=== PATIENT | male | born 1940 | race Two or more races ===

== ENCOUNTER 2018-09-30 20:49 | Inpatient (IN) | payer MEDICAID, OTHER ==
[~2018-09-30] VITALS: Ht 175.3 cm; Wt 88.1 kg
[2018-09-30] MEDS ORDERED: NALOXONE HCL 0.4 MG/ML AMPUL ONE (21:10)
[2018-09-30 21:24] LABS: BASOPHILS % (AUTO) 0.3 % (0.0-2.0); EOSINOPHILS % (AUTO) 3.6 % (0.0-6.0); HEMATOCRIT 41 % (39-51); HEMOGLOBIN 13.3 g/dL (13.5-17.5); LYMPHOCYTES # (AUTO) 1.3 /CMM (0.8-4.8); LYMPHOCYTES % (AUTO) 21.3 % (20.0-44.0); MEAN CORPUSCULAR HGB CONC 32 g/dl (31.0-36.0); MEAN CORPUSCULAR VOLUME 92 fL (80-96); MONOCYTES # (AUTO) 0.5 /CMM (0.1-1.30); MONOCYTES % (AUTO) 7.9 % (2.0-12.0); NEUTROPHILS # (AUTO) 4.1 /CMM (1.8-8.9); NEUTROPHILS % (AUTO) 66.9 % (43.0-81.0); PLATELET COUNT (AUTO) 104 /CMM (150-450); WHITE BLOOD COUNT (AUTO) 6.2 K/uL (4.3-11.0)
[2018-09-30] MEDS ORDERED: OMEP20TA5 PO (21:26)
[2018-09-30] MEDS ORDERED: FAMO20TA8 PO (21:26)
[2018-09-30] MEDS ORDERED: OLAN20TA3 PO (21:26)
[2018-09-30] MEDS ORDERED: ALFU10TA10 PO (21:26)
[2018-09-30] MEDS ORDERED: POTA10CA43 PO (21:26)
[2018-09-30] MEDS ORDERED: METO-356 PO (21:26)
[2018-09-30] MEDS ORDERED: DICL50TA9 PO (21:26)
[2018-09-30] MEDS ORDERED: BENZ2TAB7 PO (21:26)
[2018-09-30] MEDS ORDERED: DIVA-78 PO (21:26)
[2018-09-30] MEDS ORDERED: RISP3TAB14 PO (21:26)
[2018-09-30] MEDS ORDERED: ZOLP5TAB8 PO (21:26)
[2018-09-30] MEDS ORDERED: FURO20TA4 PO (21:26)
[2018-09-30] MEDS ORDERED: TAMS0.4C34 PO (21:26)
[2018-09-30] MEDS ORDERED: DOCU250C88 PO (21:26)
[2018-09-30] MEDS ORDERED: ESCI10TA PO (21:26)
[2018-09-30] MEDS ORDERED: IV NS 0.9% 1,000 ML BAG IV ONE (21:30)
[2018-09-30] MEDS ORDERED: NALOXONE HCL 0.4 MG/ML AMPUL IV ONE (21:30)
[2018-09-30 21:36] LABS: APPEARANCE,URINE Clear (CLEAR); BILIRUBIN,URINE Negative (NEGATIVE); BLOOD, URINE Negative Ery/uL (NEGATIVE); COLOR,URINE Yellow (YELLOW); KETONES,URINE Trace (NEGATIVE); LEUKOCYTE ESTERASE ,URINE Negative (NEGATIVE); NITRITE, URINE Negative (NEGATIVE); PH,URINE 5.5 (5.0-8.0); PROTEIN,URINE Negative (NEGATIVE); UGLUCOSE Negative (NEGATIVE); UROBILINOGEN,URINE 0.2 EU/dL (0.2)
[2018-09-30 21:40] LABS: ALANINE AMINOTRANSFERASE 14 U/L (12-78); ALBUMIN 3.1 g/dL (3.4-5.0); ALKALINE PHOSPHATASE 78 U/L (46-116); ASPARTATE AMINOTRANSFERASE 13 U/L (15-37); BILIRUBIN,DIRECT 0.1 mg/dL (0.0-0.2); BILIRUBIN,TOTAL 0.3 mg/dL (0.2-1.0); CALCIUM, SERUM 8.2 mg/dL (8.5-10.1); CARBON DIOXIDE 30 mmol/L (21-32); CHLORIDE 105 mmol/L (98-107); CREATININE 1.3 mg/dL (0.6-1.3); GLUCOSE 150 mg/dL (74-106); POTASSIUM 4.9 mmol/L (3.5-5.1); SODIUM SERUM 139 mmol/L (136-145); TOTAL PROTEIN, SERUM 7.1 g/dL (6.4-8.2); UREA NITROGEN, BLOOD 29 mg/dL (7-18)
[2018-09-30 21:57] LABS: BACTERIA,URINE None seen /HPF (None Seen); RBC,URINE 0-2 /HPF (0-2); SQUAMOUS EPITHELIAL CELL,UR Few /HPF (None Seen); WBC,URINE 0-2 /HPF (0-3)
[2018-10-01] MEDS ORDERED: IV NS 0.9% 1,000 ML BAG IV ONE
[2018-10-01] MEDS ORDERED: Z GUARD REMEDY 2 OZ OINT TP PRN (01:30)
[2018-10-01] MEDS ORDERED: MAG HYDROX/AL HYDROX/SIMETH 30 ML UDC PO PRN (01:30)
[2018-10-01] MEDS ORDERED: ONDANSETRON HCL/PF 4 MG/2 ML VIAL IVP PRN (01:30)
[2018-10-01] MEDS ORDERED: HYDROCODONE/APAP 5/325MG 1 EACH TABLET PO PRN (01:30)
[2018-10-01] MEDS ORDERED: MAGNESIUM HYDROXIDE 30 ML UDC PO PRN (01:30)
[2018-10-01] MEDS ORDERED: ACETAMINOPHEN 325 MG TABLET PO PRN (01:30)
[2018-10-01] MEDS ORDERED: ZOLPIDEM TARTRATE 5 MG TABLET PO PRN (01:30)
[2018-10-01 03:20] VITALS: BP 119/82
[2018-10-01] MEDS: IV NS 0.9% 1,000 ML IV PRN ×2 (04:00→19:24)
[2018-10-01 08:00] VITALS: BP 112/56
[2018-10-01 16:00] VITALS: BP 115/65
[2018-10-01 20:44] VITALS: BP 113/67
[2018-10-02 06:47] LABS: BASOPHILS % (AUTO) 0.4 % (0.0-2.0); EOSINOPHILS % (AUTO) 3.3 % (0.0-6.0); HEMATOCRIT 38 % (39-51); HEMOGLOBIN 12.5 g/dL (13.5-17.5); LYMPHOCYTES # (AUTO) 1.2 /CMM (0.8-4.8); LYMPHOCYTES % (AUTO) 24.7 % (20.0-44.0); MEAN CORPUSCULAR HGB CONC 33 g/dl (31.0-36.0); MEAN CORPUSCULAR VOLUME 91 fL (80-96); MONOCYTES # (AUTO) 0.5 /CMM (0.1-1.30); MONOCYTES % (AUTO) 10.8 % (2.0-12.0); NEUTROPHILS % (AUTO) 60.8 % (43.0-81.0); PLATELET COUNT (AUTO) 94 /CMM (150-450); RED BLOOD CELL COUNT(AUTO) 4.17 MIL/uL (4.5-6.0)
[2018-10-02 07:12] LABS: ALANINE AMINOTRANSFERASE 13 U/L (12-78); ALBUMIN 2.7 g/dL (3.4-5.0); ALKALINE PHOSPHATASE 72 U/L (46-116); ASPARTATE AMINOTRANSFERASE 14 U/L (15-37); BILIRUBIN,TOTAL 0.4 mg/dL (0.2-1.0); CALCIUM, SERUM 8.6 mg/dL (8.5-10.1); CARBON DIOXIDE 28 mmol/L (21-32); CHLORIDE 107 mmol/L (98-107); CREATININE 0.9 mg/dL (0.6-1.3); GLUCOSE 142 mg/dL (74-106); MAGNESIUM 1.7 mg/dL (1.8-2.4); POTASSIUM 4.7 mmol/L (3.5-5.1); SODIUM SERUM 141 mmol/L (136-145); TOTAL PROTEIN, SERUM 6.2 g/dL (6.4-8.2); UREA NITROGEN, BLOOD 16 mg/dL (7-18)
[2018-10-02 07:14] LABS: CHOLESTEROL 122 mg/dL (<200); HDL CHOLESTEROL 42 mg/dL (40-60); LDL 66 mg/dL (0-99); THYROID STIMULATING HORMONE 3.172 uIU/mL (0.358-3.74); TRIGLYCERIDES 114 mg/dL (30-150)
[2018-10-02 07:43] LABS: EOSINOPHILS % (MANUAL) 4 % (0-4); LYMPHOCYTES % (MANUAL) 20 % (16-48); MONOCYTES % (MANUAL) 11 % (0-11.0); NEUTROPHILS % (MANUAL) 65 (42-76)
[2018-10-02 08:00] VITALS: BP 123/63
[2018-10-02] MEDS: IV NS 0.9% 1,000 ML IV PRN (09:14)
[2018-10-02] MEDS ORDERED: MAGNESIUM OXIDE 400 MG TABLET PO ONE (10:00)
== END 2018-10-02 13:25 | DRG 469 ==
LOC: ER 20:50 → TELE 10-01 00:52 → MED 10-01 12:39
PROVIDERS: ADMIT Nurse Practitioner Acute Care; ATTEND Internal Medicine
DX: N17.0 Acute kidney failure with tubular necrosis (principal); G93.41 Metabolic encephalopathy; E44.0 Moderate protein-calorie malnutrition; E88.09 Other disorders of plasma-protein metabolism, not elsewhere classified; F03.90 Unspecified dementia, unspecified severity, without behavioral disturbance, psychotic disturbance, mood disturbance, and anxiety; I10 Essential (primary) hypertension; F32.9 Major depressive disorder, single episode, unspecified; F29 Unspecified psychosis not due to a substance or known physiological condition; M19.90 Unspecified osteoarthritis, unspecified site; M62.50 Muscle wasting and atrophy, not elsewhere classified, unspecified site; Z68.28 Body mass index [BMI] 28.0-28.9, adult
CPT/HCPCS: 36415; 70450-TC; 71045-TC; 80048-TC; 80053-TC; 80061-TC; 80076-TC; 80305; 81000-TC; 82962-TC; 83605-TC; 83735-TC; 84100-TC; 84443-TC; 84484-TC; 85025-TC; 87040-TC; 87081-TC; 87086-TC; 92611-TC; 93307-TC; 97110-TC; 97116-TC; 97530-TC; G0378; J2310; J7030

== ENCOUNTER 2019-09-18 22:28 | Emergency (ER) | payer MEDICAID ==
[~2019-09-18] VITALS: Ht 170.2 cm; Wt 75.3 kg
[~2019-09-18 22:28] MED LIST: ALFU10TA10 PO; BENZ2TAB7 PO; DICL50TA9 PO; DIVA-78 PO; DOCU250C88 PO; ESCI10TA PO; FAMO20TA8 PO; FURO20TA4 PO; METO25TA4 PO; OLAN20TA3 PO; OMEP20TA5 PO; POTA10CA43 PO; RISP3TAB14 PO; TAMS0.4C34 PO; ZOLP5TAB8 PO
--- NOTE | 2019-09-18 22:38 | NUR ---
PT BIBRA C/O DIZZINESS. -SOB NOTED. -ACUTE DISTRESS. PT AOX2. NAD NOTED. RESP EVEN AND UNLABORED. PT ON MONITOR IN BED 1. WILL CONTINUE TO MONITOR.
[2019-09-18 22:59] LABS: BASOPHILS % (AUTO) 0.6 % (0.0-2.0); EOSINOPHILS % (AUTO) 5.3 % (0.0-6.0); HEMATOCRIT 39 % (39-51); HEMOGLOBIN 12.7 g/dL (13.5-17.5); LYMPHOCYTES # (AUTO) 1.8 /CMM (0.8-4.8); LYMPHOCYTES % (AUTO) 37.8 % (20.0-44.0); MEAN CORPUSCULAR HGB CONC 33 g/dl (31.0-36.0); MEAN CORPUSCULAR VOLUME 93 fL (80-96); MONOCYTES # (AUTO) 0.4 /CMM (0.1-1.30); MONOCYTES % (AUTO) 8.7 % (2.0-12.0); NEUTROPHILS # (AUTO) 2.3 /CMM (1.8-8.9); NEUTROPHILS % (AUTO) 47.6 % (43.0-81.0); PLATELET COUNT (AUTO) 113 /CMM (150-450); WHITE BLOOD COUNT (AUTO) 4.8 K/uL (4.3-11.0)
[2019-09-18] MEDS ORDERED: IV NS 0.9% 500 ML BAG IV ONE (23:00)
[2019-09-18 23:08] LABS: CALCIUM, SERUM 8.6 mg/dL (8.5-10.1); CARBON DIOXIDE 31 mmol/L (21-32); CHLORIDE 104 mmol/L (98-107); CREATININE 1.5 mg/dL (0.6-1.3); GLUCOSE 107 mg/dL (74-106); POTASSIUM 4.8 mmol/L (3.5-5.1); SODIUM SERUM 140 mmol/L (136-145); UREA NITROGEN, BLOOD 46 mg/dL (7-18)
--- NOTE | 2019-09-18 23:09 | NUR ---
BLOOD DRAWN AND GIVEN TO PHLEB
--- NOTE | 2019-09-18 23:11 | NUR ---
BG 102. MD AWARE.
[2019-09-18 23:20] LABS: ALANINE AMINOTRANSFERASE 16 U/L (12-78); ALBUMIN 3.2 g/dL (3.4-5.0); ALKALINE PHOSPHATASE 70 U/L (46-116); ASPARTATE AMINOTRANSFERASE 12 U/L (15-37); B-TYPE NATRIURETIC PEPTIDE 114 PG/ML (0-125); BILIRUBIN,DIRECT 0.1 mg/dL (0.0-0.2); BILIRUBIN,TOTAL 0.3 mg/dL (0.2-1.0); TOTAL PROTEIN, SERUM 6.9 g/dL (6.4-8.2)
--- NOTE | 2019-09-18 23:47 | NUR ---
PT TAKEN TO RADIOLOGY VIA [facility]
--- NOTE | 2019-09-18 23:59 | NUR ---
PT RETURNED FROM RADIOLOGY VIA [facility]
[2019-09-19 01:49] VITALS: BP 127/60
--- NOTE | 2019-09-19 01:50 | NUR ---
Patient is resting comfortably in bed with eyes closed. Easily aroused. VSS.
--- NOTE | 2019-09-19 02:13 | NUR ---
[facility] BED 209-B. LORRAINE BOOTHE WILL TAKE REPORT AT [phone]. WILL CALL BACK FOR ETA.
--- NOTE | 2019-09-19 02:31 | NUR ---
ETA 45 MIN
--- NOTE | 2019-09-19 02:38 | NUR ---
REPORT GIVEN TO LORRAINE BOOTHE FOR YESSI AT [facility]
--- NOTE | 2019-09-19 03:00 | NUR ---
REPORT GIVEN TO TRANSPORT AMBULANCE
== END 2019-09-19 03:02 | disposition short-term general hospital (02) ==
LOC: ER 22:28
DX: R41.82 Altered mental status, unspecified (principal); F03.90 Unspecified dementia, unspecified severity, without behavioral disturbance, psychotic disturbance, mood disturbance, and anxiety; I10 Essential (primary) hypertension; M19.90 Unspecified osteoarthritis, unspecified site; Z79.899 Other long term (current) drug therapy
CPT/HCPCS: 36415; 70450; 71045; 80048; 80076; 82962; 83880; 84484; 85025; 85730; 93005 ×2; 96360; 99285; J7040

== ENCOUNTER 2019-11-28 16:41 | Emergency (ER) | payer MEDICAID ==
[~2019-11-28] VITALS: Ht 167.6 cm; Wt 86.2 kg
--- NOTE | 2019-11-28 16:55 | NUR ---
MANOJ SHAHID FROM [facility] C/O R FOOT SWELLING FOR 5 DAYS, PT IS AAOX3 COLOMBIAN SPEAKING ONLY, NOT IN RESPIRATORY DISTRESS, HOOKED TO SHOELACE TIPPING MACHINE OPERATOR, KEPT RESTED AND COMFORTABLE.
--- NOTE | 2019-11-28 17:12 | NUR ---
AT BEDSIDE FOR EVAL.
--- NOTE | 2019-11-28 17:23 | NUR ---
REPORT GIVEN TO GABE PETERS FOR YESSI
[2019-11-28] MEDS ORDERED: MUPIROCIN OINT 2% 22 GM TUBE TP ONE (17:30)
--- NOTE | 2019-11-28 18:25 | NUR ---
CALLED [facility], STATES WILL CALL BACK WITH ETA FOR BLS TRANSPORT TO [facility]
--- NOTE | 2019-11-28 18:27 | NUR ---
ETA [phone] [facility]
--- NOTE | 2019-11-28 19:14 | NUR ---
received report from day nurse ehsan pt awaiting ambulance
--- NOTE | 2019-11-28 21:00 | NUR ---
CALLED [facility] FOR UPDATE ON TRANSPORTATION. PER [facility] BAR CATCHER, CREW DELAYED 1 HOUR
--- NOTE | 2019-11-28 23:10 | NUR ---
[facility]. ETA 1 HR
--- NOTE | 2019-11-28 23:51 | NUR ---
AMBULANCE HERE FOR BOX OFFICE MANAGER REPORT GIVEN
--- NOTE | 2019-11-28 23:54 | NUR ---
Patient discharged to facility in stable condition. Written and verbal after care instructions given. Patient verbalizes understanding of instruction.
[2019-11-29 00:04] VITALS: BP 119/77
== END 2019-11-29 00:04 ==
LOC: ER 16:54
DX: S90.811A Abrasion, right foot, initial encounter (principal); F03.90 Unspecified dementia, unspecified severity, without behavioral disturbance, psychotic disturbance, mood disturbance, and anxiety; I10 Essential (primary) hypertension; K21.9 Gastro-esophageal reflux disease without esophagitis; Z79.899 Other long term (current) drug therapy; X58.XXXA Exposure to other specified factors, initial encounter; Y93.89 Activity, other specified; Y92.89 Other specified places as the place of occurrence of the external cause; Y99.8 Other external cause status
CPT/HCPCS: 99283; A6403

== ENCOUNTER 2020-01-01 23:44 | Emergency (ER) | payer MEDICAID ==
[~2020-01-01] VITALS: Ht 167.6 cm; Wt 86.2 kg
--- NOTE | 2020-01-01 23:44 | NUR ---
BIBEMS C/O MORE ALTERED THAN NORMAL. PIN POINT PUPILS PER EMS REPORT. GIVEN 4MG NARCAN IVP GIVEN BELT LOOP MACHINE OPERATOR. POSSILBE OD PER EMS REPORT. NOTED ABRASION TO R SIDE OF FOREHEAD. PLACE PT ON CARDIAC MONITORING, CONTINUOUS POX. O2@4L/NC. ER MD AT BEDSIDE TO EVAL PT WITH ORDERS RECEIVED. WILL CARRY OUT ORDERS.
--- NOTE | 2020-01-02 00:04 | NUR ---
DIRECTOR TELECOMMUNICATIONS AT [facility] FOR BLOOD DRAW.
[2020-01-02] MEDS ORDERED: NALOXONE PREFILLED SYRINGE 2 MG/2 ML SYRINGE ONE (00:05)
[2020-01-02] MEDS ORDERED: ONDANSETRON HCL/PF 4 MG/2 ML VIAL ONE (00:06)
--- NOTE | 2020-01-02 00:11 | NUR ---
PT MEDICATED ORDERED.
[2020-01-02 00:22] LABS: BASOPHILS % (AUTO) 0.8 % (0.0-2.0); EOSINOPHILS % (AUTO) 0.3 % (0.0-6.0); HEMATOCRIT 36 % (39-51); HEMOGLOBIN 11.5 g/dL (13.5-17.5); LYMPHOCYTES # (AUTO) 1.1 /CMM (0.8-4.8); LYMPHOCYTES % (AUTO) 21.8 % (20.0-44.0); MEAN CORPUSCULAR HGB CONC 32 g/dl (31.0-36.0); MEAN CORPUSCULAR VOLUME 89 fL (80-96); MONOCYTES # (AUTO) 0.6 /CMM (0.1-1.30); MONOCYTES % (AUTO) 11.5 % (2.0-12.0); NEUTROPHILS # (AUTO) 3.3 /CMM (1.8-8.9); NEUTROPHILS % (AUTO) 65.6 % (43.0-81.0); PLATELET COUNT (AUTO) 96 /CMM (150-450); RED BLOOD CELL COUNT(AUTO) 3.99 MIL/uL (4.5-6.0)
[2020-01-02 00:25] LABS: CALCIUM, SERUM 8.4 mg/dL (8.5-10.1); CARBON DIOXIDE 28 mmol/L (21-32); CHLORIDE 102 mmol/L (98-107); CREATININE 1.6 mg/dL (0.6-1.3); GLUCOSE 179 mg/dL (74-106); POTASSIUM 3.4 mmol/L (3.5-5.1); SODIUM SERUM 137 mmol/L (136-145); UREA NITROGEN, BLOOD 46 mg/dL (7-18)
[2020-01-02] MEDS ORDERED: ONDANSETRON HCL/PF 4 MG/2 ML VIAL IV ONE (00:30)
[2020-01-02] MEDS ORDERED: NALOXONE PREFILLED SYRINGE 2 MG/2 ML SYRINGE IV ONE (00:30)
[2020-01-02 00:31] LABS: ALANINE AMINOTRANSFERASE 6 U/L (12-78); ALBUMIN 2.1 g/dL (3.4-5.0); ALCOHOL, BLOOD < 3 mg/dL (0-0); ALKALINE PHOSPHATASE 62 U/L (46-116); ASPARTATE AMINOTRANSFERASE 15 U/L (15-37); BILIRUBIN,DIRECT 0.1 mg/dL (0.0-0.2); BILIRUBIN,TOTAL 0.3 mg/dL (0.2-1.0); SALICYLATE 1.4 mg/dL (2.8-20.0); TOTAL PROTEIN, SERUM 8.8 g/dL (6.4-8.2)
--- NOTE | 2020-01-02 00:48 | NUR ---
URINE COLLECTED AND SENT TO LAB
[2020-01-02 00:56] LABS: APPEARANCE,URINE Clear (CLEAR); BILIRUBIN,URINE Negative (NEGATIVE); BLOOD, URINE Moderate Ery/uL (NEGATIVE); COLOR,URINE Yellow (YELLOW); KETONES,URINE Negative (NEGATIVE); LEUKOCYTE ESTERASE ,URINE Negative (NEGATIVE); NITRITE, URINE Negative (NEGATIVE); PROTEIN,URINE Negative (NEGATIVE); UGLUCOSE Negative (NEGATIVE)
[2020-01-02 01:06] LABS: BACTERIA,URINE Few /HPF (None Seen); SQUAMOUS EPITHELIAL CELL,UR Rare /HPF (None Seen)
[2020-01-02 01:12] LABS: LYMPHOCYTES % (MANUAL) 18 % (16-48); MONOCYTES % (MANUAL) 7 % (0-11.0); NEUTROPHILS % (MANUAL) 75 (42-76)
--- NOTE | 2020-01-02 03:10 | NUR ---
DR WINTERS AT BEDSIDE
--- NOTE | 2020-01-02 03:11 | NUR ---
PT RESTING COMFORTABLY. SLOWLY RESPONDING TO MECHANICAL STIMULUS. MARGUERITE CUTE DISTRESS NOTED AT THIS TIME. VSS
--- NOTE | 2020-01-02 05:37 | NUR ---
PT RESTING COMFORTABLY. SLOWLY RESPONDING TO MECHANICAL STIMULUS. MARGUERITE CUTE DISTRESS NOTED AT THIS TIME. VSS
--- NOTE | 2020-01-02 07:19 | NUR ---
REPORT GIVEN TO JIMBO HAYNES
--- NOTE | 2020-01-02 07:21 | NUR ---
called transport eta 0815 per reagan
--- NOTE | 2020-01-02 07:36 | NUR ---
Per report from previous RN patient is Dc and going Back to [facility] reportgiven to Facility
--- NOTE | 2020-01-02 07:49 | NUR ---
Patient asleep but arousable vitals taken and filed
[2020-01-02 08:25] VITALS: BP 121/78
--- NOTE | 2020-01-02 08:26 | NUR ---
Patient awake alert to name only [facility] to trasfer patient to facility
[2020-02-11] MEDS ORDERED: AMOX-430 PO (09:25)
== END 2020-01-02 08:26 ==
LOC: ER 23:46
DX: T40.691A Poisoning by other narcotics, accidental (unintentional), initial encounter (principal); R41.82 Altered mental status, unspecified; F03.90 Unspecified dementia, unspecified severity, without behavioral disturbance, psychotic disturbance, mood disturbance, and anxiety; I10 Essential (primary) hypertension; F29 Unspecified psychosis not due to a substance or known physiological condition; K21.9 Gastro-esophageal reflux disease without esophagitis; F32.9 Major depressive disorder, single episode, unspecified; F20.0 Paranoid schizophrenia; Z79.899 Other long term (current) drug therapy; Y92.89 Other specified places as the place of occurrence of the external cause
CPT/HCPCS: 36415; 70450; 71045; 80048; 80076; 80305; 80307; 80329; 81001; 82962; 84484; 85025; 85730; 93005; 96374; 96375; 99285; G0480; J2310; J2405; 81000-TC

== ENCOUNTER 2020-01-02 18:59 | Emergency (ER) | payer MEDICAID ==
[~2020-01-02] VITALS: Ht 167.6 cm; Wt 65.8 kg
--- NOTE | 2020-01-02 19:15 | NUR ---
sent by from SNF for GLF and bilateral hip x-ray, PT AWAKE, ALERT, -SOB, NAD NOTED, VSS, PENDING MD ELLIS
--- NOTE | 2020-01-02 20:55 | NUR ---
[facility] ETA [phone]
[2020-01-02 21:00] VITALS: BP 130/75
--- NOTE | 2020-01-02 21:47 | NUR ---
PT TRANSPORTED BACK TO [facility]; PT IN STABLE CONDITION, VSS, TRANSPORTED VIA [facility] AM[facility]ANCE.
== END 2020-01-02 22:12 ==
LOC: ER 19:06
DX: M25.551 Pain in right hip (principal); M25.552 Pain in left hip; F03.90 Unspecified dementia, unspecified severity, without behavioral disturbance, psychotic disturbance, mood disturbance, and anxiety; I10 Essential (primary) hypertension; K21.9 Gastro-esophageal reflux disease without esophagitis; F32.9 Major depressive disorder, single episode, unspecified; N40.0 Benign prostatic hyperplasia without lower urinary tract symptoms; F20.9 Schizophrenia, unspecified; Z79.899 Other long term (current) drug therapy
CPT/HCPCS: 73502

== ENCOUNTER 2020-01-29 13:06 | Inpatient (IN) | payer MEDICAID ==
[~2020-01-29] VITALS: Ht 177.8 cm; Wt 76.2 kg
--- NOTE | 2020-01-29 13:09 | NUR ---
PT BIBRA FROM SNF C/O FEVER, SOB AND O2 DESATURATION, PT IS AAOX1, NOT IN RESPIRATORY DISTRESS, HOOKED TO ROOF FITTER AND O2 AT 5LPM VIA NC, KEPT RESTED AND COMFORTABLE, WILL CONTINUE TO MONITOR.
--- NOTE | 2020-01-29 13:20 | NUR ---
IV LINE ESTABLISHED BLOOD DRAWN AND SENT TO LAB.
--- NOTE | 2020-01-29 13:25 | NUR ---
URINE SPECIMEN COLLECTED AND SENT TO LAB.
--- NOTE | 2020-01-29 13:40 | NUR ---
AT BEDSIDE FOR EVAL.
[2020-01-29 14:02] LABS: BASOPHILS % (AUTO) 0.3 % (0.0-2.0); HEMATOCRIT 32 % (39-51); HEMOGLOBIN 10.4 g/dL (13.5-17.5); LYMPHOCYTES # (AUTO) 1.2 /CMM (0.8-4.8); LYMPHOCYTES % (AUTO) 38.3 % (20.0-44.0); MEAN CORPUSCULAR HGB CONC 32 g/dl (31.0-36.0); MEAN CORPUSCULAR VOLUME 87 fL (80-96); MONOCYTES # (AUTO) 0.2 /CMM (0.1-1.30); MONOCYTES % (AUTO) 5.6 % (2.0-12.0); NEUTROPHILS # (AUTO) 1.7 /CMM (1.8-8.9); NEUTROPHILS % (AUTO) 55.8 % (43.0-81.0); PLATELET COUNT (AUTO) 118 /CMM (150-450); RED BLOOD CELL COUNT(AUTO) 3.72 MIL/uL (4.5-6.0); WHITE BLOOD COUNT (AUTO) 3.1 K/uL (4.3-11.0)
--- NOTE | 2020-01-29 14:11 | NUR ---
CALLED NURSING SUP FOR TELE.
[2020-01-29 14:12] LABS: CALCIUM, SERUM 7.9 mg/dL (8.5-10.1); POTASSIUM 3.1 mmol/L (3.5-5.1)
--- NOTE | 2020-01-29 14:14 | NUR ---
ROOM GIVEN 120-1
[2020-01-29 14:17] LABS: ALBUMIN 1.5 g/dL (3.4-5.0); BILIRUBIN,DIRECT 0.1 mg/dL (0.0-0.2); BILIRUBIN,TOTAL 0.3 mg/dL (0.2-1.0); TOTAL PROTEIN, SERUM 7.7 g/dL (6.4-8.2)
--- NOTE | 2020-01-29 14:21 | NUR ---
[facility], [facility] [phone]
--- NOTE | 2020-01-29 14:23 | NUR ---
REPORT GIVEN TO LORRAINE SCHMIDT FOR YESSI.
[2020-01-29 14:45] LABS: CREATINE KINASE, TOTAL 159 U/L (39-308)
[2020-01-29] MEDS ORDERED: MAGN400O6 PO (15:11)
[2020-01-29] MEDS ORDERED: BISA10SU61 RC (15:11)
[2020-01-29] MEDS ORDERED: ONDA4TAB5 PO (15:11)
[2020-01-29] MEDS ORDERED: NA P133E RC (15:11)
[2020-01-29] MEDS ORDERED: COGENTIN PO (15:11)
[2020-01-29] MEDS ORDERED: HYDR-4384 PO (15:11)
[2020-01-29 16:00] VITALS: BP 108/52
--- NOTE | 2020-01-29 16:00 | NUR ---
PRINCIPAL ARCHAEOLOGIST NOTES ADMITTED THIS PATIENT FROM ER, DX COVID 19 POSITIVE FROM SNF, BY DR. ONDINA FLORENCE AT BEDSIDE. PATIENT AOX 3, PERIODS OF CONFUSION, ON 5LITERS O2 NASAL CANULA, MILD SOB WHEN TURNING, SINUS RHYTHM, DENIES PAIN, NO GRIMACING, LEFT HAND G 20 AND RIGHT WR G 18 FLUSHES WELL, SITE CLEAR, PLACE DON 2 GM SODIUM PUREED DIET, UNIT ORIENTATION DONE AND USE OF CALL LIGHT, PICTURES OF SKIN ISSUES TAKEN AND PLACED IN CHART. SAFETY MEASURES IN PLACE, HOB ELEVATED, BED LOW LOCKED, SR X 2, WILL MONITOR.
[2020-01-29] MEDS ORDERED: IPRATROPIUM NEB FS 0.5 MG/2.5 ML AMPUL.NEB NEB PRN (17:30)
[2020-01-29] MEDS ORDERED: ALBUTEROL FS 2.5 MG/0.5 ML VIAL.NEB NEB PRN (17:30)
[2020-01-29] MEDS ORDERED: IPRATROPIUM/ALBUTEROL INHALER IH PRN (17:30)
[2020-01-29] MEDS ORDERED: HYDROCODONE/APAP 5/325MG 1 EACH TABLET PO PRN (17:30)
[2020-01-29] MEDS ORDERED: ONDANSETRON HCL/PF 4 MG/2 ML VIAL IVP PRN (17:30)
[2020-01-29] MEDS ORDERED: NA PHOS,M-B/NA PHOS,DI-BA 1 EA ENEMA RC PRN (17:30)
[2020-01-29] MEDS ORDERED: ZOLPIDEM TARTRATE 5 MG TABLET PO PRN (17:30)
[2020-01-29] MEDS ORDERED: BISACODYL SUPP (10 MG) 10 MG/SUPP.RECT SUPP.RECT RC PRN (17:30)
[2020-01-29] MEDS ORDERED: MAGNESIUM HYDROXIDE 30 ML UDC PO PRN (17:30)
[2020-01-29] MEDS ORDERED: AZITHROMYCIN 250 MG TABLET PO SCH (18:00)
[2020-01-29] MEDS: AZITHROMYCIN 250 MG TABLET PO SCH (18:14)
[2020-01-29] MEDS: ENOXAPARIN SODIUM 40 MG/0.4 ML DISP.SYRIN SQ SCH (18:18)
[2020-01-29] MEDS: CEFTRIAXONE 1 G in IV D5W 50 ML IV SCH (18:19)
--- NOTE | 2020-01-29 18:20 | NUR ---
NOTIFIED BERNABE GRISSOM AND NURSING SUP PER DR. HERNANDEZ PT. NEED TO BE UNDER EPIC STARTING IN AM.PER BERNABE SHE WILL REVIEW CHART AND NOTIFIED DR. RIGGINS ONCE CONFIRMED.
--- NOTE | 2020-01-29 19:35 | NUR ---
AUTOMATION SALES MANAGER NOTES PATIENT RECEIVED IN BED RESTING. ALERT AND ORIENTED X 2 -3, PERIOD OF CONFUSION. ON NASAL CANNULA 5L WITH EVEN NON-LABORED BREATHING. NO SIGNS OF RESPIRATORY DISTRESS PRESENT AT THIS TIME. ON SURFBOARD DESIGNER, 90'S. PATIENT SKIN WARM AND DRY. IV ACCESS PATENT AND INTACT. SAFETY PRECAUTIONS IN PLACE WITH BED LOCKED, BED ALARM ON, BILATERAL SIDE RAILS UP, HOB IN SEMI FOWLERS POSITION, AND CALL LIGHT WITHIN EASY REACH OF THE PATIENT. WILL CONTINUE TO MONITOR PATIENT.
--- NOTE | 2020-01-29 19:43 | NUR ---
CORRESPONDENCE SCHOOL TEACHER NOTE ALL NEEDS MET AT THIS TIME. STABLE CONDITION. ENDORSED TO NEXT SHIFT FOR YESSI.
[2020-01-29 20:00] VITALS: BP 115/60
--- NOTE | 2020-01-29 20:00 | NUR ---
QUALITY ASSURANCE TEST PROGRAM MANAGER NOTES [facility] THAT MD CHAITANYA, AWARE OF POTASSIUM LAB 3.1. WILL CONTINUE TO MONITOR PATIENT.
--- NOTE | 2020-01-29 20:05 | NUR ---
PRESS TENDER NOTES PATIENT'S TEMPERATURE 99.7 F. IMPLEMENTED COOLING MEASURES AT THIS TIME, WILL CONTINUE TO MONITOR PATIENT.
[2020-01-29] MEDS: HYDROXYCHLOROQUINE 200 MG TABLET PO SCH (20:29)
[2020-01-29] MEDS: DIVALPROEX SODIUM 500 MG TABLET.DR PO SCH (20:29)
[2020-01-30] VITALS: BP 106/59
[2020-01-30 04:00] VITALS: BP 110/61
--- NOTE | 2020-01-30 06:32 | NUR ---
DIRECTOR OF GOLF NOTES PATIENT IN BED RESTING. ALERT AND ORIENTED X 1. ON NASAL CANNULA, 5L, WITH NON-LABORED BREATHING, AND NO SIGNS OF RESPIRATORY DISTRESS PRESENT, WITH NON-PRODUCTIVE COUGH. ON BARBER SHOP MANAGER, 99 HEART RATE. PATIENT IV ACCESS IN PLACE, PATENT, AND INTACT. SKIN KEPT CLEAN AND DRY. SAFETY PRECAUTIONS IN PLACE WITH HOB IN SEMI-FOWLERS POSITION, BED LOCKED, BED ALARM ON, BILATERAL SIDE RAILS UP, AND CALL LIGHT WITHIN EASY REACH. WILL ENDORSE PLAN OF CARE TO UPCOMING DAYSHIFT NURSE.
[2020-01-30 06:47] VITALS: BP 110/61
[2020-01-30 06:53] LABS: BASOPHILS % (AUTO) 0.2 % (0.0-2.0); HEMATOCRIT 32 % (39-51); HEMOGLOBIN 10.3 g/dL (13.5-17.5); LYMPHOCYTES # (AUTO) 0.8 /CMM (0.8-4.8); MEAN CORPUSCULAR HGB CONC 32 g/dl (31.0-36.0); MEAN CORPUSCULAR VOLUME 87 fL (80-96); MONOCYTES # (AUTO) 0.2 /CMM (0.1-1.30); NEUTROPHILS % (AUTO) 65.8 % (43.0-81.0); PLATELET COUNT (AUTO) 132 /CMM (150-450); RED BLOOD CELL COUNT(AUTO) 3.66 MIL/uL (4.5-6.0)
--- NOTE | 2020-01-30 07:30 | NUR ---
Tele/RN Opening Received patient AO x 1, confused, able to responds all stimuli. Raquel milligan Skin is warm to touch, clean/dry, intact IV site. Respiratory even and unlabored with oxygen n/c at 5 LPM. Keep low position of the bed with elevated HOB for secure airway. Call light within reach, will continue to monitor. Addendum: 01/30/20 at 1209 by KATHYA BARRAZA RN error
--- NOTE | 2020-01-30 07:30 | NUR ---
Tele/RN Opening Received patient AO x 1, confused, able to responds all stimuli. Does no Skin is warm to touch, clean/dry, intact IV site. Respiratory even and unlabored with oxygen n/c at 5 LPM. Keep low position of the bed with elevated HOB for secure airway. Call light within reach, will continue to monitor.
[2020-01-30 07:37] LABS: ALBUMIN 1.5 g/dL (3.4-5.0); BILIRUBIN,TOTAL 0.2 mg/dL (0.2-1.0); CALCIUM, SERUM 8.1 mg/dL (8.5-10.1); CREATININE 0.8 mg/dL (0.6-1.3); POTASSIUM 3.2 mmol/L (3.5-5.1); TOTAL PROTEIN, SERUM 7.9 g/dL (6.4-8.2)
[2020-01-30 08:00] VITALS: BP 107/58
[2020-01-30] MEDS: HYDROXYCHLOROQUINE 200 MG TABLET PO SCH ×2 (08:53→21:22)
[2020-01-30] MEDS: METOPROLOL SUCCINATE 25 MG TAB.SR.24H PO SCH (08:53)
[2020-01-30] MEDS: ENOXAPARIN SODIUM 40 MG/0.4 ML DISP.SYRIN SQ SCH (08:54)
[2020-01-30 10:14] LABS: BAND % (MANUAL) 2 % (0.0-5.0); LYMPHOCYTES % (MANUAL) 24 % (16-48); METAMYELOCYTES % 1 % (0-0); MONOCYTES % (MANUAL) 3 % (0-11.0); MYELOCYTES % 1 % (0-0); NEUTROPHILS % (MANUAL) 69 (42-76)
[2020-01-30] MEDS: POTASSIUM CHLORIDE 20 MEQ TAB.PRT.SR PO SCH ×2 (11:23→12:16)
[2020-01-30 11:56] LABS: IRON, SERUM 22 ug/dl (50-175); TOTAL IRON BINDING CAPACITY 138 ug/dl (250-450)
[2020-01-30 12:00] VITALS: BP 115/48
[2020-01-30] MEDS ORDERED: DIVA500T2 PO (12:40)
[2020-01-30] MEDS ORDERED: CEFU250T85 PO (12:40)
[2020-01-30] MEDS ORDERED: AZIT250T PO (12:40)
[2020-01-30] MEDS ORDERED: Ipratropium/Albuterol Sulfate IH (12:40)
[2020-01-30] MEDS ORDERED: METO25TA4 PO (12:40)
[2020-01-30] MEDS ORDERED: HYDR200T4 PO (12:40)
[2020-01-30] MEDS ORDERED: ENOX40DI SQ (12:40)
[2020-01-30] MEDS ORDERED: POTASSIUM CHLORIDE 20 MEQ TAB.PRT.SR PO SCH (13:00)
[2020-01-30 13:35] LABS: FERRITIN 632 ng/mL (8-388); MAGNESIUM 1.7 mg/dL (1.8-2.4); THYROID STIMULATING HORMONE 1.405 uIU/mL (0.358-3.74)
[2020-01-30 14:54] LABS: C-REACTIVE PROTEIN 15.4 mg/dL (0.0-0.9)
[2020-01-30 16:02] LABS: PHOSPHORUS 2.6 mg/dL (2.5-4.9)
--- NOTE | 2020-01-30 18:44 | NUR ---
Tele/RN Closing Note Patient in bed sleeping comfortably, does no appears pain or any discomfort. Skin is warm to touch, kept clean/dry. Reparatory even and unlabored with oxygen at 5LPM. Kept low position of the bed with elevated HOB for good air way. Spoke with [facility] who looking for response republican due to un able to reach from face sheet. Call light within reach, will endorse digital media planner.
[2020-01-30 20:00] VITALS: BP 114/61
[2020-01-30] MEDS: DIVALPROEX SODIUM 500 MG TABLET.DR PO SCH (21:21)
[2020-01-30] MEDS: CEFTRIAXONE 1 G in IV D5W 50 ML IV SCH (21:21)
[2020-01-30] MEDS: AZITHROMYCIN 250 MG TABLET PO SCH (21:22)
[2020-01-31] VITALS: BP 107/61
[2020-01-31] MEDS: ACETAMINOPHEN 650 MG/20.3 ML UDC PO PRN ×2 (01:01→20:46)
[2020-01-31 04:00] VITALS: BP 113/62
--- NOTE | 2020-01-31 06:35 | NUR ---
DATA MIGRATION CONSULTANT NOTES AWAKE & RESPONSIVE. NOT IN ANY DISTRESS. NO SOB NOTED. DENIES ANY PAIN OR DISCOMFORT AT THIS TIME. ON TELE SR @ 95 WITH IV-HL PATENT & INTACT. CALL LIGHT WITHIN REACH. BED IN LOWEST POSITION. SR UP X 2 WITH BED ALARM ON FOR SAFETY. WILL ENDORSE TO NEXT SHIFT.
[2020-01-31 07:02] LABS: ALBUMIN 1.5 g/dL (3.4-5.0); BILIRUBIN,TOTAL 0.2 mg/dL (0.2-1.0); CREATININE 1.1 mg/dL (0.6-1.3); MAGNESIUM 1.8 mg/dL (1.8-2.4); PHOSPHORUS 2.4 mg/dL (2.5-4.9); POTASSIUM 3.8 mmol/L (3.5-5.1)
--- NOTE | 2020-01-31 07:40 | NUR ---
TELE/RN OPENING NOTES RECEIVED SLEEPING EASILY AROUSABLE & RESPONSIVE. NO APPARENT RESPIRATORY DISTRESS NOTED. DENIES ANY PAIN OR DISCOMFORT AT THIS TIME. ON TELE SR/ST 100. IV-HL PATENT & INTACT. CALL LIGHT WITHIN REACH. BED IN LOWEST POSITION. SR UP X 2 WITH BED ALARM ON FOR SAFETY. WILL CONTINUE TO MONITOR.
[2020-01-31 08:00] VITALS: BP 118/52
[2020-01-31] MEDS: METOPROLOL SUCCINATE 25 MG TAB.SR.24H PO SCH ×2 (08:56→18:30)
[2020-01-31] MEDS: HYDROXYCHLOROQUINE 200 MG TABLET PO SCH (08:56)
[2020-01-31] MEDS: ENOXAPARIN SODIUM 40 MG/0.4 ML DISP.SYRIN SQ SCH (08:59)
--- NOTE | 2020-01-31 10:49 | NUR ---
WOUND CARE CONSULT: REVIEWED CHART, PHOTO DOCUMENTATION AND CHART. SPOKE WITH NURSING STAFF. PER NURSING DOCUMENTATION, PT HAS SACRAL WOUND, PRESENT ON ADMISSION. RECOMMEND SURGICAL CONSULT. DR ESPOSITO NOTIFIED OF CONSULT REQUEST. PT ON ISAURA ISOFLEX LOW AIRLOSS BED. ALL SKIN PROTECTION RECOMMENDATIONS DISCUSSED WITH NURSING STAFF. WILL SEE PRAnthony TYSON IN AGREEMENT WITH PLAN OF CARE.
[2020-01-31] MEDS ORDERED: Z GUARD REMEDY 2 OZ OINT TP PRN (11:00)
[2020-01-31] MEDS ORDERED: K PHOS NEUTRAL 250 MG TABLET PO ONE (11:00)
[2020-01-31] MEDS: Z GUARD REMEDY 2 OZ OINT TP SCH (11:12)
[2020-01-31] MEDS ORDERED: CEFU250T85 PO (12:26)
[2020-01-31] MEDS ORDERED: HYDR200T4 PO (12:26)
[2020-01-31] MEDS: THERAHONEY GEL 1.5 OZ TUBE TP SCH (13:58)
--- NOTE | 2020-01-31 18:14 | NUR ---
TELE/RN NOTES PATIENT HEART RATE IS GOING UP AND HAVING 2 EPISODES OF VTACH LASTED 1 MINUTE HEART RATE 150-160. MD IS AWARE, MADE AN ORDER AND NOTED.
--- NOTE | 2020-01-31 19:05 | NUR ---
TELE/RN CLOSING NOTES PATIENT IS ALER AND ORIENTED X 1. NO APPARENT RESPIRATORY DISTRESS NOTED. DENIES ANY PAIN OR DISCOMFORT AT THIS TIME. ON TELE ST 111. IV-HL PATENT & INTACT. SEEN AND EXAMINED BY MD WITH ORDERS MADE AND NOTED. ALL DUE MEDS WAS GIVEN. IV ACCESS AT LEFT HAND #20G AND RIGHT WRIST #18G PATENT AND INTACT. KEPT PATIENT CLEAN AND DRY THE WHOLE SHIFT. CHECKED AND REPOSITION PATIENT EVERY 2 HOURS. BED IN LOWEST POSITION AND LOCKED. SIDE RAILS UP X2. CALL LIGHT WITHIN REACH. WILL ENDORSE TO CHARTER DRIVER FOR YESSI.
--- NOTE | 2020-01-31 19:15 | NUR ---
BUTTON SPINDLER NOTES RECEIVED PT IN BED AND AWAKE. PT A/O X1 AND ARMENIAN SPEAKING. RESPIRATIONS EVEN AND UNLABORED WITH NO S/S OF ACUTE DISTRESS OR SOB NOTED. NO COMPLAINTS OF PAIN AT THIS TIME. PT WITH IV ACCESS AT LEFT HAND #20G AND RIGHT WRIST #18G PATENT AND INTACT. SAFETY MEASURES IN PLACE WITH BED IN LOWEST LOCKED POSITION WITH SIDE RAILS UP X2. CALL LIGHT WITHIN REACH. WILL CONTINUE TO MONITOR.
[2020-01-31] MEDS: AZITHROMYCIN 250 MG TABLET PO SCH (20:46)
[2020-01-31] MEDS: DIVALPROEX SODIUM 500 MG TABLET.DR PO SCH (20:46)
[2020-01-31] MEDS: CEFTRIAXONE 1 G in IV D5W 50 ML IV SCH (20:46)
[2020-02-01 07:02] LABS: BASOPHILS % (AUTO) 0.3 % (0.0-2.0); EOSINOPHILS % (AUTO) 0.1 % (0.0-6.0); HEMATOCRIT 31 % (39-51); HEMOGLOBIN 10.5 g/dL (13.5-17.5); LYMPHOCYTES # (AUTO) 0.6 /CMM (0.8-4.8); LYMPHOCYTES % (AUTO) 21.2 % (20.0-44.0); MEAN CORPUSCULAR HGB CONC 34 g/dl (31.0-36.0); MEAN CORPUSCULAR VOLUME 90 fL (80-96); MONOCYTES # (AUTO) 0.2 /CMM (0.1-1.30); MONOCYTES % (AUTO) 5.6 % (2.0-12.0); NEUTROPHILS # (AUTO) 2.2 /CMM (1.8-8.9); NEUTROPHILS % (AUTO) 72.8 % (43.0-81.0); PLATELET COUNT (AUTO) 213 /CMM (150-450); RED BLOOD CELL COUNT(AUTO) 3.46 MIL/uL (4.5-6.0)
[2020-02-01 07:22] LABS: ALBUMIN 1.5 g/dL (3.4-5.0); BILIRUBIN,TOTAL 0.3 mg/dL (0.2-1.0); CALCIUM, SERUM 8.3 mg/dL (8.5-10.1); CREATININE 0.9 mg/dL (0.6-1.3); MAGNESIUM 1.8 mg/dL (1.8-2.4); PHOSPHORUS 2.9 mg/dL (2.5-4.9); POTASSIUM 4.1 mmol/L (3.5-5.1); TOTAL PROTEIN, SERUM 8.2 g/dL (6.4-8.2)
--- NOTE | 2020-02-01 07:23 | NUR ---
PHYSICIAN NOTES PT IN BED AND AWAKE. PT A/O X1 AND GHANAIAN SPEAKING. RESPIRATIONS EVEN AND UNLABORED WITH NO S/S OF ACUTE DISTRESS OR SOB NOTED THROUGHOUT SHIFT. NO COMPLAINTS OF PAIN AT THIS TIME. PT WITH IV ACCESS AT LEFT HAND #20G AND RIGHT WRIST #18G PATENT AND INTACT. PT KEPT CLEAN, DRY, AND COMFORTABLE. SAFETY MEASURES IN PLACE WITH BED IN LOWEST LOCKED POSITION WITH SIDE RAILS UP X2. CALL LIGHT WITHIN REACH. WILL ENDORSE TO ONCOMING NURSE FOR YESSI.
--- NOTE | 2020-02-01 07:35 | NUR ---
RN NOTES RECEIVED PATIENT IN BED RESTING COMFORTABLY IN MODERATE HIGH BACK REST. A/O X1 AND ESTONIAN SPEAKING. NO S/S OF ACUTE DISTRESS OR SOB NOTED AT THIS TIME. IV ACCESS AT LEFT HAND #20G AND RIGHT WRIST #18G PATENT AND INTACT. SAFETY MEASURES IN PLACE WITH BED IN LOWEST LOCKED POSITION WITH SIDE RAILS UP X2. CALL LIGHT WITHIN REACH. WILL CONTINUE TO MONITOR.
[2020-02-01 08:00] VITALS: BP 117/60
[2020-02-01] MEDS: METOPROLOL SUCCINATE 25 MG TAB.SR.24H PO SCH (08:45)
[2020-02-01] MEDS: THERAHONEY GEL 1.5 OZ TUBE TP SCH (08:46)
[2020-02-01] MEDS: Z GUARD REMEDY 2 OZ OINT TP SCH (08:47)
[2020-02-01] MEDS: ENOXAPARIN SODIUM 40 MG/0.4 ML DISP.SYRIN SQ SCH (08:49)
--- NOTE | 2020-02-01 09:23 | NUR ---
INFORMATION SENT:FACESHEET, PROGRESS NOTES 01/30, 24HRS REPORT,UR 01/30.PS FORM [facility]ED [phone] FAX SENT BY YAYO
[2020-02-01] MEDS: METOPROLOL TARTRATE 50 MG TABLET PO SCH ×2 (10:00→20:58)
[2020-02-01] MEDS: ACETAMINOPHEN 650 MG/20.3 ML UDC PO PRN (17:04)
--- NOTE | 2020-02-01 19:05 | NUR ---
RN NOTES PATIENT IN BED RESTING COMFORTABLY IN MODERATE HIGH BACK REST. A/O X1 AND PORTUGUESE SPEAKING. NO S/S OF ACUTE DISTRESS OR SOB NOTED THROUGHOUT THE SHIFT. IV ACCESS AT LEFT HAND #20G AND RIGHT WRIST #18G PATENT AND INTACT. SAFETY MEASURES IN PLACE WITH BED IN LOWEST LOCKED POSITION WITH SIDE RAILS UP X2. CALL LIGHT WITHIN REACH. WILL ENDORSE TO TUBE DRAWING SUPERVISOR NURSE FOR YESSI.
--- NOTE | 2020-02-01 19:20 | NUR ---
RN OPENING NOTES RECEIVED PATIENT RESTING IN BED, EASILY AROUSABLE. A/OX1. NO SIGNS OF DISTRESS OR DISCOMFORT. BREATHING EVEN AND UNLABORED. ON 5LPM 02 VIA NC. ON TELE MONITORING WITH SR 73 NOTED. IV ACCESS IN R WRIST AND R HAND, PATENT AND INTACT, NO SIGNS OF REDNESS OR INFILTRATION. BED IN LOW LOCKED POSITION WITH SIDE RAILS X3 HOB ELEVATED. CALL LIGHT WITHIN REACH. WILL CONTINUE TO MONITOR.
[2020-02-01 20:00] VITALS: BP 112/46
[2020-02-01] MEDS: DIVALPROEX SODIUM 500 MG TABLET.DR PO SCH (20:58)
[2020-02-02] VITALS (8 sets, daily range): BP systolic 118–128; BP diastolic 49–73
[2020-02-02] MEDS: ACETAMINOPHEN 650 MG/20.3 ML UDC PO PRN ×2 (02:45→16:28)
--- NOTE | 2020-02-02 06:31 | NUR ---
RN CLOSING NOTES PATIENT RESTING IN BED, EASILY AROUSABLE. A/OX1. NO SIGNS OF DISTRESS OR DISCOMFORT. BREATHING EVEN AND UNLABORED. ON 5LPM 02 VIA NC. ON TELE MONITORING WITH SR 91 NOTED. IV ACCESS IN R WRIST AND R HAND, PATENT AND INTACT, NO SIGNS OF REDNESS OR INFILTRATION. ALL NEEDS MET. NO SIGNIFICANT CHANGES THROUGH THE NIGHT. PATIENT KEPT CLEAN DRY AND COMFORTABLE. REPOSITIONED Q2H AND PRN. BED IN LOW LOCKED POSITION WITH SIDE RAILS X3 HOB ELEVATED. CALL LIGHT WITHIN REACH. WILL ENDORSE TO AM SHIFT FOR YESSI.....
[2020-02-02 06:38] LABS: BASOPHILS % (AUTO) 0.4 % (0.0-2.0); HEMATOCRIT 33 % (39-51); HEMOGLOBIN 10.6 g/dL (13.5-17.5); LYMPHOCYTES # (AUTO) 0.8 /CMM (0.8-4.8); LYMPHOCYTES % (AUTO) 19.3 % (20.0-44.0); MEAN CORPUSCULAR HGB CONC 32 g/dl (31.0-36.0); MEAN CORPUSCULAR VOLUME 89 fL (80-96); MONOCYTES # (AUTO) 0.3 /CMM (0.1-1.30); MONOCYTES % (AUTO) 5.8 % (2.0-12.0); NEUTROPHILS # (AUTO) 3.2 /CMM (1.8-8.9); NEUTROPHILS % (AUTO) 74.5 % (43.0-81.0); PLATELET COUNT (AUTO) 221 /CMM (150-450); RED BLOOD CELL COUNT(AUTO) 3.71 MIL/uL (4.5-6.0); WHITE BLOOD COUNT (AUTO) 4.3 K/uL (4.3-11.0)
[2020-02-02 06:53] LABS: CALCIUM, SERUM 7.9 mg/dL (8.5-10.1); CREATININE 0.8 mg/dL (0.6-1.3); MAGNESIUM 1.8 mg/dL (1.8-2.4); POTASSIUM 3.6 mmol/L (3.5-5.1)
[2020-02-02 07:59] LABS: C-REACTIVE PROTEIN 22.4 mg/dL (0.0-0.9)
--- NOTE | 2020-02-02 08:00 | NUR ---
RN OPENING NOTES PATIENT RECEIVED COMFORTABLY LAYING ON THE BED. THERE IS NO S/S OF DISTRESS, UNLABORED BREATHING, PT IS ON 5 L O2 VIA NC.PT IS A/OX2,PT IS ON TELE MONITOR HR 95 SR. PT HAS SACRAL WOUND ASSIST TURNING AND REPOSITIONING Q2H ,PT HAS IV ON R WRIST 18 G AND R HAND 22 PATENT AND INTACT. ADMINISTERED SCHEDULED MEDICATIONS. TOTAL ASSIST FEEDING 50%.SAFETY MEASURES ARE IMPLEMENTED CALL LIGHT IN RICH, BED AT LOWEST POSITION, SIDE RAILESX2 UP.
[2020-02-02] MEDS: ENOXAPARIN SODIUM 40 MG/0.4 ML DISP.SYRIN SQ SCH (08:39)
[2020-02-02] MEDS: METOPROLOL TARTRATE 50 MG TABLET PO SCH ×2 (08:41→20:26)
[2020-02-02] MEDS: Z GUARD REMEDY 2 OZ OINT TP SCH (08:43)
[2020-02-02] MEDS: THERAHONEY GEL 1.5 OZ TUBE TP SCH (08:43)
--- NOTE | 2020-02-02 12:00 | NUR ---
rn notes PATIENT TOLERATED LUNCH 40% WITH IT SUPPORT CONSULTANT, SHAKING HANDS BECAUSE OF PARKINSONISM, ASSIST TURN AND REPOSTION Q 2 HR, V/S WNL, O2-92 -4.0L NC.
[2020-02-02] MEDS ORDERED: FEE PK DOSING 1 MIN EA MC ONE (14:46)
[2020-02-02] MEDS: VANCOMYCIN 1 GM in IV D5W 250 ML IV SCH (16:28)
--- NOTE | 2020-02-02 16:28 | NUR ---
RN NOTES ADMINISTERED TYLENOL 650 MG PO PRN FOR T-101, AND COOLING MEASURE.
--- NOTE | 2020-02-02 18:30 | NUR ---
RN NOTES T-98.8 TAKEN ORALE, PATIENT EAT DINNER 15%, DRINK 800 ML OF WATER IN THE SHIFT , INFUSING VANCOMYCIN 250 ML/HR ON RIGHT WRIST INTACT, ASSIST TURN AND REPOSTION Q2 HR. NEEDS ATTENDED AND ANTICIPATED, CALL LIGHT WITHIN TO REACH. ENDORSED ONCOMING NURSE FOLLOW PLAN OF CARE.
--- NOTE | 2020-02-02 19:45 | NUR ---
CREW MEMBER OPENING NOTES RECEIVED PATIENT FROM MORNING SIFT, ALERT AND ORIENTED X 1. VERBALLY RESPONSIVE UKRAINIAN SPEAKING. BREATHING REGULAR AND UNLABORED ON OXYGEN AT 5L/MIN VIA NASAL CANNULA. RIGHT WRIST G18 AND LEFT HAND G22 IV LINES INTACT AND PATENT, FLUSHING WELL WITH NO BLEEDING OR S/S OF INFILTRATION OBSERVED. ON CARDIAC MONITORING WITH SINUS RHYTHM AT 84bpm. NO S/S OF PAIN/DISCOMFORT NOTED AT THIS TIME. BED LOW AND LOCKED ON SEMI FOWLERS POSITION, CALL LIGHT IN REACH. WILL CONTINUE TO MONITOR.
[2020-02-02] MEDS: DIVALPROEX SODIUM 500 MG TABLET.DR PO SCH (20:27)
--- NOTE | 2020-02-02 23:30 | NUR ---
DIRECTOR OF DIRECT MARKETING NOTES ON-GOING WOUND TREATMENTS PROVIDED, WEEKLY PHOTO OF WOUNDS DONE. ATTACHED TO CHART. REPOSITIONING EVERY 2HRS AND NEEDED.
[2020-02-03] VITALS (7 sets, daily range): BP systolic 97–127; BP diastolic 55–76
[2020-02-03] MEDS: VANCOMYCIN 1 GM in IV D5W 250 ML IV SCH (03:15)
--- NOTE | 2020-02-03 04:00 | NUR ---
ORACLE E BUSINESS DEVELOPER NOTES NOTED WITH BODY TEMP. OF 99.1 AND SPO2 90%, COOLING MEASURES PROVIDED, REPOSITIONED. HEAD OF THE BED KEPT ELEVATED; OXYGEN AT 5L/MIN VIA NASAL CANNULA. SPO3 INCREASED TO 93% AFTER 3MINS. WILL CONTINUE TO MONITOR.
--- NOTE | 2020-02-03 05:00 | NUR ---
STEWARDING SUPERVISOR NOTES BODY TEMPERATURE 98.5
--- NOTE | 2020-02-03 06:30 | NUR ---
SPINNING FRAME FIXER CLOSING NOTES PATIENT IN BED ALERT AND ORIENTED X 2. AFEBRILE WITH NO S/SOF DISTRESS OBSERVED. RIGHT WRIST G18 AND LEFT HAND G22 IV LINES PATENT AND FLUSHING WELL. MAINTAINED ON CARDIAC MONITORING WITH SINUS RHYTHM AT 88bpm. NO COMPLAINTS OF PAIN/DISCOMFORT REPORTED THE WHOLE SHIFT. BED LOW AND LOCKED ON SEMI FOWLERS POSITION, CALL LIGHT IN REACH. WILL ENDORSE TO MORNING SHIFT FOR YESSI.
[2020-02-03 06:33] LABS: CALCIUM, SERUM 7.8 mg/dL (8.5-10.1); CREATININE 0.8 mg/dL (0.6-1.3); POTASSIUM 3.6 mmol/L (3.5-5.1)
[2020-02-03 07:21] LABS: C-REACTIVE PROTEIN 21.9 mg/dL (0.0-0.9)
--- NOTE | 2020-02-03 07:30 | NUR ---
Tele/RN Opening Note Received patient AO X 2, able to responds all stimuli, does no c/o pain or any discomfort, skin is warm to touch, kept clean/dry. Respiratory even and unlabored on oxygen at 5LPM with n/c, noticed coughing occasionally. Keep low position of the bed with locked wheel and elevated head of bed for secure air way. Encouraged pt to intake oral fluid as tolerated. Call light within reach, will continue to monitor.
[2020-02-03 09:03] LABS: BASOPHILS % (AUTO) 0.7 % (0.0-2.0); EOSINOPHILS % (AUTO) 0.1 % (0.0-6.0); HEMATOCRIT 31 % (39-51); HEMOGLOBIN 10.1 g/dL (13.5-17.5); LYMPHOCYTES # (AUTO) 0.9 /CMM (0.8-4.8); LYMPHOCYTES % (AUTO) 20.2 % (20.0-44.0); MEAN CORPUSCULAR HGB CONC 33 g/dl (31.0-36.0); MEAN CORPUSCULAR VOLUME 92 fL (80-96); MONOCYTES # (AUTO) 0.3 /CMM (0.1-1.30); MONOCYTES % (AUTO) 6.2 % (2.0-12.0); NEUTROPHILS # (AUTO) 3.2 /CMM (1.8-8.9); NEUTROPHILS % (AUTO) 72.8 % (43.0-81.0); PLATELET COUNT (AUTO) 257 /CMM (150-450); RED BLOOD CELL COUNT(AUTO) 3.39 MIL/uL (4.5-6.0); WHITE BLOOD COUNT (AUTO) 4.4 K/uL (4.3-11.0)
[2020-02-03] MEDS: METOPROLOL TARTRATE 50 MG TABLET PO SCH ×2 (09:13→21:00)
[2020-02-03] MEDS: ENOXAPARIN SODIUM 40 MG/0.4 ML DISP.SYRIN SQ SCH (09:15)
[2020-02-03] MEDS: Z GUARD REMEDY 2 OZ OINT TP SCH (09:17)
[2020-02-03] MEDS: THERAHONEY GEL 1.5 OZ TUBE TP SCH (09:17)
[2020-02-03 10:48] LABS: BAND % (MANUAL) 6 % (0.0-5.0); LYMPHOCYTES % (MANUAL) 17 % (16-48); MONOCYTES % (MANUAL) 7 % (0-11.0); NEUTROPHILS % (MANUAL) 70 (42-76)
--- NOTE | 2020-02-03 15:28 | NUR ---
Patient noticed increased HR 208 and now back to normal HR, informed Dr. Piper, received order Xanax 0.25mg q 6 hours prn. Noted and carry out.
[2020-02-03] MEDS ORDERED: ALPRAZOLAM 0.25 MG TABLET PO PRN (16:00)
[2020-02-03] MEDS: ACETAMINOPHEN 650 MG/20.3 ML UDC PO PRN (17:17)
[2020-02-03] MEDS: DAKINS QUARTER STRENGTH (0.125%) 480 ML BOTTLE TOP SCH (18:19)
--- NOTE | 2020-02-03 18:30 | NUR ---
Tele/RN Closing note Patient in bed, AO X 1-2, able to responds all stimuli. Does no appears pain or any discomfort, skin is warm to touch, kept clean/dry. Provided dressing change on sacral. Respiratory even and unlabored on oxygen at 5LPM with n/c and patient tolerated, still noticed cough occasionally. Keep low position of the bed with locked wheel and elevated head of bed for secure air way. Encouraged pt to oral intake as tolerated. Call light within reach, will endorse to [facility] shift lead.
--- NOTE | 2020-02-03 21:15 | NUR ---
bullet swaging machine operator notes Received Pt from TJ.
--- NOTE | 2020-02-03 21:20 | NUR ---
make up operator helper opening notes Pt is resting in bed comfortably. Pt is alert and orientedX2. Pt speaks Frisian and able to make needs known. Respiration is normal and unlabored. Tele monitor showed SR hr at 95. IV sites at R wrist# 18 is clean, intact and patent. IV sites at R hand #22 is clean, intact, patent and SL. Droplet and airborne precautions are maintained. Safety precautions is maintained. Bed at low position, brakes locked, bed alarm is on, side rails upX2 and call light is within reach. Will continue to monitor.
[2020-02-03] MEDS: DIVALPROEX SODIUM 500 MG TABLET.DR PO SCH (21:44)
[2020-02-04] VITALS (7 sets, daily range): BP systolic 101–113; BP diastolic 59–71
--- NOTE | 2020-02-04 07:00 | NUR ---
fiberglass autobody repairer closing notes Pt is sleeping in bed comfortably. Pt is alert and orientedX2. Pt speaks Kinyarwanda and able to make needs known. Respiration is normal and unlabored. Tele monitor showed SR/ST hr at 99. VS is stable. Routine meds were given as ordered. IV sites at R wrist# 18 is clean, intact and patent. IV sites at R hand #22 is clean, intact, patent and SL. Kept Pt clean, dry and comfortable. All needs met and attended. Droplet and airborne precautions are maintained. Safety precautions is maintained. Bed at low position, brakes locked, bed alarm is on, side rails upX3 padded and call light is within reach. Will endorse to morning nurse for YESSI.
--- NOTE | 2020-02-04 08:00 | NUR ---
VOICE STUDIES DIRECTOR NOTES PATIENT IN BED RESTING NO SOB OR ACUTE DISTRESS NOTED. PATIENT ALERT, ORIENTED X2. DENIES ANY PAIN. BED IN LOW LOCKED POSITION. CALL LIGHT WITHIN REACH. WILL CONTINUE TO MONITOR
[2020-02-04 08:22] LABS: CALCIUM, SERUM 7.9 mg/dL (8.5-10.1); CREATININE 0.7 mg/dL (0.6-1.3); POTASSIUM 3.4 mmol/L (3.5-5.1)
[2020-02-04] MEDS ORDERED: POTASSIUM CHLORIDE 20 MEQ TAB.PRT.SR PO ONE (09:00)
[2020-02-04] MEDS: METOPROLOL TARTRATE 50 MG TABLET PO SCH ×2 (09:07→21:00)
[2020-02-04] MEDS: ENOXAPARIN SODIUM 40 MG/0.4 ML DISP.SYRIN SQ SCH (09:09)
[2020-02-04] MEDS: THERAHONEY GEL 1.5 OZ TUBE TP SCH (09:22)
[2020-02-04] MEDS: Z GUARD REMEDY 2 OZ OINT TP SCH (09:22)
[2020-02-04] MEDS: DAKINS QUARTER STRENGTH (0.125%) 480 ML BOTTLE TOP SCH (09:22)
[2020-02-04] MEDS: PROSOURCE / PROSTAT (PYXIS) 30 ML UDC PO SCH ×3 (13:00→21:00)
--- NOTE | 2020-02-04 19:03 | NUR ---
AGRICULTURE ENGINEER NOTES PATIENT IN BED RESTING NO SOB OR ACUTE DISTRESS NOTED. PATIENT RESTING IN BED. NO ACUTE CHANGES NOTED DURING SHIFT. WILL ENDORSE CARE TO PM SHIFT.
--- NOTE | 2020-02-04 19:26 | NUR ---
KITCHEN SUPERVISOR NOTES PATIENT IN BED, ALERT AND ORIENTED X 2. BREATHING EVEN AND UNLABORED ON NC 3L. SHOWS NO SIGNS OF ACUTE RESPIRATORY DISTRESS. NO ACUTE PAIN. TELE MONITOR SR/ST. IV ON R HAND 22G AND R WRIST 18 SL. SHOWS NO SIGNS OF INFILTRATION, NO REDNESS. SAFETY PRECAUTIONS IN PLACE. BED IN LOWEST POSITION, LOCKED, AND CALL LIGHT KEPT WITHIN REACH. WILL CONTINUE TO MONITOR.
[2020-02-04] MEDS: DIVALPROEX SODIUM 500 MG TABLET.DR PO SCH (21:17)
[2020-02-05] VITALS (7 sets, daily range): BP systolic 104–120; BP diastolic 52–89
--- NOTE | 2020-02-05 06:41 | NUR ---
SOFTWARE SECURITY CONSULTANT NOTES PATIENT IN BED, ASLEEP, ALERT AND ORIENTED X 2. BREATHING EVEN AND UNLABORED ON NC 3L. SHOWS NO SIGNS OF ACUTE RESPIRATORY DISTRESS. NO ACUTE PAIN. TELE MONITOR SR/ST. IV ON R HAND 22G AND R WRIST 18 SL. SHOWS NO SIGNS OF INFILTRATION, NO REDNESS. ALL DUE MEDICATIONS GIVEN. SAFETY PRECAUTIONS IN PLACE. BED IN LOWEST POSITION, LOCKED, AND CALL LIGHT KEPT WITHIN REACH. WILL ENDORSE TO ONCOMING NURSE.
[2020-02-05 06:54] LABS: CALCIUM, SERUM 8.3 mg/dL (8.5-10.1); CREATININE 0.7 mg/dL (0.6-1.3); POTASSIUM 4.1 mmol/L (3.5-5.1)
--- NOTE | 2020-02-05 07:03 | NUR ---
SLAG PRODUCTION WORKER OPENING NOTES RECEIVED PT IN BED AWAKE AT THIS TIME, AO X 2. NO SOB NOTED AT THIS TIME. BREATHING EVEN AND UNLABORED PT ON NC 3L. SHOWS NO SIGNS OF ACUTE RESPIRATORY DISTRESS. NO ACUTE PAIN. TELE MONITOR SR/ST 105. IV ON R HAND 22G AND R WRIST 18 SL BOTH INTACT AND PATENT. SHOWS NO SIGNS OF INFILTRATION, NO REDNESS. SAFETY PRECAUTIONS IN PLACE. BED IN LOWEST LOCKED POSITION, BED ALARM ON, SIDE RAILS UP, AND CALL LIGHT KEPT WITHIN REACH. WILL CONTINUE TO MONITOR.
[2020-02-05] MEDS: ENOXAPARIN SODIUM 40 MG/0.4 ML DISP.SYRIN SQ SCH (08:38)
[2020-02-05] MEDS: PROSOURCE / PROSTAT (PYXIS) 30 ML UDC PO SCH ×4 (08:47→20:41)
[2020-02-05] MEDS: METOPROLOL TARTRATE 50 MG TABLET PO SCH ×2 (08:48→20:42)
[2020-02-05] MEDS: Z GUARD REMEDY 2 OZ OINT TP SCH (08:49)
[2020-02-05] MEDS: THERAHONEY GEL 1.5 OZ TUBE TP SCH (08:50)
[2020-02-05] MEDS: DAKINS QUARTER STRENGTH (0.125%) 480 ML BOTTLE TOP SCH (08:51)
[2020-02-05] MEDS: ACETAMINOPHEN 650 MG/20.3 ML UDC PO PRN (17:19)
--- NOTE | 2020-02-05 17:20 | NUR ---
PT HAVING TEMP OF 101.2, COOLING MEASURES IN PLACE, ICE PACK PLACE UNDER ARMS, SHEETS REMOVED. TYLENOL 650MG PO PRN ADMINISTERED.
--- NOTE | 2020-02-05 18:49 | NUR ---
SPINNING AND WINDING SUPERVISOR CLOSING NOTES PT IN BED AWAKE AT THIS TIME, AO X 2. NO SOB NOTED. NO S/S OF ANY ACUTE DISTRESS. PT REMAINED STABLE THROUGHOUT SHIFT. BREATHING EVEN AND UNLABORED. SAFETY PRECAUTIONS IN PLACE. PT KEPT CLEAN AND DRY, ALL NEEDS ATTENDED TO ANTICIPATED. WOUND DRESSING DONE. BED IN LOWEST LOCKED POSITION, BED ALARM ON, SIDE RAILS UP, AND CALL LIGHT KEPT WITHIN REACH. WILL ENDORSE TO NIGHT NURSE FOR YESSI.
--- NOTE | 2020-02-05 19:00 | NUR ---
TEMPT RECH Addendum: 02/05/20 at 1901 by MICHAEL LUGO RN PT'S TEMP RECHECKED AND NOW IS 98.9
--- NOTE | 2020-02-05 19:40 | NUR ---
CLOTH NAPPING SUPERVISOR OPENING NOTES PATIENT SLEEPING IN BED, EASY TO AWAKEN. A/OX2. ON 3L NC. NO S/S OF ACUTE RESPIRATORY DISTRESS OR PAIN NOTED. TELE MONITOR READING NSR, HEART RATE 96. IV PRESENT ON RIGHT WRIST, SIZE 18 AND RIGHT HAND, SIZE 22; BOTH INTACT, PATENT, AND HEP LOCKED. CONTACT AND DROPLET PRECAUTIONS IN PLACE FOR POSITIVE COVID 19. SAFETY MEASURES IN PLACE AND PATIENT'S NEEDS MET. BED LOCKED, ALARM ON, SIDE RAILS X2, CALL LIGHT WITHIN REACH. WILL CONTINUE TO MONITOR.
[2020-02-05] MEDS: DIVALPROEX SODIUM 500 MG TABLET.DR PO SCH (20:41)
[2020-02-06] VITALS (9 sets, daily range): BP systolic 98–134; BP diastolic 52–77
[2020-02-06] MEDS: ACETAMINOPHEN 650 MG/20.3 ML UDC PO PRN ×2 (03:45→16:55)
--- NOTE | 2020-02-06 03:45 | NUR ---
FEED ADVISER NOTES PATIENT'S TEMP 102.3. COOLING MEASURES APPLIED AND PRN 650 MG TYLENOL GIVEN. VITAL SIGNS - BP: 134/62 HR: 110 RR: 25 SPO2: 91. WILL CONTINUE TO MONITOR.
--- NOTE | 2020-02-06 05:05 | NUR ---
INSTRUMENTATION TECHNICIAN NOTES PATIENT'S TEMP 99.9
--- NOTE | 2020-02-06 06:38 | NUR ---
TRAVELING CONSTRUCTION SUPERINTENDENT NOTES PATIENT'S TEMP 98.4
--- NOTE | 2020-02-06 07:08 | NUR ---
DESIGNER CLOSING NOTES PATIENT SLEEPING IN BED, EASY TO AWAKEN. A/OX2. ON 3L NC. NO S/S OF ACUTE RESPIRATORY DISTRESS OR PAIN NOTED. TELE MONITOR READING NSR, HEART RATE 84. IV PRESENT ON RIGHT WRIST, SIZE 18 AND RIGHT HAND, SIZE 22; BOTH INTACT, PATENT, AND HEP LOCKED. CONTACT AND DROPLET PRECAUTIONS REMAIN IN PLACE FOR POSITIVE COVID 19. SAFETY MEASURES IN PLACE AND PATIENT'S NEEDS MET. BED LOCKED, ALARM ON, SIDE RAILS X2, CALL LIGHT WITHIN REACH. WILL ENDORSE TO DAY SHIFT NURSE PLAN OF CARE.
--- NOTE | 2020-02-06 08:00 | NUR ---
MECHANICAL SPREADER OPERATOR OPENING NOTES Received Patient resting in bed. A/O x 2, Divehi speaking. VS stable with no acute distress. Breathing even and unlabored on 5LPM via NC with no respiratory distress. Denies pain. No signs and symptoms of pain. Telemonitor in place and patent reading SR with HR-79. 18g PIV on right wrist clean, intact, patent and flushing well. Isolation precautions in place. Safety precautions in place. Bed locked and set to lowest position with side rails x 2 up. All needs rendered at this time. Call light within reach. Will continue to monitor.
[2020-02-06 08:07] LABS: BASOPHILS % (AUTO) 0.1 % (0.0-2.0); HEMATOCRIT 30 % (39-51); HEMOGLOBIN 9.9 g/dL (13.5-17.5); LYMPHOCYTES # (AUTO) 0.9 /CMM (0.8-4.8); LYMPHOCYTES % (AUTO) 15.7 % (20.0-44.0); MEAN CORPUSCULAR HGB CONC 33 g/dl (31.0-36.0); MEAN CORPUSCULAR VOLUME 90 fL (80-96); MONOCYTES # (AUTO) 0.7 /CMM (0.1-1.30); NEUTROPHILS % (AUTO) 72.2 % (43.0-81.0); PLATELET COUNT (AUTO) 279 /CMM (150-450); RED BLOOD CELL COUNT(AUTO) 3.36 MIL/uL (4.5-6.0); WHITE BLOOD COUNT (AUTO) 5.5 K/uL (4.3-11.0)
[2020-02-06 08:39] LABS: CALCIUM, SERUM 7.9 mg/dL (8.5-10.1); CREATININE 0.8 mg/dL (0.6-1.3); POTASSIUM 3.8 mmol/L (3.5-5.1)
[2020-02-06] MEDS: Z GUARD REMEDY 2 OZ OINT TP SCH (09:00)
[2020-02-06] MEDS: THERAHONEY GEL 1.5 OZ TUBE TP SCH (09:00)
[2020-02-06 09:31] LABS: C-REACTIVE PROTEIN 56.6 mg/dL (0.0-0.9)
[2020-02-06] MEDS: METOPROLOL TARTRATE 50 MG TABLET PO SCH ×2 (10:18→20:04)
[2020-02-06] MEDS: PROSOURCE / PROSTAT (PYXIS) 30 ML UDC PO SCH ×4 (10:18→20:07)
[2020-02-06] MEDS: ENOXAPARIN SODIUM 40 MG/0.4 ML DISP.SYRIN SQ SCH (10:19)
[2020-02-06] MEDS: DAKINS QUARTER STRENGTH (0.125%) 480 ML BOTTLE TOP SCH (10:36)
[2020-02-06 10:48] LABS: ABG BASE EXCESS 2.9 mmol/L; ABG OXYGEN SATURATION 89.2 % (92.0-98.5); ABG PCO2 39.8 mmHg (35.0-45.0); ABG PH 7.451 (7.350-7.450); ABG PO2 60.3 mmHg (75.0-100.0); AaDO2 251.4 mmHg; COHb 0.3 % (0.5-1.5); MetHb 0.1 % (0.0-1.5); O2Hb 88.8 % (94.0-97.0); SITE, ABG Left Radial
[2020-02-06] MEDS: LEVOFLOXACIN 500 MG /D5W 100ML 500 MG in PREMIX 1 EA IV SCH (11:34)
[2020-02-06] MEDS: methylPREDNISolone SOD SUCC 40 MG/ML VIAL IV SCH (11:34)
--- NOTE | 2020-02-06 15:20 | NUR ---
PANEL WIRER NOTES 18g PIV on right wrist infiltrated. Removed intact PIV. Inserted 20g PIV on RFA clean, intact, patent and flushing well. Patient tolerated well. Will continue to monitor.
--- NOTE | 2020-02-06 18:22 | NUR ---
COAL SAMPLE TESTER CLOSING NOTES Patient resting in bed. A/O x 1, Japanese speaking. VS stable with no acute distress. Breathing even and unlabored on 6LPM via NC with no respiratory distress. Denies pain. No signs and symptoms of pain. Telemonitor in place and patent reading SR with HR-88. 20g PIV on RFA clean, intact, patent and flushing well. Isolation precautions in place. Safety precautions in place. Bed locked and set to lowest position with side rails x 2 up. All needs rendered at this time. Call light within reach. Will endorse plan of care to oncoming shift.
--- NOTE | 2020-02-06 19:10 | NUR ---
planning management it specialist opening notes Pt is resting in bed comfortably. Pt is alert and orientedX2 and calm. Pt speaks Maori and able to make needs known. Respiration is normal in 6 L NC. No SOB. No S/s of distress noted. Tele monitor showed SR hr at 96. IV sites at RFA# 20 is clean, intact, patent, flush without resistance and SL. Droplet and airborne precautions are maintained. Safety precautions is maintained. Bed at low position, brakes locked, bed alarm is on, side rails upX2 and call light is within reach. Will continue to monitor
[2020-02-06] MEDS: DIVALPROEX SODIUM 500 MG TABLET.DR PO SCH (20:07)
[2020-02-07] VITALS (7 sets, daily range): BP systolic 105–138; BP diastolic 51–72
--- NOTE | 2020-02-07 05:00 | NUR ---
handling tech notes Pt accidentally removed IV sites. Inserted new IV sites at RAC# 20 with good blood returned, intact, patent and flush without resistance. Pt tolerated activity well. Will continue to monitor.
--- NOTE | 2020-02-07 07:10 | NUR ---
tool and die technician closing notes Pt is resting in bed comfortably. Pt is alert and orientedX2. Pt speaks Malay and able to make needs known. Respiration is normal in 6 L NC. No SOB. No S/s of distress noted. Routine meds were given as ordered. VS is stable. Tele monitor showed SR hr at 76. IV sites at RAC# 20 is clean, intact, patent, flush without resistance and SL. Kept Pt clean, dry and comfortable. Wound care provided as ordered. Turned and repositioned Q 2hr. Droplet and airborne precautions are maintained. Safety precautions is maintained. Bed at low position, brakes locked, bed alarm is on, side rails upX2 and call light is within reach. Will endorse to morning nurse for YESSI.
--- NOTE | 2020-02-07 07:59 | NUR ---
fine unhairer notes Received Pt in bed resting comfortably in moderate high back rest. alert and orientedX2. Pt speaks Albanian and able to make needs known. Respiration is normal in 6 L NC. No S/s of distress noted at this time. Tele monitor showed SR hr at 70's. IV sites at RAC# 20 is clean, intact, patent, flush without resistance and SL. Droplet and airborne precautions are maintained. Safety precautions is maintained. Bed at low position, brakes locked, bed alarm is on, side rails upX2 and call light is within reach. Will continue to monitor.
[2020-02-07] MEDS: METOPROLOL TARTRATE 50 MG TABLET PO SCH ×2 (08:08→21:00)
[2020-02-07] MEDS: methylPREDNISolone SOD SUCC 40 MG/ML VIAL IV SCH (08:08)
[2020-02-07] MEDS: ENOXAPARIN SODIUM 40 MG/0.4 ML DISP.SYRIN SQ SCH (08:11)
[2020-02-07] MEDS: DAKINS QUARTER STRENGTH (0.125%) 480 ML BOTTLE TOP SCH (08:23)
[2020-02-07] MEDS: THERAHONEY GEL 1.5 OZ TUBE TP SCH (08:23)
[2020-02-07] MEDS: Z GUARD REMEDY 2 OZ OINT TP SCH (08:24)
[2020-02-07] MEDS: PROSOURCE / PROSTAT (PYXIS) 30 ML UDC PO SCH ×4 (09:39→20:39)
--- NOTE | 2020-02-07 10:00 | NUR ---
RN NOTES PATIENT PULLED OUT HIS IV AND KEEP REMOVING THE LEADS ON HIS CHEST, ALSO NOTED OF HR THAT GOES UP TO 200. CALLED AND NOTIFIED DR. HERNANDEZ WITH ORDERS OF B/L SOFT WRIST RESTRAINT AND MIDLINE. WILL CONTINUE TO MONITOR.
--- NOTE | 2020-02-07 10:40 | NUR ---
RN NOTES SEEN AND EXAMINED BY DR. JAUREGUI WITH ORDERS OF ABG, MADE AND CARRIED OUT.
[2020-02-07 11:12] LABS: ABG BASE EXCESS 3.2 mmol/L; ABG PCO2 47.2 mmHg (35.0-45.0); ABG PO2 56.5 mmHg (75.0-100.0); AaDO2 203.4 mmHg; COHb 0.3 % (0.5-1.5); MetHb 0.4 % (0.0-1.5); O2Hb 85.4 % (94.0-97.0); SITE, ABG Right Radial; VENT MODE, BG 6L NC
--- NOTE | 2020-02-07 11:14 | NUR ---
RT NOTE ABG RESULTS RELAYED TO LORRAINE MIMS.
--- NOTE | 2020-02-07 11:30 | NUR ---
RT NOTE POST ABG RESULTS PLACED PT ON 7L SIMPLE MASK, PER MD PELEG.
[2020-02-07] MEDS: LEVOFLOXACIN 500 MG /D5W 100ML 500 MG in PREMIX 1 EA IV SCH (11:51)
--- NOTE | 2020-02-07 18:00 | NUR ---
RN NOTES ALBUMIN LEVEL OF 1.2, DR. HERNANDEZ NOTIFIED AWAITING FOR CALLED BACK. WILL F/U.
[2020-02-07 18:09] LABS: CALCIUM, SERUM 8.3 mg/dL (8.5-10.1); CREATININE 1.1 mg/dL (0.6-1.3); POTASSIUM 4.1 mmol/L (3.5-5.1)
[2020-02-07 18:15] LABS: BILIRUBIN,DIRECT 0.1 mg/dL (0.0-0.2); BILIRUBIN,TOTAL 0.2 mg/dL (0.2-1.0); TOTAL PROTEIN, SERUM 7.8 g/dL (6.4-8.2)
[2020-02-07 18:18] LABS: ALBUMIN 1.2 g/dL (3.4-5.0)
--- NOTE | 2020-02-07 18:36 | NUR ---
RN notes Patient in bed resting comfortably in moderate high back rest. alert and orientedX2. Pt speaks Arabic and able to make needs known. noted with B/L soft wrist restraint, On simple mask 7L. Tele monitor showed Afib with HR at 70's. IV sites at MAURO midline# 18 is clean, intact, patent, flush without resistance and SL. Droplet and airborne precautions are maintained. Safety precautions is maintained. Bed at low position, brakes locked, bed alarm is on, side rails upX2 and call light is within reach. Will endorse to night stocker nurse for ebony.
--- NOTE | 2020-02-07 19:10 | NUR ---
weather anchor opening notes Received Pt from morning nurse. Pt is resting in bed comfortably. Pt is alert and orientedX2. Respiration is normal in simple mask 6 L. No SOB. No S/S of distress noted. Tele monitor showed SR hr at 83. IV sites at LFA#22 is clean, intact and SL. MAURO midline# 18 is clean, intact and SL. Bilateral soft wrist restraints are intact, skin is warm to touch and circulation is check Q 2 hr. Offered oral fluids. Droplet and airborne precautions are maintained. Safety precautions is maintained. Bed at low position, brakes locked, bed alarm is on, side rails upX2 and call light is within reach. Will continue to monitor
[2020-02-07 19:32] LABS: C-REACTIVE PROTEIN 26.9 mg/dL (0.0-0.9)
[2020-02-07] MEDS: DIVALPROEX SODIUM 500 MG TABLET.DR PO SCH (20:59)
[2020-02-08] VITALS: BP 125/67
[2020-02-08 04:00] VITALS: BP 120/71
--- NOTE | 2020-02-08 07:00 | NUR ---
certified anesthesiologist assistant closing notes Pt is sleeping in bed comfortably. Pt is alert and orientedX2 with episode of confusion. Pt speaks Filipino and able to make needs known. Respiration is normal in simple mask 6L. No SOB. No S/s of distress noted. Routine meds were given as ordered. VS is stable. Tele monitor showed SR/Sinus latanya hr at 60. MAURO midline # 18 is clean, intact and patent. IV sites at LFA# 22 is clean, intact, patent, flush without resistance and SL. Kept Pt clean, dry and comfortable. Turned and repositioned Q 2hr. Droplet and airborne precautions are maintained. Safety precautions is maintained. Bed at low position, brakes locked, bed alarm is on, side rails upX2 and call light is within reach. Will endorse to morning nurse for YESSI.
[2020-02-08 07:37] LABS: CALCIUM, SERUM 8.4 mg/dL (8.5-10.1); CREATININE 0.9 mg/dL (0.6-1.3); POTASSIUM 4.2 mmol/L (3.5-5.1)
--- NOTE | 2020-02-08 07:53 | NUR ---
DIRECTOR OF PROCUREMENT OPENING NOTES PATIENT IN BED RESTING COMFORTABLY. PATIENT IN NO ACUTE DISTRESS. NO SOB NOTED. PATIENT ON OXYGEN 6L SIMPLE MASK. PATIENT BREATHING IS EVEN AND UNLABORED. PATIENT ON CARDIAC MONITORING READING SINUS RHYTHM HR 75. PATIENT BED ALARM IS ON. HOB IS ELEVATED. PATIENT NOTED WITH BILATERAL SOFT WRIST RESTRAINTS, WITH GOOD CIRCULATION NOTED. PATIENT SAFETY PRECAUTIONS IN PLACE. PATIENT BED IS LOCKED AND IN LOWEST POSITION. CALL LIGHT WITHIN REACH. WILL CONTINUE TO MONITOR.
[2020-02-08 08:00] VITALS: BP 125/95
[2020-02-08] MEDS: methylPREDNISolone SOD SUCC 40 MG/ML VIAL IV SCH (09:18)
[2020-02-08] MEDS: METOPROLOL TARTRATE 50 MG TABLET PO SCH ×2 (09:18→20:51)
[2020-02-08] MEDS: ENOXAPARIN SODIUM 40 MG/0.4 ML DISP.SYRIN SQ SCH (09:19)
[2020-02-08] MEDS: LEVOFLOXACIN 500 MG /D5W 100ML 500 MG in PREMIX 1 EA IV SCH (09:21)
[2020-02-08] MEDS: PROSOURCE / PROSTAT (PYXIS) 30 ML UDC PO SCH ×4 (09:31→20:46)
[2020-02-08] MEDS: DAKINS QUARTER STRENGTH (0.125%) 480 ML BOTTLE TOP SCH (09:32)
[2020-02-08] MEDS: Z GUARD REMEDY 2 OZ OINT TP SCH (09:32)
[2020-02-08 10:46] LABS: C-REACTIVE PROTEIN 15.6 mg/dL (0.0-0.9)
[2020-02-08] MEDS: THERAHONEY GEL 1.5 OZ TUBE TP SCH (11:25)
[2020-02-08 12:33] LABS: ABG BASE EXCESS 5.2 mmol/L; ABG OXYGEN SATURATION 84.1 % (92.0-98.5); ABG PCO2 48.4 mmHg (35.0-45.0); ABG PH 7.418 (7.350-7.450); ABG PO2 52.1 mmHg (75.0-100.0); AaDO2 39.7 mmHg; COHb 0.3 % (0.5-1.5); MetHb 0.2 % (0.0-1.5); O2Hb 83.7 % (94.0-97.0); SITE, ABG Right Radial; VENT MODE, BG room air
--- NOTE | 2020-02-08 12:45 | NUR ---
ZONING ENGINEER NOTE ABG RESULTS REPORTED AND MADE AWARE TO DR. JAUREGUI.
[2020-02-08 16:00] VITALS: BP 110/65
--- NOTE | 2020-02-08 16:46 | NUR ---
ARMORED CAR MESSENGER NOTE PATIENT TEMPERATURE 99.4, IMPLEMENTED COOLING MEASURES.
--- NOTE | 2020-02-08 19:22 | NUR ---
PIT MANAGER CLOSING NOTES PATIENT IN BED RESTING COMFORTABLY. PATIENT IN NO ACUTE DISTRESS. NO SOB NOTED. PATIENT ON OXYGEN 6L SIMPLE MASK SATURATING >92% SPO2. PATIENT BREATHING IS EVEN AND UNLABORED. PATIENT ON CARDIAC MONITORING READING SINUS RHYTHM HR 86. PATIENT BED ALARM IS ON. HOB IS ELEVATED. PATIENT NOTED WITH BILATERAL SOFT WRIST RESTRAINTS, WITH GOOD CIRCULATION NOTED. PATIENT KEPT CLEAN, DRY, AND COMFORTABLE THROUGHOUT SHIFT. PATIENT TURNED AND REPOSITIONED Q2H. PATIENT SAFETY PRECAUTIONS IN PLACE. PATIENT BED IS LOCKED AND IN LOWEST POSITION. CALL LIGHT WITHIN REACH. WILL ENDORSE CARE TO PM SHIFT FOR YESSI.
--- NOTE | 2020-02-08 19:23 | NUR ---
RN OPENING NOTES Received patient asleep, easily awaken. A/O x2. On O2 inhalation via face mask, saturating well, no SOB/respiratory distress noted. With bilateral soft wrist restraints as ordered, patient noted confused and pulling off lines and tube. On tele monitor with controlled NSR noted. Kept on bed clean, dry and comfortable. On fall and aspiration precautions. Will continue to monitor accordingly.
[2020-02-08 20:00] VITALS: BP 112/59
[2020-02-08] MEDS: DIVALPROEX SODIUM 500 MG TABLET.DR PO SCH (20:46)
[2020-02-09] VITALS (7 sets, daily range): BP systolic 103–158; BP diastolic 40–90
--- NOTE | 2020-02-09 06:53 | NUR ---
RN CLOSING NOTES Patient asleep, easily awaken. No s/sx of distress noted at this time. All nursing needs attended. Due meds given as ordered. No new unusualities noted. Kept on bed clean, dry and comfortable. On fall and aspiration precautions.
--- NOTE | 2020-02-09 08:00 | NUR ---
RN NOTES RECEIVED PATIENT COVIS + ON ISOLATION, TOTAL CARE, NO ACUTE RESPIRATORY DISTRESS, ON O2 5LNC. PATIENT HAS SOFT RESTRAIN CHECKED FOR CIRCULATION, EDEMA BUE. PATIENT FEEDER ASSIST EATING BY COMMUNICATIONS PROJECT LEAD, REFUSED, WAS COMPLAINING OF NAUSEA. CALL LIGHT WITHIN TO REACH, IV ACCESS ON MAURO INTACT SL. ASSIST TURN AND REPOSTION Q2 HR. CONTINUED MONITORING.
[2020-02-09] MEDS: METOPROLOL TARTRATE 50 MG TABLET PO SCH ×2 (09:00→20:40)
[2020-02-09] MEDS: LEVOFLOXACIN (500MG) 500 MG TABLET PO SCH (09:27)
[2020-02-09] MEDS: methylPREDNISolone SOD SUCC 40 MG/ML VIAL IV SCH (09:27)
--- NOTE | 2020-02-09 09:27 | NUR ---
rn notes administered Zofran 4 mg/ml iv push for nausea/vomiting.
[2020-02-09] MEDS: DAKINS QUARTER STRENGTH (0.125%) 480 ML BOTTLE TOP SCH (09:29)
[2020-02-09] MEDS: ENOXAPARIN SODIUM 40 MG/0.4 ML DISP.SYRIN SQ SCH (09:29)
[2020-02-09] MEDS: Z GUARD REMEDY 2 OZ OINT TP SCH (09:30)
[2020-02-09] MEDS: DIVALPROEX SODIUM 500 MG TABLET.DR PO SCH (09:30)
[2020-02-09] MEDS: PROSOURCE / PROSTAT (PYXIS) 30 ML UDC PO SCH ×4 (09:31→20:42)
[2020-02-09] MEDS: THERAHONEY GEL 1.5 OZ TUBE TP SCH (09:32)
[2020-02-09 10:51] LABS: HEMATOCRIT 31 % (39-51); HEMOGLOBIN 9.8 g/dL (13.5-17.5); LYMPHOCYTES # (AUTO) 0.7 /CMM (0.8-4.8); LYMPHOCYTES % (AUTO) 15.1 % (20.0-44.0); MEAN CORPUSCULAR HGB CONC 32 g/dl (31.0-36.0); MEAN CORPUSCULAR VOLUME 87 fL (80-96); MONOCYTES # (AUTO) 0.7 /CMM (0.1-1.30); MONOCYTES % (AUTO) 14.8 % (2.0-12.0); NEUTROPHILS # (AUTO) 3.3 /CMM (1.8-8.9); NEUTROPHILS % (AUTO) 70.1 % (43.0-81.0); PLATELET COUNT (AUTO) 295 /CMM (150-450); RED BLOOD CELL COUNT(AUTO) 3.48 MIL/uL (4.5-6.0); WHITE BLOOD COUNT (AUTO) 4.7 K/uL (4.3-11.0)
[2020-02-09 11:55] LABS: C-REACTIVE PROTEIN 7.7 mg/dL (0.0-0.9)
--- NOTE | 2020-02-09 12:00 | NUR ---
RN NOTES MEDICATION WERE ADMINISTERED FOR NAUSEA EFFECTIVE, PATIENT RESTING, ASSIST EATING, PATIENT TOLERATED LUNCH 40 %.
--- NOTE | 2020-02-09 18:00 | NUR ---
RN NOTES PATIENT IN THE BED ON O2-5LNC, NO ACUTE RESPIRATORY DISTRESS, V/S STABLE, PATIENT INCONTINENT, ASSIST TURN AND REPOSTION Q 2 HR. CALL LIGHT WITHIN TO REACH. RECHECKED RESTRAIN FOR CIRCULATION. ENDORSED ONCOMING NURSE FOLLOW PLAN OF CARE.
--- NOTE | 2020-02-09 19:00 | NUR ---
RECEIVED PATIENT IN BED AWAKE AND ALERT TO THE NURSE BEING AT HIS BEDSIDE. HE VOICES LOUDLY "AQUA" WATER GIVEN TO HIM WITH THICKENER AND WITH ASPIRATION PRCAUTIONS.
--- NOTE | 2020-02-09 23:45 | NUR ---
ROUTINE MEDICATION LOPRESSOR GIVEN TO THE PATIENT @ 2039. AT THAT TIME HIS VITAL WERE 123/90 AND HR 64. MEDICATION INSTRUCTIONS READ : HOLD FOR SBP < 100 MCKINLEY HR< 60. NOTED BY 23:30 HIS HR WAS IN THE 40'S ...46 47 49. ON THE MONITOR HE SHOWS SB. PATIEN T AROUSE EASILY AND ALERT AND SKIN WARM AND DRY AND HIS BP AT THIS TIME IS117/56 HR 54, BUT HIS HR DIPPED DOWN TO 35. CALL PLACED TO JADEN THE POULTRY HATCHERY LABORER MD MICHELLE AND MADE HIM AWARE.
[2020-02-10] VITALS: BP 117/56
[2020-02-10 04:00] VITALS: BP 120/75
--- NOTE | 2020-02-10 05:59 | NUR ---
ENDING NOTES: SLEPT THRU THE NIGHT.. EASILY AWAKENED WHEN NEED TO REPOSITION HIM OR CHANGE HIM D/T INCONTINENCE. ON THE MONITOR HE IS SB 57 AT THIS TIME, OCCASSIONALY THRU THE NIGHT HIS HR WAS 32 48 47 LOW! BUT HIS BP RE,FLORY WITHIN NORMAL. HE WAS ALWAYS ALERT WHEN WHEN AWAKENED, AND SKIN WARM AND DRY. MD STANLEY MADE AWARE NNO GIVEN, MONITORED HIM THRU THE NIGHT. HE IS COOPERATIVE ISOLATION MAINTAINED PROTOCOL FOR CORVID-19 .
--- NOTE | 2020-02-10 07:20 | NUR ---
RN NOTES RECEIVED PATIENT IN BED RESTING COMFORTABLY IN MODERATE HIGH BACK REST. A/O X 1. PATIENT IN NO ACUTE DISTRESS NOTED AT THIS TIME. ON OXYGEN 4L VIA NC. PATIENT ON CARDIAC MONITORING READING SINUS SULTANA HR 50'S. PER TRANSITIONAL STUDIES INSTRUCTOR NURSE HR WENT DOWN TO 30'S, MD NOTIFIED WITH ORDERS TO KEEP MONITORING. PATIENT BED ALARM IS ON. PATIENT NOTED WITH BILATERAL SOFT WRIST RESTRAINTS, WITH GOOD CIRCULATION NOTED. PATIENT SAFETY PRECAUTIONS IN PLACE. PATIENT BED IS LOCKED AND IN LOWEST POSITION. CALL LIGHT WITHIN REACH. WILL CONTINUE TO MONITOR.
[2020-02-10 08:00] VITALS: BP 117/62
[2020-02-10] MEDS: THERAHONEY GEL 1.5 OZ TUBE TP SCH (09:00)
[2020-02-10] MEDS: Z GUARD REMEDY 2 OZ OINT TP SCH (09:00)
[2020-02-10] MEDS: LEVOFLOXACIN (500MG) 500 MG TABLET PO SCH (09:43)
[2020-02-10] MEDS: ENOXAPARIN SODIUM 40 MG/0.4 ML DISP.SYRIN SQ SCH (09:45)
[2020-02-10] MEDS: PROSOURCE / PROSTAT (PYXIS) 30 ML UDC PO SCH ×4 (09:46→21:47)
[2020-02-10 10:12] LABS: ABG BASE EXCESS 7.6 mmol/L; ABG OXYGEN SATURATION 91.8 % (92.0-98.5); ABG PCO2 44.6 mmHg (35.0-45.0); ABG PH 7.474 (7.350-7.450); ABG PO2 62.1 mmHg (75.0-100.0); AaDO2 244.2 mmHg; COHb 0.2 % (0.5-1.5); MetHb 0.3 % (0.0-1.5); O2Hb 91.3 % (94.0-97.0); SITE, ABG Right Radial; VENT MODE, BG SM 10 L
[2020-02-10] MEDS: DAKINS QUARTER STRENGTH (0.125%) 480 ML BOTTLE TOP SCH (10:12)
[2020-02-10] MEDS ORDERED: IOHEXOL-350 100 ML VIAL IV ONE (10:15)
[2020-02-10] MEDS ORDERED: IV NS 0.9% 250 ML IV ONE (10:16)
--- NOTE | 2020-02-10 10:47 | NUR ---
Call and spoke to Dean nurse for patient Ryland Wood ([phone]). Per Dean, he could not get a hold of the family for the consent. He will call and let us know when he got the consent from the family. (BERHANE)
--- NOTE | 2020-02-10 14:11 | NUR ---
pending consent @1410 per rn
[2020-02-10 16:00] VITALS: BP 124/70
--- NOTE | 2020-02-10 18:50 | NUR ---
RN NOTES PATIENT IN BED RESTING COMFORTABLY IN MODERATE HIGH BACK REST. A/O X 1. ON OXYGEN 10L VIA SIMPLE MASK. PATIENT ON CARDIAC MONITORING READING SR HR 60'S. PATIENT BED ALARM IS ON. PATIENT NOTED WITH BILATERAL SOFT WRIST RESTRAINTS, WITH GOOD CIRCULATION NOTED. PATIENT SAFETY PRECAUTIONS IN PLACE. PATIENT BED IS LOCKED AND IN LOWEST POSITION. CALL LIGHT WITHIN REACH. WILL ENDORSE TO TANK BUILDER NURSE FOR YESSI.
--- NOTE | 2020-02-10 19:47 | NUR ---
RECIEVED MR. THOMPSON AWAKE AND ALERT AND ORIENTATED X2. ISOLATION IN EFFECT FOR COVID + MASK ON 10 LITERS NOTED FANTASMA SOFT WRIST RESTRAINTS.
[2020-02-10 20:00] VITALS: BP 123/90
[2020-02-10 20:21] VITALS: BP 123/90
[2020-02-10] MEDS: DIVALPROEX SODIUM 500 MG TABLET.DR PO SCH (21:47)
[2020-02-10] MEDS: METOPROLOL TARTRATE 50 MG TABLET PO SCH ×2 (21:48→21:50)
[2020-02-11] VITALS: BP 123/93
--- NOTE | 2020-02-11 06:01 | NUR ---
ENDING NOTES: SLEPT WELL. WILL CALL OUT FOR "AQUA" WHEN HE SEE SOMEONE PASSING HIS ROOM. ASPIRATION PRECAUTIONS. THICKENER USED. FEED HIS DINNER PUREE AND HE ATE THE DINNER 100% NOTED THE LOPRESSOR WAS REDUCE TO 25MG FROM 50 MG AND NOTED HIS HR DID NOT DROP IN THE 30'S THE PRIOR NITE IT DID. LAST NIGHT HE WOULD DROM AND BECOME SB HR 50'S.
[2020-02-11 06:48] LABS: BASOPHILS % (AUTO) 0.3 % (0.0-2.0); EOSINOPHILS % (AUTO) 0.1 % (0.0-6.0); HEMATOCRIT 32 % (39-51); HEMOGLOBIN 10.1 g/dL (13.5-17.5); LYMPHOCYTES # (AUTO) 0.8 /CMM (0.8-4.8); LYMPHOCYTES % (AUTO) 14.8 % (20.0-44.0); MEAN CORPUSCULAR HGB CONC 32 g/dl (31.0-36.0); MEAN CORPUSCULAR VOLUME 88 fL (80-96); MONOCYTES # (AUTO) 0.6 /CMM (0.1-1.30); MONOCYTES % (AUTO) 10.6 % (2.0-12.0); NEUTROPHILS # (AUTO) 3.9 /CMM (1.8-8.9); NEUTROPHILS % (AUTO) 74.2 % (43.0-81.0); PLATELET COUNT (AUTO) 263 /CMM (150-450); RED BLOOD CELL COUNT(AUTO) 3.58 MIL/uL (4.5-6.0); WHITE BLOOD COUNT (AUTO) 5.3 K/uL (4.3-11.0)
[2020-02-11 07:05] LABS: CALCIUM, SERUM 8.1 mg/dL (8.5-10.1); CREATININE 0.7 mg/dL (0.6-1.3); POTASSIUM 3.9 mmol/L (3.5-5.1)
[2020-02-11 07:18] LABS: C-REACTIVE PROTEIN 11.4 mg/dL (0.0-0.9)
--- NOTE | 2020-02-11 07:40 | NUR ---
RN NOTES RECEIVED PATIENT IN BED RESTING COMFORTABLY IN MODERATE HIGH BACK REST. A/O X 1. PATIENT IN NO ACUTE DISTRESS NOTED AT THIS TIME. ON OXYGEN 10L VIA SIMPLE MASK. PATIENT ON CARDIAC MONITORING READING SINUS SULTANA HR 50'S. PATIENT BED ALARM IS ON. PATIENT NOTED WITH BILATERAL SOFT WRIST RESTRAINTS, WITH GOOD CIRCULATION NOTED. PATIENT SAFETY PRECAUTIONS IN PLACE. PATIENT BED IS LOCKED AND IN LOWEST POSITION. CALL LIGHT WITHIN REACH. WILL CONTINUE TO MONITOR.
[2020-02-11 08:00] VITALS: BP 141/74
[2020-02-11] MEDS: PROSOURCE / PROSTAT (PYXIS) 30 ML UDC PO SCH ×3 (08:19→17:20)
[2020-02-11] MEDS: ENOXAPARIN SODIUM 40 MG/0.4 ML DISP.SYRIN SQ SCH (08:22)
[2020-02-11] MEDS: DAKINS QUARTER STRENGTH (0.125%) 480 ML BOTTLE TOP SCH (08:29)
[2020-02-11] MEDS: THERAHONEY GEL 1.5 OZ TUBE TP SCH (08:30)
[2020-02-11] MEDS: Z GUARD REMEDY 2 OZ OINT TP SCH (08:31)
[2020-02-11] MEDS ORDERED: AMOX-430 PO (09:25)
[2020-02-11] MEDS ORDERED: AMOX/CLAVULANATE 875 MG TABLET PO SCH (09:30)
[2020-02-11 10:00] VITALS: BP 141/74
--- NOTE | 2020-02-11 10:00 | NUR ---
RN NOTES SEEN AND EXAMINED BY DR. HERNANDEZ WITH ORDERS TO TITRATE DOWN OXYGEN TO 5LPM VIA SIMPLE MASK, PATIENT OXYGEN SATURATION IS 94%. WILL CONTINUE TO MONITOR.
--- NOTE | 2020-02-11 10:06 | NUR ---
RN NOTES MED NOT AVAILABLE CALLED PHARMACY AND THEY SAID THEY WILL SEND IT UP, WILL F/U.
[2020-02-11 12:00] VITALS: BP 127/56
[2020-02-11 16:00] VITALS: BP 126/64
--- NOTE | 2020-02-11 16:45 | NUR ---
RN NOTES PATIENT IS NOW ON 4LPM VIA SIMPLE MASK WITH OXYGEN SATURATION OF 92%. SPOKE TO DR. HERNANDEZ, PER DR. HERNANDEZ OXYGEN SATURATION BETWEEN 90-92% IS OKAY, PATIENT IS CLEARED FOR DC. SPOKE TO BERNABE NORWOOD. WILL ARRANGE DC TO SNF. WILL CONTINUE TO F/U AND MONITOR.
--- NOTE | 2020-02-11 18:36 | NUR ---
RN NOTES PATIENT IN BED RESTING COMFORTABLY IN MODERATE HIGH BACK REST. A/O X 1. ON OXYGEN 4LPM VIA SIMPLE MASK. PATIENT ON CARDIAC MONITORING READING SR HR 90'S. PATIENT BED ALARM IS ON. PATIENT NOTED WITH BILATERAL SOFT WRIST RESTRAINTS, WITH GOOD CIRCULATION NOTED. PATIENT WILL BE DISCHARGED TODAY, SUPPLY CLERK TIME @20:00, DISCHARGE PAPER DONE, SKIN ASSESSMENT AND PICTURES FILED ON CHART, REPORT GIVEN TO LORRAINE LONGORIA @ [facility] REGARDING PATIENT. SAFETY PRECAUTIONS IN PLACE. PATIENT BED IS LOCKED AND IN LOWEST POSITION. CALL LIGHT WITHIN REACH. WILL ENDORSE TO GEOTHERMAL OPERATING ENGINEER NURSE FOR DISCHARGE.
--- NOTE | 2020-02-11 20:54 | NUR ---
MS2/RN AT 1930, RECEIVED PATIENT AWAKE, PASSIVE AFFECT, NON VERBALLY RESPONSIVE, APPEAR COMFORTABLE, NO SIGNS OF DISTRESS NOTED, VITAL SIGNS BP 127/64, HR 77, RR 19, O2 SAT 94% ON 5L SIMPLE MASK, TEMP 98.0. PATIENT WILL BE DISCHARGED TONIGHT TO [facility] PER [facility] TRACK REPAIRER HELPER SHRUTHI. CALLED [facility], SPOKE TO LORRAINE RICHARDSON, REPORT WAS GIVEN (ORIGINALLY PATIENT WAS GOING TO [facility]). AT 2009, AMBULANCE WAS HERE, REPORT WAS GIVEN TO EMT, IV AND TELE BOX WERE REMOVED. PATIENT LEFT THE FLOOR AT 2054 IN STABLE CONDITION.
== END 2020-02-11 20:55 | DRG 137 ==
LOC: ER 13:09 → TELE1 14:33 → TELE2 02-03 21:06
PROVIDERS: ADMIT Internal Medicine; ATTEND Internal Medicine
PROC: 05HY33Z Insertion of Infusion Device into Upper Vein, Percutaneous Approach (ICD-10-PCS; principal; 2020-02-07)
DX: U07.1 COVID-19 (principal); J96.01 Acute respiratory failure with hypoxia; J69.0 Pneumonitis due to inhalation of food and vomit; E43 Unspecified severe protein-calorie malnutrition; L89.154 Pressure ulcer of sacral region, stage 4; I47.2 Ventricular tachycardia; D61.818 Other pancytopenia; J12.89 Other viral pneumonia; L89.613 Pressure ulcer of right heel, stage 3; I48.0 Paroxysmal atrial fibrillation; G20 Parkinson's disease; L89.610 Pressure ulcer of right heel, unstageable; F02.80 Dementia in other diseases classified elsewhere, unspecified severity, without behavioral disturbance, psychotic disturbance, mood disturbance, and anxiety; G40.909 Epilepsy, unspecified, not intractable, without status epilepticus; E87.6 Hypokalemia; I10 Essential (primary) hypertension; Z74.01 Bed confinement status; F20.0 Paranoid schizophrenia; K21.9 Gastro-esophageal reflux disease without esophagitis; N40.0 Benign prostatic hyperplasia without lower urinary tract symptoms; E88.09 Other disorders of plasma-protein metabolism, not elsewhere classified; D63.8 Anemia in other chronic diseases classified elsewhere; Z68.24 Body mass index [BMI] 24.0-24.9, adult; D69.59 Other secondary thrombocytopenia; T37.8X5A Adverse effect of other specified systemic anti-infectives and antiparasitics, initial encounter; Y92.89 Other specified places as the place of occurrence of the external cause; F32.9 Major depressive disorder, single episode, unspecified
CPT/HCPCS: 36415; 36600; 71045-TC; 80048-TC; 80053-TC; 80076-TC; 82550-TC; 82728-TC; 82803-TC; 83540-TC; 83605-TC; 83615-TC; 83735-TC; 84100-TC; 84439-TC; 84443-TC; 84484-TC; 85025-TC; 85378-TC; 85730-TC; 86140-TC; 86480; 86705; 86706; 87040-TC; 87081-TC; 87086-TC; 87340; 92521; A4216; A6253; G0378; J0696; J1650; J1956; J2405; J2920; J3370; J7050; J7060; Q9967

== ENCOUNTER 2020-05-06 20:35 | Inpatient (IN) | payer MEDICAID ==
[~2020-05-06] VITALS: Ht 172.7 cm; Wt 67.1 kg
[~2020-05-06 20:35] MED LIST changes: +AMOX-430 PO; -BENZ2TAB7 PO; +BISA10SU61 RC; +COGENTIN PO; -DICL50TA9 PO; -DIVA-78 PO; +DIVA500T2 PO; -DOCU250C88 PO; +ENOX40DI SQ; -ESCI10TA PO; -FAMO20TA8 PO; -FURO20TA4 PO; +HYDR-4384 PO; -METO25TA4 PO; -OLAN20TA3 PO; +ONDA4TAB5 PO; -POTA10CA43 PO; -RISP3TAB14 PO; -TAMS0.4C34 PO; -ZOLP5TAB8 PO
--- NOTE | 2020-05-06 20:45 | NUR ---
RT NOTE PT REC'D TRACHED VIA AMBU BAG FROM [facility]. [facility]IV[facility] FROM [facility]. PT SHOWS NO SIGNS OF RESP DISTRESS OR SOB. TRACH IS PATENT AND SECURED. PT SX'D FOR THICK SMALL AMT OF PALE YELLOW SECRETIONS. ALARMS ARE SET AND AUDIBLE. AMBU BAG BEDSIDE. VENT PLUGGED INTO RED OUTLET. WILL CONTINUE TO MONITOR. Addendum: 05/06/20 at 2132 by STEVE DENTON RT Amended: Links added.
[2020-05-06] MEDS ORDERED: MORPHINE SULFATE INJ 2 MG/ML DISP.SYRIN IV ONE ×2 (21:00→22:30)
--- NOTE | 2020-05-06 21:00 | NUR ---
HEIKE 39 FROM [facility] FOR C/O ABD PAIN X 1 HR. - N/V/D, PT WITH TRACH PLACED ON VENT TV 450, AC 10 O2 20 PEP OF 5 VSS ORDERED RECEIVED AND CARRIED OUT
[2020-05-06] MEDS: IV NS 0.9% 500 ML BAG IV ONE ×2 (21:06→21:12)
[2020-05-06 21:08] LABS: BASOPHILS # (AUTO) 0.1 /CMM (0.0-0.2); BASOPHILS % (AUTO) 1.5 % (0.0-2.0); HEMATOCRIT 32 % (39-51); HEMOGLOBIN 10.3 g/dL (13.5-17.5); LYMPHOCYTES # (AUTO) 0.9 /CMM (0.8-4.8); LYMPHOCYTES % (AUTO) 14.2 % (20.0-44.0); MEAN CORPUSCULAR HGB CONC 32 g/dl (31.0-36.0); MEAN CORPUSCULAR VOLUME 91 fL (80-96); MONOCYTES # (AUTO) 0.2 /CMM (0.1-1.30); MONOCYTES % (AUTO) 3.8 % (2.0-12.0); NEUTROPHILS # (AUTO) 4.9 /CMM (1.8-8.9); NEUTROPHILS % (AUTO) 80.5 % (43.0-81.0); PLATELET COUNT (AUTO) 189 /CMM (150-450); RED BLOOD CELL COUNT(AUTO) 3.52 MIL/uL (4.5-6.0); WHITE BLOOD COUNT (AUTO) 6.1 K/uL (4.3-11.0)
[2020-05-06] MEDS ORDERED: MORPHINE SULFATE INJ 4 MG/ML DISP.SYRIN ONE ×2 (21:15→21:47)
[2020-05-06 21:18] LABS: APPEARANCE,URINE SL CLOUDY (CLEAR); BILIRUBIN,URINE NEGATIVE (NEGATIVE); BLOOD, URINE LARGE Ery/uL (NEGATIVE); COLOR,URINE YELLOW (YELLOW); KETONES,URINE NEGATIVE (NEGATIVE); LEUKOCYTE ESTERASE ,URINE LARGE (NEGATIVE); NITRITE, URINE NEGATIVE (NEGATIVE); PH,URINE 8.5 (5.0-8.0); PROTEIN,URINE 30 mg/dl (NEGATIVE); UGLUCOSE 500 MG/DL mg/dL (NEGATIVE)
[2020-05-06 21:24] LABS: BACTERIA,URINE 4+ /HPF (None Seen); RBC,URINE 21-50 /HPF (0-2); SQUAMOUS EPITHELIAL CELL,UR Few /HPF (None Seen); WBC,URINE 51-80 /HPF (0-3)
[2020-05-06 21:36] LABS: ALANINE AMINOTRANSFERASE 19 U/L (12-78); ALBUMIN 2.2 g/dL (3.4-5.0); ALKALINE PHOSPHATASE 71 U/L (46-116); ASPARTATE AMINOTRANSFERASE 12 U/L (15-37); BILIRUBIN,DIRECT 0.2 mg/dL (0.0-0.2); BILIRUBIN,TOTAL 0.4 mg/dL (0.2-1.0); CALCIUM, SERUM 8.6 mg/dL (8.5-10.1); CARBON DIOXIDE 28 mmol/L (21-32); CHLORIDE 97 mmol/L (98-107); CREATININE 0.8 mg/dL (0.6-1.3); GLUCOSE 206 mg/dL (74-106); LIPASE 98 U/L (73-393); POTASSIUM 4.1 mmol/L (3.5-5.1); SODIUM SERUM 133 mmol/L (136-145); TOTAL PROTEIN, SERUM 6.5 g/dL (6.4-8.2); UREA NITROGEN, BLOOD 24 mg/dL (7-18)
[2020-05-06] MEDS ORDERED: IOHEXOL-300 100 ML VIAL IV ONE (21:46)
[2020-05-06] MEDS ORDERED: IV NS 0.9% 250 ML IV ONE (21:46)
[2020-05-06] MEDS ORDERED: CEFTRIAXONE 1GM BAG (ER ONLY) 50 ML IV ONE (21:49)
[2020-05-06] MEDS ORDERED: IV NS 0.9% 1,000 ML BAG IV ONE (22:00)
[2020-05-06] MEDS ORDERED: CEFTRIAXONE 1GM BAG (ER ONLY) 1 GM/50 ML PIGGYBACK IV ONE (22:00)
--- NOTE | 2020-05-06 22:05 | NUR ---
pt taken to ct with rt
--- NOTE | 2020-05-06 22:20 | NUR ---
pt back from ct
--- NOTE | 2020-05-06 23:08 | NUR ---
PEGGY CHARGE NURSE AT [facility]
--- NOTE | 2020-05-06 23:16 | NUR ---
COVID SWAB COLLECTED AND SENT TO LAB
[2020-05-06] MEDS ORDERED: METO25TA6 GT (23:41)
[2020-05-06] MEDS ORDERED: PANT40TA2 GT (23:41)
[2020-05-06] MEDS ORDERED: RIVA10TA GT (23:41)
[2020-05-06] MEDS ORDERED: LEVE500T9 GT (23:41)
[2020-05-06] MEDS ORDERED: LACT1CAP69 GT (23:41)
[2020-05-06] MEDS ORDERED: ASPI-1169 GT (23:41)
[2020-05-06] MEDS ORDERED: GABA-532 GT (23:41)
[2020-05-06] MEDS ORDERED: AMLO5TAB9 GT (23:41)
[2020-05-06] MEDS ORDERED: FURO-145 GT (23:41)
[2020-05-06] MEDS ORDERED: PRED20TA GT (23:41)
[2020-05-06] MEDS ORDERED: ASCO-352 GT (23:41)
--- NOTE | 2020-05-07 00:06 | NUR ---
COVID RESULT NEGATIVE
--- NOTE | 2020-05-07 00:17 | NUR ---
SPOKE ARMANDO ARNDT FROM [facility] WILL WAIT FOR CALL BACK
--- NOTE | 2020-05-07 00:58 | NUR ---
LACTIC 2.7
--- NOTE | 2020-05-07 01:45 | NUR ---
PT REMAINS IN BED, RESTING COMFORTABLY TOLERATING VENT SETTINGS, VSS WILL CONTINUE TO MONITOR
--- NOTE | 2020-05-07 03:28 | NUR ---
SPOKE TO ARMANDO FROM [facility], PER HER NO ACEPTING DOCTOR IS AVAILABLE. VERBAL AUTH RECEIVED FROM ARMANDO TO ADMIT THE PT AT [facility]
--- NOTE | 2020-05-07 03:51 | NUR ---
PT REMAINS IN BED RESTING COMFORTABLY AWAITING BED ASSIGNEMENT
--- NOTE | 2020-05-07 04:08 | NUR ---
ROOM [facility]
--- NOTE | 2020-05-07 04:33 | NUR ---
Rec'd report from Lizeth for YESSI.
--- NOTE | 2020-05-07 04:45 | NUR ---
CALLED IN REPORT TO MICHELLE PETERS
[2020-05-07 04:59] VITALS: BP 131/78
[2020-05-07] MEDS ORDERED: ACETAMINOPHEN 650 MG/20.3 ML UDC GT PRN (05:00)
[2020-05-07] MEDS ORDERED: Potassium Chloride 10 MEQ in IV NS 0.9% 1,000 ML IV PRN (05:30)
--- NOTE | 2020-05-07 05:46 | NUR ---
RN INITIAL NOTES: Pt transferred to unit via gurney accompanied by RN and EMT. On R/O isolation precautions. A&Ox1. On mechanical ventilation tolerating settings well. No SOB or respiratory distress noted. SR on tele monitor. IV site on RFA #20 patent and flushed. Dressing c/d/i. GT site patent and flushed with no residual noted. Cerda catheter changed. Yellow cloudy urine draining via gravity. Pt bathed, wound pictures taken and placed in chart. Head to toe physical assessment done. VSS. Safety measures in place. Will continue to monitor.
--- NOTE | 2020-05-07 06:22 | NUR ---
RN NOTE: Spoke to Danielle from [place] pharmacy to verify orders. Stated "Give me 5 minutes"
[2020-05-07] MEDS ORDERED: MEROPENEM 1 G in IV NS 0.9% 100 ML IV SCH ×2 (06:30→13:00)
[2020-05-07] MEDS ORDERED: MEROPENEM 1 G VIAL IV ONE (06:38)
--- NOTE | 2020-05-07 06:56 | NUR ---
RN CLOSING NOTES: Pt remains on mechanical ventilation, tolerating well. No SOB or respiratory distress noted. On R/O Covid isolation. SR on tele monitor. IV site on RFA #20 patent and flushed with Merrem 1g running. Cerda cath in place, draining yellow cloudy urine. Safety measures in place. Will endorse to AM nurse for YESSI.
--- NOTE | 2020-05-07 07:23 | NUR ---
RN OPENING NOTES: RECEIVED PT IN BED RESTING. PT IS ON TRACH SHILEY #18, O2 SAT 100%, AC ID, TV 450, FIO2 30%, PEEP 5. PT IS ON TELE MONITOR SR. PT IS A/OX1. PT IV RFA #20, PATENT FLUSHED WELL. PT IS ON GT, AND RAMOS. SAFETY MEASURES TAKEN, CALL LIGHT WITHIN REACH WILL CONTINUE TO MONITOR CLOSELY. Addendum: 05/07/20 at 0741 by ARNOLD BRAVO RN RN NOTES.: PT DOES NOT SHOW ANY SIGNS OF RESPIRATORY DISTRESS, DIFFICULTY BREATHING OR ANY PAIN. WILL CONTINUE TO MONITOR CLOSELY.
[2020-05-07 07:26] LABS: CALCIUM, SERUM 8.5 mg/dL (8.5-10.1); CARBON DIOXIDE 26 mmol/L (21-32); CHLORIDE 102 mmol/L (98-107); CREATININE 0.5 mg/dL (0.6-1.3); GLUCOSE 73 mg/dL (74-106); POTASSIUM 3.6 mmol/L (3.5-5.1); SODIUM SERUM 137 mmol/L (136-145); UREA NITROGEN, BLOOD 18 mg/dL (7-18)
--- NOTE | 2020-05-07 07:32 | NUR ---
RN NOTES: [facility] WAS CONTACTED FOR THE CODE STATUS BUT STILL NO ANSWER. WILL FOLLOW UP.
[2020-05-07 07:38] LABS: BASOPHILS % (AUTO) 0.3 % (0.0-2.0); EOSINOPHILS % (AUTO) 0.1 % (0.0-6.0); HEMATOCRIT 31 % (39-51); HEMOGLOBIN 10.1 g/dL (13.5-17.5); LYMPHOCYTES # (AUTO) 1.1 /CMM (0.8-4.8); LYMPHOCYTES % (AUTO) 23.4 % (20.0-44.0); MEAN CORPUSCULAR HGB CONC 33 g/dl (31.0-36.0); MEAN CORPUSCULAR VOLUME 97 fL (80-96); MONOCYTES # (AUTO) 0.2 /CMM (0.1-1.30); MONOCYTES % (AUTO) 4.9 % (2.0-12.0); NEUTROPHILS # (AUTO) 3.3 /CMM (1.8-8.9); NEUTROPHILS % (AUTO) 71.3 % (43.0-81.0); PLATELET COUNT (AUTO) 185 /CMM (150-450); RED BLOOD CELL COUNT(AUTO) 3.16 MIL/uL (4.5-6.0); WHITE BLOOD COUNT (AUTO) 4.6 K/uL (4.3-11.0)
[2020-05-07 08:00] VITALS: BP 102/53
[2020-05-07] MEDS ORDERED: PANT40SU2 GT (08:48)
[2020-05-07] MEDS ORDERED: INSU100V27 SQ (08:48)
[2020-05-07] MEDS ORDERED: LACT-209 GT (08:48)
[2020-05-07] MEDS ORDERED: ACET-868 GT (08:48)
[2020-05-07] MEDS ORDERED: PANTOPRAZOLE 40 MG/PACK PACK GT SCH (09:00)
[2020-05-07] MEDS ORDERED: GABAPENTIN 300 MG CAPSULE GT SCH (09:00)
[2020-05-07] MEDS ORDERED: AMLODIPINE BESYLATE 5 MG TABLET GT SCH (09:00)
[2020-05-07] MEDS ORDERED: ACIDOPHILUS/BULGARICUS 1 EACH TAB.CHEW GT SCH (09:00)
[2020-05-07] MEDS ORDERED: ASPIRIN 81 MG TAB.CHEW GT SCH (09:00)
[2020-05-07] MEDS ORDERED: FUROSEMIDE 20 MG TABLET GT SCH (09:00)
[2020-05-07] MEDS ORDERED: PANTOPRAZOLE 40 MG TABLET.DR PO SCH (09:00)
[2020-05-07] MEDS ORDERED: ASCORBIC ACID 500 MG TABLET GT SCH (09:00)
[2020-05-07] MEDS ORDERED: LEVETIRACETAM SOL (5 ML) 100 MG/ML UDC GT SCH (09:00)
[2020-05-07] MEDS ORDERED: predniSONE 20 MG TABLET GT SCH (09:00)
[2020-05-07] MEDS ORDERED: GABAPENTIN 100 MG CAPSULE GT SCH (09:00)
[2020-05-07] MEDS ORDERED: METOPROLOL TARTRATE 25 MG TABLET PO SCH (09:00)
[2020-05-07 09:15] LABS: LYMPHOCYTES % (MANUAL) 21 % (16-48); MONOCYTES % (MANUAL) 6 % (0-11.0); NEUTROPHILS % (MANUAL) 73 (42-76)
[2020-05-07] MEDS: PANTOPRAZOLE 40 MG VIAL IV SCH (09:30)
[2020-05-07] MEDS: LEVETIRACETAM (500MG) 500 MG in IV NS 0.9% 100 ML IV SCH ×2 (09:30→21:20)
[2020-05-07] MEDS ORDERED: PIPERACILLIN /TAZOBACTAM 3.375 G in IV D5W 50 ML IV SCH (09:30)
[2020-05-07] MEDS ORDERED: DEXTROSE 50%-WATER 50 ML DISP.SYRIN IV PRN (09:30)
--- NOTE | 2020-05-07 09:30 | NUR ---
RN/TJ RECEIVED REPORT FROM LORRAINE BARONE. PATIENT IN BED. NO ACUTE DISTRESS NOTED. PATIENT ALERT & ORIENTED X0-1. PATIENT ON MECHANICAL VENTILATOR, SATURATING WELL AT 99%. PATIENT ON MACHINE CAGE MAKER, NORMAL SINUS RHYTHM NOTED. PATIENT RIGHT FOREARM IV ACCESS INTACT, PATENT, FLUSHED WELL. PATIENT G-TUBE IN PLACE PATENT, FLUSHED WELL. PATIENT RAMOS CATHETER IN PLACE, INTACT, DRAINING TO GRAVITY. PATIENT SAFETY MAINTAINED. CALL LIGHT WITHIN REACH. WILL CONTINUE TO MONITOR.
--- NOTE | 2020-05-07 09:41 | NUR ---
RN NOTES: PO KEPPRA WAS GIVEN EARLIER DR HERNANDEZ TOLD TO HOLD IV KEPPRA AND ADMIN IT 12HRS AFTER THE FIRST DOSE. PROTONIX GIVEN EARLIER WELL.
--- NOTE | 2020-05-07 09:50 | NUR ---
RN NOTES: PT WAS ENDORSED TO LORRAINE RUVALCABA FOR CONTINUATION OF CARE. PT IN STABLE CONDITION NO DISTRESS NOTED, ALL PTS NEED MET, SAFETY MAINTAINED CALL LIGHT WITHIN REACH.
[2020-05-07] MEDS: HYDROGEL DRESSING 90 GM TUBE TP SCH (09:58)
[2020-05-07 12:00] VITALS: BP 110/62
[2020-05-07] MEDS: BLOOD SUGAR DIAGNOSTIC 1 EACH STRIP IN SCH ×3 (12:21→23:02)
[2020-05-07 16:00] VITALS: BP 118/68
[2020-05-07] MEDS ORDERED: RIVAROXABAN 10 MG TABLET GT SCH (17:00)
[2020-05-07] MEDS: PIPERACILLIN /TAZOBACTAM 3.375 G in IV D5W 100 ML IV SCH (17:22)
[2020-05-07] MEDS: LACTULOSE 10 G/15 ML UDC (PYXIS) GT SCH (17:22)
[2020-05-07] MEDS ORDERED: JEVITY 1.2 CAL 1,000 ML BOTTLE GT PRN (18:30)
--- NOTE | 2020-05-07 18:38 | NUR ---
RN/TJ PATIENT IN BED. NO ACUTE DISTRESS NOTED. PATIENT ALERT & ORIENTED X0-1. PATIENT ON MECHANICAL VENTILATOR, SATURATING WELL AT 99%. PATIENT ON WREATH INSPECTOR, NORMAL SINUS RHYTHM NOTED. PATIENT RIGHT FOREARM IV ACCESS INTACT, PATENT, FLUSHED WELL. PATIENT G-TUBE IN PLACE PATENT, FLUSHED WELL. PATIENT RAMOS CATHETER IN PLACE, INTACT, DRAINING TO GRAVITY. PATIENT SAFETY MAINTAINED. CALL LIGHT WITHIN REACH. WILL ENDORSE PLAN OF CARE TO ONCOMING NURSE FOR CONTINUITY OF CARE.
[2020-05-07 20:00] VITALS: BP 111/63
[2020-05-07] MEDS: INSULIN REGULAR, HUMAN 100 UNIT/ML 3 ML VIAL SQ PRN (23:01)
[2020-05-08] VITALS: BP 105/62
[2020-05-08] MEDS: PIPERACILLIN /TAZOBACTAM 3.375 G in IV D5W 100 ML IV SCH ×3 (02:21→17:10)
[2020-05-08 04:00] VITALS: BP 123/61
[2020-05-08 06:17] LABS: BASOPHILS % (AUTO) 0.1 % (0.0-2.0); EOSINOPHILS % (AUTO) 0.1 % (0.0-6.0); HEMATOCRIT 31 % (39-51); HEMOGLOBIN 10.1 g/dL (13.5-17.5); LYMPHOCYTES # (AUTO) 0.9 /CMM (0.8-4.8); LYMPHOCYTES % (AUTO) 24.3 % (20.0-44.0); MEAN CORPUSCULAR HGB CONC 32 g/dl (31.0-36.0); MEAN CORPUSCULAR VOLUME 94 fL (80-96); MONOCYTES # (AUTO) 0.1 /CMM (0.1-1.30); MONOCYTES % (AUTO) 3.6 % (2.0-12.0); NEUTROPHILS # (AUTO) 2.5 /CMM (1.8-8.9); NEUTROPHILS % (AUTO) 71.9 % (43.0-81.0); PLATELET COUNT (AUTO) 203 /CMM (150-450); RED BLOOD CELL COUNT(AUTO) 3.31 MIL/uL (4.5-6.0); WHITE BLOOD COUNT (AUTO) 3.5 K/uL (4.3-11.0)
[2020-05-08 06:52] LABS: CALCIUM, SERUM 8.2 mg/dL (8.5-10.1); CARBON DIOXIDE 21 mmol/L (21-32); CHLORIDE 100 mmol/L (98-107); CREATININE 0.5 mg/dL (0.6-1.3); GLUCOSE 67 mg/dL (74-106); MAGNESIUM 2.2 mg/dL (1.8-2.4); POTASSIUM 3.9 mmol/L (3.5-5.1); SODIUM SERUM 133 mmol/L (136-145); UREA NITROGEN, BLOOD 16 mg/dL (7-18)
--- NOTE | 2020-05-08 07:31 | NUR ---
RN notes No significant change of condition, breathing even and unlabored. Vent setting well tolerated. No physical manifestation of pain or discomfort. Had a large bowel x 1., hence lactulose was discontinued.
--- NOTE | 2020-05-08 07:45 | NUR ---
RN TJ OPENING NOTE RECEIVED PT IN BED AWAKE AND ALERT. PT IS GREENLANDIC SPEAKING. PT ON TELE MONITORING WITH SINUS RHYTHM NOTED AT THIS TIME. PT IS INCONTINENT WITH RAMOS PRESENT, INTACT AND DRAINING FREELY VIA GRAVITY. PT'S G-TUBE INTACT AND PATIENT, JEVITY 1.2 AT 60ML/HR. PT IS VENT DEPENDENT AND CURRENTLY SATURATING AT 100%. V/S WITHIN NORMAL LIMITS AT THIS TIME. PT NOTED WITH SACRAL WOUND. PT TURNED AND REPOSITIONED [id number]. PT IS FULL CODE AND IN STABLE CONDITION CURRENTLY. PT' HAS A RFA 20' IV THAT IS INTACT, PATENT AND FLUSHED WELL. BED LOCKED AND IN LOWEST POSITION. CALL LIGHT WITHIN REACH AND FUNCTIONING. FREQUENT MONITORING PROVIDED FOR SAFETY MEASURES. HOB ELEVATED TOLERATED, ASPIRATION PRECAUTIONS TAKEN AND IMPLEMENTED. WILL CONTINUE TO MONITOR AND ASSESS PT.
--- NOTE | 2020-05-08 07:47 | NUR ---
RT NOTE PT IS MECHANICALLY VENTILATED VIA CUFFED TRACHEOSTOMY TUBE. CUFF INFLATED. TRACH TUBE MIDLINE AND SECURE. VENTILATOR SETTINGS PRESCRIBED. ALARMS SET PER PROTOCOL AND AUDIBLE. VENT PLUGGED IN TO RED OUTLET. AMBU BAG AT BED SIDE. NO DISTRESS NOTED AT MOMENT. Addendum: 05/08/20 at 0749 by JAYSON SUGGS RT Amended: Links added.
[2020-05-08 08:00] VITALS: BP 109/63
[2020-05-08] MEDS: BLOOD SUGAR DIAGNOSTIC 1 EACH STRIP IN SCH ×3 (08:35→17:29)
[2020-05-08] MEDS: INSULIN REGULAR, HUMAN 100 UNIT/ML 3 ML VIAL SQ PRN ×3 (08:36→17:38)
[2020-05-08] MEDS ORDERED: LEVO750T21 PO (08:46)
[2020-05-08] MEDS: PANTOPRAZOLE 40 MG VIAL IV SCH (09:13)
[2020-05-08] MEDS: LEVETIRACETAM (500MG) 500 MG in IV NS 0.9% 100 ML IV SCH (09:14)
[2020-05-08] MEDS: LACTULOSE 10 G/15 ML UDC (PYXIS) GT SCH ×2 (09:16→17:09)
[2020-05-08] MEDS: HYDROGEL DRESSING 90 GM TUBE TP SCH (09:18)
[2020-05-08 12:00] VITALS: BP 104/58
[2020-05-08 16:00] VITALS: BP 106/65
--- NOTE | 2020-05-08 17:24 | NUR ---
RN TJ NOTE CALLED [facility] AND GAVE REPORT TO NURSE IN CHARGE HOANG. INFORMED HER ABOUT PT'S HISTORY, CURRENT MEDICATIONS, NEW ORDERS, CODE STATUS AND PT'S STATUS AND CONDITION A WHOLE. NURSE VERBALIZED UNDERSTANDING OF PT'S SITUATION AND CONDITION. WILL AWAIT DAIRY NUTRITIONIST.
--- NOTE | 2020-05-08 18:49 | NUR ---
RN CLOSING NOTE PT IS CURRENTLY IN BED AWAKE AND ALERT. PT IS VENT DEPENDENT SATURATING AT 100% AT THE MOMENT. PT IS IN STABLE CONDITION WITH NO SOB OR ACUTE DISTRESS NOTED. PT HAS A G-TUBE THAT IS PATENT AND INTACT. PT IS BEING D/C TODAY TO [facility]. GAVE REPORT TO NURSE BOLTON AT [facility]. PICK TIME FOR PT IS AT 2029. HOB ELEVATED TOLERATED, ASPIRATION PRECAUTIONS IMPLEMENTED THROUGH OUT SHIFT. ENDORSED TO NEXT SHIFT NURSE FOR YESSI AND D/C ORDERS AND POSITION CLASSIFICATION SPECIALIST TIME.
--- NOTE | 2020-05-08 19:30 | NUR ---
RN NOTE RECEIVED PT IN BED RESTING COMFORTABLY. PATIENT IN NO S/SX OF ACUTE DISTRESS AT THIS TIME. PATIENT ON TRACHE CONNECTEDT MECH VENT WITH SETTINGS PRESCRIBED, SATURATING 100%; TOLERATING WELL. PATIENT ON TELE MONITOR READING SR, HR IS @79. NOTED IV SITE ON RFA G20 WITH NS AT TKO; PATENT AND FLUSHING WELL, NO S/S OF INFECTION OR INFILTRATION. RAMOS CATH IN PLACE, DRAINING A CLEAR AGATHA OUTPUT. GTUBE INTACT WITH JEVITY 1.2 AT 30 ML.HR SAFETY MEASURES IMPLEMENTED PER PROTOCOL. PATIENT BED ALARM IS ON. HEAD OF BED ELEVATED. BED IS LOCKED, IN LOWEST POSITION AND SIDE RAILS UP. CALL LIGHT WITHIN REACH OF THE PATIENT. WILL CONTINUE TO MONITOR AND REASSESS FOR ANY CHANGES.
[2020-05-08 20:00] VITALS: BP 106/63
--- NOTE | 2020-05-08 20:00 | NUR ---
RN NOTE NOTED TEMP 99.3, COOLING MEASURES PROVIDED. WILL CONTINUE TO MONITOR.
--- NOTE | 2020-05-08 20:35 | NUR ---
RN NOTE PATIENT DISCHARGED/TRANSFERRED TO [facility] WITH STABLE VITAL SIGNS, AWAKE AND ALERT, OBEYS COMMANDS, NO ACUTE DISTRESS NOTED, BREATHING UNLABORED. LATEST VS T98.2, BP 110/68, P84, 02 SAT 99%. REPORT GIVEN TO EMT PERSONNEL, AND BILLY RN, RECEIVEING RN FROM [facility], ACKNOWLEDGED AND VERBALIZED UNDERSTANDING. IV LINES REMOVED ASEPTICALLY, NO REDNESS, NO BLEEDING, NO SWELLING NOTED. GTUBE CLAMPED. FC CONNECTED TO URINE BAG IN PLACE. PICKED UP VIA AMBULANCE IN A GURNEY ACCOMPANIED BY 3 EMT PERSONNEL IN STABLE CONDITION. ACCOUNT SUPPORT ANALYST MADE AWARE.
== END 2020-05-08 20:35 | DRG 254 ==
LOC: ER 20:37 → TELE1 05-07 04:19
PROVIDERS: ADMIT Internal Medicine; ATTEND Internal Medicine
PROC: 5A1945Z Respiratory Ventilation, 24-96 Consecutive Hours (ICD-10-PCS; principal; 2020-05-07)
DX: K40.30 Unilateral inguinal hernia, with obstruction, without gangrene, not specified as recurrent (principal); N39.0 Urinary tract infection, site not specified; J96.10 Chronic respiratory failure, unspecified whether with hypoxia or hypercapnia; G40.909 Epilepsy, unspecified, not intractable, without status epilepticus; I48.0 Paroxysmal atrial fibrillation; L89.154 Pressure ulcer of sacral region, stage 4; E11.9 Type 2 diabetes mellitus without complications; I10 Essential (primary) hypertension; Z66 Do not resuscitate; Z79.01 Long term (current) use of anticoagulants; Z86.73 Personal history of transient ischemic attack (TIA), and cerebral infarction without residual deficits; Z93.1 Gastrostomy status; Z99.11 Dependence on respirator [ventilator] status; B96.20 Unspecified Escherichia coli [E. coli] as the cause of diseases classified elsewhere; Z79.4 Long term (current) use of insulin; Z93.0 Tracheostomy status; D63.8 Anemia in other chronic diseases classified elsewhere; M19.90 Unspecified osteoarthritis, unspecified site; G20 Parkinson's disease; F02.80 Dementia in other diseases classified elsewhere, unspecified severity, without behavioral disturbance, psychotic disturbance, mood disturbance, and anxiety
CPT/HCPCS: 31720; 36415; 71045-TC; 80048-TC; 80076-TC; 81000-TC; 82962-TC; 83605-TC; 83690-TC; 83735-TC; 84484-TC; 85025-TC; 85730-TC; 87040-TC; 87081-TC; 87086-TC; 87186-TC; 94002-TC; 94003-TC; 94762-TC; 94799-TC; 99082-TC; A4217; A6248; A6253; C9113; G0378; J0696; J1815; J1953; J2185; J2270; J2543; J3480; J3490; J7030; J7050; J7060; Q9967; U0003-CS

== ENCOUNTER 2020-10-07 10:02 | Inpatient (IN) | payer MEDICAID ==
[~2020-10-07] VITALS: Ht 175.3 cm; Wt 58.5 kg
[~2020-10-07 10:02] MED LIST changes: -ALFU10TA10 PO; -AMOX-430 PO; -BISA10SU61 RC; -COGENTIN PO; -DIVA500T2 PO; -ENOX40DI SQ; -HYDR-4384 PO; +INSU100V27 SQ; +LACT-209 GT; +LEVO750T21 PO; -OMEP20TA5 PO; -ONDA4TAB5 PO
--- NOTE | 2020-10-07 10:17 | NUR ---
HEIKE FROM [facility]. SENT BY PMD FOR ABNORMAL LABS. HGB 7.2. TO ER BED 10, HOOKED TO MONITOR, CHANGED TO HOSP GOWN, WARM BLABKET PROVIDED, PATIENT AAO x 0. PATIENT NOTED W TRACHEOSTOMY, VENT DEPENDENT WITH SETTINGS AC 10, VT 450, PEEP 5, O2 AT 40%. AWAITING MD ELLIS
--- NOTE | 2020-10-07 10:25 | NUR ---
DR CASTRO AT BEDSIDE
[2020-10-07] MEDS ORDERED: PANTOPRAZOLE 40 MG VIAL IV ONE (10:30)
[2020-10-07 10:57] LABS: BASOPHILS % (AUTO) 0.2 % (0.0-2.0); EOSINOPHILS % (AUTO) 0.3 % (0.0-6.0); LYMPHOCYTES # (AUTO) 1.2 /CMM (0.8-4.8); LYMPHOCYTES % (AUTO) 11.8 % (20.0-44.0); MEAN CORPUSCULAR HGB CONC 31 g/dl (31.0-36.0); MEAN CORPUSCULAR VOLUME 80 fL (80-96); MONOCYTES # (AUTO) 0.3 /CMM (0.1-1.30); MONOCYTES % (AUTO) 3.1 % (2.0-12.0); NEUTROPHILS # (AUTO) 8.8 /CMM (1.8-8.9); NEUTROPHILS % (AUTO) 84.6 % (43.0-81.0); PLATELET COUNT (AUTO) 491 /CMM (150-450); RED BLOOD CELL COUNT(AUTO) 2.54 MIL/uL (4.5-6.0); WHITE BLOOD COUNT (AUTO) 10.4 K/uL (4.3-11.0)
[2020-10-07] MEDS ORDERED: PANTOPRAZOLE 40 MG VIAL ONE (11:05)
[2020-10-07 11:09] LABS: CALCIUM, SERUM 9.2 mg/dL (8.5-10.1); CARBON DIOXIDE 32 mmol/L (21-32); CHLORIDE 99 mmol/L (98-107); CREATININE 0.7 mg/dL (0.6-1.3); GLUCOSE 151 mg/dL (74-106); POTASSIUM 2.9 mmol/L (3.5-5.1); SODIUM SERUM 141 mmol/L (136-145); UREA NITROGEN, BLOOD 49 mg/dL (7-18)
[2020-10-07 11:23] LABS: ALANINE AMINOTRANSFERASE 15 U/L (12-78); ALBUMIN 1.5 g/dL (3.4-5.0); ALKALINE PHOSPHATASE 103 U/L (46-116); ASPARTATE AMINOTRANSFERASE 22 U/L (15-37); B-TYPE NATRIURETIC PEPTIDE 1406 PG/ML (0-125); BILIRUBIN,DIRECT 0.1 mg/dL (0.0-0.2); BILIRUBIN,TOTAL 0.2 mg/dL (0.2-1.0); TOTAL PROTEIN, SERUM 7.9 g/dL (6.4-8.2)
[2020-10-07] MEDS ORDERED: NUTR1PAC14 GT (11:30)
[2020-10-07] MEDS ORDERED: EPOE40002 IJ (11:30)
[2020-10-07] MEDS ORDERED: HYDR-4384 GT (11:30)
[2020-10-07] MEDS ORDERED: NA P133E RC (11:30)
[2020-10-07] MEDS ORDERED: DOCU-141 GT (11:30)
[2020-10-07] MEDS ORDERED: FURO-145 PO (11:30)
[2020-10-07] MEDS ORDERED: MULT-439 GT (11:30)
[2020-10-07] MEDS ORDERED: RIVA10TA GT (11:30)
[2020-10-07] MEDS ORDERED: METO25TA6 GT (11:30)
[2020-10-07] MEDS ORDERED: MAGN400O6 GT (11:30)
[2020-10-07] MEDS ORDERED: CRAN3875 GT (11:30)
[2020-10-07] MEDS ORDERED: FERR325T23 GT (11:30)
[2020-10-07] MEDS ORDERED: ASPI-1169 GT (11:30)
[2020-10-07] MEDS ORDERED: BISA10SU61 RC (11:30)
[2020-10-07] MEDS ORDERED: METF500S7 GT (11:30)
[2020-10-07] MEDS ORDERED: GABA-532 GT (11:30)
[2020-10-07] MEDS ORDERED: IPRA4AER IH ×2 (11:30)
[2020-10-07] MEDS ORDERED: OMEP40CA13 GT (11:30)
[2020-10-07] MEDS ORDERED: CHLO473M3 MM (11:30)
[2020-10-07] MEDS ORDERED: AMLO10TA4 GT (11:30)
[2020-10-07] MEDS ORDERED: NUT.237L30 GT (11:30)
[2020-10-07] MEDS ORDERED: LEVE100S GT (11:30)
[2020-10-07] MEDS ORDERED: ACET325T53 GT (11:30)
[2020-10-07] MEDS ORDERED: ASCO500C17 GT (11:30)
[2020-10-07] MEDS ORDERED: SACC250C GT (11:30)
[2020-10-07 11:31] LABS: HEMATOCRIT 20 % (39-51); HEMOGLOBIN 6.3 g/dL (13.5-17.5)
[2020-10-07] MEDS ORDERED: PIPERACILLIN /TAZOBACTAM 3.375 G in IV D5W 50 ML IV ONE (12:00)
[2020-10-07] MEDS ORDERED: IV NS 0.9% 1,000 ML BAG IV ONE (12:00)
[2020-10-07] MEDS ORDERED: PIPERACILLIN /TAZOBACTAM 3.375 G VIAL IV ONE (12:14)
--- NOTE | 2020-10-07 12:26 | NUR ---
REPOSITIONED FOR COMFORT
[2020-10-07] MEDS ORDERED: IV NS 0.9% 250 ML IV ONE (13:06)
[2020-10-07] MEDS ORDERED: IOHEXOL-350 100 ML VIAL IV ONE (13:06)
[2020-10-07 13:58] LABS: BAND % (MANUAL) 4 % (0.0-5.0); LYMPHOCYTES % (MANUAL) 6 % (16-48); MONOCYTES % (MANUAL) 3 % (0-11.0); MYELOCYTES % 1 % (0-0); NEUTROPHILS % (MANUAL) 86 (42-76)
--- NOTE | 2020-10-07 14:01 | NUR ---
DR CASTRO SPEAKING WITH DR JAYLA LOPEZ [employer]
[2020-10-07] MEDS ORDERED: Z GUARD REMEDY 2 OZ OINT TP PRN (16:00)
[2020-10-07] MEDS ORDERED: ZOLPIDEM TARTRATE 5 MG TABLET PO PRN (16:00)
[2020-10-07] MEDS ORDERED: POTASSIUM CHLORIDE 20 MEQ TAB.PRT.SR PO ONE (16:00)
[2020-10-07] MEDS ORDERED: MAGNESIUM HYDROXIDE 30 ML UDC PO PRN (16:00)
[2020-10-07] MEDS ORDERED: ONDANSETRON HCL/PF 4 MG/2 ML VIAL IVP PRN (16:00)
[2020-10-07] MEDS ORDERED: MAG HYDROX/AL HYDROX/SIMETH 30 ML UDC PO PRN (16:00)
[2020-10-07] MEDS ORDERED: ACETAMINOPHEN 325 MG TABLET PO PRN (16:00)
--- NOTE | 2020-10-07 17:56 | NUR ---
URINE OUTPUT 900CC.
[2020-10-07] MEDS ORDERED: NA PHOS,M-B/NA PHOS,DI-BA 1 EA ENEMA RC PRN (19:30)
[2020-10-07] MEDS ORDERED: Medication Not On Formulary EA (Ipratropium/Albuterol Sulfate (Combivent Respimat 20-100 IH PRN (19:30)
[2020-10-07] MEDS ORDERED: MAGNESIUM HYDROXIDE 30 ML UDC GT PRN (19:30)
[2020-10-07] MEDS ORDERED: BISACODYL SUPP (10 MG) 10 MG/SUPP.RECT SUPP.RECT RC PRN (19:30)
--- NOTE | 2020-10-07 19:30 | NUR ---
REC'D PT IN BED, NON VERBAL, VENT/TRACHE DEPENDENT, HERE FOR LOW H/H. PENDING 2U PRBC. PT NOT IN ANY DISTRESS, PENDING ADMIT. VSS. YARATM
--- NOTE | 2020-10-07 19:32 | NUR ---
REPORT GIVEN TO BALJIT PETERS FOR YESSI
--- NOTE | 2020-10-07 20:15 | NUR ---
RT pt received on mechanical vent with current settings. trached, portex 9. vent plugged in to red outlet. trach secure and patent. ambu bag and spare trach at bedside. alarms on and audible. moderate mendosa thick secretions suctioned via trach. no sob, no resp distress. will continue to monitor t/o shift. Addendum: 10/07/20 at 2015 by DIONICIO CROOKS RT Amended: Links added.
[2020-10-07] MEDS ORDERED: VANCOMYCIN 1 GM in IV D5W 250ml IV ONE (22:30)
[2020-10-07] MEDS ORDERED: GABAPENTIN 300 MG CAPSULE ONE (22:51)
[2020-10-07] MEDS ORDERED: VANCOMYCIN 1 GM VIAL ONE (22:51)
[2020-10-07] MEDS: GABAPENTIN 100 MG CAPSULE GT SCH (22:52)
[2020-10-07 23:22] LABS: OCCULT BLOOD STOOL NEGATIVE (NEGATIVE)
[2020-10-07] MEDS ORDERED: IPRATROPIUM NEB FS 0.5 MG/2.5 ML AMPUL.NEB IH PRN (23:30)
[2020-10-07] MEDS ORDERED: ALBUTEROL FS 2.5 MG/0.5 ML VIAL.NEB NEB PRN (23:30)
[2020-10-08] MEDS ORDERED: Medication Not On Formulary EA (Ipratropium/Albuterol Sulfate (Combivent Respimat 20-100 IH SCH
--- NOTE | 2020-10-08 00:30 | NUR ---
1ST UNIT PRBC STARTED, UNABLE TO CHART ON MEDITECH, SEE: BLOOD TRANSFUSION SHEET
[2020-10-08] MEDS: ALBUTEROL FS 2.5 MG/0.5 ML VIAL.NEB NEB SCH ×2 (01:09→07:35)
[2020-10-08] MEDS: IPRATROPIUM NEB FS 0.5 MG/2.5 ML AMPUL.NEB IH SCH ×2 (01:09→07:35)
[2020-10-08] MEDS: ZOSYN IVPB 3.375 G in IV D5W 50ml IV SCH ×4 (03:09→17:04)
[2020-10-08] MEDS ORDERED: PIPERACILLIN /TAZOBACTAM 3.375 G VIAL IV ONE ×2 (03:11→05:11)
--- NOTE | 2020-10-08 03:50 | NUR ---
2ND UNIT PRBC STARTED, UNABLE TO CHART ON MEDITECH, SEE: BLOOD TRANSFUSION SHEET
--- NOTE | 2020-10-08 05:00 | NUR ---
BLOOD TRANSFUSION DONE, 2UNITS GIVEN, NO ADVERSE REACTION NOTED.
[2020-10-08 05:19] LABS: BASOPHILS % (AUTO) 0.2 % (0.0-2.0); EOSINOPHILS % (AUTO) 0.3 % (0.0-6.0); HEMATOCRIT 26 % (39-51); HEMOGLOBIN 8.1 g/dL (13.5-17.5); LYMPHOCYTES # (AUTO) 1.1 /CMM (0.8-4.8); LYMPHOCYTES % (AUTO) 14.4 % (20.0-44.0); MEAN CORPUSCULAR HGB CONC 32 g/dl (31.0-36.0); MEAN CORPUSCULAR VOLUME 81 fL (80-96); MONOCYTES # (AUTO) 0.3 /CMM (0.1-1.30); MONOCYTES % (AUTO) 3.5 % (2.0-12.0); NEUTROPHILS # (AUTO) 6.4 /CMM (1.8-8.9); NEUTROPHILS % (AUTO) 81.6 % (43.0-81.0); PLATELET COUNT (AUTO) 468 /CMM (150-450); RED BLOOD CELL COUNT(AUTO) 3.18 MIL/uL (4.5-6.0); WHITE BLOOD COUNT (AUTO) 7.9 K/uL (4.3-11.0)
[2020-10-08 05:33] LABS: CALCIUM, SERUM 8.9 mg/dL (8.5-10.1); CARBON DIOXIDE 33 mmol/L (21-32); CHLORIDE 103 mmol/L (98-107); CREATININE 0.4 mg/dL (0.6-1.3); GLUCOSE 110 mg/dL (74-106); MAGNESIUM 1.4 mg/dL (1.8-2.4); PHOSPHORUS 3.4 mg/dL (2.5-4.9); SODIUM SERUM 144 mmol/L (136-145); UREA NITROGEN, BLOOD 27 mg/dL (7-18)
[2020-10-08 05:34] LABS: POTASSIUM 2.5 mmol/L (3.5-5.1)
--- NOTE | 2020-10-08 06:25 | NUR ---
REPORT LOW K TO JADEN BROWN NP. WITH NEW ORDERS
[2020-10-08] MEDS ORDERED: POTASSIUM CL. PREMIX PERIPHER. 100 ML ONE ×2 (06:54→08:14)
[2020-10-08] MEDS: POTASSIUM CL. PREMIX PERIPHER. 50 ML IV SCH ×8 (07:05→13:30)
--- NOTE | 2020-10-08 07:05 | NUR ---
1of4 ivpb of k started
[2020-10-08] MEDS ORDERED: ALBUTEROL FS 2.5 MG/0.5 ML VIAL.NEB ONE ×2 (07:48→14:45)
[2020-10-08] MEDS ORDERED: HYDROCODONE/APAP 5/325MG TABLET ONE (08:14)
[2020-10-08] MEDS ORDERED: PANTOPRAZOLE 40 MG VIAL ONE (08:14)
[2020-10-08] MEDS ORDERED: FERROUS SULFATE UDC 300 MG/5 ML UDC ONE (08:14)
[2020-10-08] MEDS ORDERED: GABAPENTIN 300 MG CAPSULE ONE (08:15)
[2020-10-08] MEDS ORDERED: AMLODIPINE BESYLATE 5 MG TABLET ONE (08:15)
[2020-10-08] MEDS ORDERED: METOPROLOL TARTRATE 25 MG TABLET ONE (08:15)
[2020-10-08] MEDS ORDERED: LEVETIRACETAM (250 MG) 250 MG TABLET PO ONE (08:16)
[2020-10-08] MEDS: LEVETIRACETAM SOL (5 ML) 100 MG/ML UDC GT SCH ×2 (08:27→16:38)
[2020-10-08] MEDS: FERROUS SULFATE (325 MG) 325 MG/TAB TABLET GT SCH (08:27)
[2020-10-08] MEDS: GABAPENTIN 100 MG CAPSULE GT SCH (08:28)
[2020-10-08] MEDS: METOPROLOL TARTRATE 25 MG TABLET GT SCH ×2 (08:28→16:38)
[2020-10-08] MEDS: AMLODIPINE BESYLATE 10 MG TABLET GT SCH (08:29)
[2020-10-08] MEDS: HYDROCODONE/APAP 5/325MG TABLET PO PRN (08:29)
[2020-10-08] MEDS ORDERED: Medication Not On Formulary EA (Cran/Vitc/Mannose/Inulin/Brom (Uti-Stat Liquid) 30 ML) GT SCH (09:00)
[2020-10-08] MEDS ORDERED: PANTOPRAZOLE 40 MG VIAL IV SCH (09:00)
[2020-10-08] MEDS: MULTIVITAMINS,THERAGRAN 1 UDTAB TABLET GT SCH (09:43)
[2020-10-08] MEDS: ASCORBIC ACID 500 MG TABLET GT SCH (09:43)
[2020-10-08] MEDS: Magnesium 1GM/D5W 100ML PREMIX 100 ML IV SCH ×4 (10:30→13:30)
[2020-10-08] MEDS ORDERED: POTASSIUM CL. PREMIX PERIPHER. 200 ML ONE (10:49)
[2020-10-08] MEDS ORDERED: Magnesium 1GM/D5W 100ML PREMIX 200 ML IV ONE ×2 (10:49→10:55)
[2020-10-08] MEDS: VANCOMYCIN 1.25 GM in IV D5W 250 ML IV SCH ×2 (11:00→23:12)
[2020-10-08] MEDS ORDERED: POTASSIUM CL. PREMIX PERIPHER. 50 ML IV SCH (11:00)
--- NOTE | 2020-10-08 11:00 | NUR ---
ADL CARE PROVIDED. PT KEPT CLEAN AND DRY AND COMFORTABLE. TURNED AND REPOSITIONED.
[2020-10-08] MEDS ORDERED: IPRATROPIUM NEB FS 0.5 MG/2.5 ML AMPUL.NEB ONE (14:45)
[2020-10-08] MEDS ORDERED: FUROSEMIDE 40 MG TABLET ONE (16:27)
--- NOTE | 2020-10-08 19:33 | NUR ---
REC'D PT IN BED, AAOX0, NON VERBAL, -SOB, NOT IN ANY ACUTE DISTRESS, PT TRACHE/VENT DEPENDENT, PT VSS, GT PATENT/INTACT, F/C DRAINING CLEAR/YELLOW URINE. VSS. WCTM
[2020-10-08] MEDS: GABAPENTIN 300 MG CAPSULE PO SCH (23:12)
[2020-10-09] MEDS: ZOSYN IVPB 3.375 G in IV D5W 50ml IV SCH ×5 (01:00→23:00)
[2020-10-09 05:09] LABS: BASOPHILS % (AUTO) 0.4 % (0.0-2.0); EOSINOPHILS % (AUTO) 0.7 % (0.0-6.0); HEMATOCRIT 30 % (39-51); HEMOGLOBIN 9.6 g/dL (13.5-17.5); LYMPHOCYTES % (AUTO) 16.9 % (20.0-44.0); MEAN CORPUSCULAR HGB CONC 32 g/dl (31.0-36.0); MEAN CORPUSCULAR VOLUME 83 fL (80-96); MONOCYTES # (AUTO) 0.3 /CMM (0.1-1.30); MONOCYTES % (AUTO) 5.6 % (2.0-12.0); NEUTROPHILS # (AUTO) 4.7 /CMM (1.8-8.9); NEUTROPHILS % (AUTO) 76.4 % (43.0-81.0); PLATELET COUNT (AUTO) 496 /CMM (150-450); RED BLOOD CELL COUNT(AUTO) 3.65 MIL/uL (4.5-6.0); WHITE BLOOD COUNT (AUTO) 6.1 K/uL (4.3-11.0)
[2020-10-09 05:55] LABS: CALCIUM, SERUM 9.5 mg/dL (8.5-10.1); CARBON DIOXIDE 31 mmol/L (21-32); CHLORIDE 107 mmol/L (98-107); CREATININE 0.5 mg/dL (0.6-1.3); GLUCOSE 95 mg/dL (74-106); MAGNESIUM 2.3 mg/dL (1.8-2.4); PHOSPHORUS 3.1 mg/dL (2.5-4.9); POTASSIUM 3.4 mmol/L (3.5-5.1); SODIUM SERUM 146 mmol/L (136-145); UREA NITROGEN, BLOOD 13 mg/dL (7-18)
--- NOTE | 2020-10-09 07:08 | NUR ---
NO ACUTE EVENTS, TURNED REPOSITIONED, CARE RENDERED, NAD. WCTM
[2020-10-09] MEDS ORDERED: FAMOTIDINE/PF INJ 20 MG/2 ML VIAL IV ONE (09:21)
[2020-10-09] MEDS: LEVETIRACETAM SOL (5 ML) 100 MG/ML UDC GT SCH ×2 (09:28→17:21)
[2020-10-09] MEDS: FERROUS SULFATE (325 MG) 325 MG/TAB TABLET GT SCH (09:31)
[2020-10-09] MEDS: AMLODIPINE BESYLATE 10 MG TABLET GT SCH (09:32)
[2020-10-09] MEDS: ASCORBIC ACID 500 MG TABLET GT SCH (09:32)
[2020-10-09] MEDS: MULTIVITAMINS,THERAGRAN 1 UDTAB TABLET GT SCH (09:32)
[2020-10-09] MEDS: METOPROLOL TARTRATE 25 MG TABLET GT SCH ×2 (09:32→17:31)
[2020-10-09] MEDS: GABAPENTIN 300 MG CAPSULE PO SCH ×2 (09:33→22:48)
[2020-10-09] MEDS: FAMOTIDINE/PF INJ 20 MG/2 ML VIAL IV SCH ×2 (09:33→22:48)
[2020-10-09] MEDS: VANCOMYCIN 1.25 GM in IV D5W 250 ML IV SCH (12:09)
[2020-10-09] MEDS ORDERED: POTASSIUM CL. PREMIX PERIPHER. 50 ML ONE ×2 (12:17→14:57)
[2020-10-09] MEDS: POTASSIUM CL. PREMIX PERIPHER. 50 ML IV SCH ×2 (12:38→14:58)
--- NOTE | 2020-10-09 19:35 | NUR ---
report given to elizabeth downing for ebony.
[2020-10-09] MEDS: VANCOMYCIN 1 GM in IV D5W 250 ML IV SCH (20:00)
--- NOTE | 2020-10-09 23:00 | NUR ---
SENIOR MANAGER NOTE Held [place] MARTINEZ. Padminio trough 23.
[2020-10-10] VITALS (7 sets, daily range): BP systolic 110–118; BP diastolic 61–67
--- NOTE | 2020-10-10 00:31 | NUR ---
OPTICIAN APPRENTICEMAIL COURIER NOTE Patient arrived to unit at 2100. VS BP 111/66 T97.7 P100 R18 O2sat 97%. Patient is A/O x1, non-verbal. Tele monitor reading sinus rhythm. Mechanical ventilation: AC 10 ClG611% PEEP 5 TV 450. Breathing even, unlabored. No acute distress or SOB noted. G-tube in place, patent and intact. No redness around site. IV site R hand and L hand 20g, patent and intact. No signs of redness or infiltration. Skin is warm, pink, dry, appropriate for ethnicity. Full thickness loss pressure ulcer noted on sacrum. Abrasion noted on right buttock. Left heel ulcer noted. Bruise on right heel. Offloaded and reposition q2h. Abrasion noted on right elbow. Photos taken and documented. Abdomen soft, non tender. BS hypoactive. Cerda catheter in place. Urine output clear and yellow. Catheter care PRN. Bed in low position, HOB elevated, wheels locked, side rails up x2, call light within reach.
--- NOTE | 2020-10-10 01:27 | NUR ---
DENTURE WAXER NOTE POLST documented in chart. Patient wishes to be DNR. Hospitalist notified.
[2020-10-10] MEDS: GLUCERNA 1.2 1,000 ML BOTTLE GT PRN (04:20)
[2020-10-10] MEDS: ZOSYN IVPB 3.375 G in IV D5W 50ml IV SCH ×3 (05:15→17:54)
--- NOTE | 2020-10-10 06:34 | NUR ---
SENIOR NET ARCHITECT CLOSING NOTE Patient is A/O x1, non-verbal. Tele monitor reading sinus rhythm. Mechanical ventilation: AC 10 OqK691% PEEP 5 TV 450. Breathing even, unlabored. No acute distress or SOB noted. G-tube in place, patent and intact, running glucerna 1.2 @ 55 ml/hr. No redness around site. IV site R hand and L hand 20g, patent and intact. No signs of redness or infiltration. Offload and reposition q2h. Cerda catheter in place. Urine output clear and yellow. Catheter care PRN. All needs met. Medications administered as ordered. Bed in low position, HOB elevated, wheels locked, side rails up x2, call light within reach.
--- NOTE | 2020-10-10 07:30 | NUR ---
received pt. with vent settings unchanged.hob elevated.tube feeding infusing.f/c to gravity drainage with good output.
[2020-10-10] MEDS: AMLODIPINE BESYLATE 10 MG TABLET GT SCH (09:00)
[2020-10-10] MEDS: METOPROLOL TARTRATE 25 MG TABLET GT SCH ×2 (09:00→17:00)
[2020-10-10] MEDS: VANCOMYCIN 1 GM in IV D5W 250 ML IV SCH (09:13)
[2020-10-10] MEDS: LEVETIRACETAM SOL (5 ML) 100 MG/ML UDC GT SCH ×2 (09:28→17:54)
[2020-10-10] MEDS: FAMOTIDINE/PF INJ 20 MG/2 ML VIAL IV SCH ×2 (09:28→21:56)
[2020-10-10] MEDS: ASCORBIC ACID 500 MG TABLET GT SCH (09:28)
[2020-10-10] MEDS: GABAPENTIN 300 MG CAPSULE PO SCH ×2 (09:28→21:56)
[2020-10-10] MEDS: FERROUS SULFATE (325 MG) 325 MG/TAB TABLET GT SCH (09:28)
[2020-10-10] MEDS: MULTIVITAMINS,THERAGRAN 1 UDTAB TABLET GT SCH (09:29)
[2020-10-10 10:14] LABS: CALCIUM, SERUM 8.8 mg/dL (8.5-10.1); CARBON DIOXIDE 31 mmol/L (21-32); CHLORIDE 108 mmol/L (98-107); CREATININE 0.5 mg/dL (0.6-1.3); GLUCOSE 102 mg/dL (74-106); SODIUM SERUM 146 mmol/L (136-145); UREA NITROGEN, BLOOD 13 mg/dL (7-18)
[2020-10-10] MEDS: POTASSIUM CHLORIDE 20 MEQ POWDER PACKET GT SCH ×3 (11:48→14:49)
--- NOTE | 2020-10-10 13:52 | NUR ---
urine specimen sent as per orders.in process of potassium replacement.
[2020-10-10 16:32] LABS: CHLORIDE,URINE RANDOM 50 mmol/L (55-125); POTASSIUM RNDM,URINE 33 mmol/L (25-125); URINE SODIUM, RANDOM 59 mmol/l (40-220)
[2020-10-10 16:45] LABS: OSMOLALITY,URINE 295 mOS/kg (340-1090)
[2020-10-10] MEDS: HYDROGEL DRESSING 90 GM TUBE TP SCH (16:45)
--- NOTE | 2020-10-10 16:46 | NUR ---
ua and urine culture added to earlier specimen.
[2020-10-10 16:56] LABS: BILIRUBIN,URINE NEGATIVE (NEGATIVE); COLOR,URINE YELLOW (YELLOW); LEUKOCYTE ESTERASE ,URINE MODERATE (NEGATIVE); NITRITE, URINE NEGATIVE (NEGATIVE); PROTEIN,URINE NEGATIVE (NEGATIVE); UGLUCOSE NEGATIVE (NEGATIVE)
[2020-10-10 17:25] LABS: BACTERIA,URINE 2+ /HPF (None Seen); SQUAMOUS EPITHELIAL CELL,UR 0-2 /HPF (None Seen)
--- NOTE | 2020-10-10 18:00 | NUR ---
no chg. in status.
--- NOTE | 2020-10-10 21:20 | NUR ---
BAKING POWDER MIXER NOTES RECEIVED PATIENT IN BED: A/O X1 OPENS EYES AND MOUTHS WORDS. ON VENT AND TOLERATING SETTINGS WELL WITH NO DESAT. ON EXTERNAL CARDIAC MONITORING: SR AND HR AT 90'S. GTUBE PATENT AND INTACT; GLUCERNA 1.2 @ 55ML/HR; TOLERATING FEEDINGS WELL. IV ON R HAND #20, R HAND #20, RAC #20, AND R FOOT #20; PATENT AND INTACT. RAMOS CATHETER INTACT AND PATENT; DRAINING CLEAR YELLOW URINE BY GRAVITY. NO S/S OF PAIN OR DISTRESS NOTED AT THE TIME. WILL CONTINUE TO MONITOR. Addendum: 10/10/20 at 2127 by RADHA CAIN RN OPENING NOTES
[2020-10-11] MEDS: ZOSYN IVPB 3.375 G in IV D5W 50ml IV SCH ×4 (00:29→17:18)
[2020-10-11 01:43] VITALS: BP 104/63
[2020-10-11] MEDS: HYDROCODONE/APAP 5/325MG TABLET PO PRN ×2 (03:42→10:21)
[2020-10-11 04:29] VITALS: BP 114/60
--- NOTE | 2020-10-11 07:35 | NUR ---
MANAGEMENT PROFESSIONAL CLOSING NOTES PATIENT IN BED: A/O X1 OPENS EYES AND MOUTHS WORDS. ON VENT AND TOLERATING SETTINGS WELL WITH NO DESAT. ON EXTERNAL CARDIAC MONITORING: SR AND HR AT 90'S. GTUBE PATENT AND INTACT; GLUCERNA 1.2 @ 55ML/HR; TOLERATING FEEDINGS WELL. IV ON R HAND #20, L HAND #20, RAC #20, PATENT AND INTACT. RAMOS CATHETER INTACT AND PATENT; DRAINING CLEAR YELLOW URINE BY GRAVITY. NO S/S OF PAIN OR DISTRESS NOTED AT THE TIME. WILL ENDORSE PLAN OF CARE TO ONCOMING NURSE.
[2020-10-11 08:00] VITALS: BP 121/67
[2020-10-11 08:02] LABS: BASOPHILS % (AUTO) 0.5 % (0.0-2.0); EOSINOPHILS % (AUTO) 0.7 % (0.0-6.0); HEMATOCRIT 27 % (39-51); HEMOGLOBIN 8.7 g/dL (13.5-17.5); LYMPHOCYTES # (AUTO) 1.7 /CMM (0.8-4.8); LYMPHOCYTES % (AUTO) 20.1 % (20.0-44.0); MEAN CORPUSCULAR HGB CONC 32 g/dl (31.0-36.0); MEAN CORPUSCULAR VOLUME 83 fL (80-96); MONOCYTES # (AUTO) 0.7 /CMM (0.1-1.30); MONOCYTES % (AUTO) 8.3 % (2.0-12.0); NEUTROPHILS # (AUTO) 5.9 /CMM (1.8-8.9); NEUTROPHILS % (AUTO) 70.4 % (43.0-81.0); PLATELET COUNT (AUTO) 413 /CMM (150-450); WHITE BLOOD COUNT (AUTO) 8.4 K/uL (4.3-11.0)
--- NOTE | 2020-10-11 08:05 | NUR ---
TELE/RN OPENING NOTE THE PATIENT IS RECEIVED IN BED. VENT/TRACH PATIENT AND TOLERATING THE SETTING WELL. TELE BOX READING IS SR 75. RAMOS CATH PRESENT. RIGHT HAND G 20, LEFT HAND G 20 AND RAC G 20 PATENT AND SALINE LOCKED. BED LOW AND LOCKED. SIDE RAILS UP X3. CALL LIGHT WITHIN REACH. WILL CONTINUE TO MONITOR.
[2020-10-11 08:43] LABS: CALCIUM, SERUM 8.8 mg/dL (8.5-10.1); CREATININE 0.7 mg/dL (0.6-1.3); MAGNESIUM 1.7 mg/dL (1.8-2.4); PHOSPHORUS 3.3 mg/dL (2.5-4.9); POTASSIUM 3.6 mmol/L (3.5-5.1)
[2020-10-11] MEDS: FERROUS SULFATE (325 MG) 325 MG/TAB TABLET GT SCH (09:09)
[2020-10-11] MEDS: GABAPENTIN 300 MG CAPSULE PO SCH ×2 (09:09→21:34)
[2020-10-11] MEDS: ASCORBIC ACID 500 MG TABLET GT SCH (09:09)
[2020-10-11] MEDS: MULTIVITAMINS,THERAGRAN 1 UDTAB TABLET GT SCH (09:09)
[2020-10-11] MEDS: LEVETIRACETAM SOL (5 ML) 100 MG/ML UDC GT SCH ×2 (09:09→16:40)
[2020-10-11] MEDS: FAMOTIDINE/PF INJ 20 MG/2 ML VIAL IV SCH ×2 (09:09→21:34)
[2020-10-11] MEDS: AMLODIPINE BESYLATE 10 MG TABLET GT SCH (09:10)
[2020-10-11] MEDS: METOPROLOL TARTRATE 25 MG TABLET GT SCH ×2 (09:10→16:38)
[2020-10-11] MEDS: HYDROGEL DRESSING 90 GM TUBE TP SCH (09:21)
[2020-10-11] MEDS ORDERED: Magnesium 1GM/D5W 100ML PREMIX 100 ML IV SCH (10:00)
[2020-10-11] MEDS: Magnesium 1GM/D5W 100ML PREMIX 100 ML IV SCH ×2 (10:20→12:10)
[2020-10-11 12:00] VITALS: BP 100/54
[2020-10-11 16:00] VITALS: BP 104/61
[2020-10-11] MEDS ORDERED: AMOX-430 PO (16:40)
--- NOTE | 2020-10-11 18:18 | NUR ---
TELE/RN CLOSING NOTE PATIENT ALERT AND ORIENTED TO SELF, RESPONSIVE TO VERBAL STIMULI BY BLINKING EYES. DENIES PAIN. PATIENT IS TRACH/VENT DEPENDANT AND TOLERATES SETTINGS WELL. TELE BOX READING IS SR 74. RAMOS CATH PRESENT AND DRAINING CLEAR, YELLOW COLOR URINE. NO BLADDER DISTENSION NOTED. GT FEEDING INFUSING AR 55ML/HR. ABDOMEN SOFT AND NON-DISTENDED. NO RESIDUAL NOTED. RIGHT HAND G 20, LEFT HAND G 20 AND RAC G 20 PATENT AND SALINE LOCKED. BED LOW AND LOCKED. SIDE RAILS UP X3. CALL LIGHT WITHIN REACH. WILL ENDORSE TO WARDROBE CUSTODIAN.
--- NOTE | 2020-10-11 19:52 | NUR ---
SUPERINTENDENT BUILDING OPENING NOTES RECEIVED PATIENT IN BED: A/O X1 OPENS EYES AND MOUTHS WORDS. ON VENT AND TOLERATING SETTINGS WELL WITH NO DESAT. ON EXTERNAL CARDIAC MONITORING: SR AND HR AT 70'S. GTUBE PATENT AND INTACT; GLUCERNA 1.2 @ 55ML/HR; TOLERATING FEEDINGS WELL. IV ON R HAND #20, R HAND #20, RAC #20, AND R FOOT #20; PATENT AND INTACT. RAMOS CATHETER INTACT AND PATENT; DRAINING CLEAR YELLOW URINE BY GRAVITY. NO S/S OF PAIN OR DISTRESS NOTED AT THE TIME. WILL CONTINUE TO MONITOR.
[2020-10-11 20:00] VITALS: BP 105/65
[2020-10-12] VITALS: BP 104/60
[2020-10-12] MEDS: ZOSYN IVPB 3.375 G in IV D5W 50ml IV SCH ×4 (00:05→18:38)
[2020-10-12] MEDS: HYDROCODONE/APAP 5/325MG TABLET PO PRN (03:30)
[2020-10-12] MEDS: GLUCERNA 1.2 1,000 ML BOTTLE GT PRN (04:48)
--- NOTE | 2020-10-12 06:42 | NUR ---
PINMAKER CLOSING NOTES PATIENT IN BED: A/O X1 OPENS EYES AND MOUTHS WORDS. ON VENT AND TOLERATING SETTINGS WELL WITH NO DESAT. ON EXTERNAL CARDIAC MONITORING: SR AND HR AT 80'S. GTUBE PATENT AND INTACT; GLUCERNA 1.2 @ 55ML/HR; TOLERATING FEEDINGS WELL. IV ON R HAND #20, L HAND #20, RAC #20, PATENT AND INTACT. RAMOS CATHETER INTACT AND PATENT; DRAINING CLEAR YELLOW URINE BY GRAVITY. DID TREATMENTS ORDERED. SAFETY MEASURES IN PLACE: BED IN LOWEST LOCKED POSITION, BED ALARM ON, CALL LIGHT WITHIN REACH, SIDE RAILS UP X3. WILL ENDORSE PLAN OF CARE TO ONCOMING MORNING NURSE.
--- NOTE | 2020-10-12 07:35 | NUR ---
TELE/RN OPENING NOTES RECEIVED PATIENT ON BED. NONVERBAL. PATIENT IN NO APPARENT RESPIRATORY DISTRESS NOTED. NO SIGN AND SYMPTOM OF PAIN NOTED AT THIS TIME. WILL CONTINUE TO MONITOR.
[2020-10-12 07:49] LABS: BASOPHILS % (AUTO) 0.5 % (0.0-2.0); EOSINOPHILS % (AUTO) 0.9 % (0.0-6.0); HEMATOCRIT 26 % (39-51); HEMOGLOBIN 8.2 g/dL (13.5-17.5); LYMPHOCYTES # (AUTO) 1.5 /CMM (0.8-4.8); LYMPHOCYTES % (AUTO) 24.1 % (20.0-44.0); MEAN CORPUSCULAR HGB CONC 32 g/dl (31.0-36.0); MEAN CORPUSCULAR VOLUME 83 fL (80-96); MONOCYTES # (AUTO) 0.5 /CMM (0.1-1.30); MONOCYTES % (AUTO) 7.3 % (2.0-12.0); NEUTROPHILS # (AUTO) 4.3 /CMM (1.8-8.9); NEUTROPHILS % (AUTO) 67.2 % (43.0-81.0); PLATELET COUNT (AUTO) 364 /CMM (150-450); RED BLOOD CELL COUNT(AUTO) 3.12 MIL/uL (4.5-6.0); WHITE BLOOD COUNT (AUTO) 6.4 K/uL (4.3-11.0)
[2020-10-12 08:00] VITALS: BP 119/68
[2020-10-12 08:14] LABS: ALBUMIN 1.5 g/dL (3.4-5.0); BILIRUBIN,TOTAL 0.3 mg/dL (0.2-1.0); CREATININE 0.8 mg/dL (0.6-1.3); MAGNESIUM 1.9 mg/dL (1.8-2.4); PHOSPHORUS 2.8 mg/dL (2.5-4.9); POTASSIUM 3.6 mmol/L (3.5-5.1); TOTAL PROTEIN, SERUM 7.3 g/dL (6.4-8.2)
[2020-10-12] MEDS: GABAPENTIN 300 MG CAPSULE PO SCH (08:56)
[2020-10-12] MEDS: LEVETIRACETAM SOL (5 ML) 100 MG/ML UDC GT SCH ×2 (08:56→18:38)
[2020-10-12] MEDS: FERROUS SULFATE (325 MG) 325 MG/TAB TABLET GT SCH (08:56)
[2020-10-12] MEDS: FAMOTIDINE/PF INJ 20 MG/2 ML VIAL IV SCH (08:57)
[2020-10-12] MEDS: ASCORBIC ACID 500 MG TABLET GT SCH (08:57)
[2020-10-12] MEDS: MULTIVITAMINS,THERAGRAN 1 UDTAB TABLET GT SCH (08:57)
[2020-10-12] MEDS: AMLODIPINE BESYLATE 10 MG TABLET GT SCH (08:58)
[2020-10-12] MEDS: METOPROLOL TARTRATE 25 MG TABLET GT SCH ×2 (08:58→17:00)
[2020-10-12] MEDS: HYDROGEL DRESSING 90 GM TUBE TP SCH (09:08)
[2020-10-12 10:14] LABS: BAND % (MANUAL) 2 % (0.0-5.0); EOSINOPHILS % (MANUAL) 1 % (0-4); LYMPHOCYTES % (MANUAL) 21 % (16-48); MONOCYTES % (MANUAL) 8 % (0-11.0); MYELOCYTES % 5 % (0-0); NEUTROPHILS % (MANUAL) 63 (42-76)
[2020-10-12 12:00] VITALS: BP 104/62
[2020-10-12 16:00] VITALS: BP 104/59
[2020-10-12 17:00] VITALS: BP 104/59
--- NOTE | 2020-10-12 18:28 | NUR ---
RN NOTES BP 104/73 P 79 METOPROLOL 25 MG P.O. 1 TAB. WILL CONTINUE TO MONITOR.
--- NOTE | 2020-10-12 20:17 | NUR ---
TELE/RN CLOSING NOTES PATIENT IS ON BED, NONVERBAL. PATIENT IS ON TRACH AND VENT DEPENDENT AT PRESCRIBED SETTING. PATIENT IN NO APPARENT RESPIRATORY DISTRESS NOTED AT THIS TIME. NO SIGN AND SYMPTOM OF PAIN NOTED AT THIS TIME. SEEN AND EXAMINED BY MD WITH ORDERS MADE AND CARRIED OUT. ALL DUE MEDICATIONS WAS GIVEN. IV ACCESS AT RIGHT HAND #20G RIGHT AC LEFT HAND @20G PATENT AND INTACT. WITH IV FLUID OF 100ML/HR ON AND INFUSING WELL. SAFETY PRECAUTIONS WAS IN PLACED. BED IN LOWEST POSITION AND LOCKED. SIDERAILS UP X2. CALL LIGHT WITHIN REACH. PATIENT IS FOR DISCHARGED TODAY. REPORT GIVEN TO BLAINE PETERS. WILL ENDORSED TO TRADE MARK ATTORNEY FOR YESSI.
--- NOTE | 2020-10-12 20:20 | NUR ---
[facility] ambulance here to olive picker patient. report given to aleksandr armendariz emt and shayna rt. patient in no apparent distress. iv removed from right hand #20, left hand #20 and right ac #20 with no s/s of complications catheters intact. bandages applied to iv site. gtf stopped. patient is discharged to [facility]. report called by cassidy to linh downing.
== END 2020-10-12 20:35 | DRG 253 ==
LOC: ER 10:02 → TRANSITION 21:49 → TELE 10-09 19:25
PROVIDERS: ADMIT Student in an Organized Health Care Education/Training Program; ATTEND Student in an Organized Health Care Education/Training Program
PROC: 5A1955Z Respiratory Ventilation, Greater than 96 Consecutive Hours (ICD-10-PCS; principal; 2020-10-07)
PROC: 30233N1 Transfusion of Nonautologous Red Blood Cells into Peripheral Vein, Percutaneous Approach (ICD-10-PCS; 2020-10-07)
DX: K92.2 Gastrointestinal hemorrhage, unspecified (principal); E44.0 Moderate protein-calorie malnutrition; G20 Parkinson's disease; F20.0 Paranoid schizophrenia; F02.80 Dementia in other diseases classified elsewhere, unspecified severity, without behavioral disturbance, psychotic disturbance, mood disturbance, and anxiety; I48.0 Paroxysmal atrial fibrillation; G40.909 Epilepsy, unspecified, not intractable, without status epilepticus; I10 Essential (primary) hypertension; J96.10 Chronic respiratory failure, unspecified whether with hypoxia or hypercapnia; J18.9 Pneumonia, unspecified organism; K59.00 Constipation, unspecified; Z20.822 Contact with and (suspected) exposure to COVID-19; F32.9 Major depressive disorder, single episode, unspecified; D64.9 Anemia, unspecified; E11.9 Type 2 diabetes mellitus without complications; K21.9 Gastro-esophageal reflux disease without esophagitis; D68.69 Other thrombophilia; M19.90 Unspecified osteoarthritis, unspecified site; Z79.01 Long term (current) use of anticoagulants; Z79.82 Long term (current) use of aspirin; Z79.4 Long term (current) use of insulin; E87.6 Hypokalemia; E86.1 Hypovolemia; N30.90 Cystitis, unspecified without hematuria; R13.10 Dysphagia, unspecified; Z68.1 Body mass index [BMI] 19.9 or less, adult; Z99.11 Dependence on respirator [ventilator] status
CPT/HCPCS: 31720; 36415; 71045-TC; 80048-TC; 80053-TC; 80076-TC; 80202-TC; 81001; 82272-TC; 82436-TC; 82533; 83605-TC; 83735-TC; 83880; 83935-TC; 84100-TC; 84133-TC; 84300-TC; 84484-TC; 85025-TC; 85730-TC; 86850-TC; 87081-TC; 87086-TC; 94003-TC; 94760-TC; 94762-TC; 94799-TC; 99082-TC; A6248; A6253; A6403; C9113; C9803; G0378; J1953; J2405; J2543; J3370; J3475; J3480; J3490; J7030; J7040; J7050; J7060; P9016-BL; Q9967; U0003

== ENCOUNTER 2020-12-22 13:10 | Inpatient (IN) | payer MEDICAID ==
[~2020-12-22] VITALS: Ht 170.2 cm; Wt 79.4 kg
[2020-12-22] VITALS (28 sets, daily range): BP systolic 39–96; BP diastolic 19–59
[~2020-12-22 13:10] MED LIST changes: +ACET325T53 GT; +AMLO10TA4 GT; +AMOX-430 PO; +ASCO500C17 GT; +BISA10SU61 RC; +CHLO473M3 MM; +CRAN3875 GT; +DOCU-141 GT; +EPOE40002 SQ; +FERR325T23 GT; +FURO-145 GT; +GABA-532 GT; +HYDR-4384 GT; +IPRA4AER IH; -LACT-209 GT; +LEVE100S GT; -LEVO750T21 PO; +MAGN400O6 GT; +METF500S7 GT; +METO25TA6 GT; +MULT-439 GT; +NA P133E RC; +NUT.237L30 GT; +NUTR1PAC14 GT; +OMEP40CA13 GT; +SACC250C GT
--- NOTE | 2020-12-22 13:10 | NUR ---
PT HEIKE FROM [facility] C/O LOW O2 SAT 60% ON SCENE PER EMS. PT IS AAOX0, ON TRACH VIA VENT, HOOKED TO CREDIT ASSISTANT, KEPT RESTED AND COMFORTABLE. WILL CONTINUE TO MONITOR.
--- NOTE | 2020-12-22 13:11 | NUR ---
RT AT BEDSIDE FOR VENT SET UP
--- NOTE | 2020-12-22 13:14 | NUR ---
SEEN AND EXAMINED BY .
--- NOTE | 2020-12-22 13:20 | NUR ---
IV LINE ESTABLISHED BLOOD DRAWN AND SENT TO LAB.
[2020-12-22 13:44] LABS: BASOPHILS # (AUTO) 0.1 /CMM (0.0-0.2); BASOPHILS % (AUTO) 0.8 % (0.0-2.0); EOSINOPHILS % (AUTO) 0.1 % (0.0-6.0); HEMATOCRIT 31 % (39-51); HEMOGLOBIN 9.8 g/dL (13.5-17.5); LYMPHOCYTES # (AUTO) 2.3 /CMM (0.8-4.8); LYMPHOCYTES % (AUTO) 26.8 % (20.0-44.0); MEAN CORPUSCULAR HGB CONC 31 g/dl (31.0-36.0); MEAN CORPUSCULAR VOLUME 87 fL (80-96); MONOCYTES # (AUTO) 0.1 /CMM (0.1-1.30); NEUTROPHILS # (AUTO) 6.1 /CMM (1.8-8.9); NEUTROPHILS % (AUTO) 71.3 % (43.0-81.0); PLATELET COUNT (AUTO) 656 /CMM (150-450); RED BLOOD CELL COUNT(AUTO) 3.59 MIL/uL (4.5-6.0); WHITE BLOOD COUNT (AUTO) 8.6 K/uL (4.3-11.0)
[2020-12-22 13:55] LABS: CALCIUM, SERUM 11.3 mg/dL (8.5-10.1); CARBON DIOXIDE 19 mmol/L (21-32); CHLORIDE 91 mmol/L (98-107); CREATININE 3.2 mg/dL (0.6-1.3); GLUCOSE 163 mg/dL (74-106); POTASSIUM 5.4 mmol/L (3.5-5.1); SODIUM SERUM 128 mmol/L (136-145); UREA NITROGEN, BLOOD 74 mg/dL (7-18)
[2020-12-22 14:07] LABS: ALANINE AMINOTRANSFERASE 9 U/L (12-78); ALBUMIN 2.1 g/dL (3.4-5.0); ALKALINE PHOSPHATASE 89 U/L (46-116); ASPARTATE AMINOTRANSFERASE 22 U/L (15-37); B-TYPE NATRIURETIC PEPTIDE 8255 PG/ML (0-125); BILIRUBIN,DIRECT 0.2 mg/dL (0.0-0.2); BILIRUBIN,TOTAL 0.5 mg/dL (0.2-1.0); TOTAL PROTEIN, SERUM 8.5 g/dL (6.4-8.2)
[2020-12-22] MEDS ORDERED: IV NS 0.9% 1,000 ML BAG IV ONE (14:30)
[2020-12-22] MEDS ORDERED: NOREPINEPHRINE 8 MG in IV NS 0.9% 250 ML IV ONE (14:30)
[2020-12-22] MEDS ORDERED: PIPERACILLIN /TAZOBACTAM 3.375 G in IV D5W 50 ML IV ONE (14:30)
[2020-12-22] MEDS ORDERED: VANCOMYCIN 1 GM in IV D5W 250 ML IV ONE (14:30)
[2020-12-22] MEDS ORDERED: IV NS 0.9% 1,000 ML IV ONE (14:30)
[2020-12-22] MEDS ORDERED: AMIN30LI2 GT (14:49)
[2020-12-22] MEDS ORDERED: ASCO500T10 GT (14:49)
[2020-12-22] MEDS ORDERED: RIVA10TA GT (14:49)
[2020-12-22] MEDS ORDERED: ACET-2605 GT (14:49)
[2020-12-22] MEDS ORDERED: INSU100V36 SQ (14:49)
[2020-12-22] MEDS ORDERED: SENN-261 GT (14:49)
[2020-12-22] MEDS ORDERED: METF-440 GT (14:49)
[2020-12-22] MEDS ORDERED: ZINC220C6 GT (14:49)
[2020-12-22] MEDS ORDERED: GEL100GE TD (14:49)
[2020-12-22 15:30] LABS: ABG BASE EXCESS -14.1 mmol/L; ABG PCO2 28.3 mmHg (35.0-45.0); ABG PH 7.242 (7.350-7.450); ABG PO2 105.8 mmHg (75.0-100.0); AaDO2 578.9 mmHg; COHb 0.3 % (0.5-1.5); MetHb 0.4 % (0.0-1.5); O2Hb 95.3 % (94.0-97.0); PEEP,BG 0 cm H2O; SITE, ABG Right Radial; VENT MODE, BG AC 20 550 100 +0
[2020-12-22 15:36] LABS: COLOR,URINE BROWN (YELLOW)
[2020-12-22 15:37] LABS: PH,URINE 8.5 (5.0-8.0); PROTEIN,URINE 4+ mg/dl (NEGATIVE); UGLUCOSE NEGATIVE (NEGATIVE)
[2020-12-22 15:38] LABS: BILIRUBIN,URINE NEGATIVE (NEGATIVE); LEUKOCYTE ESTERASE ,URINE LARGE (NEGATIVE); NITRITE, URINE POSITIVE (NEGATIVE); UROBILINOGEN,URINE 0.2 EU/dL (0.2)
[2020-12-22 15:39] LABS: BACTERIA,URINE 4+ /HPF (None Seen); RBC,URINE TOO NUMEROUS TO COUN /HPF (0-2); WBC,URINE TOO NUMEROUS TO COUN /HPF (0-3)
[2020-12-22 15:40] LABS: SQUAMOUS EPITHELIAL CELL,UR Few /HPF (None Seen); URINE AMORPHOUS PHOSPHATES Many /HPF (None Seen)
--- NOTE | 2020-12-22 15:57 | NUR ---
PICC LINE NURSE AT BEDSIDE.
[2020-12-22] MEDS ORDERED: HEPARIN SODIUM, PORCINE 5000 UNITS/1 ML VIAL SQ SCH (17:00)
--- NOTE | 2020-12-22 17:20 | NUR ---
REPORT GIVEN TO LORRAINE SLATER FOR YESSI. WITH ONGOING LEVOPHED TITRATE TO EFFECT.
[2020-12-22] MEDS ORDERED: MISCELLANEOUS MED 1 EA EA GT PRN (17:30)
[2020-12-22] MEDS ORDERED: BISACODYL SUPP (10 MG) 10 MG/SUPP.RECT SUPP.RECT RC PRN (17:30)
[2020-12-22] MEDS ORDERED: MAGNESIUM HYDROXIDE 30 ML UDC GT PRN (17:30)
[2020-12-22] MEDS ORDERED: NOREPINEPHRINE 8 MG in IV NS 0.9% 242 ML IV PRN (18:00)
[2020-12-22] MEDS ORDERED: DEXTROSE 50%-WATER 50 ML DISP.SYRIN IV PRN (18:00)
[2020-12-22] MEDS ORDERED: ONDANSETRON HCL/PF 4 MG/2 ML VIAL IVP PRN (18:00)
[2020-12-22] MEDS ORDERED: MAGNESIUM HYDROXIDE 30 ML UDC PO PRN (18:00)
[2020-12-22] MEDS ORDERED: ZOLPIDEM TARTRATE 5 MG TABLET PO PRN (18:00)
[2020-12-22] MEDS ORDERED: HYDROCODONE/APAP 5/325MG TABLET PO PRN (18:00)
[2020-12-22] MEDS ORDERED: MAG HYDROX/AL HYDROX/SIMETH 30 ML UDC PO PRN (18:00)
[2020-12-22] MEDS: IV NS 0.9% 1,000 ML IV PRN (18:24)
[2020-12-22] MEDS ORDERED: HYDROCORTISONE SOD SUCCINATE 100 MG/2 ML VIAL IV ONE (18:30)
[2020-12-22] MEDS: Sodium Bicarbonate 100 MEQ in IV D5W 1,000 ML IV SCH (18:37)
[2020-12-22] MEDS ORDERED: NOREPINEPHRINE 32 MG in IV NS 0.9% 218 ML IV PRN (19:00)
--- NOTE | 2020-12-22 19:00 | NUR ---
Received patient on Contact/Droplet isolation pending Covid PCR test. With tracheostomy on AC mode, breathing regular,non labored,lethargic,opens eyes ,no movement noted on any of extremities ,grimaces to pain. G tube clamped,no order for feeding .del cid cath. noted with hematuric urine.PICC line via MAURO, on levophed drip @ max dose.
--- NOTE | 2020-12-22 19:00 | NUR ---
RN NOTES RECEIVED PT FROM ER VIA LAISHA. PT OPEN EYES, MOVES TO PAIN. TRACH IN PLACE, ON VENT. NO RESPIRATORY DISTRESS NOTED. HOB ELEVATED. NO SIGN SOF PAIN NOTED. MAURO PICC IN PLACE. LEVO INFUSING, WILL MONITOR BP. RAMOS IN PLACE. HEMATURIA NOTED. SKIN ASSESSMENT DONE. PICTURES TAKEN AND PLACED IN CHART. DR COUCH AWARE OF ADMISSION. WILL CONTINUE TO MONITOR
[2020-12-22] MEDS: NOREPINEPHRINE 32 MG in IV NS 0.9% 250 ML IV PRN (19:54)
--- NOTE | 2020-12-22 20:00 | NUR ---
BP in the 70's systolic, MOD was called to obtain an order for another pressors,awaiting response from MD computer systems information director.
--- NOTE | 2020-12-22 20:11 | NUR ---
RECEIVED PT ON VENT, TRACH. PT IS TOLERATING VENT SETTINGS. PT HAS PORTEX 9 TRACH. SX'D SMALL AMT OF THICK WHITE SECRETIONS. VENT ALARMS SET AND AUDIBLE. TRACH SECURED, CUFF CORRESPONDENT. CONTINUE TO MONITOR. Addendum: 12/22/20 at 2013 by JOHNNY BEAVERS RT Amended: Links added.
[2020-12-22] MEDS: RIVAROXABAN 10 MG TABLET GT SCH (21:00)
--- NOTE | 2020-12-22 21:00 | NUR ---
Dr. Pratt responded ,made him aware of low BP with max dose Levophed., ordered to start Neosynephrine .Also made him aware that patient has hematuria and patient is in Xarelto, verified if its ok to hold dose for tonight ,he agreed to hold dose tonight.
[2020-12-22] MEDS: PHENYLEPHRINE 100 MG in IV NS 0.9% 240 ML IV PRN (21:20)
--- NOTE | 2020-12-22 21:25 | NUR ---
Started on Neosynephrine drip.bP=79/49
[2020-12-22] MEDS: LEVETIRACETAM SOL (5 ML) 100 MG/ML UDC GT SCH (21:26)
[2020-12-22] MEDS: PIPERACILLIN /TAZOBACTAM 2.25 G in IV D5W 50 ML IV SCH (21:58)
[2020-12-22] MEDS: SENNOSIDES 8.6 MG TABLET GT SCH (21:59)
[2020-12-22] MEDS: BLOOD SUGAR DIAGNOSTIC 1 EACH STRIP VI SCH (22:25)
[2020-12-23] VITALS (86 sets, daily range): BP systolic 44–143; BP diastolic 33–67
--- NOTE | 2020-12-23 | NUR ---
Bp still labile,titrated Neosynephrine drip up as needed.Patient seems more alert and responsive.Now with low grade temp. 99.9 . Cooling measures done.
--- NOTE | 2020-12-23 02:00 | NUR ---
Urine noted to be clearing out, now with yellow urine.
[2020-12-23] MEDS: NOREPINEPHRINE 32 MG in IV NS 0.9% 250 ML IV PRN ×3 (02:42→16:42)
[2020-12-23] MEDS: Sodium Bicarbonate 100 MEQ in IV D5W 1,000 ML IV SCH ×4 (02:43→20:45)
--- NOTE | 2020-12-23 04:00 | NUR ---
Stable,not in any distress. Levophed drip still @ 1 mcg/kg/min., Neosynephrine drip @ 1.5 mcg/kg/min.AM bath done, pressure injury at sacral area care done,dressing changed.
[2020-12-23 04:31] LABS: BASOPHILS % (AUTO) 0.1 % (0.0-2.0); HEMATOCRIT 29 % (39-51); HEMOGLOBIN 8.9 g/dL (13.5-17.5); LYMPHOCYTES # (AUTO) 1.2 /CMM (0.8-4.8); LYMPHOCYTES % (AUTO) 8.2 % (20.0-44.0); MEAN CORPUSCULAR HGB CONC 31 g/dl (31.0-36.0); MEAN CORPUSCULAR VOLUME 87 fL (80-96); MONOCYTES # (AUTO) 0.4 /CMM (0.1-1.30); MONOCYTES % (AUTO) 2.7 % (2.0-12.0); PLATELET COUNT (AUTO) 564 /CMM (150-450); WHITE BLOOD COUNT (AUTO) 14.6 K/uL (4.3-11.0)
[2020-12-23 04:45] LABS: CALCIUM, SERUM 9.3 mg/dL (8.5-10.1); CARBON DIOXIDE 18 mmol/L (21-32); CHLORIDE 96 mmol/L (98-107); CREATININE 2.4 mg/dL (0.6-1.3); GLUCOSE 114 mg/dL (74-106); MAGNESIUM 1.4 mg/dL (1.8-2.4); PHOSPHORUS 3.2 mg/dL (2.5-4.9); SODIUM SERUM 131 mmol/L (136-145)
[2020-12-23] MEDS: HYDROCORTISONE SOD SUCCINATE 100 MG/2 ML VIAL IV SCH ×3 (05:18→21:44)
[2020-12-23] MEDS: IV NS 0.9% 1,000 ML IV PRN (05:18)
[2020-12-23] MEDS: PIPERACILLIN /TAZOBACTAM 2.25 G in IV D5W 50 ML IV SCH ×3 (05:19→21:44)
[2020-12-23 05:20] LABS: UREA NITROGEN, BLOOD 72 mg/dL (7-18)
--- NOTE | 2020-12-23 07:00 | NUR ---
Report given to kranthi .Still on Levophed and Neosynephrine drip for BP support
--- NOTE | 2020-12-23 07:23 | NUR ---
RECEIVED PATIENT IN BED. NO ACUTE DISTRESS NOTED. PATIENT VERY LETHARGIC. PATIENT TRACH'D ON MECHANICAL VENTILATOR, TOLERATING SETTINGS WELL. PATIENT ON CASUALTY CLAIM ADJUSTER, ST NOTED WITH HR IN 120S. PATIENT G-TUBE IN PLACE, INTACT. PATIENT FC IN PLACE, INTACT, DRAINING TO GRAVITY. PATIENT MAURO PICC INTACT, PATENT. PATIENT SAFETY MEASURES MAINTAINED. WILL CONTINUE TO MONITOR.
--- NOTE | 2020-12-23 07:23 | NUR ---
WOUND CARE CONSULT: REVIEWED CHART, NURSING DOCUMENTATION AND PHOTOS WHICH INDICATE MULTIPLE WOUNDS, PRESENT ON ADMISSION. RECOMMEND SURGICAL AND PODIATRY CONSULTS. DR ESPOSITO AND DR HERRERA NOTIFIED OF CONSULT REQUESTS. FIRST STEP LOW AIRLOSS MATTRESS ORDERED. DISCUSSED SKIN PROTECTION WITH NURSING STAFF. MD IN AGREEMENT WITH PLAN OF CARE.
[2020-12-23] MEDS: DOCUSATE SODIUM LIQ 100 MG/10 ML UDC GT SCH (08:30)
[2020-12-23] MEDS: PANTOPRAZOLE 40 MG TABLET.DR PO SCH (08:30)
[2020-12-23] MEDS: BLOOD SUGAR DIAGNOSTIC 1 EACH STRIP VI SCH ×4 (08:30→22:08)
[2020-12-23] MEDS: FERROUS SULFATE (325 MG) 325 MG/TAB TABLET GT SCH (08:31)
[2020-12-23] MEDS: ZINC SULFATE 220 MG CAPSULE GT SCH (08:31)
[2020-12-23] MEDS: LEVETIRACETAM SOL (5 ML) 100 MG/ML UDC GT SCH ×2 (08:31→21:44)
[2020-12-23] MEDS: Magnesium 1GM/D5W 100ML PREMIX 100 ML IV SCH ×2 (08:59→10:24)
[2020-12-23 09:26] LABS: ABG BASE EXCESS -6.4 mmol/L; ABG OXYGEN SATURATION 96.1 % (92.0-98.5); ABG PCO2 23.9 mmHg (35.0-45.0); AaDO2 252.6 mmHg; COHb 0.4 % (0.5-1.5); MetHb 0.3 % (0.0-1.5); O2Hb 95.4 % (94.0-97.0); SITE, ABG Left Radial; VT, ABG 550 mL
[2020-12-23] MEDS: PHENYLEPHRINE 100 MG in IV NS 0.9% 240 ML IV PRN (11:12)
[2020-12-23] MEDS: INSULIN REGULAR, HUMAN 100 UNIT/ML 3 ML VIAL SQ PRN ×2 (12:16→17:05)
[2020-12-23] MEDS: VANCOMYCIN HCL 0.75 GM in IV D5W 250 ML IV SCH (15:51)
[2020-12-23] MEDS: EPOETIN ALFA (4000 UNIT) 4,000 UNIT/ML VIAL SQ SCH (15:56)
[2020-12-23] MEDS: RIVAROXABAN 10 MG TABLET GT SCH (17:04)
--- NOTE | 2020-12-23 18:25 | NUR ---
PATIENT IN BED. NO ACUTE DISTRESS NOTED. PATIENT VERY LETHARGIC. PATIENT TRACH'D ON MECHANICAL VENTILATOR, TOLERATING SETTINGS WELL. PATIENT ON PIPE FITTER HELPER, ST NOTED WITH HR IN 120S. PATIENT G-TUBE IN PLACE, INTACT. PATIENT FC IN PLACE, INTACT, DRAINING TO GRAVITY. PATIENT MAURO PICC INTACT, PATENT. PATIENT SAFETY MEASURES MAINTAINED. WILL ENDORSE PLAN OF CARE TO ONCOMING SHIFT
[2020-12-23] MEDS: ACETAMINOPHEN 325 MG TABLET PO PRN (21:44)
[2020-12-23] MEDS: SENNOSIDES 8.6 MG TABLET GT SCH (21:44)
[2020-12-23] MEDS: *INSULIN REGULAR(HUMULIN R)HUM 100 UNIT/ML VIAL SQ PRN (22:12)
--- NOTE | 2020-12-23 22:29 | NUR ---
patient still showing bloody output from Cerda.
[2020-12-24] VITALS (96 sets, daily range): BP systolic 75–125; BP diastolic 36–86
[2020-12-24] MEDS: NOREPINEPHRINE 32 MG in IV NS 0.9% 250 ML IV PRN (00:40)
[2020-12-24] MEDS: PHENYLEPHRINE 100 MG in IV NS 0.9% 240 ML IV PRN ×3 (00:41→19:37)
[2020-12-24] MEDS: Sodium Bicarbonate 100 MEQ in IV D5W 1,000 ML IV SCH ×2 (01:30→06:40)
[2020-12-24 05:20] LABS: CREATINE KINASE, TOTAL 20 U/L (39-308)
[2020-12-24 05:24] LABS: ALANINE AMINOTRANSFERASE 27 U/L (12-78); ALKALINE PHOSPHATASE 70 U/L (46-116); ASPARTATE AMINOTRANSFERASE 52 U/L (15-37); BILIRUBIN,TOTAL 0.4 mg/dL (0.2-1.0); CALCIUM, SERUM 8.1 mg/dL (8.5-10.1); CARBON DIOXIDE 29 mmol/L (21-32); CHLORIDE 94 mmol/L (98-107); CREATININE 1.5 mg/dL (0.6-1.3); GLUCOSE 199 mg/dL (74-106); MAGNESIUM 1.9 mg/dL (1.8-2.4); SODIUM SERUM 134 mmol/L (136-145); UREA NITROGEN, BLOOD 54 mg/dL (7-18)
[2020-12-24 06:07] LABS: POTASSIUM 2.8 mmol/L (3.5-5.1)
[2020-12-24 06:08] LABS: ALBUMIN 1.2 g/dL (3.4-5.0)
[2020-12-24] MEDS ORDERED: POTASSIUM PHOSPHATE MM 15 MMOL in IV NS 0.9% 250 ML IV SCH (06:30)
[2020-12-24] MEDS: PIPERACILLIN /TAZOBACTAM 2.25 G in IV D5W 50 ML IV SCH ×3 (06:40→22:00)
[2020-12-24] MEDS: HYDROCORTISONE SOD SUCCINATE 100 MG/2 ML VIAL IV SCH ×3 (06:40→20:47)
--- NOTE | 2020-12-24 07:30 | NUR ---
RN OPENING NOTES RECEIVED PATIENT LETHARGIC AND TRACHED. WITH MECHVENT SETTINGS OF AC 28 TV 550 FIO2 50% PEEP 0. ST ON TELE MONITOR. NO DISTRESS NOTED AT THIS TIME. G-TUBE AND RAMOS NOTED. MAURO PICC IN PLACE WITH LEVO AT 0.5, MARISSA AT 1.6, AND NAHCO3 AT 125. APPEARS COMFORTABLE AT THIS TIME. SAFETY CHECKS IN PLACE. WILL CONTINUE TO MONITOR.
[2020-12-24] MEDS: PANTOPRAZOLE 40 MG TABLET.DR PO SCH (08:18)
[2020-12-24] MEDS: DOCUSATE SODIUM LIQ 100 MG/10 ML UDC GT SCH (08:18)
[2020-12-24] MEDS: FERROUS SULFATE (325 MG) 325 MG/TAB TABLET GT SCH (08:18)
[2020-12-24] MEDS: ZINC SULFATE 220 MG CAPSULE GT SCH (08:18)
[2020-12-24] MEDS: LEVETIRACETAM SOL (5 ML) 100 MG/ML UDC GT SCH ×2 (08:18→20:46)
[2020-12-24] MEDS: BLOOD SUGAR DIAGNOSTIC 1 EACH STRIP VI SCH ×4 (08:18→22:00)
[2020-12-24] MEDS: THERAHONEY GEL 1.5 OZ TUBE TP SCH (08:19)
[2020-12-24] MEDS: *INSULIN REGULAR(HUMULIN R)HUM 100 UNIT/ML VIAL SQ PRN (08:35)
[2020-12-24 09:23] LABS: BASOPHILS % (AUTO) 0.2 % (0.0-2.0); EOSINOPHILS % (AUTO) 0.1 % (0.0-6.0); HEMATOCRIT 25 % (39-51); HEMOGLOBIN 7.9 g/dL (13.5-17.5); LYMPHOCYTES # (AUTO) 0.6 /CMM (0.8-4.8); LYMPHOCYTES % (AUTO) 5.4 % (20.0-44.0); MEAN CORPUSCULAR HGB CONC 32 g/dl (31.0-36.0); MEAN CORPUSCULAR VOLUME 84 fL (80-96); MONOCYTES # (AUTO) 0.5 /CMM (0.1-1.30); NEUTROPHILS # (AUTO) 10.5 /CMM (1.8-8.9); NEUTROPHILS % (AUTO) 90.3 % (43.0-81.0); PLATELET COUNT (AUTO) 243 /CMM (150-450); RED BLOOD CELL COUNT(AUTO) 2.96 MIL/uL (4.5-6.0); WHITE BLOOD COUNT (AUTO) 11.6 K/uL (4.3-11.0)
[2020-12-24] MEDS ORDERED: IV NS 0.9% 1,000 ML IV PRN (09:30)
[2020-12-24] MEDS: POTASSIUM CHLORIDE 20 MEQ POWDER PACKET NG SCH ×4 (09:48→12:06)
[2020-12-24] MEDS: INSULIN REGULAR, HUMAN 100 UNIT/ML 3 ML VIAL SQ PRN (12:09)
[2020-12-24] MEDS: VANCOMYCIN HCL 0.75 GM in IV D5W 250 ML IV SCH (14:48)
[2020-12-24 15:01] LABS: ABG BASE EXCESS 7.3 mmol/L; ABG OXYGEN SATURATION 90.9 % (92.0-98.5); ABG PCO2 29.7 mmHg (35.0-45.0); ABG PH 7.605 (7.350-7.450); ABG PO2 56.2 mmHg (75.0-100.0); AaDO2 266.9 mmHg; COHb 0.1 % (0.5-1.5); MetHb 0.1 % (0.0-1.5); O2Hb 90.7 % (94.0-97.0); PEEP,BG 0 cm H2O; SITE, ABG Left Radial; VT, ABG 500 mL
[2020-12-24] MEDS: RIVAROXABAN 10 MG TABLET GT SCH (17:00)
--- NOTE | 2020-12-24 17:07 | NUR ---
RN NOTES PTS HEMOGLOBIN IS 7.9 FROM 8.9 YESTERDAY AND HEMATURIA NOTED WELL. RN SENT A TEXT TO DR COUCH WHO AGREED TO WITHHOLD HENRRY.
--- NOTE | 2020-12-24 19:00 | NUR ---
RN CLOSING NOTES PATIENT REMAINS LETHARGIC AND TRACHED. MECHVENT SETTINGS CHANGED AC 22 FIO2 65% PEEP 0. PATIENT BP MAINTAINED BY MARISSA AT 3 MCG/KG. G TUBE REMAIN CLAMPED. RAMOS DRAINING ADEQUATE BUT HEMATURIC URINE. DRESSINGS INTACT. SAFETY CHECKS IN PLACE. APPEARS COMFORTABLE AT THIS [place]. ENDORSED TO NIGHT RN FOR CONTINUITY OF CARE.
--- NOTE | 2020-12-24 19:30 | NUR ---
RN NOTES Received patient in bed continues on [facility] vent, vent setting tolerating well as ordered. vital signs remained wnl. picc line dwaine intact patent felicitas is running at 3mcg/kg/min tolerating well. Gt in place. f/c intact pinkish urine running via gravity. All safety measures in place, call light within reach. Will cont to monitor for ebony.
--- NOTE | 2020-12-24 19:50 | NUR ---
RECEIVED PT TRACHED PORTEX 9 ON VENT WITH THE SETTINGS OF AC 22, VT 450, FIO2 65%. SX'D DONE. VENT ALARMS SET AND AUDIBLE. TRACH CUFF CHECKED. VENT PLUGGED INTO RED OUTLET. WILL CONTINUE TO MONITOR PT T/O SHIFT.
[2020-12-24] MEDS: SENNOSIDES 8.6 MG TABLET GT SCH (21:55)
[2020-12-25] VITALS (87 sets, daily range): BP systolic 90–120; BP diastolic 47–89
[2020-12-25] MEDS: PHENYLEPHRINE 100 MG in IV NS 0.9% 240 ML IV PRN ×3 (02:51→17:57)
--- NOTE | 2020-12-25 02:59 | NUR ---
ENDORSE PATIENT TO SURESH PETERS FOR YESSI, ALL INFORMATION DISCUSSED.
[2020-12-25] MEDS: PIPERACILLIN /TAZOBACTAM 2.25 G in IV D5W 50 ML IV SCH ×3 (05:30→21:07)
[2020-12-25] MEDS: HYDROCORTISONE SOD SUCCINATE 100 MG/2 ML VIAL IV SCH ×3 (05:30→21:06)
[2020-12-25 06:36] LABS: BASOPHILS % (AUTO) 0.1 % (0.0-2.0); HEMATOCRIT 22 % (39-51); HEMOGLOBIN 7.5 g/dL (13.5-17.5); LYMPHOCYTES # (AUTO) 0.6 /CMM (0.8-4.8); LYMPHOCYTES % (AUTO) 5.3 % (20.0-44.0); MEAN CORPUSCULAR HGB CONC 34 g/dl (31.0-36.0); MEAN CORPUSCULAR VOLUME 83 fL (80-96); MONOCYTES # (AUTO) 0.2 /CMM (0.1-1.30); MONOCYTES % (AUTO) 1.6 % (2.0-12.0); NEUTROPHILS # (AUTO) 10.4 /CMM (1.8-8.9); PLATELET COUNT (AUTO) 196 /CMM (150-450); RED BLOOD CELL COUNT(AUTO) 2.66 MIL/uL (4.5-6.0); WHITE BLOOD COUNT (AUTO) 11.2 K/uL (4.3-11.0)
[2020-12-25 06:45] LABS: CALCIUM, SERUM 7.4 mg/dL (8.5-10.1); CREATININE 0.7 mg/dL (0.6-1.3)
[2020-12-25 07:04] LABS: POTASSIUM 2.2 mmol/L (3.5-5.1)
--- NOTE | 2020-12-25 07:45 | NUR ---
ICU/RN PT IS TRACH ON THE VENT AC MODE.FIO2-65%,SAT O2-99%,PT IS NEOSYNEPHRINE DRIP.AND IV FLUIDS. RIGHT UPPER ARM PICC LINE.PT IS CONTRACTED.OPEN EYES.REACTIVE ON PAIN STIMULATION.G-TUBE CLAMPED.D/C DRAINING WITH YELLOW URINE ABDOMEN DISTENDED.BOWEL SOUNDS PRESENT.SACRAL WOUND COVERED WITH DRESSING.BILATERAL HEELS WOUNDS NOTED.LABS REVIEW.K-2.2. AWARE.NEW ORDERS RECIVED.
[2020-12-25] MEDS: ZINC SULFATE 220 MG CAPSULE GT SCH (08:15)
[2020-12-25] MEDS: PANTOPRAZOLE 40 MG TABLET.DR PO SCH (08:15)
[2020-12-25] MEDS: LEVETIRACETAM SOL (5 ML) 100 MG/ML UDC GT SCH ×2 (08:15→21:06)
[2020-12-25] MEDS: FERROUS SULFATE (325 MG) 325 MG/TAB TABLET GT SCH (08:15)
[2020-12-25] MEDS: HYDROGEL DRESSING 90 GM TUBE TP SCH (08:15)
[2020-12-25] MEDS: POTASSIUM CHLORIDE 20 MEQ POWDER PACKET NG SCH ×6 (08:15→13:09)
[2020-12-25] MEDS: BLOOD SUGAR DIAGNOSTIC 1 EACH STRIP VI SCH ×4 (08:16→21:15)
[2020-12-25] MEDS: Z GUARD REMEDY 2 OZ OINT TP PRN (08:16)
[2020-12-25] MEDS: THERAHONEY GEL 1.5 OZ TUBE TP SCH (08:16)
[2020-12-25] MEDS: VANCOMYCIN HCL 0.75 GM in IV D5W 250 ML IV SCH (08:19)
[2020-12-25 08:21] LABS: ABG BASE EXCESS 9.3 mmol/L; ABG OXYGEN SATURATION 93.8 % (92.0-98.5); ABG PCO2 39.9 mmHg (35.0-45.0); ABG PH 7.531 (7.350-7.450); ABG PO2 66.9 mmHg (75.0-100.0); AaDO2 353.2 mmHg; COHb 0.5 % (0.5-1.5); MetHb 0.2 % (0.0-1.5); O2Hb 93.1 % (94.0-97.0); SITE, ABG Right Radial; VENT MODE, BG AC 22 450 65%
--- NOTE | 2020-12-25 09:00 | NUR ---
ICU/RN DUE MEDS ARE GIVEN ORDERED.ABG DONE.
[2020-12-25] MEDS: DOCUSATE SODIUM LIQ 100 MG/10 ML UDC GT SCH (09:02)
[2020-12-25] MEDS: Potassium Chloride 40 MEQ in IV NS 0.9% 1,000 ML IV SCH (11:35)
[2020-12-25] MEDS: GLUCERNA 1.2 1,000 ML BOTTLE NG PRN (12:28)
[2020-12-25] MEDS: *INSULIN REGULAR(HUMULIN R)HUM 100 UNIT/ML VIAL SQ PRN (13:09)
[2020-12-25] MEDS ORDERED: CALCIUM CHLORIDE 1,000 MG/10 ML DISP.SYRIN IV ONE (14:54)
[2020-12-25] MEDS ORDERED: EPINEPHRINE (1:10,000) SYRINGE 1 MG/10 ML DISP.SYRIN IVP ONE ×3 (14:54)
[2020-12-25] MEDS ORDERED: DEXTROSE 50%-WATER 50 ML DISP.SYRIN IV ONE (14:54)
[2020-12-25 15:03] LABS: CALCIUM, SERUM 7.7 mg/dL (8.5-10.1); CREATININE 0.6 mg/dL (0.6-1.3)
--- NOTE | 2020-12-25 16:20 | NUR ---
RECEIVED PATIENT ON VENT SETTINGS OF AC 22, VT 480, FIO2 65%, PEEP 0. SATURATIONS AT 100%. Q2 VENT CHECK, SUCTION PRN. LOWERED VT TO 400 PER ABG PER DOCTORS ORDERS. PATIENT HAS A PORTEX 9 TRACH. AIRWAY PATENT AND SECURE. AMBU BAG AT THE BEDSIDE. VENT PLUGGED INTO RED OUTLET. EMERGENCY TRACH AT THE BEDSIDE.
--- NOTE | 2020-12-25 17:30 | NUR ---
ICU/RN PM CARE PROVIDED.WOUND DRESSING DONE ORDERED.DUE MEDS ARE GIVEN .CONTINUE MONITORING.
[2020-12-25] MEDS: RIVAROXABAN 10 MG TABLET GT SCH (17:58)
--- NOTE | 2020-12-25 19:40 | NUR ---
POLICE GUARD OPENING NOTES: Rec'd pt in bed on trach and vent, tolerating settings well. No resp distress noted at this time. SR on tele monitor. MAURO PICC line patent and flushed w/ Joby infusing at 3mcg and NS + 40meq KCl at 60ml/hr. GT in place patent and infusing Glucerna at 50ml/hr, tolerating well. No residual noted. Cerda catheter in place, patent and draining urine via gravity. Safety measures in place. Will continue to monitor.
--- NOTE | 2020-12-25 20:13 | NUR ---
RT NOTE RECEIVED PT ON [facility] VENT. TRACH PATENT SECURED AND IN PLACE. VENT ALARMS SET AND AUDIBLE. VENT PLUGGED IN RED OUTLET. WILL CONTINUE TO MONITOR CLOSELY. Addendum: 12/25/20 at 2015 by ORLANDO GOMEZ RT Amended: Links added.
[2020-12-25] MEDS: SENNOSIDES 8.6 MG TABLET GT SCH (21:06)
[2020-12-25] MEDS: INSULIN REGULAR, HUMAN 100 UNIT/ML 3 ML VIAL SQ PRN (21:16)
[2020-12-26] VITALS (96 sets, daily range): BP systolic 94–120; BP diastolic 41–96
[2020-12-26] MEDS: VANCOMYCIN HCL 0.75 GM in IV D5W 250 ML IV SCH (01:30)
[2020-12-26] MEDS: PHENYLEPHRINE 100 MG in IV NS 0.9% 240 ML IV PRN ×3 (01:40→20:30)
[2020-12-26] MEDS: Potassium Chloride 40 MEQ in IV NS 0.9% 1,000 ML IV SCH ×2 (03:27→20:30)
[2020-12-26 04:54] LABS: BASOPHILS % (AUTO) 0.1 % (0.0-2.0); HEMATOCRIT 23 % (39-51); HEMOGLOBIN 7.4 g/dL (13.5-17.5); LYMPHOCYTES # (AUTO) 0.9 /CMM (0.8-4.8); LYMPHOCYTES % (AUTO) 6.5 % (20.0-44.0); MEAN CORPUSCULAR HGB CONC 32 g/dl (31.0-36.0); MEAN CORPUSCULAR VOLUME 85 fL (80-96); MONOCYTES # (AUTO) 0.3 /CMM (0.1-1.30); MONOCYTES % (AUTO) 2.6 % (2.0-12.0); NEUTROPHILS % (AUTO) 90.8 % (43.0-81.0); PLATELET COUNT (AUTO) 184 /CMM (150-450); RED BLOOD CELL COUNT(AUTO) 2.74 MIL/uL (4.5-6.0); WHITE BLOOD COUNT (AUTO) 13.2 K/uL (4.3-11.0)
[2020-12-26] MEDS: HYDROCORTISONE SOD SUCCINATE 100 MG/2 ML VIAL IV SCH ×3 (05:06→20:54)
[2020-12-26] MEDS: PIPERACILLIN /TAZOBACTAM 2.25 G in IV D5W 50 ML IV SCH (05:07)
[2020-12-26 05:16] LABS: CALCIUM, SERUM 7.9 mg/dL (8.5-10.1); CREATININE 0.6 mg/dL (0.6-1.3); MAGNESIUM 1.5 mg/dL (1.8-2.4); PHOSPHORUS 1.4 mg/dL (2.5-4.9)
[2020-12-26 05:37] LABS: POTASSIUM 2.8 mmol/L (3.5-5.1)
[2020-12-26 06:11] LABS: BAND % (MANUAL) 3 % (0.0-5.0); LYMPHOCYTES % (MANUAL) 9 % (16-48); MONOCYTES % (MANUAL) 3 % (0-11.0); NEUTROPHILS % (MANUAL) 85 (42-76)
--- NOTE | 2020-12-26 07:30 | NUR ---
PROVIDER NETWORK MGR OPENING NOTES: Patient received with no s/s of acute respiratory distress. On trac/vent , tolerating settings well. . MAURO PICC line patent and flushed with Joby running at 2.4mcg and NS + 40meq KCl at 60ml/hr. GT in place patent and infusing Glucerna at 50ml/hr, tolerating well. Cerda catheter intact and hanging to gravity with clear yellow urine noted. Patient's bed is in lowest position. Call light with in reach. Will continue to monitor.
[2020-12-26] MEDS: BLOOD SUGAR DIAGNOSTIC 1 EACH STRIP VI SCH ×4 (08:15→21:45)
[2020-12-26] MEDS ORDERED: Sodium Phosphate 30 MMOL in IV NS 0.9% 250 ML IV SCH (08:30)
[2020-12-26] MEDS: LEVETIRACETAM SOL (5 ML) 100 MG/ML UDC GT SCH ×2 (08:34→20:54)
[2020-12-26] MEDS: PANTOPRAZOLE 40 MG TABLET.DR PO SCH (08:34)
[2020-12-26] MEDS: FERROUS SULFATE (325 MG) 325 MG/TAB TABLET GT SCH (08:34)
[2020-12-26] MEDS: DOCUSATE SODIUM LIQ 100 MG/10 ML UDC GT SCH (08:34)
[2020-12-26] MEDS: ZINC SULFATE 220 MG CAPSULE GT SCH (08:34)
[2020-12-26] MEDS: Magnesium 1GM/D5W 100ML PREMIX 100 ML IV SCH ×2 (08:49→10:29)
[2020-12-26] MEDS: HYDROGEL DRESSING 90 GM TUBE TP SCH (09:23)
[2020-12-26] MEDS: THERAHONEY GEL 1.5 OZ TUBE TP SCH (09:24)
[2020-12-26] MEDS ORDERED: MEROPENEM 500 MG in IV NS 0.9% 50 ML IV SCH (10:00)
--- NOTE | 2020-12-26 10:00 | NUR ---
Informed Dr Mcfarland regarding patient's K+ level
[2020-12-26] MEDS: MEROPENEM 1 G in IV NS 0.9% 100 ML IV SCH ×2 (12:25→20:42)
[2020-12-26] MEDS: INSULIN REGULAR, HUMAN 100 UNIT/ML 3 ML VIAL SQ PRN ×2 (12:47→17:46)
[2020-12-26] MEDS: EPOETIN ALFA (4000 UNIT) 4,000 UNIT/ML VIAL SQ SCH (16:14)
[2020-12-26] MEDS: POTASSIUM CL. PREMIX PERIPHER. 50 ML IV SCH ×5 (16:29→23:24)
[2020-12-26] MEDS: RIVAROXABAN 10 MG TABLET GT SCH (17:00)
[2020-12-26] MEDS: GLUCERNA 1.2 1,000 ML BOTTLE NG PRN (17:49)
--- NOTE | 2020-12-26 19:15 | NUR ---
RN NOTE RECEIVED PT OBTUNDED WITH HEAD OF BED ELEVATED. WITH TRACH CONNECTED TO VENT AND TOLERATING SETTINGS WELL, NO SIGNS OF PAIN OR DISCOMFORT, VITAL SIGNS STABLE VIA BEDSIDE MONITOR. RIGHT UPPER ARM PICC LINE PATENT. WITH MARISSA RUNNING AT 2.4 AND NS 40MEQKCL @ 60ML/HOUR RUNNING ORDERED. ALSO WITH ONGOING INFUSION OF POTASSIUM CHLORIDE. WITH CVP MONITORING READING 5. GT PATENT AND IN PLACE. WITH TUBE FEEDING RUNNING ORDERED WITHOUT RESIDUAL NOTED. RAMOS CATHETER PATENT AND IN PLACE DRAINING URINE VIA GRAVITY, ALARMS ON AND AUDIBLE, AMBU BAG AT BEDSIDE, SAFETY MEASURES IN PLACE PER PROTOCOL, BED ALARM ON, BED LOCKED AND IN LOWEST POSITION, SIDE RAILS UP X 2, WILL MONITOR PATIENT AND CARRY OUT ACTIVE MD ORDERS.
--- NOTE | 2020-12-26 19:52 | NUR ---
MAIL ORDER BILLER ClOSING NOTES: Patient currently noted with no s/s of acute respiratory distress. On trac/vent , tolerating settings well. MAURO PICC line patent and flushed with Joby running at 2.4mcg and NS + 40meq KCl at 60ml/hr. Patient also on his 3rd bag of Potassium chloride 10 meq out of 6 bags. Endorsed to next shift to continue with the dose. Epogen given during shift. Patient noted with one bm which was large in size and soft in consistency. GT in place patent and infusing Glucerna at 50ml/hr, tolerating well. Cerda catheter intact and hanging to gravity with clear yellow urine noted and output of 1250 cc. Endorsed to next shift to follow up with BMP and K+ level with MD at 2300. Patient's bed is in lowest position.
[2020-12-26] MEDS: SENNOSIDES 8.6 MG TABLET GT SCH (21:45)
[2020-12-26] MEDS: *INSULIN REGULAR(HUMULIN R)HUM 100 UNIT/ML VIAL SQ PRN (21:45)
[2020-12-26] MEDS ORDERED: POTASSIUM CL. PREMIX PERIPHER. 100 ML ONE (22:32)
[2020-12-26 23:24] LABS: CALCIUM, SERUM 7.6 mg/dL (8.5-10.1); CREATININE 0.6 mg/dL (0.6-1.3)
[2020-12-27] VITALS (97 sets, daily range): BP systolic 98–140; BP diastolic 50–81
--- NOTE | 2020-12-27 | NUR ---
RN NOTE COMPLETE BED BATH AND LINEN CHANGE COMPLETED. PT TOLERATED WELL. VITAL SIGNS STABLE, WITHOUT SIGNS OF DISTRESS
[2020-12-27] MEDS: POTASSIUM CL. PREMIX PERIPHER. 50 ML IV SCH (00:33)
--- NOTE | 2020-12-27 03:37 | NUR ---
RN NOTE SPO2 99%. RT AT BEDSIDE LOWERED FIO2 FROM 65% TO 60%.
[2020-12-27] MEDS: PHENYLEPHRINE 100 MG in IV NS 0.9% 240 ML IV PRN ×2 (04:34→15:42)
[2020-12-27] MEDS: MEROPENEM 1 G in IV NS 0.9% 100 ML IV SCH ×3 (04:35→21:04)
[2020-12-27] MEDS: HYDROCORTISONE SOD SUCCINATE 100 MG/2 ML VIAL IV SCH ×3 (04:35→18:04)
[2020-12-27 04:44] LABS: HEMATOCRIT 22 % (39-51); LYMPHOCYTES # (AUTO) 0.7 /CMM (0.8-4.8); LYMPHOCYTES % (AUTO) 8.3 % (20.0-44.0); MEAN CORPUSCULAR HGB CONC 31 g/dl (31.0-36.0); MEAN CORPUSCULAR VOLUME 86 fL (80-96); MONOCYTES # (AUTO) 0.4 /CMM (0.1-1.30); MONOCYTES % (AUTO) 5.2 % (2.0-12.0); NEUTROPHILS # (AUTO) 7.2 /CMM (1.8-8.9); NEUTROPHILS % (AUTO) 86.5 % (43.0-81.0); PLATELET COUNT (AUTO) 118 /CMM (150-450); RED BLOOD CELL COUNT(AUTO) 2.52 MIL/uL (4.5-6.0); WHITE BLOOD COUNT (AUTO) 8.3 K/uL (4.3-11.0)
[2020-12-27 05:29] LABS: HEMOGLOBIN 6.8 g/dL (13.5-17.5)
[2020-12-27 05:30] LABS: CALCIUM, SERUM 7.8 mg/dL (8.5-10.1); CARBON DIOXIDE 30 mmol/L (21-32); CHLORIDE 114 mmol/L (98-107); CREATININE 0.5 mg/dL (0.6-1.3); GLUCOSE 157 mg/dL (74-106); MAGNESIUM 1.6 mg/dL (1.8-2.4); PHOSPHORUS 2.5 mg/dL (2.5-4.9); POTASSIUM 3.2 mmol/L (3.5-5.1); SODIUM SERUM 150 mmol/L (136-145); UREA NITROGEN, BLOOD 27 mg/dL (7-18)
--- NOTE | 2020-12-27 05:35 | NUR ---
RN NOTE RECEIVED ALERT FOR CRITICAL LAB VALUE HGB 6.8. PAGED DR. CHELLE TYSON ASSEMBLY LINE SUPERVISOR.
--- NOTE | 2020-12-27 05:56 | NUR ---
RN NOTE DR. CORBETT NOTIFIED REGARDING HGB 6.8 WITH NO NEW ORDERS GIVEN.
[2020-12-27] MEDS: BLOOD SUGAR DIAGNOSTIC 1 EACH STRIP VI SCH ×4 (06:35→23:00)
[2020-12-27] MEDS: INSULIN REGULAR, HUMAN 100 UNIT/ML 3 ML VIAL SQ PRN ×3 (06:36→18:23)
[2020-12-27 07:11] LABS: BAND % (MANUAL) 2 % (0.0-5.0); LYMPHOCYTES % (MANUAL) 6 % (16-48); MONOCYTES % (MANUAL) 2 % (0-11.0); MYELOCYTES % 1 % (0-0); NEUTROPHILS % (MANUAL) 89 (42-76)
--- NOTE | 2020-12-27 07:11 | NUR ---
RN NOTE PT REMAINS OBTUNDED WITH HEAD OF BED ELEVATED. TOLERATING VENT SETTINGS WELL. IN NO APPARENT DISTRESS. VITAL SIGNS STABLE VIA BEDSIDE MONITOR. RIGHT UPPER ARM PICC LINE PATENT WITH MARISSA RUNNING AT 2 AND NS 40MEQ KCL @ 60ML/HOUR ORDERED. WITH CVP READING 6. GT PATENT AND IN PLACE WITH TUBE FEEDING RUNNING ORDERED WITHOUT RESIDUAL NOTED. RAMOS CATHETER PATENT AND IN PLACE DRAINING URINE VIA GRAVITY. ALL NEEDS MET AND ATTENDED TO , SAFETY MEASURES IN PLACE PER PROTOCOL, REPORT GIVEN TO DAY SHIFT RN FOR YESSI.
--- NOTE | 2020-12-27 07:30 | NUR ---
GEOTHERMAL TECHNICIAN Opening NOTES: Patient currently noted with no s/s of acute respiratory distress. On trac/vent , tolerating settings well. MAURO PICC line patent and flushed with Joby running at 2 mcg and NS + 40meq KCl at 60ml/hr. GT in place patent and infusing Glucerna at 50ml/hr, tolerating well. Cerda catheter intact and hanging to gravity with clear yellow urine . Will continue to monitor. Call light with in reach.
[2020-12-27] MEDS ORDERED: POTASSIUM CHLORIDE 20 MEQ POWDER PACKET NG SCH ×2 (08:30→11:30)
[2020-12-27] MEDS: DOCUSATE SODIUM LIQ 100 MG/10 ML UDC GT SCH (09:00)
[2020-12-27] MEDS: FERROUS SULFATE (325 MG) 325 MG/TAB TABLET GT SCH (09:03)
[2020-12-27] MEDS: LEVETIRACETAM SOL (5 ML) 100 MG/ML UDC GT SCH ×2 (09:03→21:03)
[2020-12-27] MEDS: ZINC SULFATE 220 MG CAPSULE GT SCH (09:03)
[2020-12-27] MEDS: THERAHONEY GEL 1.5 OZ TUBE TP SCH (09:06)
[2020-12-27] MEDS: HYDROGEL DRESSING 90 GM TUBE TP SCH (09:06)
[2020-12-27] MEDS: Magnesium 1GM/D5W 100ML PREMIX 100 ML IV SCH ×2 (09:07→10:36)
[2020-12-27] MEDS: PANTOPRAZOLE 40 MG TABLET.DR PO SCH (09:27)
[2020-12-27] MEDS: ALBUTEROL FS 2.5 MG/3 ML VIAL.NEB NEB SCH ×3 (09:30→19:56)
[2020-12-27] MEDS: ACETYLCYSTEINE 10% SOLN 400 MG/4 ML VIAL NEB SCH ×3 (09:30→19:56)
--- NOTE | 2020-12-27 12:00 | NUR ---
Pulmonology made aware of patient's chest xray results, new orders received from .
[2020-12-27] MEDS: MORPHINE SULFATE INJ 2 MG/ML DISP.SYRIN IV PRN (16:28)
--- NOTE | 2020-12-27 17:00 | NUR ---
Patient given 1 unit of PRBC due to critical HGB level. No s/s of reaction.
[2020-12-27] MEDS: ACETAMINOPHEN 325 MG TABLET PO PRN ×2 (18:03→22:09)
[2020-12-27] MEDS: GLUCERNA 1.2 1,000 ML BOTTLE NG PRN (18:26)
--- NOTE | 2020-12-27 19:30 | NUR ---
FIELD RADIO TECHNICIAN ClOSING NOTES: Patient currently noted with no s/s of acute respiratory distress. On trac/vent , tolerating settings well. MAURO PICC line patent and flushedand running Joby at 2 mcg and NS + 20meq KCl at 60ml/hr. GT in place patent and infusing Glucerna at 50ml/hr, tolerating well. Cerda catheter intact and hanging to gravity with clear yellow urine noted and output of 1400 cc. Endorsed to next shift for YESSI.
--- NOTE | 2020-12-27 20:00 | NUR ---
FARM ADVISOR: PT ALERT AND AWAKE. ABLE TO FOLLOW ONE-STEP COMMAND SUCH OPEN THE MOUTH WHEN TOLD TO DO SO. VENT SETTINGS ORDERED WT 02 SAT 94% AND ABOVE. ST ON LOCAL COMPANY TRUCK DRIVER. NOTED WT LARGE AMT. OF WHITE TO SINGH THIN SECRETIONS. SUCTIONED VIA ORAL AND TRACH. TEMP AT 99.8. COOLING MEASURES RENDERED. CONTINUE ON NEOSYNEPHRINE DRIP FOR BP SUPPORT AND 1/2 NS WT 20 MEQ OF KCL AT 60ML/HR. NO S/S OF COMPLICATIONS ON MAURO PICC LINE. GTF TOLERATING WELL. WILL HOLD SENNOKOT PER DAY SHIFT REPORT D/T LOOSE STOOLS. F/C PATENT AND INTACT DRAINING CLEAR YELLOW URINE TO GRAVITY. SEIZURE PRECAUTION NOTED. HOB AT 35 DEGREES. BED IN LOWEST POSITION AND LOCKED, SIDE RAILS UP X2. WILL CONTINUE TO MONITOR.
[2020-12-27] MEDS: SENNOSIDES 8.6 MG TABLET GT SCH (22:00)
[2020-12-27] MEDS: *INSULIN REGULAR(HUMULIN R)HUM 100 UNIT/ML VIAL SQ PRN (23:03)
--- NOTE | 2020-12-27 23:15 | NUR ---
DATA BASE ADMINISTRATOR: REASSESSED AN HOUR AFTER GIVEN TYLENOL FOR FACIAL GRIMACE WT GOOD EFFECT. CONTINUE COOLING MEASURES FOR LOW GRADE TEMP. WILL CONTINUE TO MONITOR.
[2020-12-28] VITALS (79 sets, daily range): BP systolic 98–151; BP diastolic 21–118
--- NOTE | 2020-12-28 00:30 | NUR ---
BOTTLING ROOM WORKER: BED BATH GIVEN AND TOLERATED FAIRLY. PICS OF WOUNDS TAKEN AND FILED ON CHART. DRESSINGS CHANGED.
[2020-12-28] MEDS: ACETYLCYSTEINE 10% SOLN 400 MG/4 ML VIAL NEB SCH ×4 (00:59→19:27)
[2020-12-28] MEDS: ALBUTEROL FS 2.5 MG/3 ML VIAL.NEB NEB SCH ×4 (00:59→19:27)
[2020-12-28 04:41] LABS: CALCIUM, SERUM 7.6 mg/dL (8.5-10.1); CREATININE 0.6 mg/dL (0.6-1.3); POTASSIUM 3.8 mmol/L (3.5-5.1)
[2020-12-28] MEDS: MEROPENEM 1 G in IV NS 0.9% 100 ML IV SCH ×3 (05:31→21:12)
[2020-12-28] MEDS: BLOOD SUGAR DIAGNOSTIC 1 EACH STRIP VI SCH ×4 (06:31→22:46)
[2020-12-28] MEDS: PHENYLEPHRINE 100 MG in IV NS 0.9% 240 ML IV PRN (06:31)
--- NOTE | 2020-12-28 06:45 | NUR ---
COLD WORKING SUPERVISOR: STILL ON NEOSYNEPHRINE DRIP AT 0.1MCG/KG/MIN. FOR BP SUPPORT. NO OTHER SIGNIFICANT YESSI. ALL NEEDS MET. WILL ENDORSE TO DAY SHIFT FOR CONTINUITY OF CARE.
--- NOTE | 2020-12-28 07:00 | NUR ---
RN NOTES RECIEVIV PT ON BED, SLEEPY , NONVERBAL, TRACH /VENT DEPENDENT, TOLERATING VENT SETTING WELL, O2 SAT WNL, ST ON INCOME TAX PREPARER. TRACH SUCTIONING AND CARE DONE, SUCTIONED VIA ORAL AND TRACH. CONTINUE ON NORSYNEPHRINE DRIP FOR BP SUPPORT AND 1/2 NS WT 20 MEQ OF KCL AT 60ML/HR. NO S/S OF COMPLICATIONS ON MAURO PICC LINE. GTF TOLERATING WELL. F/C PATENT AND INTACT DRAINING CLEAR YELLOW URINE TO GRAVITY. SEIZURE PRECAUTION NOTED. HOB AT 35 DEGREES. BED IN LOWEST POSITION AND LOCKED, SIDE RAILS UP X3. WILL CONTINUE TO MONITOR.
[2020-12-28] MEDS: HYDROCORTISONE SOD SUCCINATE 100 MG/2 ML VIAL IV SCH ×2 (08:22→16:57)
[2020-12-28] MEDS: PANTOPRAZOLE 40 MG TABLET.DR PO SCH (08:22)
[2020-12-28] MEDS: FERROUS SULFATE (325 MG) 325 MG/TAB TABLET GT SCH (08:22)
[2020-12-28] MEDS: LEVETIRACETAM SOL (5 ML) 100 MG/ML UDC GT SCH ×2 (08:22→21:11)
[2020-12-28] MEDS: ZINC SULFATE 220 MG CAPSULE GT SCH (08:22)
[2020-12-28] MEDS: Z GUARD REMEDY 2 OZ OINT TP PRN (08:23)
[2020-12-28] MEDS: HYDROGEL DRESSING 90 GM TUBE TP SCH (08:23)
[2020-12-28] MEDS: THERAHONEY GEL 1.5 OZ TUBE TP SCH (08:24)
[2020-12-28] MEDS: DOCUSATE SODIUM LIQ 100 MG/10 ML UDC GT SCH (08:24)
[2020-12-28 08:39] LABS: ABG OXYGEN SATURATION 94.6 % (92.0-98.5); ABG PCO2 30.7 mmHg (35.0-45.0); ABG PH 7.488 (7.350-7.450); ABG PO2 73.4 mmHg (75.0-100.0); AaDO2 176.5 mmHg; COHb 0.2 % (0.5-1.5); MetHb 0.2 % (0.0-1.5); O2Hb 94.2 % (94.0-97.0); PEEP,BG 0 cm H2O; SITE, ABG Right Radial; VT, ABG 400 mL
[2020-12-28 08:58] LABS: BASOPHILS % (AUTO) 0.2 % (0.0-2.0); EOSINOPHILS % (AUTO) 0.1 % (0.0-6.0); HEMATOCRIT 29 % (39-51); HEMOGLOBIN 8.9 g/dL (13.5-17.5); LYMPHOCYTES # (AUTO) 2.4 /CMM (0.8-4.8); LYMPHOCYTES % (AUTO) 11.1 % (20.0-44.0); MEAN CORPUSCULAR HGB CONC 31 g/dl (31.0-36.0); MEAN CORPUSCULAR VOLUME 86 fL (80-96); MONOCYTES # (AUTO) 0.7 /CMM (0.1-1.30); MONOCYTES % (AUTO) 3.3 % (2.0-12.0); NEUTROPHILS # (AUTO) 18.5 /CMM (1.8-8.9); NEUTROPHILS % (AUTO) 85.3 % (43.0-81.0); PLATELET COUNT (AUTO) 177 /CMM (150-450); RED BLOOD CELL COUNT(AUTO) 3.33 MIL/uL (4.5-6.0); WHITE BLOOD COUNT (AUTO) 21.7 K/uL (4.3-11.0)
--- NOTE | 2020-12-28 10:30 | NUR ---
RT Bronchoscopy done by Dr. Yung, no significant findings. Pt is doing well with, no SOB or respiratory distress noted. Addendum: 12/28/20 at 1049 by AZEB POON RT Amended: Links added.
[2020-12-28] MEDS: ACETAMINOPHEN 325 MG TABLET PO PRN (10:53)
--- NOTE | 2020-12-28 11:30 | NUR ---
RN NOTES AC AT 18 , PT BREATHING AT 29-32 , DR RONNY BELL. NO NEW ORDER GIVEN , CONTINUE TO MONITOR .
[2020-12-28] MEDS: INSULIN REGULAR, HUMAN 100 UNIT/ML 3 ML VIAL SQ PRN (11:47)
[2020-12-28 12:22] LABS: BAND % (MANUAL) 3 % (0.0-5.0); LYMPHOCYTES % (MANUAL) 11 % (16-48); MONOCYTES % (MANUAL) 3 % (0-11.0); MYELOCYTES % 2 % (0-0); NEUTROPHILS % (MANUAL) 81 (42-76)
--- NOTE | 2020-12-28 14:30 | NUR ---
RN NOTES LEFT CHEST THORACENTESIS DONE AT THE BED SIDE BY DR GOSS, PT TOLERATED WELL, PLEURAL FLUID SENT TO LAB PER DR JEFFERSON ORDER . CONTINUE TO MONITOR.
[2020-12-28] MEDS: PROSOURCE / PROSTAT (PYXIS) 30 ML UDC GT SCH ×2 (15:46→16:57)
[2020-12-28] MEDS: GLUCERNA 1.2 1,000 ML BOTTLE PEG PRN (17:42)
--- NOTE | 2020-12-28 18:38 | NUR ---
RT Pt received trached on mechanical ventilation with noted settings. Pt suctioned PRN. No SOB or respiratory distress noted. Addendum: 12/28/20 at 1839 by AZEB POON RT Amended: Links added.
--- NOTE | 2020-12-28 18:53 | NUR ---
RN NOTES BP STABLE , MARISSA STILL OFF , NO SIGNIFICANT CHANGES NOTED ON THIS SHIFT , TF AT 60 CC/HR RUNNING, RAMOS INTACT,SMALL AMOUNT OF URINE NOTED, IVF AT 60CC/HR RUNNING , DRESSING TO L UPPER BACK CLEAN, DRY AND INTACT, WILL ENDOSE TO NEWSPAPER CARRIER NURSE FOR CONTINUITY OF CARE.
--- NOTE | 2020-12-28 19:00 | NUR ---
Received patient on contact isolation(ESBL blood), with trache. to the vent on AC mode,tachypneic with RR=30's but non labored and not in any respiratory distress, patient awake, with eye contact and tracks but does not seem coherent,no movement of extremities noted. PICC line @ MAURO with 1 port to CVP monitory. G tube intact with on going tube feeding .ASpiration precaution observed. S/P Bronchoscopy and Left Thoracentesis today.
--- NOTE | 2020-12-28 20:00 | NUR ---
CVP waveform with large respiratory variation,will disregard automatic reading from the monitor .and will read/take reading at end expiration using cursor at the waveform
--- NOTE | 2020-12-28 20:07 | NUR ---
RECEIVED PT TRACH PTX 9 ON VENT. NO RESP DISTRESS. PT TOLERATING VENT SETTINGS. SX'D SML AMT OF THICK YELLOW SECRETIONS. PT IS RECEIVING Q6 BREATHING TX. TRACH SECURED, CUFF IRRIGATION EQUIPMENT REMOVER. VENT ALARMS SET AND AUDIBLE. CONTINUE [facility] VENT SUPPORT. Addendum: 12/28/20 at 2009 by JOHNNY BEAVERS RT Amended: Links added.
[2020-12-28] MEDS: SENNOSIDES 8.6 MG TABLET GT SCH (21:11)
[2020-12-28] MEDS: *INSULIN REGULAR(HUMULIN R)HUM 100 UNIT/ML VIAL SQ PRN (22:51)
--- NOTE | 2020-12-28 23:00 | NUR ---
noted heart rate to be sustaining in the 130's (ST).will closely monitor.
--- NOTE | 2020-12-28 23:36 | NUR ---
Heart rate 190's-200 ,irregular (AFIB with RVR)sustaining,Patient fully awake,seems uncomfortable with a little grimace,Still RR in the 30's but saturating well and not in acute respiratory distress,feels warm to touch. 2339 Converted back to sinus tach. 130-140.Will medicate for pain,will do cooling measures foe slight fever.
[2020-12-28] MEDS: MORPHINE SULFATE INJ 2 MG/ML DISP.SYRIN IV PRN (23:45)
[2020-12-29] VITALS (47 sets, daily range): BP systolic 83–127; BP diastolic 47–71
--- NOTE | 2020-12-29 | NUR ---
Remains tachycardic in the 140's SR.Comfort care done. Tylenol given for low grade temp.
[2020-12-29] MEDS: ACETAMINOPHEN 325 MG TABLET PO PRN (00:32)
[2020-12-29] MEDS: ACETYLCYSTEINE 10% SOLN 400 MG/4 ML VIAL NEB SCH ×4 (01:02→20:05)
[2020-12-29] MEDS: ALBUTEROL FS 2.5 MG/3 ML VIAL.NEB NEB SCH ×4 (01:02→20:05)
--- NOTE | 2020-12-29 02:30 | NUR ---
Had another brief episode of AFIB with RVR (rate 170's).
--- NOTE | 2020-12-29 03:00 | NUR ---
HR still 130's- [address]'s ST.Called MD service ,Dr. Pratt responded ,referred about the HR and intermittent episode of AFIB with RVR.With orders to restart Metoprolol ( patient was on maintenance dose in [facility] but was held on admission due to hypotension/patient was on 2 pressors then).
[2020-12-29] MEDS ORDERED: METOPROLOL TARTRATE INJ 5 MG/5 ML AMPUL IVP PRN (03:30)
[2020-12-29] MEDS: METOPROLOL TARTRATE 25 MG TABLET GT SCH ×3 (04:03→20:48)
--- NOTE | 2020-12-29 04:30 | NUR ---
HR much more controlled in the low 100's (108-110's ). AM bath/wound care done.
[2020-12-29 04:40] LABS: CALCIUM, SERUM 7.3 mg/dL (8.5-10.1); CREATININE 1.2 mg/dL (0.6-1.3); MAGNESIUM 1.7 mg/dL (1.8-2.4); PHOSPHORUS 4.3 mg/dL (2.5-4.9)
[2020-12-29] MEDS: MEROPENEM 1 G in IV NS 0.9% 100 ML IV SCH ×3 (05:29→20:26)
--- NOTE | 2020-12-29 07:00 | NUR ---
RN NOTES RECEIVED PT ON BED, SLEEPY ,DOES NOT FOLLOW COMMAND, NONVERBAL, TRACH /VENT DEPENDENT, TOLERATING VENT SETTING WELL, O2 SAT WNL, ST ON ACCOUNTANT CERTIFIED PUBLIC. 1/2 NS WT 20 MEQ OF KCL AT 60ML/HR. R UA PICC SITE CLEAN, DRY AND INTACT, GTF TOLERATING WELL. F/C PATENT AND INTACT DRAINING CLEAR YELLOW URINE TO GRAVITY. SEIZURE PRECAUTION NOTED. HOB AT 35 DEGREES. BED IN LOWEST POSITION AND LOCKED, SIDE RAILS UP X3. WILL CONTINUE TO MONITOR.
--- NOTE | 2020-12-29 07:00 | NUR ---
Stable ,HR still in the low 100 's but no further episode of afib/RVR.Report given to Bobbi PETERS
[2020-12-29 07:45] LABS: BASOPHILS % (AUTO) 0.1 % (0.0-2.0); EOSINOPHILS % (AUTO) 0.1 % (0.0-6.0); HEMATOCRIT 33 % (39-51); LYMPHOCYTES # (AUTO) 2.1 /CMM (0.8-4.8); LYMPHOCYTES % (AUTO) 8.2 % (20.0-44.0); MEAN CORPUSCULAR HGB CONC 31 g/dl (31.0-36.0); MEAN CORPUSCULAR VOLUME 87 fL (80-96); MONOCYTES # (AUTO) 0.6 /CMM (0.1-1.30); MONOCYTES % (AUTO) 2.3 % (2.0-12.0); NEUTROPHILS # (AUTO) 22.5 /CMM (1.8-8.9); NEUTROPHILS % (AUTO) 89.3 % (43.0-81.0); PLATELET COUNT (AUTO) 210 /CMM (150-450); RED BLOOD CELL COUNT(AUTO) 3.76 MIL/uL (4.5-6.0); WHITE BLOOD COUNT (AUTO) 25.2 K/uL (4.3-11.0)
[2020-12-29] MEDS: FERROUS SULFATE (325 MG) 325 MG/TAB TABLET GT SCH (08:07)
[2020-12-29] MEDS: ZINC SULFATE 220 MG CAPSULE GT SCH (08:07)
[2020-12-29] MEDS: LEVETIRACETAM SOL (5 ML) 100 MG/ML UDC GT SCH ×2 (08:07→20:25)
[2020-12-29] MEDS: PANTOPRAZOLE 40 MG TABLET.DR PO SCH (08:07)
[2020-12-29] MEDS: HYDROCORTISONE SOD SUCCINATE 100 MG/2 ML VIAL IV SCH ×2 (08:08→16:30)
[2020-12-29] MEDS: HYDROGEL DRESSING 90 GM TUBE TP SCH (08:09)
[2020-12-29] MEDS: THERAHONEY GEL 1.5 OZ TUBE TP SCH (08:09)
[2020-12-29] MEDS: PROSOURCE / PROSTAT (PYXIS) 30 ML UDC GT SCH ×3 (08:11→16:30)
[2020-12-29] MEDS: BLOOD SUGAR DIAGNOSTIC 1 EACH STRIP VI SCH ×4 (08:15→21:17)
[2020-12-29] MEDS: INSULIN REGULAR, HUMAN 100 UNIT/ML 3 ML VIAL SQ PRN ×3 (08:15→17:04)
[2020-12-29 08:24] LABS: BAND % (MANUAL) 1 % (0.0-5.0); LYMPHOCYTES % (MANUAL) 12 % (16-48); MONOCYTES % (MANUAL) 2 % (0-11.0); MYELOCYTES % 2 % (0-0); NEUTROPHILS % (MANUAL) 83 (42-76)
[2020-12-29] MEDS: DOCUSATE SODIUM LIQ 100 MG/10 ML UDC GT SCH (08:34)
[2020-12-29] MEDS: Magnesium 1GM/D5W 100ML PREMIX 100 ML IV SCH ×2 (09:50→11:12)
[2020-12-29] MEDS: IV 1/2NS 1000 ML 1,000 ML IV PRN ×2 (09:50→23:51)
[2020-12-29] MEDS: GLUCERNA 1.2 1,000 ML BOTTLE PEG PRN (11:15)
--- NOTE | 2020-12-29 11:41 | NUR ---
RN NOTES DR SOW NOTIFIED REGARDING LOW URINE OUTPUT , BLADER SCAN DONE PER MD ORDER , 50-100 CC URINE NOTED BY BLADER SCAN , MD NOTIFIED , ORDER RECEIVED FOR 500 NS IV BOLUS, FOLLOW BY ZENON . CONTINUE TO MONITOR .
[2020-12-29] MEDS ORDERED: IV NS 0.9% 500 ML IV ONE (12:00)
[2020-12-29] MEDS ORDERED: SILVER NITRATE APPLICATOR 1 EA BOX TP PRN (12:30)
[2020-12-29] MEDS ORDERED: LIDOCAINE MPF 1%-EPI 1:200,000 30 ML VIAL IJ ONE (12:30)
[2020-12-29] MEDS ORDERED: FUROSEMIDE 40 MG/4 ML VIAL IV ONE (12:30)
--- NOTE | 2020-12-29 18:45 | NUR ---
RN NOTES PT TRANSFERRED TO ROOM 105, TELE STATUS , VIA ACLS PROTOCOL IN STABLE CONDITION . REPORT GIVEN TO MARIA M RN FOR CONTINUITY OF CARE .
--- NOTE | 2020-12-29 19:05 | NUR ---
RECEIVED PT ON BED OPEN EYES NONVERBAL, ON TRACH/VENT SETTING PER MD FIO2 30% SPO2 98% TELE MONITOR READS SINUS TACHY 110'S HAVE MAURO PICC LINE PATENT AND FLUSHED WITH ONGOING 1/2NS @ 100ML/HR INFUSING WELL, GTUBE IN PLACE, PLACEMENT CHECKED RESIDUAL 5ML WITH ONGOIGN GLUCERNA @ 60ML/HR TOLERATING WELL, BED ON LOWEST POSITION AND LOCKED SIDE RAILS UP X 2 CALL LIGHT WITHIN REACH WILL CONT TO MONITOR
--- NOTE | 2020-12-29 20:25 | NUR ---
VOCATIONAL EDUCATION TEACHER REPORTED TO ME THAT PT READING CHANGE FROM SINUS TACHY 110, TO AFBIB WITH RVR 170-180 PRN METORPOLOL IV GIVEN WILL CONT TO MONITOR THE PT
[2020-12-29] MEDS: SENNOSIDES 8.6 MG TABLET GT SCH (21:17)
[2020-12-29] MEDS: *INSULIN REGULAR(HUMULIN R)HUM 100 UNIT/ML VIAL SQ PRN (21:18)
--- NOTE | 2020-12-29 21:56 | NUR ---
PT COME BACK TO SINUS RHYTHM HR 98 WILL CONT TO MONITOR THE PT
[2020-12-30] VITALS: BP 109/68
[2020-12-30] MEDS: ACETYLCYSTEINE 10% SOLN 400 MG/4 ML VIAL NEB SCH ×4 (02:18→19:16)
[2020-12-30] MEDS: ALBUTEROL FS 2.5 MG/3 ML VIAL.NEB NEB SCH ×4 (02:18→19:16)
[2020-12-30 04:00] VITALS: BP 122/62
[2020-12-30] MEDS: MEROPENEM 1 G in IV NS 0.9% 100 ML IV SCH ×3 (04:29→20:29)
[2020-12-30] MEDS: Z GUARD REMEDY 2 OZ OINT TP PRN (04:31)
[2020-12-30] MEDS: GLUCERNA 1.2 1,000 ML BOTTLE PEG PRN (05:59)
[2020-12-30] MEDS: INSULIN REGULAR, HUMAN 100 UNIT/ML 3 ML VIAL SQ PRN ×2 (06:39→12:27)
[2020-12-30] MEDS: BLOOD SUGAR DIAGNOSTIC 1 EACH STRIP VI SCH ×4 (06:39→21:25)
--- NOTE | 2020-12-30 06:40 | NUR ---
PT STILL ON TRACH/VENT SETTING PER MD FIO2 30% SPO2 98, STILL ON SINUS TACHY HR 110 ONLY ONE EPISODE OF AFIB @ 2029 NOTED OTHER THAN THAT NO SIGNIFICANT CHANGES ON CONDITION NOTED ALL NEEDS ATTENDED, BE ON LOWEST POSITION AND LOCKED SIDE RAILS UP X 2, WILL ENDORSED TO AM SHIFT NURSE
--- NOTE | 2020-12-30 07:45 | NUR ---
RN OPENING NOTE PATIENT IS IN BED WITH HOB AT SEMI FOWLERS POSITION. CURRENTLY ON TRACH/VENT WITH NO SIGNS OF LABORED BREATHING. SINUS TACHY NOTED ON MONITOR RAMOS CATHETER IS IN PLACE. GTUBE IS IN PLACE WITH APPROPRIATE FEEDING RUNNING. SACRAL INJURY AND L HEEL INJURY ARE NOTED. MAURO PICC IS IN PLACE AND PATENT. BED IS LOCKED IN THE LOWEST POSITION, 3 GUARD RAILS RAISED, CALL LUNA WITHIN REACH, AND ALL HOSPITAL SAFETY PRECAUTIONS ARE BEING FOLLOWED. WILL CONTINUE TO MONITOR THROUGHOUT SHIFT.
[2020-12-30 08:00] VITALS: BP 113/62
[2020-12-30] MEDS: ZINC SULFATE 220 MG CAPSULE GT SCH (08:05)
[2020-12-30] MEDS: FERROUS SULFATE (325 MG) 325 MG/TAB TABLET GT SCH (08:05)
[2020-12-30] MEDS: DOCUSATE SODIUM LIQ 100 MG/10 ML UDC GT SCH (08:05)
[2020-12-30] MEDS: HYDROCORTISONE SOD SUCCINATE 100 MG/2 ML VIAL IV SCH ×2 (08:05→17:04)
[2020-12-30] MEDS: LEVETIRACETAM SOL (5 ML) 100 MG/ML UDC GT SCH ×2 (08:05→20:29)
[2020-12-30] MEDS: PANTOPRAZOLE 40 MG TABLET.DR PO SCH (08:05)
[2020-12-30] MEDS: METOPROLOL TARTRATE 25 MG TABLET GT SCH ×2 (08:07→20:29)
[2020-12-30] MEDS: PROSOURCE / PROSTAT (PYXIS) 30 ML UDC GT SCH ×3 (08:15→17:04)
[2020-12-30] MEDS: HYDROGEL DRESSING 90 GM TUBE TP SCH (09:02)
[2020-12-30] MEDS: THERAHONEY GEL 1.5 OZ TUBE TP SCH (09:02)
[2020-12-30 09:12] LABS: CALCIUM, SERUM 6.7 mg/dL (8.5-10.1); CREATININE 0.6 mg/dL (0.6-1.3)
[2020-12-30 09:16] LABS: BASOPHILS % (AUTO) 0.1 % (0.0-2.0); EOSINOPHILS % (AUTO) 0.1 % (0.0-6.0); HEMATOCRIT 28 % (39-51); HEMOGLOBIN 8.6 g/dL (13.5-17.5); LYMPHOCYTES # (AUTO) 1.8 /CMM (0.8-4.8); LYMPHOCYTES % (AUTO) 10.3 % (20.0-44.0); MEAN CORPUSCULAR HGB CONC 31 g/dl (31.0-36.0); MEAN CORPUSCULAR VOLUME 88 fL (80-96); MONOCYTES # (AUTO) 0.3 /CMM (0.1-1.30); NEUTROPHILS # (AUTO) 15.1 /CMM (1.8-8.9); NEUTROPHILS % (AUTO) 87.5 % (43.0-81.0); PLATELET COUNT (AUTO) 206 /CMM (150-450); RED BLOOD CELL COUNT(AUTO) 3.16 MIL/uL (4.5-6.0); WHITE BLOOD COUNT (AUTO) 17.3 K/uL (4.3-11.0)
[2020-12-30 09:21] LABS: POTASSIUM 2.5 mmol/L (3.5-5.1)
--- NOTE | 2020-12-30 09:45 | NUR ---
RN NOTE NOTIFIED DR. FLORENTINO ABOUT PATIENT'S POTASSIUM OF 2.5. STATED HE WILL PLACE ORDER FOR GTUBE REPLACEMENT. WILL CONTINUE TO MONITOR.
[2020-12-30 10:35] LABS: LYMPHOCYTES % (MANUAL) 10 % (16-48); MONOCYTES % (MANUAL) 2 % (0-11.0); NEUTROPHILS % (MANUAL) 88 (42-76)
[2020-12-30 12:00] VITALS: BP 95/55
[2020-12-30] MEDS ORDERED: POTASSIUM CHLORIDE 20 MEQ TAB.PRT.SR PO SCH (12:30)
[2020-12-30] MEDS: POTASSIUM CHLORIDE 20 MEQ POWDER PACKET GT SCH ×2 (12:31→13:59)
[2020-12-30] MEDS ORDERED: LIDOCAINE MPF 1%-EPI 1:200,000 30 ML VIAL IJ ONE (13:00)
--- NOTE | 2020-12-30 13:10 | NUR ---
RN NOTE WOUND NURSE DECIDED PATIENT DID NOT NEED LIDOCAINE FOR DEBRIDEMENT DUE TO WOUND STATUS.
[2020-12-30] MEDS: EPOETIN ALFA (4000 UNIT) 4,000 UNIT/ML VIAL SQ SCH (15:33)
[2020-12-30 16:00] VITALS: BP 110/61
[2020-12-30] MEDS: *INSULIN REGULAR(HUMULIN R)HUM 100 UNIT/ML VIAL SQ PRN ×2 (17:21→21:27)
--- NOTE | 2020-12-30 18:48 | NUR ---
RN CLOSING NOTE PATIENT IS IN BED WITH HOB AT SEMI FOWLERS POSITION. CURRENTLY ON TRACH/VENT WITH NO SIGNS OF LABORED BREATHING. SINUS TACHY NOTED ON MONITOR RAMOS CATHETER IS IN PLACE. GTUBE IS IN PLACE WITH APPROPRIATE FEEDING RUNNING. SACRAL INJURY HAD DEBRIDEMENT PERFORMED DURING SHIFT. BILATERAL HEEL WOUNDS HAD APPROPRIATE DRESSINGS APPLIED. MAURO PICC IS IN PLACE AND PATENT. BED IS LOCKED IN THE LOWEST POSITION, 3 GUARD RAILS RAISED, CALL LUNA WITHIN REACH, AND ALL HOSPITAL SAFETY PRECAUTIONS ARE BEING FOLLOWED. PATIENT REMAINED STABLE DURING SHIFT AND ALL DUE MEDS WERE GIVEN. WILL ENDORSE TO DIET AIDE RN.
--- NOTE | 2020-12-30 19:30 | NUR ---
RN OPENING NOTES: RECEIVED TRACH PT IN BED RESTING COMFORTABLY. PATIENT IN NO S/SX OF ACUTE DISTRESS AT THIS TIME. NO SOB NOTED. PATIENT'S BREATHING IS EVEN AND UNLABORED. PATIENT ON MECHANICAL VENT; SETTINGS PRESCRIBED; PT TOLERATED WELL. AMBU BAG AT BED SIDE ALARMS SET PER PROTOCOL AND AUDIBLE. VENT PLUGGED IN TO RED OUTLET. NO DISTRESS NOTED. PATIENT ON TELE MONITORING READING SINUS TACHY AT THE TIME OF RECEIVED. G TUBE FLUSHING AND PATENT; SITE CLEAN DRY AND INTACT; NO RESIDUAL NOTED; FEEDING OF GLUCERNA 1.2 @60ML/HR PATIENT TOLERATES WELL. NOTED IV SITE ON R UA PICC; PATENT, INTACT AND FLUSHING WELL; NO S/S OF INFECTION OR INFILTRATION. RAMOS CATH IN PLACE, MODERATE URINE OUTPUT NOTED. SAFETY MEASURES HAVE BEEN PROVIDED AND IMPLEMENTED. PATIENT BED ALARM IS ON. HEAD OF BED ELEVATED. BED IS LOCKED, IN LOWEST POSITION AND SIDE RAILS UP. CALL LIGHT WITHIN REACH OF THE PATIENT. APPLICABLE ISOLATION PRECAUTIONS IN PLACE. WILL CONTINUE TO MONITOR AND REASSESS FOR ANY CHANGES AND WILL CARRY OUT ANY ONGOING AND ACTIVE MD ORDER.
[2020-12-30 20:00] VITALS: BP 109/64
[2020-12-30] MEDS: SENNOSIDES 8.6 MG TABLET GT SCH (21:15)
--- NOTE | 2020-12-30 23:00 | NUR ---
RN NOTES NO CHANGE IN PATIENT CONDITION AT THIS TIME PATIENT VITALS STABLE, NO SIGNS OF ACUTE RESPIRATORY DISTRESS. COMMUNICATION CONSULTANT MADE AWARE. WILL CONTINUE TO MONITOR AND REASSESS FOR ANY CHANGES THROUGHOUT THE SHIFT.
[2020-12-31] VITALS: BP 114/60
[2020-12-31] MEDS: ACETYLCYSTEINE 10% SOLN 400 MG/4 ML VIAL NEB SCH ×4 (01:13→19:29)
[2020-12-31] MEDS: ALBUTEROL FS 2.5 MG/3 ML VIAL.NEB NEB SCH ×4 (01:13→19:29)
--- NOTE | 2020-12-31 03:00 | NUR ---
RN NOTES PATIENT REMAINS IN NO ACUTE RESPIRATORY DISTRESS AT THIS TIME, NO CHANGES TO CONDITION/STATUS. FURNACE COMBINATION ANALYST WELL AWARE. WILL CONTINUE TO MONITOR AND REASSESS FOR ANY CHANGES THROUGHOUT THE SHIFT
[2020-12-31] MEDS: GLUCERNA 1.2 1,000 ML BOTTLE PEG PRN (03:56)
[2020-12-31 04:00] VITALS: BP 90/45
[2020-12-31] MEDS: MEROPENEM 1 G in IV NS 0.9% 100 ML IV SCH ×3 (04:10→21:16)
--- NOTE | 2020-12-31 07:16 | NUR ---
RN CLOSING NOTE: PATIENT REMAINS IN ROOM IN NO SIGNS OF RESPIRATORY DISTRESS; STILL ON VENT SETTING PER ORDERED. SAFETY MEASURES IMPLEMENTED, BED IN LOWEST POSITION, LOCKED, SIDE RAILS UP, CALL LIGHT WITHIN REACH. ALL NEEDS AND ORDERS ADDRESSED DURING THE SHIFT. IV ACCESS MAINTAINED INTACT, SECURED AND FLUSHING WELL. ALL DUE MEDS GIVEN ORDERED & SCHEDULED ; PATIENT TOLERATED WELL. PATIENT KEPT CLEAN AND COMFORTABLE WITHIN THE SHIFT. PATIENT ENDORSED TO INCOMING SHIFT RN WITH STABLE VITAL SIGN AND FOR CONTINUITY OF CARE, WILL ALSO INFORM INCOMING RN TO F/U WITH GI MD REGARDING GT TUBE SITE, AM FRAME MAKER MADE AWARE..
[2020-12-31] MEDS: BLOOD SUGAR DIAGNOSTIC 1 EACH STRIP VI SCH ×4 (07:52→21:28)
[2020-12-31] MEDS: PANTOPRAZOLE 40 MG TABLET.DR PO SCH (07:52)
--- NOTE | 2020-12-31 07:59 | NUR ---
TABLE LEVER OPERATOR NOTE: PATIENT REMAINS IN ROOM IN NO SIGNS OF RESPIRATORY DISTRESS; STILL WITH TRACH ON VENT SETTING PER ORDERED. SAFETY MEASURES IMPLEMENTED, BED IN LOWEST POSITION, LOCKED, SIDE RAILS UP, CALL LIGHT WITHIN REACH. RT UA PICC LINE. MAINTAINED INTACT, SECURED AND FLUSHING WELL. . PATIENT KEPT CLEAN AND COMFORTABLE ON TELE MONITOR SR HR 84, WITH EDEMA UPPER AND LOWER EXTREMITIES, KEEP ELEVATED TOLERATED,G TUBE STOMA WITH LEAKING NOTED WILL INFORM TO MD Addendum: 12/31/20 at 1650 by LISA SOMMERS RN [phone] WILL HOLD G TUBE FEEDING UNTILL FURTHER ORDER FROM DR SOW OR DR JAYLA LOPEZ
[2020-12-31 08:00] VITALS: BP 106/55
[2020-12-31] MEDS: LEVETIRACETAM SOL (5 ML) 100 MG/ML UDC GT SCH ×2 (08:43→21:16)
[2020-12-31] MEDS: METOPROLOL TARTRATE 25 MG TABLET GT SCH ×2 (08:44→21:17)
[2020-12-31] MEDS: PROSOURCE / PROSTAT (PYXIS) 30 ML UDC GT SCH ×3 (08:44→16:35)
[2020-12-31] MEDS: ZINC SULFATE 220 MG CAPSULE GT SCH (08:45)
[2020-12-31] MEDS: HYDROCORTISONE SOD SUCCINATE 100 MG/2 ML VIAL IV SCH ×2 (08:45→16:35)
[2020-12-31] MEDS: HYDROGEL DRESSING 90 GM TUBE TP SCH (08:46)
[2020-12-31] MEDS: FERROUS SULFATE (325 MG) 325 MG/TAB TABLET GT SCH (08:47)
[2020-12-31] MEDS: DOCUSATE SODIUM LIQ 100 MG/10 ML UDC GT SCH (08:47)
[2020-12-31] MEDS: THERAHONEY GEL 1.5 OZ TUBE TP SCH (08:54)
--- NOTE | 2020-12-31 08:56 | NUR ---
CNA LTC NOTE PER REPORT BOX PACKERCOMPUTATIONAL SCIENCES PROFESSOR PATENT [place] STOOL WILL HOLD LAXATIVE MEDS AT THIS TIME WILL REPORT TO
--- NOTE | 2020-12-31 10:08 | NUR ---
FIRE LIEUTENANT MARINE NOTE CALED TO DR SOW NOTIFIED THAT G TUBR STOMA IS LEAKING STSTED TO CALL DR DICKERSON , CHARGE NURSE CALLED TO DR DICKERSON GI DOCTOR, DR SOW NOTIFIED THAT HG 8.6 AND LOOSE STOOL AND HELD LAXATIVE MEDICATION
[2020-12-31 10:29] LABS: CALCIUM, SERUM 7.8 mg/dL (8.5-10.1); CREATININE 0.9 mg/dL (0.6-1.3); POTASSIUM 3.2 mmol/L (3.5-5.1)
[2020-12-31] MEDS ORDERED: DIATR MEGLU/DIATRIZOATE SODIUM 30 ML BOTTLE (GASTROGRAPHIN) ONE (10:45)
--- NOTE | 2020-12-31 10:59 | NUR ---
MACHINE TOOL DRESSER NOTE PER DR MARIBELL FARFAN TO CALL DR DICKERSON, ALSO CALLED WITH ORDER KUSherley , ORDER CARRIED OUT ,SHERRI DASH NP BACKING IN MACHINE TENDER AT BEDSIDE NOTIFIED THAT VERY LOW OUT PUT SINCE 07 AND NOTIFIED THAT PER DR SOW WILL START D5 NS AT 80 ML PER HOUR WILL F\U Addendum: 12/31/20 at 1649 by LISA SOMMERS RN 1100 SHERRI WISEMAN NP BACKING IN MACHINE TENDER NOTIFIED THAT K 3.2 AND HAS VERY LOW OUTPUT WITH GENERALIZED EDEMA ON BODY
[2020-12-31] MEDS ORDERED: FUROSEMIDE 20 MG/2 ML VIAL IV ONE (11:00)
[2020-12-31] MEDS: POTASSIUM CL. PREMIX PERIPHER. 50 ML IV SCH ×4 (11:20→14:51)
[2020-12-31] MEDS ORDERED: IV D5/ 0.9% NACL 1,000 ML IV PRN (11:30)
--- NOTE | 2020-12-31 11:36 | NUR ---
clerk television production note wound dr at bedside tx done on both heels Addendum: 12/31/20 at 1138 by LISA SOMMERS RN wendy done as ordered awaiting for result
--- NOTE | 2020-12-31 11:57 | NUR ---
telecommunication systems designer note kub result reported to dr quintanilla ,with order to start Reglan 10 mg iv tid and wait for 20 min ok to start g tube feeding and monitor for site , call to md if not get better
[2020-12-31 12:00] VITALS: BP 96/48
--- NOTE | 2020-12-31 12:00 | NUR ---
COMPLIANCE ADVISOR NOTE PATENT BED IS NOT FUNCTIONING WELL , CHANGED BED , RT AT BEDSIDE,
[2020-12-31] MEDS: METOCLOPRAMIDE HCL 10 MG/2 ML VIAL IV SCH ×2 (12:24→16:35)
[2020-12-31 16:00] VITALS: BP 108/67
--- NOTE | 2020-12-31 16:42 | NUR ---
HAND POTTER NOTE G TUBE TUBE FEEDING STARTED ORDERED ,WILL MONITOR FOR LEAKING OG G TUTE SITE
--- NOTE | 2020-12-31 16:43 | NUR ---
CHIEF TRANSFER AND PUMPHOUSE OPERATOR NOTE CHECK G TUBE SITE FOR LEAKAGE, NO LEAKING NOTED AT THIS TIME, CONT G TUBE FEEDING , WILL MONITOR CLOSELY Addendum: 12/31/20 at 1653 by LISA SOMMERS RN WILL HOLD IVF AT THIS TIME PATIENT ON G TUBE FEEDING WILL MONITOR CLOSELY
[2020-12-31] MEDS: INSULIN REGULAR, HUMAN 100 UNIT/ML 3 ML VIAL SQ PRN (17:39)
--- NOTE | 2020-12-31 18:11 | NUR ---
telephonic rn note able to urinate well now. noted 700 ml of urine , keep clean dry trach and oral care done ,will monitor
--- NOTE | 2020-12-31 18:40 | NUR ---
SLIDE FORMING MACHINE OPERATOR NOTE PATIENT IN BED , ALL NEEDS ATTENDED, WITH TRACH TO VENT SETTING ORDERED TOLERATED WELL TRACH AND ORAL SUCTION DONE, KEEP CLEAN DRY TURN REPOSITION Q2 HOUR , RT UPPER ARM PICC LINE DRESSING CHANGE PER HOSPITAL PROTOCOL, ON CONT GTUBE FEEDING TOLERATED WELL NO LEAKING NOTED AT G TUBE SITE WILL HOLD IVF AND WILL INFORM MD , , STILL WITH GENERAL EDEMA ON BODY, KEEP UPPER AND LOWER EXTREMITIES ELEVATED TOLERATED, , BED IN LOWEST AND LOCKED POSITION , SAFETY MEASURE IMPLEMENTED, CALL LIGHT WITHIN REACH, WILL CONT TO MONITOR
--- NOTE | 2020-12-31 19:30 | NUR ---
RN OPENING NOTES: RECEIVED TRACH PT IN BED RESTING COMFORTABLY. PATIENT IN NO S/SX OF ACUTE DISTRESS AT THIS TIME. NO SOB NOTED. PATIENT'S BREATHING IS EVEN AND UNLABORED. PATIENT ON MECHANICAL VENT; SETTINGS PRESCRIBED; PT TOLERATED WELL. AMBU BAG AT BED SIDE ALARMS SET PER PROTOCOL AND AUDIBLE. VENT PLUGGED IN TO RED OUTLET. NO DISTRESS NOTED. PATIENT ON TELE MONITORING READING SINUS RHYTHM ; WITH HR AT 96BPM AT THE TIME OF RECEIVED. PER ENDORSEMENT TUBE FEEDING (GLUCERNA 1.2 @35CC/HR) WAS RESUME AFTER INTERVENTIONS TO MAINTAIN GTUBE SITE SECURED AND INTACT WITHOUT LEAKING. SITE WAS NOTED TO BE DRY AND SECURED. WILL CONTINUE TO MONITOR NEEDED. NOTED IV SITE ON R UA PICC; PATENT, INTACT AND FLUSHING WELL; NO S/S OF INFECTION OR INFILTRATION. RAMOS CATH IN PLACE, MODERATE URINE OUTPUT NOTED. SAFETY MEASURES HAVE BEEN PROVIDED AND IMPLEMENTED. PATIENT BED ALARM IS ON. HEAD OF BED ELEVATED. BED IS LOCKED, IN LOWEST POSITION AND SIDE RAILS UP. CALL LIGHT WITHIN REACH OF THE PATIENT. APPLICABLE ISOLATION PRECAUTIONS IN PLACE. WILL CONTINUE TO MONITOR AND REASSESS FOR ANY CHANGES AND WILL CARRY OUT ANY ONGOING AND ACTIVE MD ORDER.
--- NOTE | 2020-12-31 19:39 | NUR ---
RN NOTES COMMUNICATED WITH CATHERINE TYSON, PROVIDED PERTINENT INFO REGARDING THE PATIENT. ADVISED THAT PT'S G TUBE FEEDING ( GLUCERNA 1.2 @60ML/HR) WAS PUT ON HODL THIS MORNING DUE TO LEAKING FORM THE SITE,ADVISED THAT D5NS WAS STARTED @ 80ML/HR AND REGLAN WAS ORDERED TID. PER AM SHIFT RN MONITORING HAS BEEN DONE AND MINIMAL TO NO LEAKING WAS NOTED UPON RESUMING GTUBE FEEDING @ 35ML/HR WITH A ONGOING GOAL TO REACH 60ML/HR. CONFIRMED AND VERIFIED WITH CATHERINE TYSON IF IVF WILL BE DC'D OR HOLD AT THIS TIME FEEDING HAS BEEN RESUME. CATHERINE TYSON SAID ITS OK TO DC IV FLUID. ENGINEERING WRITER MADE AWARE. WILL CARRY OUT ORDER REQUESTED. WILL CONTINUE TO MONITOR AND ASSESS THROUGHOUT THE SHIFT.
[2020-12-31 20:00] VITALS: BP 116/64
[2020-12-31] MEDS: SENNOSIDES 8.6 MG TABLET GT SCH (21:24)
[2020-12-31] MEDS: *INSULIN REGULAR(HUMULIN R)HUM 100 UNIT/ML VIAL SQ PRN (21:28)
--- NOTE | 2020-12-31 23:00 | NUR ---
RN NOTES PATIENT REMAINS IN NO ACUTE RESPIRATORY DISTRESS AT THIS TIME, NO CHANGES TO CONDITION/STATUS. HOG DROPPER WELL AWARE. WILL CONTINUE TO MONITOR AND REASSESS FOR ANY CHANGES THROUGHOUT THE SHIFT
[2021-01-01] VITALS: BP 110/62
[2021-01-01] MEDS: ACETYLCYSTEINE 10% SOLN 400 MG/4 ML VIAL NEB SCH ×4 (01:14→19:23)
[2021-01-01] MEDS: ALBUTEROL FS 2.5 MG/3 ML VIAL.NEB NEB SCH ×4 (01:15→19:23)
--- NOTE | 2021-01-01 03:00 | NUR ---
RN NOTES PATIENT REMAINS IN NO ACUTE RESPIRATORY DISTRESS AT THIS TIME, NO CHANGES TO CONDITION/STATUS. PATIENT CARE DONE. GRAPHIC DESIGN PROFESSOR WELL AWARE. WILL CONTINUE TO MONITOR AND REASSESS FOR ANY CHANGES THROUGHOUT THE SHIFT
[2021-01-01 04:00] VITALS: BP 100/58
[2021-01-01] MEDS: MEROPENEM 1 G in IV NS 0.9% 100 ML IV SCH ×3 (04:01→22:00)
--- NOTE | 2021-01-01 06:50 | NUR ---
RN CLOSING NOTE: PATIENT REMAINS IN ROOM IN NO SIGNS OF RESPIRATORY DISTRESS; STILL ON VENT SETTING PER ORDERED. SAFETY MEASURES IMPLEMENTED, BED IN LOWEST POSITION, LOCKED, SIDE RAILS UP, CALL LIGHT WITHIN REACH. ALL NEEDS AND ORDERS ADDRESSED DURING THE SHIFT. IV ACCESS MAINTAINED INTACT, SECURED AND FLUSHING WELL. ALL DUE MEDS GIVEN ORDERED & SCHEDULED ; PATIENT TOLERATED WELL. PATIENT KEPT CLEAN AND COMFORTABLE WITHIN THE SHIFT. PATIENT ENDORSED TO INCOMING SHIFT RN WITH STABLE VITAL SIGN AND FOR CONTINUITY OF CARE.
--- NOTE | 2021-01-01 07:25 | NUR ---
RN OPENING NOTE PATIENT RECEIVED IN ROOM RESTING IN SEMI-FOWLERS POSITION. PATIENT ON VENT SETTINGS AT PER ORDERED IN NO SIGNS OF RESPIRATORY DISTRESS. G-TUBE FEEDING RUNNING AT 40 ML/HR. RAMOS CATHETER DRAINING YELLOW URINE. SAFETY MEASURES IMPLEMENTED, BED LOCKED IN LOWEST POSITION, SIDE RAILS UP X2, CALL LIGHT WITHIN REACH. WILL CONTINUE TO MONITOR AND PROVIDE CARE THROUGHOUT SHIFT.
[2021-01-01 08:00] VITALS: BP 112/58
[2021-01-01] MEDS: BLOOD SUGAR DIAGNOSTIC 1 EACH STRIP VI SCH ×4 (08:16→22:21)
[2021-01-01] MEDS: FERROUS SULFATE (325 MG) 325 MG/TAB TABLET GT SCH (09:45)
[2021-01-01] MEDS: PANTOPRAZOLE 40 MG TABLET.DR PO SCH (09:45)
[2021-01-01] MEDS: METOCLOPRAMIDE HCL 10 MG/2 ML VIAL IV SCH ×3 (09:46→16:37)
[2021-01-01] MEDS: DOCUSATE SODIUM LIQ 100 MG/10 ML UDC GT SCH (09:46)
[2021-01-01] MEDS: HYDROCORTISONE SOD SUCCINATE 100 MG/2 ML VIAL IV SCH ×2 (09:47→16:37)
[2021-01-01] MEDS: LEVETIRACETAM SOL (5 ML) 100 MG/ML UDC GT SCH ×2 (09:49→22:00)
[2021-01-01] MEDS: ZINC SULFATE 220 MG CAPSULE GT SCH (09:50)
[2021-01-01] MEDS: METOPROLOL TARTRATE 25 MG TABLET GT SCH ×2 (09:51→21:59)
[2021-01-01] MEDS: THERAHONEY GEL 1.5 OZ TUBE TP SCH (09:52)
[2021-01-01] MEDS: PROSOURCE / PROSTAT (PYXIS) 30 ML UDC GT SCH ×3 (09:52→16:44)
[2021-01-01] MEDS: HYDROGEL DRESSING 90 GM TUBE TP SCH (09:53)
[2021-01-01 09:59] LABS: BASOPHILS % (AUTO) 0.1 % (0.0-2.0); EOSINOPHILS % (AUTO) 0.1 % (0.0-6.0); HEMATOCRIT 29 % (39-51); HEMOGLOBIN 9.1 g/dL (13.5-17.5); LYMPHOCYTES # (AUTO) 1.4 /CMM (0.8-4.8); LYMPHOCYTES % (AUTO) 11.3 % (20.0-44.0); MEAN CORPUSCULAR HGB CONC 31 g/dl (31.0-36.0); MEAN CORPUSCULAR VOLUME 87 fL (80-96); MONOCYTES # (AUTO) 0.4 /CMM (0.1-1.30); NEUTROPHILS # (AUTO) 10.4 /CMM (1.8-8.9); NEUTROPHILS % (AUTO) 85.5 % (43.0-81.0); PLATELET COUNT (AUTO) 287 /CMM (150-450); RED BLOOD CELL COUNT(AUTO) 3.37 MIL/uL (4.5-6.0); WHITE BLOOD COUNT (AUTO) 12.1 K/uL (4.3-11.0)
[2021-01-01 10:10] LABS: CALCIUM, SERUM 8.3 mg/dL (8.5-10.1); CARBON DIOXIDE 24 mmol/L (21-32); CHLORIDE 119 mmol/L (98-107); CREATININE 0.5 mg/dL (0.6-1.3); GLUCOSE 137 mg/dL (74-106); POTASSIUM 3.1 mmol/L (3.5-5.1); SODIUM SERUM 153 mmol/L (136-145); UREA NITROGEN, BLOOD 35 mg/dL (7-18)
[2021-01-01 10:16] LABS: ALANINE AMINOTRANSFERASE 9 U/L (12-78); ALKALINE PHOSPHATASE 79 U/L (46-116); ASPARTATE AMINOTRANSFERASE 12 U/L (15-37); BILIRUBIN,TOTAL 0.2 mg/dL (0.2-1.0); MAGNESIUM 1.9 mg/dL (1.8-2.4); PHOSPHORUS 3.4 mg/dL (2.5-4.9); TOTAL PROTEIN, SERUM 5.5 g/dL (6.4-8.2)
[2021-01-01 10:18] LABS: ALBUMIN 1.2 g/dL (3.4-5.0)
[2021-01-01] MEDS ORDERED: POTASSIUM CHLORIDE 20 MEQ POWDER PACKET GT ONE (10:30)
[2021-01-01] MEDS: INSULIN REGULAR, HUMAN 100 UNIT/ML 3 ML VIAL SQ PRN (10:41)
[2021-01-01 12:00] VITALS: BP 110/59
[2021-01-01 16:00] VITALS: BP 104/57
--- NOTE | 2021-01-01 19:24 | NUR ---
RT NOTE Pt received trached on mechanical ventilation with noted settings. Pt suctioned PRN. No SOB or respiratory distress noted. will continue to monitor t/o shift
[2021-01-01] MEDS: GLUCERNA 1.2 1,000 ML BOTTLE PEG PRN (19:30)
--- NOTE | 2021-01-01 19:30 | NUR ---
RN OPENING NOTES: RECEIVED TRACH PT IN BED RESTING COMFORTABLY. PATIENT IN NO S/SX OF ACUTE DISTRESS AT THIS TIME. NO SOB NOTED. PATIENT'S BREATHING IS EVEN AND UNLABORED. PATIENT ON MECHANICAL VENT; SETTINGS PRESCRIBED; PT TOLERATED WELL. AMBU BAG AT BED SIDE ALARMS SET PER PROTOCOL AND AUDIBLE. VENT PLUGGED IN TO RED OUTLET. NO DISTRESS NOTED. PATIENT ON TELE MONITORING READING SINUS RHYTHM AT THE TIME OF RECEIVED. G TUBE FLUSHING AND PATENT; SITE CLEAN DRY AND INTACT; NO RESIDUAL NOTED; FEEDING OF GLUCERNA 1.2 @45ML/HR PATIENT TOLERATES WELL. NOTED IV SITE ON R UA PICC; PATENT, INTACT AND FLUSHING WELL; NO S/S OF INFECTION OR INFILTRATION. RAMOS CATH IN PLACE, MODERATE URINE OUTPUT NOTED. SAFETY MEASURES HAVE BEEN PROVIDED AND IMPLEMENTED. PATIENT BED ALARM IS ON. HEAD OF BED ELEVATED. BED IS LOCKED, IN LOWEST POSITION AND SIDE RAILS UP. CALL LIGHT WITHIN REACH OF THE PATIENT. APPLICABLE ISOLATION PRECAUTIONS IN PLACE. WILL CONTINUE TO MONITOR AND REASSESS FOR ANY CHANGES AND WILL CARRY OUT ANY ONGOING AND ACTIVE MD ORDER.
--- NOTE | 2021-01-01 19:34 | NUR ---
RN CLOSING NOTE PATIENT IN ROOM RESTING IN SEMI-FOWLERS POSITION. PATIENT ON VENT SETTINGS AT PER ORDERED IN NO SIGNS OF RESPIRATORY DISTRESS. G-TUBE FEEDING RUNNING AT 40 ML/HR. RAMOS CATHETER DRAINING YELLOW URINE. SAFETY MEASURES IMPLEMENTED, BED LOCKED IN LOWEST POSITION, SIDE RAILS UP X2, CALL LIGHT WITHIN REACH. WILL CONTINUE TO MONITOR AND PROVIDE CARE THROUGHOUT SHIFT.
[2021-01-01 20:00] VITALS: BP 112/55
[2021-01-01] MEDS: SENNOSIDES 8.6 MG TABLET GT SCH (22:00)
[2021-01-01] MEDS: *INSULIN REGULAR(HUMULIN R)HUM 100 UNIT/ML VIAL SQ PRN (22:24)
--- NOTE | 2021-01-01 22:30 | NUR ---
RN NOTES NO CHANGE IN PATIENT CONDITION AT THIS TIME PATIENT VITALS STABLE, NO SIGNS OF ACUTE RESPIRATORY DISTRESS. DIRECT MARKETING REPRESENTATIVE MADE AWARE. WILL CONTINUE TO MONITOR AND REASSESS FOR ANY CHANGES THROUGHOUT THE SHIFT.
[2021-01-02] VITALS: BP 119/62
[2021-01-02] MEDS: ACETYLCYSTEINE 10% SOLN 400 MG/4 ML VIAL NEB SCH ×4 (00:35→20:08)
[2021-01-02] MEDS: ALBUTEROL FS 2.5 MG/3 ML VIAL.NEB NEB SCH ×4 (00:35→20:08)
--- NOTE | 2021-01-02 03:00 | NUR ---
RN NOTES PATIENT REMAINS IN NO ACUTE RESPIRATORY DISTRESS AT THIS TIME, NO CHANGES TO CONDITION/STATUS. QUALITY MANAGER WELL AWARE. WILL CONTINUE TO MONITOR AND REASSESS FOR ANY CHANGES THROUGHOUT THE SHIFT
[2021-01-02 04:00] VITALS: BP 126/70
[2021-01-02] MEDS: MEROPENEM 1 G in IV NS 0.9% 100 ML IV SCH ×3 (04:12→20:07)
[2021-01-02] MEDS: PANTOPRAZOLE 40 MG TABLET.DR PO SCH (07:16)
[2021-01-02] MEDS: BLOOD SUGAR DIAGNOSTIC 1 EACH STRIP VI SCH ×4 (07:31→22:12)
--- NOTE | 2021-01-02 07:32 | NUR ---
RN OPENING NOTE PATIENT IS CURRENTLY IN BED WITH HOB AT SEMI FOWLERS POSITION. PATIENT IS ON TRACH/VENT WITH NO SIGNS OF LABORED BREATHING. PATIENT OPEN EYES SPONTANEOUSLY. SACRAL STAGE 4 AND LEFT HEEL PRESSURE ULCER ARE NOTED. GTUBE IS LEAKING, MANAGER HOUSEKEEPING IS MADE AWARE. MAURO PICC IS PATENT, INTACT, AND HAS NO SIGNS OF INFILTRATION. BED IS LOCKED IN THE LOWEST POSITION, 3 GUARD RAILS RAISED, AND ALL HOSPITAL SAFETY PRECAUTIONS ARE BEING FOLLOWED. WILL CONTINUE TO MONITOR THROUGHOUT SHIFT.
--- NOTE | 2021-01-02 07:35 | NUR ---
RN NOTE PATIENT'S GTUBE IS LEAKING. REINFORCED WITH GAUZE. ABE TEACHER WELL AWARE. WILL NOTIFY MD. WILL CONTINUE TO MONITOR .
[2021-01-02 08:00] VITALS: BP 133/74
[2021-01-02] MEDS: HYDROCORTISONE SOD SUCCINATE 100 MG/2 ML VIAL IV SCH ×2 (08:38→17:08)
[2021-01-02] MEDS: METOCLOPRAMIDE HCL 10 MG/2 ML VIAL IV SCH ×3 (08:38→17:08)
[2021-01-02] MEDS: FERROUS SULFATE (325 MG) 325 MG/TAB TABLET GT SCH (08:38)
[2021-01-02] MEDS: LEVETIRACETAM SOL (5 ML) 100 MG/ML UDC GT SCH (08:38)
[2021-01-02] MEDS: DOCUSATE SODIUM LIQ 100 MG/10 ML UDC GT SCH (08:39)
[2021-01-02] MEDS: METOPROLOL TARTRATE 25 MG TABLET GT SCH ×2 (08:39→20:09)
[2021-01-02] MEDS: ZINC SULFATE 220 MG CAPSULE GT SCH (08:39)
[2021-01-02] MEDS: PROSOURCE / PROSTAT (PYXIS) 30 ML UDC GT SCH ×3 (08:40→17:00)
--- NOTE | 2021-01-02 09:10 | NUR ---
RN NOTE GI DOCTOR NOTIFIED OF GTUBE LEAKAGE. WILL CONTINUE TO MONITOR.
[2021-01-02] MEDS: HYDROGEL DRESSING 90 GM TUBE TP SCH (09:11)
[2021-01-02] MEDS: THERAHONEY GEL 1.5 OZ TUBE TP SCH (09:11)
--- NOTE | 2021-01-02 09:39 | NUR ---
dr. segovia made aware feeding on hold secondary to vigorous leak gtube site.dr. tiffany coburn also notified.
--- NOTE | 2021-01-02 09:42 | NUR ---
RN NOTE GTUBE FEEDING HALTED DUE TO GTUBE LEAKAGE.
--- NOTE | 2021-01-02 10:10 | NUR ---
RN NOTE CONTACTED DR. GONZALES IN REGARDS TO SWITCHING PATIENT'S MEDS TO IV IF POSSIBLE. ONLY WANTED ME TO SWITCH KEPRA AND HOLD THE REMAINING GTUBE MEDS UNTIL GI SEES PATIENT. ALSO INSTRUCTED ME TO START PATIENT ON D5 1/2 NS AT 80 ML/HR. WILL PLACES APPROPRIATE ORDERS.
[2021-01-02] MEDS ORDERED: IV D5/0.45 NACL 1,000 ML IV ONE (10:30)
[2021-01-02 12:00] VITALS: BP 130/62
--- NOTE | 2021-01-02 12:41 | NUR ---
RN NOTE GTUBE MEDICATIONS HELD. AWAITING GI TO ASSESS PATIENT.
[2021-01-02] MEDS: EPOETIN ALFA (4000 UNIT) 4,000 UNIT/ML VIAL SQ SCH (14:10)
[2021-01-02 16:00] VITALS: BP 138/68
--- NOTE | 2021-01-02 18:43 | NUR ---
RN CLOSING NOTE PATIENT IS CURRENTLY IN BED WITH HOB AT SEMI FOWLERS POSITION. PATIENT IS ON TRACH/VENT WITH NO SIGNS OF LABORED BREATHING. PATIENT OPEN EYES SPONTANEOUSLY. SACRAL STAGE 4 AND LEFT HEEL PRESSURE ULCER HAD APPROPRIATE WOUND DRESSINGS APPLIED. GTUBE IS LEAKING, IS AWARE, GTUBE MEDS ARE BEING HELD WELL FEEDING.. MAURO PICC IS PATENT, INTACT, AND HAS NO SIGNS OF INFILTRATION. BED IS LOCKED IN THE LOWEST POSITION, 3 GUARD RAILS RAISED, AND ALL HOSPITAL SAFETY PRECAUTIONS ARE BEING FOLLOWED. ALL DUE MEDS GIVEN AND PATIENT REMAINED STABLE THROUGHOUT SHIFT. WILL ENDORSE TO PUBLIC SPEAKER RN FOR YESSI.
[2021-01-02 20:00] VITALS: BP 121/68
[2021-01-02] MEDS: LEVETIRACETAM (500MG) 1,000 MG in IV NS 0.9% 100 ML IV SCH (20:37)
[2021-01-02] MEDS: SENNOSIDES 8.6 MG TABLET GT SCH (21:13)
[2021-01-03] VITALS: BP 130/66
[2021-01-03] MEDS ORDERED: IV D5/0.45 NACL 1,000 ML IV PRN (01:30)
[2021-01-03] MEDS: ALBUTEROL FS 2.5 MG/3 ML VIAL.NEB NEB SCH ×4 (02:12→19:45)
[2021-01-03] MEDS: ACETYLCYSTEINE 10% SOLN 400 MG/4 ML VIAL NEB SCH ×2 (02:12→07:55)
[2021-01-03 04:00] VITALS: BP 139/63
[2021-01-03] MEDS: MEROPENEM 1 G in IV NS 0.9% 100 ML IV SCH ×3 (05:09→20:54)
[2021-01-03 06:07] LABS: HEMATOCRIT 29 % (39-51); LYMPHOCYTES # (AUTO) 1.3 /CMM (0.8-4.8); LYMPHOCYTES % (AUTO) 18.1 % (20.0-44.0); MEAN CORPUSCULAR HGB CONC 31 g/dl (31.0-36.0); MEAN CORPUSCULAR VOLUME 88 fL (80-96); MONOCYTES # (AUTO) 0.4 /CMM (0.1-1.30); MONOCYTES % (AUTO) 5.3 % (2.0-12.0); NEUTROPHILS # (AUTO) 5.6 /CMM (1.8-8.9); NEUTROPHILS % (AUTO) 76.6 % (43.0-81.0); PLATELET COUNT (AUTO) 278 /CMM (150-450); RED BLOOD CELL COUNT(AUTO) 3.29 MIL/uL (4.5-6.0); WHITE BLOOD COUNT (AUTO) 7.3 K/uL (4.3-11.0)
[2021-01-03 06:30] LABS: ALANINE AMINOTRANSFERASE 12 U/L (12-78); ALKALINE PHOSPHATASE 76 U/L (46-116); ASPARTATE AMINOTRANSFERASE 14 U/L (15-37); BILIRUBIN,TOTAL 0.3 mg/dL (0.2-1.0); CALCIUM, SERUM 7.7 mg/dL (8.5-10.1); CARBON DIOXIDE 27 mmol/L (21-32); CHLORIDE 118 mmol/L (98-107); CREATININE 0.4 mg/dL (0.6-1.3); GLUCOSE 127 mg/dL (74-106); MAGNESIUM 1.7 mg/dL (1.8-2.4); PHOSPHORUS 2.3 mg/dL (2.5-4.9); SODIUM SERUM 154 mmol/L (136-145); TOTAL PROTEIN, SERUM 5.5 g/dL (6.4-8.2); UREA NITROGEN, BLOOD 20 mg/dL (7-18)
[2021-01-03 06:44] LABS: ALBUMIN 1.3 g/dL (3.4-5.0)
[2021-01-03] MEDS: PANTOPRAZOLE 40 MG TABLET.DR PO SCH (07:30)
--- NOTE | 2021-01-03 07:30 | NUR ---
MEDICAL OFFICE RECEPTIONIST ASSISTANT NOTE PATIENT IN BED, WITH TRACH TO VENT SETTING ORDERED, BOTH EYES OPEN NONVERBAL, ON TELE MONITOR SR HR 88. ON NPO AT THIS TIME G TUBE SITE DRESSING IN PLACE DUE TO G TUBE SITE WAS LEAKING, RT UPPER ARM PICC LINE IN PLACE, ON IVF ORDERED, BED IN LOWEST AND LOCKED POSITION , WITH GENERAL EDEMA ON UPPER AND LOWER EXTREMITIES, MEASURE PROVIDED
[2021-01-03 08:00] VITALS: BP 155/82
[2021-01-03] MEDS: METOCLOPRAMIDE HCL 10 MG/2 ML VIAL IV SCH ×3 (08:37→16:44)
[2021-01-03] MEDS: HYDROCORTISONE SOD SUCCINATE 100 MG/2 ML VIAL IV SCH (08:37)
[2021-01-03] MEDS: LEVETIRACETAM (500MG) 1,000 MG in IV NS 0.9% 100 ML IV SCH ×2 (08:44→21:29)
[2021-01-03] MEDS: FERROUS SULFATE (325 MG) 325 MG/TAB TABLET GT SCH (08:45)
[2021-01-03] MEDS: DOCUSATE SODIUM LIQ 100 MG/10 ML UDC GT SCH (08:45)
[2021-01-03] MEDS: ZINC SULFATE 220 MG CAPSULE GT SCH (08:46)
[2021-01-03] MEDS: PROSOURCE / PROSTAT (PYXIS) 30 ML UDC GT SCH ×3 (08:46→16:04)
[2021-01-03] MEDS: METOPROLOL TARTRATE 25 MG TABLET GT SCH ×2 (08:46→21:00)
[2021-01-03] MEDS: THERAHONEY GEL 1.5 OZ TUBE TP SCH (08:48)
[2021-01-03] MEDS: BLOOD SUGAR DIAGNOSTIC 1 EACH STRIP VI SCH ×4 (08:49→21:44)
--- NOTE | 2021-01-03 08:50 | NUR ---
TELE R NOTE HOLD MED VIA G TUBE ,NPO AT THIS TIME AWAITED FOR GI CONSULT
[2021-01-03] MEDS ORDERED: NEUTRA PHOS 1 POWD.PACKET GT SCH (09:30)
[2021-01-03] MEDS ORDERED: POTASSIUM CHLORIDE 20 MEQ POWDER PACKET GT SCH (09:30)
--- NOTE | 2021-01-03 09:34 | NUR ---
CASH POSTING REPRESENTATIVE NOTE DR SOW AT BEDSIDE AWARE THAT NA 154 WITH ORDER D5W AT 80 ML PER HOUR . ASLO AWARE THAT STILL NPO STATED THAT SPOKE WITH DR JAYLA LOPEZ WILL F\U WITH G TUBE INSERTION
[2021-01-03] MEDS: Magnesium 1GM/D5W 100ML PREMIX 100 ML IV SCH ×2 (09:43→10:41)
[2021-01-03] MEDS ORDERED: IV D5W 1,000 ML IV ONE (10:00)
[2021-01-03] MEDS: POTASSIUM CL. PREMIX PERIPHER. 50 ML IV SCH ×6 (10:18→15:36)
--- NOTE | 2021-01-03 10:28 | NUR ---
CORK GRINDER NOTE SPOKE WITH DR URIAS ABOUT KCL VIA G TUBE AND NEUTRA PHOS AWARE THAT G TUBE NOT WORKING GAVE ORDER IV FOR KCL AND PHOS ,PHARMACIST NOTIFIED
[2021-01-03] MEDS: HYDROGEL DRESSING 90 GM TUBE TP SCH (10:48)
--- NOTE | 2021-01-03 11:02 | NUR ---
STEAM CONDITIONING OPERATOR NOTE DR MA COAL TRIMMER AT [facility] AWARE THAT MOD AMT ORAL SECRETION
[2021-01-03] MEDS: POTASSIUM PHOSPHATE MM 7.5 MMOL in IV NS 0.9% 100 ML IV SCH ×2 (11:59→14:47)
[2021-01-03 12:00] VITALS: BP 128/62
--- NOTE | 2021-01-03 12:49 | NUR ---
REAL ESTATE SALESPERSON NOTE SPOKE WITH PHARMACIST RANJITH FARFAN TO RUN K PHOS AND POTASSIUM CHLORIDE TOGETHER WILL F\U
--- NOTE | 2021-01-03 15:58 | NUR ---
BIOMEDICAL ENGINEERING AIDE NOTE ROUNDS MADE ,TRACH AND ORAL SUCTION DONE, ON IVF ORDERED ,WILL CONT TO MONITOR, KEEP CLEAN DRY ,TURN REPOSITION, ALL UPPER AND LOWER EXTREMITIES WITH EDEMA, KEEP ELEVATED TOLERATED, WILL F\U
[2021-01-03 16:00] VITALS: BP 128/62
--- NOTE | 2021-01-03 18:57 | NUR ---
OCCUPATIONAL HEALTH MANAGER NOTE ALL NEEDS ATTENDED, WITH TRACH TO VENT SETTING ORDERED, BED IN LOWEST AND LOCKED POSITION , ON IVF ORDERED, . STILL NPO AWAITING FOR GI CONSULT
[2021-01-03 20:00] VITALS: BP 110/68
--- NOTE | 2021-01-03 20:00 | NUR ---
RN NOTE RECEIVED PT IN BED A/A/O X1, PT IS ABLE TO MOUTH WORDS, PT IS ON VENT SUPPORT VIA TRACH, SATING 98%. PT IS ON TELE MONITOR SHOWING SR AT 90s. SAFETY MEASURES IN PLACE.
[2021-01-03] MEDS: SENNOSIDES 8.6 MG TABLET GT SCH (21:05)
[2021-01-04] VITALS: BP 124/60
[2021-01-04] MEDS: ALBUTEROL FS 2.5 MG/3 ML VIAL.NEB NEB SCH ×4 (01:42→19:57)
[2021-01-04 04:00] VITALS: BP 120/76
[2021-01-04] MEDS: MEROPENEM 1 G in IV NS 0.9% 100 ML IV SCH ×3 (05:05→20:55)
--- NOTE | 2021-01-04 07:23 | NUR ---
RN NOTE REPORT GIVEN TO ONCOMING SHIFT FOR YESSI.
[2021-01-04] MEDS: PANTOPRAZOLE 40 MG TABLET.DR PO SCH (07:30)
[2021-01-04 08:00] VITALS: BP 142/81
--- NOTE | 2021-01-04 08:30 | NUR ---
Patient's am blood sugar done with results of 65mg/dl and informed Dr Nava. Per md to restart D5W at 100 cc /hour . Order noted and carried out. Patient is asymptomatic.
[2021-01-04] MEDS: BLOOD SUGAR DIAGNOSTIC 1 EACH STRIP VI SCH ×4 (08:37→21:33)
[2021-01-04] MEDS: INSULIN REGULAR, HUMAN 100 UNIT/ML 3 ML VIAL SQ PRN ×3 (08:38→18:15)
[2021-01-04] MEDS: METOPROLOL TARTRATE 25 MG TABLET GT SCH ×2 (08:47→20:10)
[2021-01-04] MEDS: DOCUSATE SODIUM LIQ 100 MG/10 ML UDC GT SCH (08:47)
[2021-01-04] MEDS: FERROUS SULFATE (325 MG) 325 MG/TAB TABLET GT SCH (08:47)
[2021-01-04] MEDS: LEVETIRACETAM (500MG) 1,000 MG in IV NS 0.9% 100 ML IV SCH ×2 (08:49→20:22)
[2021-01-04] MEDS: HYDROCORTISONE SOD SUCCINATE 100 MG/2 ML VIAL IV SCH (08:51)
[2021-01-04] MEDS: METOCLOPRAMIDE HCL 10 MG/2 ML VIAL IV SCH ×3 (08:52→17:12)
[2021-01-04] MEDS: THERAHONEY GEL 1.5 OZ TUBE TP SCH (08:52)
[2021-01-04] MEDS: HYDROGEL DRESSING 90 GM TUBE TP SCH (08:53)
[2021-01-04] MEDS: ZINC SULFATE 220 MG CAPSULE GT SCH (08:53)
[2021-01-04] MEDS: PROSOURCE / PROSTAT (PYXIS) 30 ML UDC GT SCH ×3 (08:57→16:36)
[2021-01-04] MEDS: IV D5W 1,000 ML IV PRN ×2 (09:01→19:50)
[2021-01-04 10:09] LABS: CALCIUM, SERUM 7.9 mg/dL (8.5-10.1); CARBON DIOXIDE 28 mmol/L (21-32); CHLORIDE 120 mmol/L (98-107); CREATININE 0.3 mg/dL (0.6-1.3); GLUCOSE 79 mg/dL (74-106); POTASSIUM 3.5 mmol/L (3.5-5.1); SODIUM SERUM 154 mmol/L (136-145); UREA NITROGEN, BLOOD 13 mg/dL (7-18)
[2021-01-04 12:00] VITALS: BP 147/74
--- NOTE | 2021-01-04 12:30 | NUR ---
Blood sugar for ac lunch is 88 mg/dl and iv fluids running at 100 cc/hour of D5w
[2021-01-04 16:00] VITALS: BP 130/73
--- NOTE | 2021-01-04 19:20 | NUR ---
rn opening notes received pt in bed, resting, arousable to verbal and tactile stimulation. a/ox1, able to mouth words, answer yes or no questions with head movement. pt is trach to vent, portex 7 AC 18 TV 400 fio2 30% peep 5. no s/s of resp distress or sob noted breathing is even and unlabored. MAURO picc line, flushed aseptically with good blood return. pt is on ivf d5w running at 100ml/hr as ordered. no s/s of infiltration noted. GT site leaking, dressing in place, reinforced. david notified of situation. safety measures in place isolation precautions in place as applicable, hob elevated, side rails up x3, bed locked in lowest position with bed alarm on. call light within reach. will cont to monitor closely throughout shift. Addendum: 01/05/21 at 0000 by LAMBERT HUTTON RN del cid cath draining via gravity
--- NOTE | 2021-01-04 19:49 | NUR ---
RN CLOSING NOTES Patient is alert and able to verbalize needs through head gestures.Patient is on vent setting and tolerating well. Iv site noted to right upper arm picc line with d5w fluids running at 100 cc/hour. Turned and repositioned q2h and prn. HOB kept elevated. On aspiration precautions. F/c intact and hanging to gravity wtih clear yellow urine and noted with 900cc of output during shift. Endorsed to next shift for YESSI and awaiting Dr Phelps for GI consult.G -TUBE site still noted to be leaking milky drainage.Bed is in lowest and locked position.
[2021-01-04 20:00] VITALS: BP 136/69
[2021-01-04] MEDS: SENNOSIDES 8.6 MG TABLET GT SCH (21:04)
[2021-01-04] MEDS: MORPHINE SULFATE INJ 2 MG/ML DISP.SYRIN IV PRN (22:57)
[2021-01-05] VITALS: BP 130/61
--- NOTE | 2021-01-05 01:35 | NUR ---
pt turned and repositioned q2h, suctioned via trach and oral care provided. no distress noted at this time. will cont to closely monitor.
[2021-01-05] MEDS: ALBUTEROL FS 2.5 MG/3 ML VIAL.NEB NEB SCH ×4 (02:13→20:22)
[2021-01-05 04:00] VITALS: BP 148/63
[2021-01-05] MEDS: MEROPENEM 1 G in IV NS 0.9% 100 ML IV SCH ×3 (04:14→20:14)
[2021-01-05] MEDS: IV D5W 1,000 ML IV PRN ×2 (05:36→19:02)
--- NOTE | 2021-01-05 05:41 | NUR ---
RT NOTE Pt rec'd [facility] mode settings as charted. pt shows no signs of resp distress or sob. Pt sx'd for small amt of pale yellow secretions. Alarms are set and audible. ambu bag and emergency spare trach bedside. Vent plugged into red outlet per policy. will continue to monitor closely. Addendum: 01/05/21 at 0543 by STEVE DENTON RT Amended: Links added.
[2021-01-05 05:54] LABS: BASOPHILS % (AUTO) 0.1 % (0.0-2.0); EOSINOPHILS % (AUTO) 0.3 % (0.0-6.0); HEMATOCRIT 29 % (39-51); HEMOGLOBIN 9.1 g/dL (13.5-17.5); LYMPHOCYTES # (AUTO) 1.7 /CMM (0.8-4.8); LYMPHOCYTES % (AUTO) 15.2 % (20.0-44.0); MEAN CORPUSCULAR HGB CONC 31 g/dl (31.0-36.0); MEAN CORPUSCULAR VOLUME 87 fL (80-96); MONOCYTES # (AUTO) 0.5 /CMM (0.1-1.30); MONOCYTES % (AUTO) 4.5 % (2.0-12.0); NEUTROPHILS % (AUTO) 79.9 % (43.0-81.0); PLATELET COUNT (AUTO) 286 /CMM (150-450); RED BLOOD CELL COUNT(AUTO) 3.37 MIL/uL (4.5-6.0); WHITE BLOOD COUNT (AUTO) 11.3 K/uL (4.3-11.0)
--- NOTE | 2021-01-05 06:25 | NUR ---
Rn closing notes Pt remains in bed, no significant changes in pt condition throughout shift. Pt still on same vent settings, tolerating well. Wound care done, bed bath done, oral care performed with suctioning via oral/trach as needed. All needs attended, pt denies pain, is afebrile. All due meds given. Ivf d5w running at 100ml/hr as ordered. no s/s of infiltration noted. Pt turned and repositioned q2h. safety measures in place. Hob elevated bed locked in lowest position, side rails up x2, call light within reach. Will endorse to oncoming nurse for continuation of care.
[2021-01-05 07:02] LABS: ALANINE AMINOTRANSFERASE 11 U/L (12-78); ALKALINE PHOSPHATASE 67 U/L (46-116); ASPARTATE AMINOTRANSFERASE 17 U/L (15-37); BILIRUBIN,TOTAL 0.5 mg/dL (0.2-1.0); CALCIUM, SERUM 7.7 mg/dL (8.5-10.1); CARBON DIOXIDE 29 mmol/L (21-32); CHLORIDE 118 mmol/L (98-107); CREATININE 0.4 mg/dL (0.6-1.3); GLUCOSE 93 mg/dL (74-106); MAGNESIUM 1.8 mg/dL (1.8-2.4); PHOSPHORUS 2.3 mg/dL (2.5-4.9); POTASSIUM 3.2 mmol/L (3.5-5.1); SODIUM SERUM 152 mmol/L (136-145); TOTAL PROTEIN, SERUM 5.2 g/dL (6.4-8.2); UREA NITROGEN, BLOOD 10 mg/dL (7-18)
[2021-01-05 07:25] LABS: ALBUMIN 1.2 g/dL (3.4-5.0)
--- NOTE | 2021-01-05 07:53 | NUR ---
RT Pt received trached on mechanical ventilation with noted settings. Vent is plugged into red outlet with spare tracheostomy tube by bedside. No SOB or respiratory distress noted. Addendum: 01/05/21 at 1716 by AZEB POON RT Amended: Links added.
[2021-01-05 08:00] VITALS: BP 117/82
--- NOTE | 2021-01-05 08:00 | NUR ---
RN OPENING NOTES Patient is alert and able to verbalize needs through head gestures.Patient is on vent setting and tolerating well. Iv site noted to right upper arm picc line with d5w fluids running at 100 cc/hour. HOB kept elevated. On aspiration precautions. awaiting Dr Phelps for GI consult..Bed is in lowest and locked position.
[2021-01-05] MEDS: INSULIN REGULAR, HUMAN 100 UNIT/ML 3 ML VIAL SQ PRN (08:49)
[2021-01-05] MEDS: BLOOD SUGAR DIAGNOSTIC 1 EACH STRIP VI SCH ×4 (08:49→22:20)
[2021-01-05] MEDS: METOCLOPRAMIDE HCL 10 MG/2 ML VIAL IV SCH ×3 (08:58→17:16)
[2021-01-05] MEDS: PANTOPRAZOLE 40 MG VIAL IV SCH (08:58)
[2021-01-05] MEDS: HYDROCORTISONE SOD SUCCINATE 100 MG/2 ML VIAL IV SCH (08:58)
[2021-01-05] MEDS: DOCUSATE SODIUM LIQ 100 MG/10 ML UDC GT SCH (08:58)
[2021-01-05] MEDS: FERROUS SULFATE (325 MG) 325 MG/TAB TABLET GT SCH (09:00)
[2021-01-05] MEDS: METOPROLOL TARTRATE 25 MG TABLET GT SCH ×2 (09:00→20:22)
[2021-01-05] MEDS: PROSOURCE / PROSTAT (PYXIS) 30 ML UDC GT SCH ×3 (09:00→17:00)
[2021-01-05] MEDS: ZINC SULFATE 220 MG CAPSULE GT SCH (09:00)
[2021-01-05] MEDS: HYDROGEL DRESSING 90 GM TUBE TP SCH (09:06)
[2021-01-05] MEDS: LEVETIRACETAM (500MG) 1,000 MG in IV NS 0.9% 100 ML IV SCH ×2 (09:07→21:00)
[2021-01-05] MEDS: THERAHONEY GEL 1.5 OZ TUBE TP SCH (09:07)
[2021-01-05] MEDS: POTASSIUM CL. PREMIX PERIPHER. 50 ML IV SCH ×4 (10:08→14:15)
--- NOTE | 2021-01-05 11:06 | NUR ---
Endorsed to next nurse for YESSI. Informed her to follow up with GIi CONSULT AND regarding KCL replacement
[2021-01-05 12:00] VITALS: BP 112/61
[2021-01-05] MEDS ORDERED: NEUTRA PHOS 1 POWD.PACKET GT ONE (12:00)
[2021-01-05] MEDS ORDERED: POTASSIUM PHOSPHATE MM 7.5 MMOL in IV NS 0.9% 100 ML IV SCH ×2 (12:30→14:00)
--- NOTE | 2021-01-05 13:45 | NUR ---
dr. hernandez here and removed g-tube.suggested tpn for nutrition to inform fisher trot line bing.
--- NOTE | 2021-01-05 13:50 | NUR ---
abd. cleansed with soap and water and abds.applied.
[2021-01-05] MEDS ORDERED: TPN/PPN PER PHARMACY XX PRN (15:30)
[2021-01-05 16:00] VITALS: BP 124/71
[2021-01-05] MEDS ORDERED: TPN BAG #1 IV PRN (16:30)
--- NOTE | 2021-01-05 17:14 | NUR ---
PO MEDS NOT GIVEN TODAY G-TUBE NOT FUNCTIONAL
--- NOTE | 2021-01-05 18:00 | NUR ---
POTASSIUM PHOSPHATE AND KCL GIVEN INTRAVENOUSLY.
--- NOTE | 2021-01-05 18:22 | NUR ---
notified to re; positive DVT in right internal jugular aware this results and no orders obtained
--- NOTE | 2021-01-05 19:10 | NUR ---
RN OPENING NOTE RECEIVED PATIENT IN BED RESTING ON TRACH MECHANICAL VENT SETTING TRACH PORTEX SIZE 9 AC 18 TV 400 FIO2:30% PEEP 5 OBTUNDED, BILATERAL UPPER EXTREMITIES AND BILATERAL LOWER EXTREMITIES,EDEMA,IV SITE ON RIGHT UPPER ARM PICC LINE INTACT PATENT,ON D5W IV FLUID 100CC/HR,NPO,RAMOS CATHETER IN PLACE URINE DRAINING YELLOW/CLEAR BY GRAVITY,SAFETY MEASURE IMPLEMENT,HEAD OF BED ELEVATED,SIDE RAIL X2 CONTINUE TO MONITOR.
[2021-01-05 20:00] VITALS: BP 127/49
--- NOTE | 2021-01-05 20:24 | NUR ---
RN NOTE LOPRESSOR 25 MG PO AT 2100 NOT GIVEN DUE TO PT IS NPO CONTINUE TO MONITOR.
--- NOTE | 2021-01-05 20:38 | NUR ---
RT NOTE Pt rec'd trached via [facility] mode settings as charted. pt shows no signs of resp distress or sob. Pt sx'd for small amt of pale yellow secretions. Alarms are set and audible. ambu bag and emergency spare trach bedside. Vent plugged into red outlet per policy. will continue to monitor closely. Addendum: 01/05/21 at 2038 by STEVE DENTON RT Amended: Links added.
[2021-01-05] MEDS: SENNOSIDES 8.6 MG TABLET GT SCH (22:00)
--- NOTE | 2021-01-05 22:00 | NUR ---
RN NOTE SENNA AT 22:00 NOT GIVEN DUE TO PT IS NPO CONTINUE TO MONITOR.
[2021-01-06] VITALS: BP 117/59
[2021-01-06] MEDS: ALBUTEROL FS 2.5 MG/3 ML VIAL.NEB NEB SCH ×4 (01:36→20:04)
[2021-01-06 04:00] VITALS: BP 135/96
[2021-01-06] MEDS: MEROPENEM 1 G in IV NS 0.9% 100 ML IV SCH ×3 (04:20→20:12)
[2021-01-06 06:29] LABS: BASOPHILS # (AUTO) 0.1 /CMM (0.0-0.2); BASOPHILS % (AUTO) 0.8 % (0.0-2.0); EOSINOPHILS % (AUTO) 0.9 % (0.0-6.0); HEMATOCRIT 28 % (39-51); HEMOGLOBIN 8.8 g/dL (13.5-17.5); LYMPHOCYTES # (AUTO) 1.5 /CMM (0.8-4.8); LYMPHOCYTES % (AUTO) 21.8 % (20.0-44.0); MEAN CORPUSCULAR HGB CONC 32 g/dl (31.0-36.0); MEAN CORPUSCULAR VOLUME 87 fL (80-96); MONOCYTES # (AUTO) 0.4 /CMM (0.1-1.30); NEUTROPHILS # (AUTO) 5.1 /CMM (1.8-8.9); NEUTROPHILS % (AUTO) 71.5 % (43.0-81.0); PLATELET COUNT (AUTO) 223 /CMM (150-450); RED BLOOD CELL COUNT(AUTO) 3.22 MIL/uL (4.5-6.0); WHITE BLOOD COUNT (AUTO) 7.1 K/uL (4.3-11.0)
[2021-01-06] MEDS: IV D5W 1,000 ML IV PRN (06:49)
[2021-01-06 06:51] LABS: CARBON DIOXIDE 26 mmol/L (21-32); CHLORIDE 115 mmol/L (98-107); POTASSIUM 3.2 mmol/L (3.5-5.1); SODIUM SERUM 146 mmol/L (136-145)
--- NOTE | 2021-01-06 07:15 | NUR ---
RN CLOSING NOTE PATIENT REMAINS ON TRACH MECHANICAL VENT SETTING TRACH PORTEX SIZE 9 AC 18 TV 400 FIO2:30% PEEP 5 OBTUNDED, BILATERAL UPPER EXTREMITIES AND BILATERAL LOWER EXTREMITIES,EDEMA,IV SITE ON RIGHT UPPER ARM PICC LINE INTACT PATENT,ON D5W IV FLUID 100CC/HR,NPO,RAMOS CATHETER IN PLACE URINE DRAINING YELLOW/CLEAR BY GRAVITY,SAFETY MEASURE IMPLEMENT,HEAD OF BED ELEVATED,NO SOB NOT ACUTE DISTRESS NOTED ENDORSE NEXT COMING SHIFT FOR CONTINUATION OF CARE.
[2021-01-06 07:21] LABS: CALCIUM, SERUM 7.6 mg/dL (8.5-10.1); CREATININE 0.3 mg/dL (0.6-1.3); GLUCOSE 100 mg/dL (74-106); MAGNESIUM 1.7 mg/dL (1.8-2.4); PHOSPHORUS 2.3 mg/dL (2.5-4.9); UREA NITROGEN, BLOOD 8 mg/dL (7-18)
[2021-01-06] MEDS: BLOOD SUGAR DIAGNOSTIC 1 EACH STRIP VI SCH ×4 (07:31→21:46)
[2021-01-06] MEDS: INSULIN REGULAR, HUMAN 100 UNIT/ML 3 ML VIAL SQ PRN ×3 (07:32→17:35)
--- NOTE | 2021-01-06 07:33 | NUR ---
SALES ENGINEER ACCOUNT MANAGER OPENING NOTES RECEIVED PATIENT AWAKE IN BED IN NO ACUTE SIGNS OF DISTRESS. HOB ELEVATED. OBTUNDED, OPEN EYES AND RESPONSIVE TO PAIN STIMULI. PT IS NPO. ON TRACH PORTEX #9 CONNECTED MECHANICAL VENT AT SETTINGS OF AC 18 TV 400 OLG282% PEEP 5, TOLERATED SETTINGS WELL. MAURO DOUBLE LUMEN PICC LINE INTACT AND PATENT, D5W IV FLUID 100ML/HR INFUSING WELL. RAMOS CATHETER IN PLACE DRAINING CLEAR YELLOW BY GRAVITY. SAFETY MEASURE IN PLACE: BED IN LOWEST LOCKED POSITION WITH SIDE RAILS UP X3. CALL LIGHT WITHIN REACH. WILL CONTINUE TO MONITOR.
[2021-01-06] MEDS: PANTOPRAZOLE 40 MG VIAL IV SCH (07:58)
[2021-01-06] MEDS: LEVETIRACETAM (500MG) 1,000 MG in IV NS 0.9% 100 ML IV SCH ×2 (08:25→21:37)
[2021-01-06] MEDS: METOCLOPRAMIDE HCL 10 MG/2 ML VIAL IV SCH ×3 (08:25→16:21)
[2021-01-06 08:47] VITALS: BP 137/71
--- NOTE | 2021-01-06 08:53 | NUR ---
patient asleep no acute distresss,gtube site still leaking ,dressing changed,will continue to monitor.all gtube meds on hold.
[2021-01-06] MEDS: PROSOURCE / PROSTAT (PYXIS) 30 ML UDC GT SCH ×4 (08:58→16:29)
[2021-01-06] MEDS: HYDROGEL DRESSING 90 GM TUBE TP SCH (08:59)
[2021-01-06] MEDS: THERAHONEY GEL 1.5 OZ TUBE TP SCH (08:59)
[2021-01-06] MEDS: FERROUS SULFATE (325 MG) 325 MG/TAB TABLET GT SCH (09:00)
[2021-01-06] MEDS: METOPROLOL TARTRATE 25 MG TABLET GT SCH ×2 (09:00→21:00)
[2021-01-06] MEDS: ZINC SULFATE 220 MG CAPSULE GT SCH (09:00)
[2021-01-06] MEDS ORDERED: TPN BAG #1 IV SCH ×2 (09:00→10:00)
[2021-01-06] MEDS: DOCUSATE SODIUM LIQ 100 MG/10 ML UDC GT SCH (09:00)
--- NOTE | 2021-01-06 09:01 | NUR ---
RN NOTES ALL AM MEDS VIA G-TUBE NOT ADMINISTERED. PT S/P G-TUBE REMOVED. WILL CONTINUE TO MONITOR
[2021-01-06] MEDS: POTASSIUM CL. PREMIX PERIPHER. 50 ML IV SCH ×4 (10:37→12:56)
[2021-01-06] MEDS: Magnesium 1GM/D5W 100ML PREMIX 100 ML IV SCH ×2 (10:37→11:36)
[2021-01-06 12:14] VITALS: BP 144/55
--- NOTE | 2021-01-06 12:26 | NUR ---
patient calm quiet no acute distress,vss.
[2021-01-06] MEDS ORDERED: POTASSIUM PHOSPHATE MM 15 MMOL in IV NS 0.9% 250 ML IV SCH (14:00)
[2021-01-06] MEDS: EPOETIN ALFA (4000 UNIT) 4,000 UNIT/ML VIAL SQ SCH (14:47)
[2021-01-06 16:12] VITALS: BP 116/56
[2021-01-06] MEDS: ENOXAPARIN SODIUM 80 MG/0.8 ML DISP.SYRIN SQ SCH (16:24)
--- NOTE | 2021-01-06 18:06 | NUR ---
RN NOTES PHARMACIST CALLED TO ASK FAMILY IF THEY CAN BRING PT'S HOME MED LINZESS 145MCG TAB. CALLED PT'S DAUGHTER JENS AND STATED THAT SHE WILL BRING THE MED TONIGHT. WILL ENDORSE TO INCOMING SHIFT. Addendum: 01/06/21 at 1810 by LINO ESQUEDA RN ERROR: WRONG PATIENT. SORRY!
--- NOTE | 2021-01-06 18:45 | NUR ---
ARMOURED CAR ESCORT CLOSING NOTES PATIENT IN BED AWAKE AND LYING AT MODERATE HIGH BACKREST POSITION. OPEN EYES AND RESPONSIVE TO PAIN STIMULI. REMAINS NPO. ON TRACH PORTEX #9 CONNECTED MECHANICAL VENT AT SETTINGS OF AC 18 TV 400 CET182% PEEP 5, TOLERATING SETTINGS WELL. IVF OF D5W AT 50ML/HR AND TPN 1ST BAG AT 30 ML/HR INFUSING WELL TO MAURO DOUBLE LUMEN PICC LINE. PT TURNED AND REPOSITIONED Q 2HRS AND PRN. ALL NEEDS AND CARE PROVIDED WELL. RAMOS CATHETER IN PLACE DRAINING CLEAR YELLOW BY GRAVITY, RAMOS CARE DONE. SAFETY MEASURE IN PLACE: BED IN LOWEST LOCKED POSITION WITH SIDE RAILS UP X3. CALL LIGHT WITHIN REACH. WILL ENDORSE YESSI TO HEALTH INFORMATION MANAGER NURSE.
--- NOTE | 2021-01-06 19:20 | NUR ---
RECEIVED PATIENT AWAKE IN BED IN NO ACUTE SIGNS OF DISTRESS. HOB ELEVATED. OBTUNDED, OPEN EYES AND RESPONSIVE TO PAIN STIMULI. PT IS NPO. ON TRACH PORTEX #9 CONNECTED MECHANICAL VENT AT SETTINGS OF AC 18 TV 400 FIO2 30% PEEP 5, TOLERATED SETTINGS WELL. MAURO DOUBLE LUMEN PICC LINE INTACT AND PATENT, D5W IV FLUID 50ML/HR AND TPN @ 30ML/HR INFUSING WELL. RAMOS CATHETER IN PLACE DRAINING CLEAR YELLOW BY GRAVITY. SAFETY MEASURE IN PLACE: BED IN LOWEST LOCKED POSITION WITH SIDE RAILS UP X3. CALL LIGHT WITHIN REACH. WILL CONTINUE TO MONITOR.
[2021-01-06 20:00] VITALS: BP 111/57
[2021-01-06] MEDS: SENNOSIDES 8.6 MG TABLET GT SCH (21:38)
[2021-01-06] MEDS: *INSULIN REGULAR(HUMULIN R)HUM 100 UNIT/ML VIAL SQ PRN (21:46)
--- NOTE | 2021-01-06 21:46 | NUR ---
SCHEDULE MEDICATION VIA GTUBE NOT GIVEN DUE TO PT HAVE NO GTUBE RIGHT NOW AND UNABLE TO TAKE MEDICATION THRU PO
[2021-01-07] VITALS: BP 131/94
[2021-01-07] MEDS: ALBUTEROL FS 2.5 MG/3 ML VIAL.NEB NEB SCH ×4 (01:46→19:45)
[2021-01-07 04:00] VITALS: BP 110/68
[2021-01-07] MEDS: MEROPENEM 1 G in IV NS 0.9% 100 ML IV SCH ×3 (05:00→21:04)
[2021-01-07] MEDS: IV D5W 1,000 ML IV PRN (05:00)
[2021-01-07 05:50] LABS: BASOPHILS % (AUTO) 0.5 % (0.0-2.0); EOSINOPHILS % (AUTO) 0.4 % (0.0-6.0); HEMATOCRIT 30 % (39-51); HEMOGLOBIN 9.6 g/dL (13.5-17.5); LYMPHOCYTES # (AUTO) 2.3 /CMM (0.8-4.8); MEAN CORPUSCULAR HGB CONC 32 g/dl (31.0-36.0); MEAN CORPUSCULAR VOLUME 87 fL (80-96); MONOCYTES # (AUTO) 0.5 /CMM (0.1-1.30); MONOCYTES % (AUTO) 5.4 % (2.0-12.0); NEUTROPHILS # (AUTO) 6.7 /CMM (1.8-8.9); NEUTROPHILS % (AUTO) 69.7 % (43.0-81.0); PLATELET COUNT (AUTO) 243 /CMM (150-450); RED BLOOD CELL COUNT(AUTO) 3.49 MIL/uL (4.5-6.0); WHITE BLOOD COUNT (AUTO) 9.6 K/uL (4.3-11.0)
[2021-01-07 06:27] LABS: CALCIUM, SERUM 7.6 mg/dL (8.5-10.1); CARBON DIOXIDE 28 mmol/L (21-32); CHLORIDE 112 mmol/L (98-107); CREATININE 0.4 mg/dL (0.6-1.3); GLUCOSE 116 mg/dL (74-106); MAGNESIUM 1.8 mg/dL (1.8-2.4); PHOSPHORUS 2.3 mg/dL (2.5-4.9); POTASSIUM 3.6 mmol/L (3.5-5.1); SODIUM SERUM 145 mmol/L (136-145); UREA NITROGEN, BLOOD 8 mg/dL (7-18)
[2021-01-07] MEDS: BLOOD SUGAR DIAGNOSTIC 1 EACH STRIP VI SCH ×2 (06:58→12:27)
[2021-01-07] MEDS: INSULIN REGULAR, HUMAN 100 UNIT/ML 3 ML VIAL SQ PRN (06:58)
--- NOTE | 2021-01-07 07:40 | NUR ---
RN OPENING NOTE PATIENT IS AWAKE IN BED. NONVERBAL DUE TO PRESENCE OF TRACH. ABLE TO NOD/SHAKE HEAD TO QUESTIONS. NO SIGNS OF PAIN OR NAUSEA PRESENT. CURRENTLY ON LOAN SECRETARY. NO RESPIRATORY DISTRESS PRESENT. ON TRACH, SETTING AC 18, TV 400, FIO2 30%, PEEP 5. F/C PRESENT. ON BEDREST. SACRAL WOUND PRESENT. NPO STATUS DUE TO PRESENCE OF TRACH. PICC LINE PRESENT IN MAURO. SAFETY MEASURES IN PLACE. SIDE RAILS RAISED. BED LOWERED. CALL LIGHT WITHIN REACH. WILL CONTINUE TO MONITOR
[2021-01-07 08:00] VITALS: BP 120/62
--- NOTE | 2021-01-07 08:05 | NUR ---
RN MEDICINE NOTE PATIENT GTUBE MEDS NOT GIVEN DUE TO NONPRESENCE OF GTUBE AND NPO STATUS DUE TO TRACHEOSTOMY. MD NOTIFIED. WILL CONTINUE TO MONITOR.
[2021-01-07] MEDS: DOCUSATE SODIUM LIQ 100 MG/10 ML UDC GT SCH (08:06)
[2021-01-07] MEDS: METOPROLOL TARTRATE 25 MG TABLET GT SCH ×2 (08:07→21:00)
[2021-01-07] MEDS: ZINC SULFATE 220 MG CAPSULE GT SCH (08:07)
[2021-01-07] MEDS: FERROUS SULFATE (325 MG) 325 MG/TAB TABLET GT SCH (08:07)
[2021-01-07] MEDS: METOCLOPRAMIDE HCL 10 MG/2 ML VIAL IV SCH ×3 (08:07→17:22)
[2021-01-07] MEDS: PROSOURCE / PROSTAT (PYXIS) 30 ML UDC GT SCH ×3 (08:07→17:00)
[2021-01-07] MEDS: LEVETIRACETAM (500MG) 1,000 MG in IV NS 0.9% 100 ML IV SCH ×2 (08:08→20:19)
[2021-01-07] MEDS: PANTOPRAZOLE 40 MG VIAL IV SCH (08:10)
[2021-01-07] MEDS: HYDROGEL DRESSING 90 GM TUBE TP SCH (09:00)
[2021-01-07] MEDS: ENOXAPARIN SODIUM 80 MG/0.8 ML DISP.SYRIN SQ SCH ×2 (09:00→21:08)
[2021-01-07] MEDS: THERAHONEY GEL 1.5 OZ TUBE TP SCH (09:00)
[2021-01-07] MEDS ORDERED: TPN BAG #2 IV SCH (10:00)
[2021-01-07 12:00] VITALS: BP 110/55
[2021-01-07] MEDS ORDERED: POTASSIUM PHOSPHATE MM 15 MMOL in IV NS 0.9% 250 ML IV SCH (12:00)
[2021-01-07] MEDS ORDERED: DEXTROSE 50%-WATER 50 ML DISP.SYRIN IV PRN (12:30)
[2021-01-07 16:00] VITALS: BP 101/63
[2021-01-07] MEDS: BLOOD SUGAR DIAGNOSTIC 1 EACH STRIP IN SCH ×2 (18:23→23:20)
--- NOTE | 2021-01-07 19:20 | NUR ---
RN NOTE RECEIVED PT AWAKE IN BED WITH HEAD OF BED ELEVATED. OBTUNDED BUT RESPONSIVE TO VERBAL AND TACTILE STIMULI. WITH TRACH CONNECTED TO VENT AND TOLERATING VENT SETTINGS WELL. SPO2 100%. RESPIRATIONS UNLABORED. NPO STATUS MAINTAINED. RIGHT UPPER ARM PICC LINE PATENT WITH D5W @ 50CC/HOUR ORDERED AND TPN @ 40CC/HOUR ORDERED. WITH RAMOS CATHETER PATENT AND IN PLACE DRAINING URINE VIA GRAVITY. ALARMS ON AND AUDIBLE, SAFETY MEASURES IN PLACE PER PROTOCOL, BED LOCKED AND IN LOWEST POSITION, SIDE RAILS UP X 2, BED ALARM ON, CALL LIGHT WITHIN REACH, AMBU BAG AT BEDSIDE, WILL MONITOR
--- NOTE | 2021-01-07 19:21 | NUR ---
RN CLOSING NOTE PATIENT IS AWAKE IN BED. NONVERBAL DUE TO PRESENCE OF TRACH. ABLE TO NOD/SHAKE HEAD TO QUESTIONS. NO SIGNS OF PAIN OR NAUSEA PRESENT. CURRENTLY ON PAYMASTER OF PURSES. NO RESPIRATORY DISTRESS PRESENT. ON TRACH, SETTING AC 18, TV 400, FIO2 30%, PEEP 5. F/C PRESENT. ON BEDREST. SACRAL WOUND PRESENT. NPO STATUS DUE TO PRESENCE OF TRACH. PICC LINE PRESENT IN MAURO. SAFETY MEASURES IN PLACE. SIDE RAILS RAISED. BED LOWERED. CALL LIGHT WITHIN REACH. REPORT GIVEN TO NIGHT NURSE FOR YESSI
[2021-01-07 20:00] VITALS: BP 112/68
--- NOTE | 2021-01-07 20:16 | NUR ---
RT pt received on mechanical vent with current settings. trached, portex 9. trach patent and secure. vent plugged in to red outlet. ambu bag at [facility]. alarms on and audible. no sob, resp distress. moderate secretions suctioned via trach. will continue to monitor.
[2021-01-07] MEDS: SENNOSIDES 8.6 MG TABLET GT SCH (21:04)
--- NOTE | 2021-01-07 21:09 | NUR ---
RN NOTE UNABLE TO ADMINISTER GT MEDICATION LOPRESSOR AND SENNA DUE TO NPO STATUS AND NO PRESENCE OF GTUBE. MD AWARE.
[2021-01-08] VITALS: BP 110/61
[2021-01-08] MEDS: ALBUTEROL FS 2.5 MG/3 ML VIAL.NEB NEB SCH ×4 (01:13→19:49)
--- NOTE | 2021-01-08 02:00 | NUR ---
RN NOTE COMPLETE BED BATH/AM CARE GIVEN. PT TOLERATED WELL.
[2021-01-08 04:00] VITALS: BP 120/51
--- NOTE | 2021-01-08 04:00 | NUR ---
RN NOTE RIGHT ARM PICC LINE DRESSING CHANGE COMPLETED.
[2021-01-08] MEDS: MEROPENEM 1 G in IV NS 0.9% 100 ML IV SCH ×3 (04:01→21:06)
[2021-01-08] MEDS: IV D5W 1,000 ML IV PRN (04:01)
[2021-01-08] MEDS: BLOOD SUGAR DIAGNOSTIC 1 EACH STRIP IN SCH ×4 (05:10→23:46)
[2021-01-08 06:13] LABS: BASOPHILS % (AUTO) 0.5 % (0.0-2.0); EOSINOPHILS % (AUTO) 0.6 % (0.0-6.0); HEMATOCRIT 26 % (39-51); HEMOGLOBIN 8.4 g/dL (13.5-17.5); LYMPHOCYTES # (AUTO) 1.2 /CMM (0.8-4.8); LYMPHOCYTES % (AUTO) 18.9 % (20.0-44.0); MEAN CORPUSCULAR HGB CONC 32 g/dl (31.0-36.0); MEAN CORPUSCULAR VOLUME 87 fL (80-96); MONOCYTES # (AUTO) 0.3 /CMM (0.1-1.30); MONOCYTES % (AUTO) 4.5 % (2.0-12.0); NEUTROPHILS # (AUTO) 4.9 /CMM (1.8-8.9); NEUTROPHILS % (AUTO) 75.5 % (43.0-81.0); PLATELET COUNT (AUTO) 159 /CMM (150-450); RED BLOOD CELL COUNT(AUTO) 3.05 MIL/uL (4.5-6.0); WHITE BLOOD COUNT (AUTO) 6.6 K/uL (4.3-11.0)
--- NOTE | 2021-01-08 06:44 | NUR ---
RN NOTE NO ACUTE CHANGES OBSERVED OVERNIGHT. PT WITH HEAD OF BED ELEVATED. REMAINS OBTUNDED BUT RESPONSIVE TO STIMULI. TOLERATING VENT SETTINGS WELL. SPO2 WNL. NPO STATUS MAINTAINED. PICC LINE INTACT WITH TPN RUNNING AT 40ML/HOUR ORDERED AND D5W @ 50CC/HOUR ORDERED. RAMOS CATHETER PATENT AND IN PLACE DRAINING URINE VIA GRAVITY, ALARMS ON AND AUDIBLE, SAFETY MEASURES IN PLACE PER PROTOCOL, BED LOCKED AND IN LOWEST POSITION, SIDE RAILS UP X 2, BED ALARM ON, CALL LIGHT WITHIN REACH, AMBU BAG AT BEDSIDE, WILL ENDORSE TO MORNING RN FOR YESSI.
[2021-01-08 06:47] LABS: CALCIUM, SERUM 7.3 mg/dL (8.5-10.1); CARBON DIOXIDE 26 mmol/L (21-32); CHLORIDE 110 mmol/L (98-107); CREATININE 0.4 mg/dL (0.6-1.3); GLUCOSE 120 mg/dL (74-106); MAGNESIUM 1.7 mg/dL (1.8-2.4); PHOSPHORUS 1.7 mg/dL (2.5-4.9); SODIUM SERUM 143 mmol/L (136-145); UREA NITROGEN, BLOOD 10 mg/dL (7-18)
[2021-01-08 07:13] LABS: POTASSIUM 2.8 mmol/L (3.5-5.1)
--- NOTE | 2021-01-08 07:50 | NUR ---
RN OPENING NOTE PATIENT IS CURRENTLY IN BED WITH HOB AT SEMI FOWLERS POSITION. PATIENT IS OBTUNDED. PATIENT IS ON TRACH VENT WITH NO SIGNS OF LABORED BREATHING. RAMOS CATHETER IS IN PLACE. SACRAL WOUND AND BILATERAL HEEL WOUNDS ARE NOTED. MAURO PICC IS PATENT, AND INTACT. BED IS LOCKED IN THE LOWEST POSITION, 3 GUARD RAILS RAISED, AND ALL HOSPITAL SAFETY PRECAUTIONS ARE BEING FOLLOWED. WILL CONTINUE TO MONITOR THROUGHOUT SHIFT.
[2021-01-08 08:00] VITALS: BP 133/59
[2021-01-08] MEDS: METOCLOPRAMIDE HCL 10 MG/2 ML VIAL IV SCH ×3 (08:04→16:29)
[2021-01-08] MEDS: PANTOPRAZOLE 40 MG VIAL IV SCH (08:04)
[2021-01-08] MEDS: POTASSIUM PHOSPHATE MM 15 MMOL in IV NS 0.9% 250 ML IV SCH ×2 (08:04→13:23)
[2021-01-08] MEDS: Magnesium 1GM/D5W 100ML PREMIX 100 ML IV SCH ×2 (08:04→09:22)
[2021-01-08] MEDS: METOPROLOL TARTRATE 25 MG TABLET GT SCH ×2 (08:05→21:00)
[2021-01-08] MEDS: FERROUS SULFATE (325 MG) 325 MG/TAB TABLET GT SCH (08:05)
[2021-01-08] MEDS: DOCUSATE SODIUM LIQ 100 MG/10 ML UDC GT SCH (08:05)
[2021-01-08] MEDS: ZINC SULFATE 220 MG CAPSULE GT SCH (08:06)
[2021-01-08] MEDS: PROSOURCE / PROSTAT (PYXIS) 30 ML UDC GT SCH ×3 (08:06→17:00)
[2021-01-08] MEDS: THERAHONEY GEL 1.5 OZ TUBE TP SCH (08:07)
[2021-01-08] MEDS: HYDROGEL DRESSING 90 GM TUBE TP SCH (08:07)
[2021-01-08] MEDS: ENOXAPARIN SODIUM 80 MG/0.8 ML DISP.SYRIN SQ SCH (08:11)
--- NOTE | 2021-01-08 08:24 | NUR ---
RN NOTE AM [employer] MEDS HELD ORDERED.
[2021-01-08] MEDS ORDERED: TPN BAG #3 IV SCH (10:00)
[2021-01-08] MEDS ORDERED: IV D5W 1,000 ML IV PRN (10:00)
[2021-01-08] MEDS: LEVETIRACETAM (500MG) 1,000 MG in IV NS 0.9% 100 ML IV SCH ×2 (10:27→20:31)
[2021-01-08 12:00] VITALS: BP 144/61
--- NOTE | 2021-01-08 12:00 | NUR ---
RN NOTE SPOKE WITH DR. PEOPLES IN REGARDS TO STOMA CONDITION. CURRENTLY HAS REDNESS/CELLULITIS AROUND SITE. AWAITING CONDITION TO HEAL.
[2021-01-08] MEDS ORDERED: FAT EMULSION 20% 500 ML in PREMIX 1 EA IV SCH (14:00)
[2021-01-08 16:00] VITALS: BP 136/73
[2021-01-08] MEDS: POTASSIUM CL. PREMIX PERIPHER. 50 ML IV SCH ×2 (16:29→17:32)
--- NOTE | 2021-01-08 18:58 | NUR ---
RN CLOSING NOTE PATIENT IS CURRENTLY IN BED WITH HOB AT SEMI FOWLERS POSITION. PATIENT IS OBTUNDED WITH SPONTANEOUS EYE MOVEMENT. PATIENT IS ON TRACH VENT WITH NO SIGNS OF LABORED BREATHING. RAMOS CATHETER IS IN PLACE. MAURO PICC IS PATENT, AND INTACT WITH TPN, LIPIDS, AND D5W RUNNING. BED IS LOCKED IN THE LOWEST POSITION, 3 GUARD RAILS RAISED, AND ALL HOSPITAL SAFETY PRECAUTIONS ARE BEING FOLLOWED. PATIENT REMAINED STABLE FOR ENTIRE SHIFT AND ALL DUE MEDS WERE GIVEN. WILL ENDORSE TO LEISURE STUDIES PROFESSOR RN.
[2021-01-08 20:00] VITALS: BP 125/68
[2021-01-08] MEDS: SENNOSIDES 8.6 MG TABLET GT SCH (21:07)
--- NOTE | 2021-01-08 21:07 | NUR ---
RN NOTE UNABLE TO ADMINISTER GT MEDICATION LOPRESSOR AND SENNA DUE TO NPO STATUS AND NO PRESENCE OF GTUBE. MD AWARE.
--- NOTE | 2021-01-08 23:38 | NUR ---
RT pt received on mechanical vent with current settings. trached, portex 9. trach patent and secure. vent plugged in to red outlet. ambu bag at [facility]. alarms on and audible. no sob, resp distress. minimal secretions suctioned via trach. will continue to monitor.
[2021-01-09] VITALS: BP 123/70
[2021-01-09] MEDS ORDERED: TPN BAG #4 IV SCH
--- NOTE | 2021-01-09 | NUR ---
RN NOTE COMPLETE BED BATH/AM CARE COMPLETED. PT TOLERATED WELL.
[2021-01-09] MEDS: ALBUTEROL FS 2.5 MG/3 ML VIAL.NEB NEB SCH ×4 (01:17→19:43)
[2021-01-09 04:00] VITALS: BP 113/61
[2021-01-09] MEDS: MEROPENEM 1 G in IV NS 0.9% 100 ML IV SCH ×3 (04:28→20:25)
[2021-01-09] MEDS: INSULIN REGULAR, HUMAN 100 UNIT/ML 3 ML VIAL SQ PRN ×3 (05:07→17:53)
[2021-01-09] MEDS: BLOOD SUGAR DIAGNOSTIC 1 EACH STRIP IN SCH ×3 (05:09→17:52)
--- NOTE | 2021-01-09 06:25 | NUR ---
RN NOTE NO ACUTE CHANGES OBSERVED OVERNIGHT. PT WITH HEAD OF BED ELEVATED. REMAINS OBTUNDED BUT RESPONSIVE TO STIMULI. TOLERATING VENT SETTINGS WELL. SPO2 WNL. NPO STATUS MAINTAINED. PICC LINE INTACT WITH TPN RUNNING AT 80ML/HOUR ORDERED AND LIPIDS @ 21ML/HOUR HOUR ORDERED. RAMOS CATHETER PATENT AND IN PLACE DRAINING URINE VIA GRAVITY,PT KEPT CLEAN AND COMFORTABLE, ALARMS ON AND AUDIBLE, SAFETY MEASURES IN PLACE PER PROTOCOL, BED LOCKED AND IN LOWEST POSITION, SIDE RAILS UP X 2, BED ALARM ON, CALL LIGHT WITHIN REACH, AMBU BAG AT BEDSIDE, WILL ENDORSE TO MORNING RN FOR YESSI.
[2021-01-09 06:34] LABS: BASOPHILS % (AUTO) 0.6 % (0.0-2.0); EOSINOPHILS % (AUTO) 0.7 % (0.0-6.0); HEMATOCRIT 25 % (39-51); LYMPHOCYTES % (AUTO) 18.2 % (20.0-44.0); MEAN CORPUSCULAR HGB CONC 32 g/dl (31.0-36.0); MEAN CORPUSCULAR VOLUME 86 fL (80-96); MONOCYTES # (AUTO) 0.3 /CMM (0.1-1.30); MONOCYTES % (AUTO) 5.7 % (2.0-12.0); NEUTROPHILS # (AUTO) 4.1 /CMM (1.8-8.9); NEUTROPHILS % (AUTO) 74.8 % (43.0-81.0); PLATELET COUNT (AUTO) 138 /CMM (150-450); RED BLOOD CELL COUNT(AUTO) 2.92 MIL/uL (4.5-6.0); WHITE BLOOD COUNT (AUTO) 5.5 K/uL (4.3-11.0)
[2021-01-09 07:05] LABS: CALCIUM, SERUM 7.1 mg/dL (8.5-10.1); CARBON DIOXIDE 26 mmol/L (21-32); CHLORIDE 110 mmol/L (98-107); CREATININE 0.5 mg/dL (0.6-1.3); GLUCOSE 151 mg/dL (74-106); MAGNESIUM 1.6 mg/dL (1.8-2.4); PHOSPHORUS 1.9 mg/dL (2.5-4.9); POTASSIUM 3.3 mmol/L (3.5-5.1); SODIUM SERUM 142 mmol/L (136-145); UREA NITROGEN, BLOOD 12 mg/dL (7-18)
--- NOTE | 2021-01-09 07:30 | NUR ---
RN OPENING NOTES PATIENT CURRENTLY IN BED ON MECHANICAL VENT SETTING WITH 02 SAT OF 96%. NO C/O PAIN OR DISCOMFORT. TPN NUTRITION RUNNING AT 80 CC/HOUR. HOB KEPT ELEVATED. BED IS IN LOWEST AND LOCKED POSITION. CALL LIGHT WITH IN REACH.
[2021-01-09 08:00] VITALS: BP 120/61
[2021-01-09] MEDS: DOCUSATE SODIUM LIQ 100 MG/10 ML UDC GT SCH (08:47)
[2021-01-09] MEDS: FERROUS SULFATE (325 MG) 325 MG/TAB TABLET GT SCH (08:47)
[2021-01-09] MEDS: METOPROLOL TARTRATE 25 MG TABLET GT SCH ×2 (08:47→21:00)
[2021-01-09] MEDS: ZINC SULFATE 220 MG CAPSULE GT SCH (08:48)
[2021-01-09] MEDS: PROSOURCE / PROSTAT (PYXIS) 30 ML UDC GT SCH ×3 (08:48→17:00)
[2021-01-09] MEDS: Magnesium 1GM/D5W 100ML PREMIX 100 ML IV SCH ×3 (08:59→12:14)
[2021-01-09] MEDS: METOCLOPRAMIDE HCL 10 MG/2 ML VIAL IV SCH ×3 (08:59→17:36)
[2021-01-09] MEDS: THERAHONEY GEL 1.5 OZ TUBE TP SCH (09:00)
[2021-01-09] MEDS: HYDROGEL DRESSING 90 GM TUBE TP SCH (09:00)
[2021-01-09] MEDS: ENOXAPARIN SODIUM 40 MG/0.4 ML DISP.SYRIN SQ SCH (09:04)
[2021-01-09] MEDS: LEVETIRACETAM (500MG) 1,000 MG in IV NS 0.9% 100 ML IV SCH ×2 (09:26→21:02)
[2021-01-09] MEDS: PANTOPRAZOLE 40 MG VIAL IV SCH (09:36)
[2021-01-09] MEDS: POTASSIUM PHOSPHATE MM 15 MMOL in IV NS 0.9% 250 ML IV SCH ×2 (09:39→13:35)
[2021-01-09 12:00] VITALS: BP 119/61
[2021-01-09] MEDS ORDERED: TPN BAG #5 IV SCH (12:00)
[2021-01-09] MEDS: EPOETIN ALFA (4000 UNIT) 4,000 UNIT/ML VIAL SQ SCH (14:50)
[2021-01-09 16:00] VITALS: BP 105/62
--- NOTE | 2021-01-09 17:00 | NUR ---
PATIENT GIVEN EPOGEN PER HGB LEVELS ORDERED.
[2021-01-09] MEDS: POTASSIUM CL. PREMIX PERIPHER. 50 ML IV SCH ×2 (17:36→18:33)
--- NOTE | 2021-01-09 19:17 | NUR ---
RN CLOSING NOTES PATIENT CURRENTLY IN BED ON MECHANICAL VENT SETTING WITH 02 SAT OF 98%. NO C/O PAIN OR DISCOMFORT. TPN NUTRITION RUNNING AT 80 CC/HOUR. HOB KEPT ELEVATED. BED IS IN LOWEST AND LOCKED POSITION. PATIENT NOTED WITH OUTPUT OF 850 CC DURING SHIFT. TURNED AND REPOSITIONED. ENDORSED TO NEXT SHIFT FOR YESSI
[2021-01-09 20:00] VITALS: BP 114/57
--- NOTE | 2021-01-09 20:00 | NUR ---
RN NOTE RECEIVED PT IN BED, PT IS ABLE TO MOUTH WORDS, PT IS A/A/O X1.ON VENT VIA TRACH SATING 96%, PT HAS UNLABORED BREATHING. TPN RUNNING AT 80 ML/HR. SAFETY MEASURES IN PLACE.
[2021-01-09] MEDS: SENNOSIDES 8.6 MG TABLET GT SCH (21:08)
[2021-01-09] MEDS: MORPHINE SULFATE INJ 2 MG/ML DISP.SYRIN IV PRN (23:46)
[2021-01-10] VITALS: BP 98/59
[2021-01-10] MEDS ORDERED: TPN BAG #6 IV SCH
[2021-01-10] MEDS: INSULIN REGULAR, HUMAN 100 UNIT/ML 3 ML VIAL SQ PRN ×2 (00:26→12:53)
[2021-01-10] MEDS: BLOOD SUGAR DIAGNOSTIC 1 EACH STRIP IN SCH ×4 (00:31→17:12)
[2021-01-10] MEDS: ALBUTEROL FS 2.5 MG/3 ML VIAL.NEB NEB SCH ×4 (01:33→19:39)
[2021-01-10 04:00] VITALS: BP 105/55
[2021-01-10] MEDS: MEROPENEM 1 G in IV NS 0.9% 100 ML IV SCH ×3 (05:18→21:11)
[2021-01-10 06:11] LABS: TRIGLYCERIDES 83 mg/dL (30-150)
--- NOTE | 2021-01-10 07:15 | NUR ---
RN OPENING NOTES PATIENT RECEIVED SITTING IN SEMI-FOWLERS POSITION ON MECHANICAL VENT SETTING TOLERATING WELL. NO COMPLAINTS OF PAIN OR DISCOMFORT. TPN NUTRITION RUNNING AT 80 ML/HR VIA RIGHT UPPER ARM PICC LINE. SAFETY PRECAUTIONS IMPLEMENTED, BED LOCKED IN LOWEST POSITION, HOB KEPT ELEVATED. SIDE RAILS UP X2, CALL LIGHT WITHIN REACH. WILL CONTINUE TO MONITOR AND PROVIDE CARE THROUGHOUT SHIFT.
--- NOTE | 2021-01-10 07:21 | NUR ---
RN NOTE REPORT GIVEN TO ONCOMING SHIFT FOR YESSI.
[2021-01-10 07:28] LABS: CALCIUM, SERUM 7.5 mg/dL (8.5-10.1); CARBON DIOXIDE 21 mmol/L (21-32); CHLORIDE 103 mmol/L (98-107); CREATININE 0.5 mg/dL (0.6-1.3); MAGNESIUM 1.8 mg/dL (1.8-2.4); PHOSPHORUS 1.9 mg/dL (2.5-4.9); POTASSIUM 3.3 mmol/L (3.5-5.1); SODIUM SERUM 131 mmol/L (136-145); UREA NITROGEN, BLOOD 14 mg/dL (7-18)
[2021-01-10 07:38] LABS: GLUCOSE 555 mg/dL (74-106)
--- NOTE | 2021-01-10 07:47 | NUR ---
blood sugar 555 accucheck blood sugar was 117
[2021-01-10 08:00] VITALS: BP_SYST 100; BP_SYST 109; BP_DIAS 50; BP_DIAS 67
[2021-01-10] MEDS: HYDROGEL DRESSING 90 GM TUBE TP SCH (09:00)
[2021-01-10] MEDS: PROSOURCE / PROSTAT (PYXIS) 30 ML UDC GT SCH ×3 (09:00→16:58)
[2021-01-10] MEDS ORDERED: FAT EMULSION 20% 500 ML in PREMIX 1 EA IV SCH (09:00)
[2021-01-10] MEDS: FERROUS SULFATE (325 MG) 325 MG/TAB TABLET GT SCH (09:00)
[2021-01-10] MEDS: ZINC SULFATE 220 MG CAPSULE GT SCH (09:00)
[2021-01-10] MEDS: DOCUSATE SODIUM LIQ 100 MG/10 ML UDC GT SCH (09:00)
[2021-01-10] MEDS: THERAHONEY GEL 1.5 OZ TUBE TP SCH (09:00)
[2021-01-10] MEDS: PANTOPRAZOLE 40 MG VIAL IV SCH (10:11)
[2021-01-10] MEDS: METOCLOPRAMIDE HCL 10 MG/2 ML VIAL IV SCH ×3 (10:15→17:01)
[2021-01-10] MEDS: LEVETIRACETAM (500MG) 1,000 MG in IV NS 0.9% 100 ML IV SCH ×2 (10:15→21:46)
[2021-01-10] MEDS: ENOXAPARIN SODIUM 40 MG/0.4 ML DISP.SYRIN SQ SCH (10:19)
[2021-01-10 12:00] VITALS: BP 113/57
[2021-01-10] MEDS ORDERED: TPN BAG #7 IV SCH (12:00)
[2021-01-10] MEDS ORDERED: Magnesium 1GM/D5W 100ML PREMIX 100 ML IV SCH (14:30)
[2021-01-10] MEDS ORDERED: IV NS 0.9% 1,000 ML IV PRN (14:30)
[2021-01-10] MEDS: POTASSIUM CL. PREMIX PERIPHER. 50 ML IV SCH ×2 (15:25→16:57)
[2021-01-10 16:00] VITALS: BP 117/59
[2021-01-10] MEDS: POTASSIUM PHOSPHATE MM 7.5 MMOL in IV NS 0.9% 100 ML IV SCH ×2 (18:10→22:37)
--- NOTE | 2021-01-10 19:03 | NUR ---
RN CLOSING NOTES PATIENT SITTING IN SEMI-FOWLERS POSITION ON MECHANICAL VENT SETTING TOLERATING WELL. NO COMPLAINTS OF PAIN OR DISCOMFORT. TPN NUTRITION RUNNING AT 80 ML/HR VIA RIGHT UPPER ARM PICC LINE WITH LIPIDS. SAFETY PRECAUTIONS IMPLEMENTED, BED LOCKED IN LOWEST POSITION, HOB KEPT ELEVATED, SIDE RAILS UP X2, CALL LIGHT WITHIN REACH. WOUND CARE PROVIDED FOR CLIENT. WILL ENDORSE CARE TO UPCOMING SHIFT.
[2021-01-10] MEDS ORDERED: ACETAMINOPHEN 650 MG/SUPP.RECT RC PRN (19:30)
--- NOTE | 2021-01-10 19:51 | NUR ---
RN NOTE RECEIVED PT IN BED, PT IS ABLE TO MOUTH WORDS, PT IS A/A/O X1.ON VENT VIA TRACH SATING 100% PT HAS UNLABORED BREATHING.PT HAS RAMOS CATH DRAINING YELLOW URINE. PT HAS MAURO PICCLINE TPN RUNNING AT 80 ML/HR. SAFETY MEASURES IN PLACE.
[2021-01-10 20:00] VITALS: BP 113/54
[2021-01-10] MEDS: METOPROLOL TARTRATE 25 MG TABLET GT SCH (21:00)
[2021-01-10] MEDS: SENNOSIDES 8.6 MG TABLET GT SCH (22:00)
[2021-01-11] VITALS: BP 133/62
[2021-01-11] MEDS ORDERED: TPN BAG #8 IV SCH
[2021-01-11] MEDS: BLOOD SUGAR DIAGNOSTIC 1 EACH STRIP IN SCH ×4 (00:13→17:36)
[2021-01-11] MEDS: ALBUTEROL FS 2.5 MG/3 ML VIAL.NEB NEB SCH ×4 (01:30→19:17)
[2021-01-11 04:00] VITALS: BP 128/68
[2021-01-11] MEDS: MEROPENEM 1 G in IV NS 0.9% 100 ML IV SCH ×2 (05:05→12:23)
[2021-01-11] MEDS: INSULIN REGULAR, HUMAN 100 UNIT/ML 3 ML VIAL SQ PRN (05:38)
[2021-01-11 06:15] LABS: CALCIUM, SERUM 6.7 mg/dL (8.5-10.1); CARBON DIOXIDE 25 mmol/L (21-32); CHLORIDE 101 mmol/L (98-107); CREATININE 0.5 mg/dL (0.6-1.3); MAGNESIUM 1.5 mg/dL (1.8-2.4); PHOSPHORUS 1.9 mg/dL (2.5-4.9); POTASSIUM 3.1 mmol/L (3.5-5.1); SODIUM SERUM 127 mmol/L (136-145); UREA NITROGEN, BLOOD 17 mg/dL (7-18)
[2021-01-11 06:18] LABS: GLUCOSE 539 mg/dL (74-106)
--- NOTE | 2021-01-11 06:24 | NUR ---
RN NOTE RECEIVED GLUCOSE LEVEL OF 539, FROM LAB SINCE TPN IS RUNNING ON MAURO PICCLINE AND BLOOD DRAWN FOR LAB FROM PICC LINE, RANDOM GLUCOSE WILL BE REDONE TO MAKE SURE BLOOD SUGAR IS ACCURATE.
--- NOTE | 2021-01-11 07:15 | NUR ---
RN NOTE REPORT GIVEN TO ONCOMING SHIFT FOR YESSI.
--- NOTE | 2021-01-11 07:26 | NUR ---
RECEIVED PATIENT IN BED. NO ACUTE DISTRESS NOTED. PATIENT ALERT & ORIENTED X1, CAN ONLY MOUTH SOME WORDS. PATIENT ON MECHANICAL VENTILATOR, TOLERATING SETTINGS WELL. PATIENT ON COTTON STOMPER, SST NOTED. PATIENT FC INTACT, DRAINING TO GRAVITY. PATIENT NPO STATUS ACKNOWLEDGED, ON TPN. PATIENT MAURO PICC INTACT, PATENT. PATIENT SAFETY MEASURES MAINTAINED. WILL CONTINUE TO MONITOR
[2021-01-11] MEDS: PANTOPRAZOLE 40 MG VIAL IV SCH ×2 (07:30→07:47)
--- NOTE | 2021-01-11 07:50 | NUR ---
RAT TRAPPER NOTES VENT-TRACH PATIENT DISCHARGE GOING TO [place] WITH STABLE VITAL SIGNS,WITH NO ACUTE DISTRESS NOTED, BREATHING UNLABORED. DISCHARGE INSTRUCTIONS GIVEN TO THE PATIENT INCLUDING HEALTH TEACHING FOR COVID 19 ISOLATION,AND APPROPRIATE ISOLATION PRECAUTIONS AND INFECTION CONTROL. ALL BELONGINGS ACCOUNTED FOR. PATIENT LEFT WITH SECURED AND INTACT R UA PICC LINE; NO SIGNS OF NO REDNESS, NO BLEEDING, NO SWELLING NOTED. PICKED UP VIA AMBULANCE IN A GURNEY ACCOMPANIED BY 2 EMT PERSONNEL IN STABLE CONDITION. RESUME SPECIALIST MADE AWARE. Addendum: 01/11/21 at 2008 by WU APARICIO RN CORRECTION WRONG TIME ENTRY SHOULD BE 1950
[2021-01-11 08:00] VITALS: BP 151/86
[2021-01-11] MEDS: METOCLOPRAMIDE HCL 10 MG/2 ML VIAL IV SCH ×3 (08:12→16:22)
[2021-01-11] MEDS: HYDROGEL DRESSING 90 GM TUBE TP SCH (08:14)
[2021-01-11] MEDS: THERAHONEY GEL 1.5 OZ TUBE TP SCH (08:15)
[2021-01-11] MEDS: ENOXAPARIN SODIUM 40 MG/0.4 ML DISP.SYRIN SQ SCH (08:24)
[2021-01-11] MEDS: METOPROLOL TARTRATE 25 MG TABLET GT SCH (08:26)
[2021-01-11] MEDS: ZINC SULFATE 220 MG CAPSULE GT SCH (08:26)
[2021-01-11] MEDS: FERROUS SULFATE (325 MG) 325 MG/TAB TABLET GT SCH (08:26)
[2021-01-11] MEDS: PROSOURCE / PROSTAT (PYXIS) 30 ML UDC GT SCH ×3 (08:26→16:06)
[2021-01-11] MEDS: DOCUSATE SODIUM LIQ 100 MG/10 ML UDC GT SCH (08:26)
[2021-01-11] MEDS: LEVETIRACETAM (500MG) 1,000 MG in IV NS 0.9% 100 ML IV SCH (09:02)
[2021-01-11 12:00] VITALS: BP 147/77
[2021-01-11] MEDS ORDERED: POTASSIUM PHOSPHATE MM 15 MMOL in IV NS 0.9% 250 ML IV SCH (12:00)
[2021-01-11] MEDS ORDERED: TPN BAG #9 IV SCH (12:00)
[2021-01-11] MEDS ORDERED: ENOX40DI SQ (14:31)
[2021-01-11 16:00] VITALS: BP 156/92
[2021-01-11] MEDS: POTASSIUM CL. PREMIX PERIPHER. 50 ML IV SCH ×3 (16:06→17:36)
--- NOTE | 2021-01-11 18:08 | NUR ---
PATIENT IN BED. NO ACUTE DISTRESS NOTED. PATIENT ALERT & ORIENTED X1, CAN ONLY MOUTH SOME WORDS. PATIENT ON MECHANICAL VENTILATOR, TOLERATING SETTINGS WELL. PATIENT ON CHARGING BOARD OPERATOR, SST NOTED. PATIENT FC INTACT, DRAINING TO GRAVITY. PATIENT NPO STATUS ACKNOWLEDGED, ON TPN. PATIENT MAURO PICC INTACT, PATENT. PATIENT SAFETY MEASURES MAINTAINED. WILL ENDORSE PLAN OF CARE TO ONCOMING SHIFT
--- NOTE | 2021-01-11 19:50 | NUR ---
NETWORK DESIGN ARCHITECT NOTES VENT-TRACH PATIENT DISCHARGE GOING TO [place] WITH STABLE VITAL SIGNS,WITH NO ACUTE DISTRESS NOTED, BREATHING UNLABORED. DISCHARGE INSTRUCTIONS GIVEN TO THE PATIENT INCLUDING HEALTH TEACHING FOR COVID 19 ISOLATION,AND APPROPRIATE ISOLATION PRECAUTIONS AND INFECTION CONTROL. ALL BELONGINGS ACCOUNTED FOR. PATIENT LEFT WITH SECURED AND INTACT R UA PICC LINE; NO SIGNS OF NO REDNESS, NO BLEEDING, NO SWELLING NOTED. PICKED UP VIA AMBULANCE IN A GURNEY ACCOMPANIED BY 2 EMT PERSONNEL IN STABLE CONDITION. CHECK WRITING MACHINE OPERATOR MADE AWARE.
[2021-01-12] MEDS ORDERED: TPN BAG #10 IV SCH
== END 2021-01-11 17:50 | DRG 710 ==
LOC: ER 13:10 → ICU 17:12 → TELE1 12-29 18:26
PROVIDERS: ADMIT Internal Medicine; ATTEND Nurse Practitioner Acute Care
PROC: 5A1955Z Respiratory Ventilation, Greater than 96 Consecutive Hours (ICD-10-PCS; principal; 2020-12-22)
PROC: 02HV33Z Insertion of Infusion Device into Superior Vena Cava, Percutaneous Approach (ICD-10-PCS; 2020-12-22)
PROC: B548ZZA Ultrasonography of Superior Vena Cava, Guidance (ICD-10-PCS; 2020-12-22)
PROC: 0JBR0ZZ Excision of Left Foot Subcutaneous Tissue and Fascia, Open Approach (ICD-10-PCS; 2020-12-24)
PROC: 30233N1 Transfusion of Nonautologous Red Blood Cells into Peripheral Vein, Percutaneous Approach (ICD-10-PCS; 2020-12-27)
PROC: 0BJ08ZZ Inspection of Tracheobronchial Tree, Via Natural or Artificial Opening Endoscopic (ICD-10-PCS; 2020-12-28)
PROC: 0W9B3ZZ Drainage of Left Pleural Cavity, Percutaneous Approach (ICD-10-PCS; 2020-12-28)
PROC: 0KBP0ZZ Excision of Left Hip Muscle, Open Approach (ICD-10-PCS; 2020-12-30)
PROC: 0KBN0ZZ Excision of Right Hip Muscle, Open Approach (ICD-10-PCS; 2020-12-30)
PROC: 0JBR0ZZ Excision of Left Foot Subcutaneous Tissue and Fascia, Open Approach (ICD-10-PCS; 2020-12-31)
PROC: 0DP6XUZ Removal of Feeding Device from Stomach, External Approach (ICD-10-PCS; 2021-01-05)
PROC: 0KBP0ZZ Excision of Left Hip Muscle, Open Approach (ICD-10-PCS; 2021-01-07)
PROC: 0KBN0ZZ Excision of Right Hip Muscle, Open Approach (ICD-10-PCS; 2021-01-07)
PROC: 0JBR0ZZ Excision of Left Foot Subcutaneous Tissue and Fascia, Open Approach (ICD-10-PCS; 2021-01-07)
PROC: 0KBP0ZZ Excision of Left Hip Muscle, Open Approach (ICD-10-PCS; 2021-01-07)
PROC: 0KBN0ZZ Excision of Right Hip Muscle, Open Approach (ICD-10-PCS; 2021-01-07)
DX: A41.9 Sepsis, unspecified organism (principal); N17.0 Acute kidney failure with tubular necrosis; R65.21 Severe sepsis with septic shock; J96.21 Acute and chronic respiratory failure with hypoxia; Z99.11 Dependence on respirator [ventilator] status; J90 Pleural effusion, not elsewhere classified; G92 Toxic encephalopathy; J96.11 Chronic respiratory failure with hypoxia; L89.154 Pressure ulcer of sacral region, stage 4; I82.621 Acute embolism and thrombosis of deep veins of right upper extremity; N39.0 Urinary tract infection, site not specified; Z93.0 Tracheostomy status; G40.909 Epilepsy, unspecified, not intractable, without status epilepticus; E11.22 Type 2 diabetes mellitus with diabetic chronic kidney disease; E83.42 Hypomagnesemia; I12.9 Hypertensive chronic kidney disease with stage 1 through stage 4 chronic kidney disease, or unspecified chronic kidney disease; Z86.73 Personal history of transient ischemic attack (TIA), and cerebral infarction without residual deficits; E87.1 Hypo-osmolality and hyponatremia; B96.20 Unspecified Escherichia coli [E. coli] as the cause of diseases classified elsewhere; D64.9 Anemia, unspecified; E11.65 Type 2 diabetes mellitus with hyperglycemia; E11.621 Type 2 diabetes mellitus with foot ulcer; E11.40 Type 2 diabetes mellitus with diabetic neuropathy, unspecified; E83.39 Other disorders of phosphorus metabolism; E83.52 Hypercalcemia; E86.1 Hypovolemia; E86.0 Dehydration; E27.40 Unspecified adrenocortical insufficiency; I48.91 Unspecified atrial fibrillation; N18.9 Chronic kidney disease, unspecified; N40.1 Benign prostatic hyperplasia with lower urinary tract symptoms; L89.810 Pressure ulcer of head, unstageable; Z79.84 Long term (current) use of oral hypoglycemic drugs; L97.428 Non-pressure chronic ulcer of left heel and midfoot with other specified severity; L97.418 Non-pressure chronic ulcer of right heel and midfoot with other specified severity; J98.11 Atelectasis; K94.23 Gastrostomy malfunction; Y84.8 Other medical procedures as the cause of abnormal reaction of the patient, or of later complication, without mention of misadventure at the time of the procedure; Y73.8 Miscellaneous gastroenterology and urology devices associated with adverse incidents, not elsewhere classified; Y92.129 Unspecified place in nursing home as the place of occurrence of the external cause; E87.2 Acidosis; F03.90 Unspecified dementia, unspecified severity, without behavioral disturbance, psychotic disturbance, mood disturbance, and anxiety; R13.10 Dysphagia, unspecified; Z79.01 Long term (current) use of anticoagulants; Z16.12 Extended spectrum beta lactamase (ESBL) resistance; B96.1 Klebsiella pneumoniae [K. pneumoniae] as the cause of diseases classified elsewhere; Z20.822 Contact with and (suspected) exposure to COVID-19; E87.6 Hypokalemia
CPT/HCPCS: 31623; 31720; 36415; 36569; 36600; 38221; 71045-TC; 74018; 80048-TC; 80053-TC; 80076-TC; 80202-TC; 81001; 82310-TC; 82533; 82550-TC; 82803-TC; 82945-TC; 82962-TC; 83540-TC; 83605-TC; 83735-TC; 83880; 84100-TC; 84478-TC; 84484-TC; 85025-TC; 85730-TC; 86850-TC; 87040-TC; 87070-TC; 87081-TC; 87086-TC; 87186-TC; 89051-TC; 93307-TC; 93970-TC; 94002-TC; 94003-TC; 94760-TC; 94761-TC; 94762-TC; 94799-TC; 99082-TC; A4216; A4217; A4623; A6248; A6253; A6403; A7526; A9563; C1751; C9113; G0378; J0171; J0885; J1650; J1720; J1815; J1940; J1953; J2185; J2270; J2370; J2543; J2765; J3370; J3475; J3480; J3490; J7030; J7040; J7042; J7050; J7060; J7070; P9016; Q9963; U0003

== ENCOUNTER 2021-01-24 20:20 | Inpatient (IN) | payer MEDICAID ==
[~2021-01-24] VITALS: Ht 167.6 cm; Wt 77.2 kg
[~2021-01-24 20:20] MED LIST changes: +ACET-2605 GT; +AMIN30LI2 GT; -AMOX-430 PO; -ASCO500C17 GT; +ASCO500T10 GT; +ENOX40DI SQ; +GEL100GE TD; -INSU100V27 SQ; +INSU100V36 SQ; -METF500S7 GT; +RIVA10TA GT; +SENN-261 GT; +ZINC220C6 GT
--- NOTE | 2021-01-24 20:21 | NUR ---
PT AAOX0, [facility] TWO WITNESSED SEIZURES WITHIN THE PAST 3 HRS LOAN WORKOUT OFFICER. PER RA GIVEN 2MG ATIVAN IM AT THE FACILITY @ 1620. PT PLACED IN BED 8 ON HOG SCRAPER AND PULSE OX. VENT SETTINGS AC 12, 500, 40%, +5 (PORTEX 8.) ER MD AT BEDSIDE. PT NOTED TO HAVE A G TUBE AND A RAMOS. PT'S L ARM NOTED TO BE CONTRACTED. AWAITING ORDERS.
[2021-01-24] MEDS ORDERED: IV NS 0.9% 1,000 ML BAG IV ONE ×2 (20:30→23:00)
[2021-01-24] MEDS ORDERED: LEVETIRACETAM (500MG) 500 MG in IV NS 0.9% 100 ML IV ONE (20:30)
[2021-01-24] MEDS ORDERED: LORAZEPAM INJ 2 MG/ML VIAL ONE (20:32)
--- NOTE | 2021-01-24 20:42 | NUR ---
PER ER MD GIVE 2MG IM ATIVAN XNOW.
--- NOTE | 2021-01-24 20:46 | NUR ---
RT pt placed on mechanical vent with settings from facility. vent settings: AC 12 500 40% +5. trached, portex 8. lung sounds clear throughout. no secretions suctioned via trach. ambu bag at hob. spare trach placed at bedside. vent plugged in to red outlet. no sob, resp distress at this time. will continue to monitor Addendum: 01/24/21 at 2050 by KASANDRA CONTE RT portex 9
[2021-01-24] MEDS ORDERED: LEVETIRACETAM (500MG) 500 MG/5 ML VIAL IV ONE (20:54)
[2021-01-24] MEDS ORDERED: PHENOBARBITAL SODIUM 1,000 MG in IV NS 0.9% 100 ML IV ONE (21:00)
[2021-01-24] MEDS ORDERED: LORAZEPAM INJ 2 MG/ML VIAL IM ONE (21:00)
[2021-01-24] MEDS ORDERED: PHENOBARBITAL SODIUM 130 MG/ML VIAL ONE ×2 (21:15→21:27)
[2021-01-24 21:33] LABS: BASOPHILS % (AUTO) 0.2 % (0.0-2.0); EOSINOPHILS % (AUTO) 0.1 % (0.0-6.0); HEMATOCRIT 24 % (39-51); HEMOGLOBIN 7.8 g/dL (13.5-17.5); LYMPHOCYTES # (AUTO) 2.1 /CMM (0.8-4.8); LYMPHOCYTES % (AUTO) 18.7 % (20.0-44.0); MEAN CORPUSCULAR HGB CONC 32 g/dl (31.0-36.0); MEAN CORPUSCULAR VOLUME 86 fL (80-96); MONOCYTES # (AUTO) 0.5 /CMM (0.1-1.30); MONOCYTES % (AUTO) 4.4 % (2.0-12.0); NEUTROPHILS # (AUTO) 8.7 /CMM (1.8-8.9); NEUTROPHILS % (AUTO) 76.6 % (43.0-81.0); PLATELET COUNT (AUTO) 278 /CMM (150-450); RED BLOOD CELL COUNT(AUTO) 2.79 MIL/uL (4.5-6.0); WHITE BLOOD COUNT (AUTO) 11.4 K/uL (4.3-11.0)
[2021-01-24 21:36] LABS: CALCIUM, SERUM 8.6 mg/dL (8.5-10.1); CARBON DIOXIDE 22 mmol/L (21-32); CHLORIDE 112 mmol/L (98-107); CREATININE 0.9 mg/dL (0.6-1.3); GLUCOSE 103 mg/dL (74-106); POTASSIUM 4.2 mmol/L (3.5-5.1); SODIUM SERUM 143 mmol/L (136-145); UREA NITROGEN, BLOOD 48 mg/dL (7-18)
--- NOTE | 2021-01-24 21:45 | NUR ---
URINE COLLECTED, SENT TO LAB.
[2021-01-24 21:49] LABS: ALANINE AMINOTRANSFERASE 9 U/L (12-78); ALCOHOL, BLOOD < 3 mg/dL (0-0); ALKALINE PHOSPHATASE 109 U/L (46-116); ASPARTATE AMINOTRANSFERASE 24 U/L (15-37); BILIRUBIN,DIRECT 0.1 mg/dL (0.0-0.2); BILIRUBIN,TOTAL 0.2 mg/dL (0.2-1.0); TOTAL PROTEIN, SERUM 6.1 g/dL (6.4-8.2)
--- NOTE | 2021-01-24 21:57 | NUR ---
ALBUMIN 1.0 ER AWARE.
[2021-01-24 22:07] LABS: BAND % (MANUAL) 5 % (0.0-5.0); LYMPHOCYTES % (MANUAL) 19 % (16-48); MONOCYTES % (MANUAL) 4 % (0-11.0); MYELOCYTES % 1 % (0-0); NEUTROPHILS % (MANUAL) 71 (42-76)
--- NOTE | 2021-01-24 22:35 | NUR ---
ER MD SPOKE TO DR. AARON REGARDING PT ADMISSION.
--- NOTE | 2021-01-24 22:54 | NUR ---
BROUGHT TO CT AND BACK
--- NOTE | 2021-01-24 22:54 | NUR ---
RT pt transported to ct and back. no complications during transport or ct. pt placed back on vent upon return back to room.
[2021-01-24] MEDS ORDERED: ALBUMIN 25% 12.5 GM/50 ML BOTTLE IV ONE (23:00)
[2021-01-24] MEDS ORDERED: DOCU100C36 GT (23:16)
[2021-01-24] MEDS ORDERED: GABA-532 GT (23:16)
[2021-01-24] MEDS ORDERED: LEVE500T9 GT (23:16)
[2021-01-24] MEDS ORDERED: BISA-79 GT (23:16)
[2021-01-24] MEDS ORDERED: NA P133E RC (23:16)
[2021-01-24] MEDS ORDERED: LORA-259 IM (23:16)
[2021-01-24] MEDS ORDERED: ACET160T99 GT (23:16)
[2021-01-24] MEDS ORDERED: ALBUMIN 25% 100 ML IV ONE (23:28)
[2021-01-24] MEDS ORDERED: MAGNESIUM HYDROXIDE 30 ML UDC PO PRN (23:30)
[2021-01-24] MEDS ORDERED: LORAZEPAM INJ 2 MG/ML VIAL IV PRN (23:30)
[2021-01-24] MEDS ORDERED: HYDROCODONE/APAP 5/325MG TABLET PO PRN (23:30)
[2021-01-24] MEDS ORDERED: ONDANSETRON HCL/PF 4 MG/2 ML VIAL IVP PRN (23:30)
[2021-01-24] MEDS ORDERED: IV D5/0.45 NACL 1,000 ML IV PRN (23:30)
[2021-01-24] MEDS ORDERED: ZOLPIDEM TARTRATE 5 MG TABLET PO PRN (23:30)
[2021-01-24] MEDS ORDERED: ACETAMINOPHEN 325 MG TABLET PO PRN (23:30)
[2021-01-24] MEDS ORDERED: Z GUARD REMEDY 2 OZ OINT TP PRN (23:30)
[2021-01-24] MEDS ORDERED: LEVETIRACETAM (500MG) 1,000 MG in IV NS 0.9% 100 ML IV SCH (23:30)
[2021-01-24] MEDS ORDERED: MAG HYDROX/AL HYDROX/SIMETH 30 ML UDC PO PRN (23:30)
--- NOTE | 2021-01-24 23:30 | NUR ---
REPORT GIVEN TO ED. PT TRANSFERED PER ACLS PROTOCOL.
[2021-01-25] VITALS (82 sets, daily range): BP systolic 78–145; BP diastolic 35–100
[2021-01-25] MEDS ORDERED: ACET-2070 GT (00:07)
[2021-01-25] MEDS ORDERED: LEVO500T90 GT (00:07)
[2021-01-25] MEDS ORDERED: INSU100V3 SQ (00:07)
[2021-01-25] MEDS ORDERED: PANT40TA2 GT (00:07)
[2021-01-25] MEDS ORDERED: LEVA15HF4 IH ×2 (00:07→08:46)
--- NOTE | 2021-01-25 00:28 | NUR ---
RT pt transferred to floor with no complications. vent plugged in to red outlet. ambu bag at hob. hob at 35 degrees. no sob, no resp distress.
[2021-01-25] MEDS: IV NS 0.9% 1,000 ML IV SCH ×3 (02:15→14:16)
[2021-01-25] MEDS ORDERED: NOREPINEPHRINE 8MG/250ML RTU 250 ML IV ONE (03:18)
[2021-01-25] MEDS: NOREPINEPHRINE 8 MG in IV NS 0.9% 242 ML IV PRN ×2 (03:21→14:14)
--- NOTE | 2021-01-25 04:05 | NUR ---
LINK CUTTER PT WAS ADMITTED FROM ER WITH DIAGNOSIS STATUS EPILEPTICUS. NO SEIZURES NOTED SINCE PT IS IN ICU. PT WAS GIVEN IN ER ATIVAN IVP, KEPPRA IV, PHENOBARBITAL IV WELL NS BOLUS 2 L.. PT CAN NOT MOVE ANY EXTREMITIES, OR FOLLOW ANY COMMANDS. DOES NOR RESPONSE TO ANY STIMULI. PT TRACH PORTEX # 8. VENT SETTING AC 12, TV 500, FIO2-40%, PEEP 5. LUNGS CLEAR, NO SECRETION SUCTIONED VIA TRACH. SCOPE-SR-ST. PT HAS MULTIPLE WOUNDS, ALSO MULTIPLE HEMORRHAGES ON BOTH ARMS. RIGHT ARM IS SWOLLEN, SKIN IS OOZING. RIGHT ARM ELEVATED ON PILLOW. PT HAS 2 PERIPHERAL IV'S ON LEFT WRIST AND LEFT HAND. HARD STICK NEEDS MIDLINE INSERTION. MAIN IV IS RUNNING NS @ 125 ML/HR. BLOOD PRESSURE DROPPED-STARTED LEVOPHED DRIP ACCORDING D-R FREDZUMA ORDER. F/C DRAINS SUFFICIENT AMT. OF URINE. PEG FLUSHED & CLAMMED. WILL CONTINUE CLOSE MONITORING.
[2021-01-25 04:52] LABS: BASOPHILS % (AUTO) 0.4 % (0.0-2.0); EOSINOPHILS % (AUTO) 0.7 % (0.0-6.0); HEMATOCRIT 23 % (39-51); HEMOGLOBIN 7.5 g/dL (13.5-17.5); LYMPHOCYTES # (AUTO) 2.2 /CMM (0.8-4.8); LYMPHOCYTES % (AUTO) 18.8 % (20.0-44.0); MEAN CORPUSCULAR HGB CONC 32 g/dl (31.0-36.0); MEAN CORPUSCULAR VOLUME 86 fL (80-96); MONOCYTES # (AUTO) 0.6 /CMM (0.1-1.30); MONOCYTES % (AUTO) 5.6 % (2.0-12.0); NEUTROPHILS # (AUTO) 8.6 /CMM (1.8-8.9); NEUTROPHILS % (AUTO) 74.5 % (43.0-81.0); PLATELET COUNT (AUTO) 270 /CMM (150-450); WHITE BLOOD COUNT (AUTO) 11.5 K/uL (4.3-11.0)
[2021-01-25 05:03] LABS: CALCIUM, SERUM 8.1 mg/dL (8.5-10.1); CREATININE 0.7 mg/dL (0.6-1.3); MAGNESIUM 1.4 mg/dL (1.8-2.4); PHOSPHORUS 1.5 mg/dL (2.5-4.9); POTASSIUM 3.2 mmol/L (3.5-5.1)
[2021-01-25 05:17] LABS: THYROID STIMULATING HORMONE 6.81 uIU/mL (0.358-3.74)
--- NOTE | 2021-01-25 07:05 | NUR ---
SOFTWARE PACKAGER BEDSIDE REPORT TAKEN FROM [facility] NURSE ED RN. PT UNRESPONSIVE, DOES NOT OPEN EYES OR RESPOND TO VERBAL OR PAINFUL STIMULI. PUPILS EQUAL, PINPOINT AND NONREACTIVE. LUE CONTRACTED, RUE AND BLE FLACID NO MOVEMENT OR REFLEXES NOTED. PT HAS TRACH TO VENT, TOLERATING WELL, SPO2 100%, NO COUGH OR GAG NOTED UPON SUCTIONING. LUNG SOUNDS CLEAR, NO SECRETIONS. PT HAS PEG, CLAMPED, PT NPO, SKIN BREAKDOWN NOTED AROUND PEG SITE. BOWEL SOUNDS HYPOACTIVE. PT HAS RAMOS INTACT AND DRAINING CLEAR YELLOW URINE. PT HAS BUE AND BLE PULESE WEAK, AND +4 PITTING EDEMA BUE AND BLE AND WEAPING IN RUE. PT HAS HAS MULTIPLE WOUNDS, SACRAL , PEG SITE, BUE SEE WOUND DOCUMENTS AND PHOTOS IN CHART. PT ON LEVOPHED 0.1 MCG/KG/MIN AND IVF. PT TOLERATING WELL. VITALS STABLE. WILL CONTINUE TO MONITOR. SAFETY MEASURES IN PLACE.
--- NOTE | 2021-01-25 07:25 | NUR ---
RAMP LEAD SPOKE TO DR CAGLE AND UPDATED ON PT STATUS AND CONDITION. MD AWARE PT UNRESPONSIVE, NO RESPONSE TO VERBAL OR PAINFUL STIMULI. PT DOES NOT OPEN EYES, PUPILS EQUAL PINPOINT AND NONREACTIVE. BUE AND BLE FLACED. NO COUGH AND NO GAG. PER MD ORDER EEG IF NOT ALREADY ORDERED, EEG ORDER IN COMPUTER UPON ADMISSION, NO OTHER ORDERS AT THIS TIME. WILL FOLLOW UP ON STUDY. CHARGE NURSE JAZZY PETERS AWARE.
--- NOTE | 2021-01-25 07:45 | NUR ---
RT Pt received trached on mechanical ventilation with noted settings. Pt is awake and responds to stimuli when suctioned. Vent is plugged into red outlet, spare trach is at bedside. No SOB or respiratory distress noted. Addendum: 01/25/21 at 1136 by AZEB POON RT Amended: Links added.
--- NOTE | 2021-01-25 08:03 | NUR ---
AUDOGRAPH OPERATOR SKIN CHECK AND WOUND ASSESSMENT DONE WITH SKIN NURSE ROLANDO PETERS. PT TOLERATED WELL. NO NEW ORDERS.
--- NOTE | 2021-01-25 08:07 | NUR ---
WOUND CARE CONSULT: PT PRESENTS WITH MULTIPLE WOUNDS AND SKIN ISSUES PRESENT ON ADMISSION INCLUDING STAGE 4 SACRAL ULCER, OPEN SKIN AROUND G TUBE SITE, LOWER EXTREMITY WOUND AND WEEPING GENERALIZED EDEMA. RECOMMENDATIONS MADE FOR SKIN PROTECTION. DISCUSSED WITH NURSING STAFF. FIRST STEP LOW AIRLOSS MATTRESS IS ON ORDER. RECOMMEND SURGICAL AND DPM CONSULTS. DR ESPOSITO AND DR HERRERA NOTIFIED OF CONSULT REQUESTS. MD IN AGREEMENT WITH PLAN OF CARE.
[2021-01-25] MEDS ORDERED: PANT40SU2 GT (08:46)
[2021-01-25] MEDS ORDERED: FERR300L GT (08:46)
[2021-01-25] MEDS ORDERED: ONDA4TAB5 GT (08:46)
[2021-01-25] MEDS ORDERED: DOCU50LI GT (08:46)
[2021-01-25] MEDS ORDERED: LORA2VIA11 IM (08:46)
[2021-01-25] MEDS ORDERED: MAG30ORA GT (08:46)
[2021-01-25] MEDS ORDERED: HYDR-4209 TD (08:46)
[2021-01-25] MEDS ORDERED: LEVETIRACETAM (500MG) 1,000 MG in IV NS 0.9% 100 ML IV SCH (09:00)
[2021-01-25] MEDS ORDERED: POTASSIUM CHLORIDE 20 MEQ POWDER PACKET GT SCH (09:00)
--- NOTE | 2021-01-25 09:00 | NUR ---
HAND CANDY DIPPER LEVOPHED OFF. WILL CONTINUE TO MONITOR BP AND VITALS. NO SIGNS OF ACUTE DISTRESS AT THIS TIME.
--- NOTE | 2021-01-25 09:30 | NUR ---
SEALER AIRCRAFT LEVOPHED RESTARTED D/T HYPOTENSION. PT LINEN CHANGE DONE. WOUNDS CARE DONE PER PROTOCOL. SKIN CHECK DONE, NO NEW WOUNDS NOTED. PT TOLERATED WELL. VITALS STABLE. WILL CONTINUE TO MONITOR.
[2021-01-25] MEDS: Magnesium 1GM/D5W 100ML PREMIX 100 ML IV SCH ×2 (09:55→11:00)
[2021-01-25] MEDS: PANTOPRAZOLE 40 MG TABLET.DR PO SCH (09:57)
[2021-01-25] MEDS: NEUTRA PHOS 1 POWD.PACKET PO SCH ×2 (09:58→17:15)
--- NOTE | 2021-01-25 12:45 | NUR ---
FISH TECHNOLOGIST CONTACT IN PT CHART CALLED, NO ONE AT THE NUMBER BY NAME. UNABLE TO OBTAIN CONSENT FOR WOUND DEBRIDEMENT PROCEDURES FOR SACRAL WOUND AND LEFT LOWER EXTREMITY WOUND. CONSENT FORM FOR INCAPACITATED PATIENT PRINTED, FILLED OUT AND PLACED IN PATIENTS CHART AWAITING MD SIGNITURE PER CHARGE NURSE JAZZY
--- NOTE | 2021-01-25 16:00 | NUR ---
FISCAL CLERK INSPECTOR STRUCTURAL BONDING AT BEDSIDE TO DO EEG.
--- NOTE | 2021-01-25 16:35 | NUR ---
TOBACCO BALER EEG AT BEDSIDE DOING EEG, DR CAGLE AT BEDSIDE ASSESING PT AND UPDATED ON PT STATUS. MD ASSESSING EEG STUDY AT BEDSIDE. ATIVAN 2 MG STAT GIVEN PER MD FOR POSSIBLE SEIZURE ACTIVITY AND MUSCLE ARTIFACT ON EEG. NEW ORDERS FOR VERSED PENDING PER MD. CHARGE NURSE JAZZY PETERS AWARE.
[2021-01-25] MEDS ORDERED: LORAZEPAM INJ 2 MG/ML VIAL IV PRN (17:00)
[2021-01-25] MEDS ORDERED: MIDAZOLAM HCL 200 MG in IV NS 0.9% 60 ML IV PRN (17:00)
[2021-01-25] MEDS: MIDAZOLAM HCL 100 MG in IV NS 0.9% 80 ML IV PRN (17:19)
--- NOTE | 2021-01-25 18:00 | NUR ---
CAKE ICER AND PACKER PICC NURSE AT BEDSIDE PLACING MIDLINE. MIDLINE SUCCESSFULLY PLACED IN RIGHT UPPER ARM, ALL IVFS AND DRIPS TRANSFERED TO NEW LINE.
--- NOTE | 2021-01-25 18:20 | NUR ---
DAIRY CLERK PT BATHED AND CLEANED. SKIN CHECK DONE, NO NEW WOUNDS NOTED. WOUND CARE AND DRESSING CHANGE DONE PER PROTOCOL. LINEN CHANGE DONE, PT TOLERATED WELL. FIRST STEP MATRESS APPLIED. VITALS STABLE. WILL CONTINUE TO MONITOR.
--- NOTE | 2021-01-25 19:09 | NUR ---
DIRECTOR DESIGN OPENING NOTES: Rec'd pt in bed, unresponsive to stimuli, doesn't open eyes. Pt w/ trach to vent, tolerating vent settings well. No resp distress noted at this time. Left hand #18 and left wrist #20 patent and flushed. Dressings c/d/i. MAURO mid patent and flushed w/ Levo infusing at 0.02mcg/kg and Versed at 1mg/hr. PEG tube noted, clampled, pt NPO. Cerda catheter in place patent and draining yellow urine. Will continue to monitor.
--- NOTE | 2021-01-25 19:12 | NUR ---
CERTIFIED PHYSICIAN ASSISTANT BEDSIDE REPORT GIVEN TO [facility] NURSE SHERRY PETERS. PT SEDATED, TRACH TO VENT TOLERATING WELL. PT UNRESPONSIVE DOES NOT REACT TO VERBAL OR PAINFUL STIMULI. ALL LINES TRACED. ALL DRIPS VERIFIED. SAFETY MEASURES IN PLACE. NO SIGNS OF ACUTE DISTRESS AT THIS TIME. EEG IN AM ENDORSED TO [facility] NURSE.
[2021-01-25] MEDS: LEVETIRACETAM (500MG) 1,500 MG in IV NS 0.9% 100 ML IV SCH (21:00)
[2021-01-26] VITALS (96 sets, daily range): BP systolic 80–117; BP diastolic 45–86
[2021-01-26 04:28] LABS: BASOPHILS % (AUTO) 0.2 % (0.0-2.0); EOSINOPHILS % (AUTO) 0.7 % (0.0-6.0); HEMATOCRIT 23 % (39-51); HEMOGLOBIN 7.4 g/dL (13.5-17.5); LYMPHOCYTES # (AUTO) 1.5 /CMM (0.8-4.8); LYMPHOCYTES % (AUTO) 15.4 % (20.0-44.0); MEAN CORPUSCULAR HGB CONC 32 g/dl (31.0-36.0); MEAN CORPUSCULAR VOLUME 88 fL (80-96); MONOCYTES # (AUTO) 0.5 /CMM (0.1-1.30); MONOCYTES % (AUTO) 4.9 % (2.0-12.0); NEUTROPHILS # (AUTO) 7.5 /CMM (1.8-8.9); NEUTROPHILS % (AUTO) 78.8 % (43.0-81.0); PLATELET COUNT (AUTO) 288 /CMM (150-450); RED BLOOD CELL COUNT(AUTO) 2.63 MIL/uL (4.5-6.0); WHITE BLOOD COUNT (AUTO) 9.5 K/uL (4.3-11.0)
[2021-01-26 04:51] LABS: BILIRUBIN,TOTAL 0.2 mg/dL (0.2-1.0); CALCIUM, SERUM 7.8 mg/dL (8.5-10.1); CREATININE 0.6 mg/dL (0.6-1.3); MAGNESIUM 1.9 mg/dL (1.8-2.4); PHOSPHORUS 2.9 mg/dL (2.5-4.9); POTASSIUM 3.2 mmol/L (3.5-5.1); TOTAL PROTEIN, SERUM 5.4 g/dL (6.4-8.2)
[2021-01-26 04:56] LABS: ALBUMIN 1.1 g/dL (3.4-5.0)
[2021-01-26] MEDS: IV NS 0.9% 250 ML IV PRN (05:20)
--- NOTE | 2021-01-26 07:07 | NUR ---
STRIPPER CUTTER MACHINE BEDSIDE REPORT TAKEN FROM [facility] NURSE MICHELLE PETERS. PT UNRESPONSIVE, DOES NOT OPEN EYES OR RESPOND TO VERBAL OR PAINFUL STIMULI. PUPILS EQUAL, PINPOINT AND NONREACTIVE. LUE CONTRACTED, RUE AND BLE FLACID NO MOVEMENT OR REFLEXES NOTED. PT HAS TRACH TO VENT, TOLERATING WELL, SPO2 100%, NO COUGH OR GAG NOTED UPON SUCTIONING. LUNG SOUNDS CLEAR, NO SECRETIONS. PT HAS PEG, CLAMPED, PT NPO, SKIN BREAKDOWN NOTED AROUND PEG SITE. BOWEL SOUNDS HYPOACTIVE. PT HAS RAMOS INTACT AND DRAINING CLEAR YELLOW URINE. PT HAS BUE AND BLE PULESE WEAK, AND +4 PITTING EDEMA BUE AND BLE AND WEAPING IN RUE. PT HAS HAS MULTIPLE WOUNDS, SACRAL , PEG SITE, BUE SEE WOUND DOCUMENTS AND PHOTOS IN CHART. PT ON LEVOPHED 0.02 MCG/KG/MIN AND SEDATION. PT TOLERATING WELL. VITALS STABLE. WILL CONTINUE TO MONITOR. SAFETY MEASURES IN PLACE.
--- NOTE | 2021-01-26 08:05 | NUR ---
DRILLING RIG OPERATOR DR TRISTAN AT BEDSIDE ASSESSING PT AND UPDATED ON PT STATUS. MD AWARE THAT PT UNRESPONSIVE AND SEDATION INCREASED PER MD FOR MUSCLE RELAXATION. MD AWARE THAT SPOKE TO RADIOLOGY AND EEG TO BE DONE TODAY. NO OTHER ORDERS AT THIS TIME. WILL CONTINUE TO MONITOR.
[2021-01-26] MEDS ORDERED: POTASSIUM CHLORIDE 20 MEQ POWDER PACKET GT SCH (08:30)
--- NOTE | 2021-01-26 08:40 | NUR ---
SHEET METAL WORKER HELPER MUSIC ASSISTANT AT BEDSIDE DOING FOLLOW UP EEG PER MD ORDER. PT TOLERATING WELL. VITALS STABLE. WILL CONTINUE TO MONITOR.
[2021-01-26] MEDS: THERAHONEY GEL 1.5 OZ TUBE TP SCH (09:17)
[2021-01-26] MEDS: PANTOPRAZOLE 40 MG TABLET.DR PO SCH (09:17)
[2021-01-26] MEDS: HYDROCORTISONE SOD SUCCINATE 100 MG/2 ML VIAL IV SCH ×3 (09:17→21:04)
[2021-01-26] MEDS: LEVETIRACETAM (500MG) 1,500 MG in IV NS 0.9% 100 ML IV SCH ×2 (09:24→21:04)
--- NOTE | 2021-01-26 10:20 | NUR ---
LOADING UNIT OPERATOR SEATING DR HERRERA AT BEDSIDE DOING WOUND DEBRIDEMENT, WOUND CARE AND DRESSING CHANGE OF LEFT HEEL. PT TOLERATED WELL. VITALS STABLE. WILL CONTINUE TO MONITOR.
--- NOTE | 2021-01-26 13:44 | NUR ---
HAIRCUTTER SPOKE TO PHARMACIST TO RESCHEDULE SOLUMEDROL DOSE FOR 8 HRS FROM AM DOSE, PER PHARMACY OK TO GIVE MED NOW, CHARGE NURSE JAZZY AWARE.
--- NOTE | 2021-01-26 15:15 | NUR ---
STATISTICAL TYPIST SPOKE TO DR TRISTAN, PER MD KEEP SEDATION AT A RATE THAT WILL ALLOW THE LEFT ARM TO BE IN RELAXED POSITION FOR ANOTHER DAY, MD INFORMED THAT VERSED WAS TITRATED DOWN AFTER EEG STUDY IN AN ATTEMPT TO TITRATE DRIP OFF BUT WILL BE TITRATED BACK UP PER REQUEST TO ACHIEVE RELAXATION IN LUE. NO OTHER ORDERS AT THIS TIME. CHARGE NURSE JAZZY PETERS AWARE.
--- NOTE | 2021-01-26 16:42 | NUR ---
DEGREASING SOLUTION RECLAIMER PT BATHED AND CLEANED. SKIN CHECK DONE, NO NEW WOUNDS NOTED. WOUND CARE AND DRESSING CHANGE OF SACRAL WOUND DONE PER PROTOCOL. LINEN CHANGE DONE. PT TOLERATED WELL. VITALS STABLE. WILL CONTINUE TO MONITOR.
[2021-01-26] MEDS: MIDAZOLAM HCL 100 MG in IV NS 0.9% 80 ML IV PRN (17:59)
--- NOTE | 2021-01-26 19:15 | NUR ---
ACCOUNTING RECONCILIATION CLERK BEDSIDE REPORT GIVEN TO [facility] NURSE RADHA PETERS. PT SEDATED, TRACH TO VENT TOLERATING WELL. PT UNRESPONSIVE DOES NOT REACT TO VERBAL OR PAINFUL STIMULI. ALL LINES TRACED. ALL DRIPS VERIFIED. SAFETY MEASURES IN PLACE. NO SIGNS OF ACUTE DISTRESS AT THIS TIME.
--- NOTE | 2021-01-26 20:00 | NUR ---
Received patient obtunded non verbal responsive to deep painful stimuli opening eyes. Dx:S/P Epilepticus.Sedated on Versed gtt at 4 mg/hr.Hypothermic Temp 93.1/tympanic and Rectal temp 93.5.Kept warm with Jovan Hugger & blanket.Patient Vent/Trach depended respiratory failure on mechanical vent same settings.Sat 100%.No acute distress noted. SR per tele monitoring.Levophed gtt infusing for BP support and will titrate accordingly. PEG intact and clamped.NPO status.FC to gravity drainage.Turned and repositioned.
[2021-01-26] MEDS: IV D5/0.45 NACL 1,000 ML IV PRN (21:54)
[2021-01-27] VITALS (96 sets, daily range): BP systolic 86–121; BP diastolic 45–62
--- NOTE | 2021-01-27 | NUR ---
Patient remains sedated.Latest temp 95.9 rectally.Maintain on Jovan Hugger to kept him warm.All iv's infusing well and site intact.Turned and repositioned.NAD noted.
[2021-01-27] MEDS: IV NS 0.9% 250 ML IV PRN (00:08)
[2021-01-27 04:25] LABS: BASOPHILS % (AUTO) 0.1 % (0.0-2.0); HEMATOCRIT 24 % (39-51); HEMOGLOBIN 7.5 g/dL (13.5-17.5); LYMPHOCYTES # (AUTO) 1.1 /CMM (0.8-4.8); LYMPHOCYTES % (AUTO) 12.1 % (20.0-44.0); MEAN CORPUSCULAR HGB CONC 31 g/dl (31.0-36.0); MEAN CORPUSCULAR VOLUME 91 fL (80-96); MONOCYTES # (AUTO) 0.2 /CMM (0.1-1.30); MONOCYTES % (AUTO) 1.7 % (2.0-12.0); NEUTROPHILS % (AUTO) 86.1 % (43.0-81.0); PLATELET COUNT (AUTO) 329 /CMM (150-450); RED BLOOD CELL COUNT(AUTO) 2.63 MIL/uL (4.5-6.0); WHITE BLOOD COUNT (AUTO) 9.2 K/uL (4.3-11.0)
[2021-01-27] MEDS: HYDROCORTISONE SOD SUCCINATE 100 MG/2 ML VIAL IV SCH ×3 (04:46→21:16)
[2021-01-27 04:51] LABS: BILIRUBIN,TOTAL 0.3 mg/dL (0.2-1.0); CREATININE 0.6 mg/dL (0.6-1.3); MAGNESIUM 1.9 mg/dL (1.8-2.4); PHOSPHORUS 4.2 mg/dL (2.5-4.9); POTASSIUM 4.2 mmol/L (3.5-5.1); TOTAL PROTEIN, SERUM 5.5 g/dL (6.4-8.2)
[2021-01-27] MEDS: IV D5/0.45 NACL 1,000 ML IV PRN ×3 (05:16→22:19)
[2021-01-27 06:21] LABS: LYMPHOCYTES % (MANUAL) 6 % (16-48); METAMYELOCYTES % 2 % (0-0); MONOCYTES % (MANUAL) 2 % (0-11.0); MYELOCYTES % 3 % (0-0); NEUTROPHILS % (MANUAL) 86 (42-76); REACTIVE LYMPHOCYTES 1 % (0-0)
--- NOTE | 2021-01-27 06:30 | NUR ---
Patient remains sedated with Versed at 4 mg/hr.No Seizure activity noted.SR 60's-80's. Tolerating vent settings well.Bed bath rendered and complete linens changed.Oral care done.Sacral wound care done.Turned and repositioned Q 2hrs.No bm noted.Levophed gtt infusing at 0.04 mcg.and latest temp 97/rectally.No acute distress noted.Will endorse to day shift for further care and management.
--- NOTE | 2021-01-27 08:00 | NUR ---
OPENING NOTE: REPORT RECEIVED FROM RADHA. ASSESSMENT DONE. LEVOPHED INFUSING AT 0.04 MCG/KG/MIN PER MD ORDERS. VERSED INFUSING AT 4MG PER MD ORDERS. PT IS OBTUNDED. NO RESPONSE TO PAIN, NO COUGH, NO GAG, PUPILS PINPOINT AND EQUAL, NON REACTIVE, NO BLINK, NO CORNEAL RESPONSE. THE ONLY SLIGHT RESPONSE NOTED WAS WHEN MOUTH WAS SUCTIONED, PATIENT FURROWED BROW SLIGHTLY, NO EYE OPENING. JORGE HUGGER ON TO KEEP TEMP UP, CURRENT TEMP IS 97.1 RECTAL. WILL CONTINUE TO MONITOR. PT CHECKED ON HOURLY AND PRN BY NURSING STAFF.
[2021-01-27] MEDS: PANTOPRAZOLE 40 MG TABLET.DR PO SCH (09:09)
[2021-01-27] MEDS: LEVETIRACETAM (500MG) 1,500 MG in IV NS 0.9% 100 ML IV SCH ×2 (09:09→21:16)
[2021-01-27] MEDS: NOREPINEPHRINE 8 MG in IV NS 0.9% 242 ML IV PRN (09:10)
[2021-01-27] MEDS: THERAHONEY GEL 1.5 OZ TUBE TP SCH (09:11)
[2021-01-27] MEDS: MIDAZOLAM HCL 100 MG in IV NS 0.9% 80 ML IV PRN (14:50)
--- NOTE | 2021-01-27 18:59 | NUR ---
END OF SHIFT NOTE: NO SIGNIFICANT EVENTS THIS SHIFT. PER DR TSERING LARA GTT IS TO BE TURNED DOWN BY 1MG/HR Q6H TILL OFF. TURNED DOWN TO 3MG/HR AT 1700. LEVOPHED GTT INFUSING PER MD ORDERS, TITRATED DOWN TO 0.02 MCG THIS SHIFT. PT CHECKED ON HOURLY AND PRN BY NURSING STAFF.
[2021-01-28] VITALS (74 sets, daily range): BP systolic 88–132; BP diastolic 44–68
[2021-01-28 04:26] LABS: LYMPHOCYTES # (AUTO) 1.1 /CMM (0.8-4.8); MEAN CORPUSCULAR HGB CONC 32 g/dl (31.0-36.0); MEAN CORPUSCULAR VOLUME 88 fL (80-96); MONOCYTES # (AUTO) 0.3 /CMM (0.1-1.30); MONOCYTES % (AUTO) 3.8 % (2.0-12.0); NEUTROPHILS # (AUTO) 7.5 /CMM (1.8-8.9); NEUTROPHILS % (AUTO) 84.2 % (43.0-81.0); PLATELET COUNT (AUTO) 258 /CMM (150-450); WHITE BLOOD COUNT (AUTO) 8.8 K/uL (4.3-11.0)
[2021-01-28 04:36] LABS: BILIRUBIN,TOTAL 0.1 mg/dL (0.2-1.0); CALCIUM, SERUM 7.3 mg/dL (8.5-10.1); CREATININE 0.9 mg/dL (0.6-1.3); MAGNESIUM 1.8 mg/dL (1.8-2.4); PHOSPHORUS 3.6 mg/dL (2.5-4.9); POTASSIUM 3.6 mmol/L (3.5-5.1); TOTAL PROTEIN, SERUM 5.1 g/dL (6.4-8.2)
[2021-01-28 04:53] LABS: HEMOGLOBIN 6.2 g/dL (13.5-17.5)
[2021-01-28 04:54] LABS: HEMATOCRIT 19 % (39-51)
[2021-01-28] MEDS: IV D5/0.45 NACL 1,000 ML IV PRN (05:13)
[2021-01-28] MEDS: HYDROCORTISONE SOD SUCCINATE 100 MG/2 ML VIAL IV SCH ×3 (05:13→21:03)
[2021-01-28] MEDS: IV NS 0.9% 250 ML IV PRN (05:14)
[2021-01-28 05:36] LABS: BAND % (MANUAL) 2 % (0.0-5.0); LYMPHOCYTES % (MANUAL) 8 % (16-48); MONOCYTES % (MANUAL) 2 % (0-11.0); NEUTROPHILS % (MANUAL) 88 (42-76)
--- NOTE | 2021-01-28 05:50 | NUR ---
RT NOTE PT RECEIVED TRACH'D AND ON [facility] VENT ON ORDERED SETTINGS. VENT IS PLUGGED INTO RED OUTLET W BMV @ HOB. ALARMS ARE SET AND AUDIBLE. PT SX FOR SMALL THIN SECRETIONS. NO RESP DISTRESS NOTED T/O SHIFT. Addendum: 01/28/21 at 0552 by JESSI BURROUGHS RT Amended: Links added.
--- NOTE | 2021-01-28 08:00 | NUR ---
OPENING NOTE: REPORT RECEIVED FROM VJ PETERS. PT CURRENTLY ON LEVOPHED 0.01 MCG, TITRATED PER MD ORDERS. VERSED 1MG, TO BE TURNED OFF AT 10AM PER MD ORDERS. JORGE MILLER ON PATIENT FOR LOW TEMP, CURRENTLY 98.5. PT OBTUNDED. PT CHECKED ON HOURLY AND PRN BY NURSING STAFF.
[2021-01-28] MEDS: PANTOPRAZOLE 40 MG TABLET.DR PO SCH (09:23)
[2021-01-28] MEDS: LEVETIRACETAM (500MG) 1,500 MG in IV NS 0.9% 100 ML IV SCH ×2 (09:23→21:03)
[2021-01-28] MEDS: THERAHONEY GEL 1.5 OZ TUBE TP SCH (09:23)
--- NOTE | 2021-01-28 10:00 | NUR ---
LEFT HEEL AND PEG TUBE SITE WOUND CARE DONE PER MD ORDERS. HYDROGEL ORDERED FOR SACRAL WOUND.
[2021-01-28] MEDS ORDERED: HYDROGEL DRESSING 90 GM TUBE TP PRN (10:30)
--- NOTE | 2021-01-28 15:30 | NUR ---
BED BATH DONE WITH SACRAL DRESSING CHANGED PER MD ORDERS WITH HYDROGEL, MOIST GAUZE AND FOAM DRESSING. SMEAR BM NOTED. PT CHECKED ON HOURLY AND PRN BY NURSING STAFF.
[2021-01-28] MEDS ORDERED: GLUCERNA 1.2 1,000 ML BOTTLE NG PRN (16:00)
[2021-01-28] MEDS: PROSOURCE / PROSTAT (PYXIS) 30 ML UDC GT SCH (17:28)
--- NOTE | 2021-01-28 18:07 | NUR ---
END OF SHIFT NOTE: LEVOPHED AND VERSED WERE TITRATED OFF THIS SHIFT. TUBE FEEDING WAS STARTED PER MD ORDERS. PT STARTED OPENING EYES, BUT NOT FOLLOWING COMMANDS, POSITIVE GAG AND COUGH. PT ALSO MOVING LEFT ARM SPASTICALLY. PER DR. CAGLE THIS IS PATIENTS BASELINE. PT CHECKED ON HOURLY AND BY NURSING STAFF.
--- NOTE | 2021-01-28 19:30 | NUR ---
RN NOTES RECEIVED PATIENT IN BED ON VENT AND TRACH VENT SETTING TOLERATING WELL ORDERED. UNRESPONSIVE TO PAIN STIMULI. NO RESP DISTRESS NOTED. TELE MONITOR SR HR IN 75'S. GTF INTACT GLUCERNA RUNNING AT 20CC/HR NOTED WITH 10CC RESIDUAL. ABD SOFT AND NON DISTENDED. IV'S SITES INTACT TKO IS RUNNING WELL. F/C INTACT NOTED WITH MINIMAL URINE OUT PUT. SAFETY MEASURES IN PLACE,SIDE RAILS UP X2, BED IN LOW NAD LOCKED POSITION. CALL LIGHT WITHIN REACH. WILL CONT TO MONITOR FOR YESSI.
--- NOTE | 2021-01-28 19:43 | NUR ---
PT RECEIVED TRACH'D PORTEX 9 ON [facility] VENT WITH THE SETTINGS OF AC 12,500, 30%, PEEP 5. PT IS OBTUNDED . VENT IS PLUGGED INTO RED OUTLET, ALARMS ARE SET AND AUDIBLE. SX DONE . AMBU BAG AT BEDSIDE. NO RESP DISTRESS NOTED AT THIS TIME. WILL CONTINUE TO MONITOR PT T/O SHIFT.
[2021-01-29] VITALS (22 sets, daily range): BP systolic 94–132; BP diastolic 46–70
[2021-01-29] MEDS: HYDROCORTISONE SOD SUCCINATE 100 MG/2 ML VIAL IV SCH ×3 (05:43→21:03)
--- NOTE | 2021-01-29 07:09 | NUR ---
RN NOTES NO CHANGES NOTED DURING SHIFT. PT OPEN HIS EYES DOES NOT FOLLOW DIRECTIONS. NO S/S OF ACUTE DISTRESS NOTED. AM CARE GIVEN TOLERATED WELL. WOUND CARE DONE DRESSING CHANGED. VITAL SIGNS REMAINED STABLE. TURNING REPOSITIONING TOLERATED. VENT SETTING TOLERATING WELL ORDERED. ENDORSED TO AM NURSE FOR YESSI.
--- NOTE | 2021-01-29 07:30 | NUR ---
RETAIL STORE ASSOCIATE OPENING NOTE OBTUNDED TRACH VENT PT LAYING IN BED SEMIFOWLERS ON VENT SETTINGS PORTEX 8, AC 12, TV 500, FIO2 30%, PEEP 0, TOLERATING WELL, SPO2 98%, NO SIGNS OF RESP DISTRESS OR SOB NOTED, BREATHING EVEN AND UNLABORED. PT NSR IN 80s ON BESIDE MONITOR. PT OPENS EYES SPONTANEOUSLY BUT UNABLE TO TRACK. PT PEG TUBE SKIN IRRITATION AND GTUBE FEED LEAK NOTED, COVERED IN ALGINATE AND MEPILEX. PEG TUBE AUSCULTATED FOR POSITIVE PLACEMENT WITH NO RESIDUALS, FLUSHED, PATENT AND INTACT. PER MD ORDER, KEEP GTF AT 20ML/HR UNTIL NO LEAKING NOTED. PT HAS SACRAL WOUND COVERED IN MEPILEX, LT HEEL WOUND WRAPPED POSSIBLE DEBRIDEMENT TODAY, RT ABD ABRASION NOTED, LT HAND BRUISING WELL. PT HAS RAMOS CATH INTACT, DRAINING CLEAR YELLOW URINE TO GRAVITY. PT MAURO MIDLINE TKO AND LT WRIST SL BOTH FLUSHED, PATENT, AND WITH NO SIGNS OF INFILTRATION/INFECTION. PT TRANSFUSED 1 UNIT PRBC YESTERDAY FOR HGB 6.2, NO LABS DRAWN TODAY, WILL NOTIFY DR TO PUT IN ORDER FOR CBC + BMP, WILL F/U. PT BEAR HUGGER IN PLACE, PT TEMP OF 99.2 F, BEAR HUGGER TURNED OFF, WILL REASSESS PT TEMP SHORTLY. ALL PT SAFETY PRECAUTIONS IN PLACE, WILL CONT TO MONITOR
--- NOTE | 2021-01-29 07:47 | NUR ---
WOUND CARE FOLLOW UP: PT SEEN FOR G TUBE SITE WHICH HAS SKIN IRRITATION WHICH WAS PRESENT ON ADMISSION. CONCUR WITH CURRENT ORDERS FOR WOUND CARE/SKIN PROTECTION. SOME LEAKAGE OF TUBE FEEDING NOTED. DISCUSSED WITH NURSING STAFF AND CHARGE NURSE. RN TO DISCUSS WITH PMD TODAY. SURGICAL TEAM FOLLOWING PT FOR WOUND TREATMENT PLAN.
[2021-01-29] MEDS: PROSOURCE / PROSTAT (PYXIS) 30 ML UDC GT SCH ×3 (08:25→16:52)
[2021-01-29] MEDS: PANTOPRAZOLE 40 MG TABLET.DR PO SCH (08:25)
[2021-01-29] MEDS: THERAHONEY GEL 1.5 OZ TUBE TP SCH (08:27)
[2021-01-29] MEDS: HYDROGEL DRESSING 90 GM TUBE TP SCH (08:27)
--- NOTE | 2021-01-29 08:30 | NUR ---
RN NOTE UX LEAD, [place] YANES NOTIFIED OF PEG TUBE LEAK
[2021-01-29 08:36] LABS: HEMATOCRIT 24 % (39-51); HEMOGLOBIN 7.6 g/dL (13.5-17.5); LYMPHOCYTES # (AUTO) 0.9 /CMM (0.8-4.8); LYMPHOCYTES % (AUTO) 9.4 % (20.0-44.0); MEAN CORPUSCULAR HGB CONC 32 g/dl (31.0-36.0); MEAN CORPUSCULAR VOLUME 85 fL (80-96); MONOCYTES # (AUTO) 0.4 /CMM (0.1-1.30); MONOCYTES % (AUTO) 4.7 % (2.0-12.0); NEUTROPHILS # (AUTO) 7.8 /CMM (1.8-8.9); NEUTROPHILS % (AUTO) 85.9 % (43.0-81.0); PLATELET COUNT (AUTO) 241 /CMM (150-450); RED BLOOD CELL COUNT(AUTO) 2.77 MIL/uL (4.5-6.0); WHITE BLOOD COUNT (AUTO) 9.1 K/uL (4.3-11.0)
[2021-01-29 08:49] LABS: CALCIUM, SERUM 7.4 mg/dL (8.5-10.1); CREATININE 0.6 mg/dL (0.6-1.3); POTASSIUM 3.1 mmol/L (3.5-5.1)
[2021-01-29] MEDS: LEVETIRACETAM (500MG) 1,500 MG in IV NS 0.9% 100 ML IV SCH (09:40)
[2021-01-29] MEDS: POTASSIUM CL. PREMIX PERIPHER. 50 ML IV SCH ×4 (09:44→14:43)
--- NOTE | 2021-01-29 17:10 | NUR ---
RN NOTE PEG TUBE STILL LEAKING. DRSG CHANGED 5 TIMES UP UNTIL NOW. ALGINATE AND DRY DRSGS IN PLACE. GT FEED RESIDUALS AT 0 ENTIRE SHIFT
--- NOTE | 2021-01-29 18:28 | NUR ---
PERSONNEL DIRECTORSLEEPING CAR PORTER NOTES RECEIVED TRANSFER FROM ICU. PATIENT ON VENT; MEDICALLY STABLE. G-TUBE PRESENT BUT PER FAMILY LAW LEGAL ASSISTANT IT IS LEAKING AND PRIMARY PHYSICIAN IS AWARE. SAFETY PRECAUTIONS IN PLACE. WILL CONTINUE TO MONITOR PATIENT.
--- NOTE | 2021-01-29 18:39 | NUR ---
RN NOTE PT TRANSFERRED TO ROOM 308 IN STABLE CONDITION, ON SAME VENT SETTINGS. PT REPORT GIVEN TO LORRAINE LEZAMA. NO CHANGES TO PT DURING SHIFT. ALL PT SAFETY PRECAUTIONS IN PLACE
--- NOTE | 2021-01-29 18:55 | NUR ---
PERFORMANCE REPORTER CLOSING NOTES ENDORSED YESSI TO SAFETY DEPOSIT BOXES CUSTODIAN NURSE.
--- NOTE | 2021-01-29 19:10 | NUR ---
MEDICAL INSURANCE CODER OPENING NOTES: RECEIVED PATIENT IN BED, AWAKE, NON VERBAL. NO S/S OF DISTRESS NOTED. BED ALARM ON. BED IN LOWEST AND LOCKED POSITION. HOB ELEVATED AT ALL TIMES. WITH GT FEEDING RUNNING AT 20ML/HOUR. WITH RAMOS CATHETER INTACT, DRAINING LIGHT AGATHA COLORED URINE. WITH TRACHEOSTOMY INTACT, DRESSING IS CLEAN, DRY, AND INTACT.
[2021-01-29] MEDS: LEVETIRACETAM SOL (5 ML) 100 MG/ML UDC GT SCH (21:03)
--- NOTE | 2021-01-29 21:19 | NUR ---
NO GT FEEDING RESIDUAL NOTED.
[2021-01-30] VITALS (7 sets, daily range): BP systolic 114–146; BP diastolic 63–88
[2021-01-30] MEDS: HYDROCORTISONE SOD SUCCINATE 100 MG/2 ML VIAL IV SCH ×3 (05:23→22:35)
[2021-01-30 06:45] LABS: BASOPHILS % (AUTO) 0.4 % (0.0-2.0); HEMATOCRIT 27 % (39-51); HEMOGLOBIN 8.7 g/dL (13.5-17.5); LYMPHOCYTES % (AUTO) 9.8 % (20.0-44.0); MEAN CORPUSCULAR HGB CONC 32 g/dl (31.0-36.0); MEAN CORPUSCULAR VOLUME 89 fL (80-96); MONOCYTES # (AUTO) 0.6 /CMM (0.1-1.30); MONOCYTES % (AUTO) 5.7 % (2.0-12.0); NEUTROPHILS # (AUTO) 8.5 /CMM (1.8-8.9); NEUTROPHILS % (AUTO) 84.1 % (43.0-81.0); PLATELET COUNT (AUTO) 256 /CMM (150-450); RED BLOOD CELL COUNT(AUTO) 3.03 MIL/uL (4.5-6.0); WHITE BLOOD COUNT (AUTO) 10.1 K/uL (4.3-11.0)
[2021-01-30 07:07] LABS: CALCIUM, SERUM 8.1 mg/dL (8.5-10.1); CREATININE 0.6 mg/dL (0.6-1.3); PHOSPHORUS 2.1 mg/dL (2.5-4.9); POTASSIUM 3.5 mmol/L (3.5-5.1)
[2021-01-30] MEDS: PANTOPRAZOLE 40 MG TABLET.DR PO SCH (07:44)
[2021-01-30] MEDS: HYDROGEL DRESSING 90 GM TUBE TP SCH (08:46)
[2021-01-30] MEDS: LEVETIRACETAM SOL (5 ML) 100 MG/ML UDC GT SCH ×2 (08:46→22:21)
[2021-01-30] MEDS: THERAHONEY GEL 1.5 OZ TUBE TP SCH (08:46)
[2021-01-30] MEDS: PROSOURCE / PROSTAT (PYXIS) 30 ML UDC GT SCH ×3 (08:46→16:01)
[2021-01-30] MEDS ORDERED: NEUTRA PHOS 1 POWD.PACKET PO ONE (13:00)
--- NOTE | 2021-01-30 20:00 | NUR ---
SEWING PATTERN LAYOUT TECHNICIAN OPENING NOTES PATIENT SLEEPING IN BED, NON-VERBAL. NO SIGNS OF DISTRESS OR SHORTNESS OF BREATH NOTED. HEAD OF BED ELEVATED AT ALL TIMES. GT FEEDING RUNNING AT 20 ML/HR, NO RESIDUAL NOTED, DRESSING CHANGED. RAMOS CATHETER INTACT AND DRAINING YELLOW COLORED URINE. TRACHOSTOMY INTACT, DRESSING CLEAN, DRY AND INTACT. SACRAL DRESSING CHANGED AND PATIENT TURNED. VITAL SIGNS WNL. SAFETY MEASURES IN PLACE, BED LOCKED IN LOWEST POSITION, CALL LIGHT WITHIN REACH, BED ALARM ON. WILL CONTINUE TO MONITOR
--- NOTE | 2021-01-30 22:21 | NUR ---
CASE RESOLUTION SPECIALIST NOTES PATIENT'S G TUBE SITE STILL LEAKING, THEREFORE UNABLE TO ADVANCE GOAL RATE.
[2021-01-31] VITALS: BP_SYST 146; BP_SYST 149; BP_DIAS 71; BP_DIAS 74
--- NOTE | 2021-01-31 02:53 | NUR ---
CARGO SURVEYOR NOTES NOTED G TUBE GERMAN 20 DISLODGED, NOTIFIED JOVON GARCIA CHIEF SCIENCE OFFICER WITH ORDERS FOR GI CONSULT. URINARY RAMOS CATHETER GERMAN 16 PLACED TEMPORARILY TO KEEP SITE OPEN
[2021-01-31 04:00] VITALS: BP 136/70
[2021-01-31] MEDS ORDERED: DIATR MEGLU/DIATRIZOATE SODIUM 30 ML BOTTLE (GASTROGRAPHIN) ONE (04:18)
--- NOTE | 2021-01-31 04:28 | NUR ---
COMPUTER PUBLISHER NOTES JOVON GARCIA NP INSERTED NEW G TUBE, WITH STAT ORDER FOR X-RAY KUB WITH GASTROGRAFIN TO CHECK PLACEMENT
[2021-01-31] MEDS ORDERED: DIATR MEGLU/DIATRIZOATE SODIUM 120 ML BOTTLE (GASTROGRAPHIN) PO ONE (04:30)
[2021-01-31] MEDS: HYDROCORTISONE SOD SUCCINATE 100 MG/2 ML VIAL IV SCH ×3 (05:30→21:24)
[2021-01-31 06:29] LABS: CALCIUM, SERUM 8.2 mg/dL (8.5-10.1); CARBON DIOXIDE 23 mmol/L (21-32); CHLORIDE 119 mmol/L (98-107); CREATININE 0.5 mg/dL (0.6-1.3); GLUCOSE 101 mg/dL (74-106); MAGNESIUM 1.8 mg/dL (1.8-2.4); PHOSPHORUS 1.7 mg/dL (2.5-4.9); SODIUM SERUM 151 mmol/L (136-145); UREA NITROGEN, BLOOD 17 mg/dL (7-18)
[2021-01-31 06:30] LABS: BASOPHILS % (AUTO) 0.1 % (0.0-2.0); HEMATOCRIT 27 % (39-51); HEMOGLOBIN 8.7 g/dL (13.5-17.5); LYMPHOCYTES # (AUTO) 1.2 /CMM (0.8-4.8); LYMPHOCYTES % (AUTO) 11.3 % (20.0-44.0); MEAN CORPUSCULAR HGB CONC 33 g/dl (31.0-36.0); MEAN CORPUSCULAR VOLUME 92 fL (80-96); MONOCYTES # (AUTO) 0.5 /CMM (0.1-1.30); MONOCYTES % (AUTO) 4.8 % (2.0-12.0); NEUTROPHILS # (AUTO) 8.8 /CMM (1.8-8.9); NEUTROPHILS % (AUTO) 83.8 % (43.0-81.0); PLATELET COUNT (AUTO) 257 /CMM (150-450); RED BLOOD CELL COUNT(AUTO) 2.89 MIL/uL (4.5-6.0); WHITE BLOOD COUNT (AUTO) 10.5 K/uL (4.3-11.0)
--- NOTE | 2021-01-31 06:52 | NUR ---
LAUNDRY MANAGER CLOSING NOTES PATIENT AWAKE IN BED, NON-VERBAL, OPENS EYES. NO SIGNS OF DISTRESS OR SHORTNESS OF BREATH NOTED. HEAD OF BED ELEVATED AT ALL TIMES. RAMOS CATHETER INTACT AND DRAINING WELL. TRACHEOSTOMY INTACT, DRESSING CLEAN, DRY AND INTACT. ALL MEDICATIONS GIVEN ORDERED. NEEDS ANTICIPATED AND ATTENDED TO. NO G TUBE FEEDING AT THIS TIME, ABDOMINAL X-RAY PENDING FOR G TUBE PLACEMENT. PATIENT ON TELE, SINUS RHYTHM, HR 86. NO SEIZURES THROUGHOUT SHIFT. SAFETY MEASURES IN PLACE, BED LOCKED IN LOWEST POSITION, CALL LIGHT WITHIN REACH, BED ALARM ON. WILL ENDORSE TO DAY SHIFT NURSE FOR CONTINUITY OF CARE.
[2021-01-31 07:02] LABS: POTASSIUM 2.6 mmol/L (3.5-5.1)
--- NOTE | 2021-01-31 07:03 | NUR ---
CRITICAL LAB RESULTS [facility]/lab called. Potassium 2.6. Notified JOHN Garcia with results, awaiting orders.
--- NOTE | 2021-01-31 07:07 | NUR ---
NEW ORDERS FOR POTASSIUM REPLACEMENT Received orders to give Potassium 10meq IV x6 bag. Will endorse to oncoming RN.
--- NOTE | 2021-01-31 07:19 | NUR ---
COUNSELING CENTER DIRECTOR OPENING NOTES PATIENT SLEEPING IN BED, NON-VERBAL. NO SIGNS OF DISTRESS OR SHORTNESS OF BREATH NOTED. HEAD OF BED ELEVATED AT ALL TIMES. GT FEEDING PAUSED AWAITING XRAY FOR NEW TUBE PLACEMENT. RAMOS CATHETER INTACT AND DRAINING YELLOW COLORED URINE. TRACHEOSTOMY INTACT, DRESSING CLEAN, DRY AND INTACT. NO SIGNS OF PAIN NOTED. SKIN HAS SACRAL AND L HEEL WOUNDS PER REPORT. CRITICAL LAB WAS ENDORSE WILL START K. SAFETY MEASURES IN PLACE, BED LOCKED IN LOWEST POSITION, CALL LIGHT WITHIN REACH, BED ALARM ON. WILL CONTINUE TO MONITOR.
[2021-01-31] MEDS ORDERED: POTASSIUM CL. PREMIX PERIPHER. 50 ML IV SCH (07:30)
[2021-01-31] MEDS ORDERED: NEUTRA PHOS 1 POWD.PACKET PO SCH (08:00)
[2021-01-31] MEDS ORDERED: POTASSIUM CHLORIDE 20 MEQ POWDER PACKET NG SCH (08:00)
[2021-01-31] MEDS ORDERED: NEUTRA PHOS 1 POWD.PACKET GT SCH (08:02)
[2021-01-31] MEDS ORDERED: MAG HYDROX/AL HYDROX/SIMETH 30 ML UDC GT PRN (08:04)
[2021-01-31] MEDS ORDERED: HYDROCODONE/APAP 5/325MG TABLET GT PRN (08:04)
[2021-01-31] MEDS ORDERED: GLUCERNA 1.2 1,000 ML BOTTLE GT PRN (08:05)
[2021-01-31] MEDS ORDERED: MAGNESIUM HYDROXIDE 30 ML UDC GT PRN (08:05)
[2021-01-31 08:15] VITALS: BP 154/77
[2021-01-31] MEDS: THERAHONEY GEL 1.5 OZ TUBE TP SCH (10:11)
[2021-01-31] MEDS: HYDROGEL DRESSING 90 GM TUBE TP SCH (10:11)
--- NOTE | 2021-01-31 10:30 | NUR ---
RN NOTES CURRENTLY AWAITING ABD XRAY RESULT FOR PLACEMENT CONFIRMATION OF G-TUBE; GT DRESSING DRY AND INTACT. HOB ELEVATED. WILL CONTINUE TO MONITOR.
--- NOTE | 2021-01-31 11:14 | NUR ---
RN NOTES FOLLOWED UP WITH RADIOLOGY REGARDING PLACEMENT OF REINSERTED GTUBE. WAS TOLD BY RADIOLOGY DEPT THAT REPORT WOULD BE FAXED OVER. WILL FOLLOW UP
[2021-01-31] MEDS: PROSOURCE / PROSTAT (PYXIS) 30 ML UDC GT SCH ×3 (11:35→16:23)
[2021-01-31] MEDS: LEVETIRACETAM SOL (5 ML) 100 MG/ML UDC GT SCH ×2 (11:35→21:24)
[2021-01-31] MEDS: POTASSIUM CHLORIDE 20 MEQ POWDER PACKET GT SCH ×4 (11:35→14:31)
[2021-01-31] MEDS: PANTOPRAZOLE 40 MG/PACK PACK GT SCH (11:38)
--- NOTE | 2021-01-31 11:52 | NUR ---
RN NOTES RECEIVED KUB RESULTS. PLACEMENT WAS CONFIRMED BY XRAY RESULT. WILL CONTINUE MEDICATIONS ORDERED.
[2021-01-31] MEDS ORDERED: POTASSIUM CHLORIDE 20 MEQ POWDER PACKET ONE (13:18)
--- NOTE | 2021-01-31 15:05 | NUR ---
RN NOTES LAST DOSE OF KCL WAS GIVEN AT 1505. EARLIER DOSES WERE HELD DUE TO NEEDING CONFIRMATION OF GTUBE PLACEMENT. PLACEMENT WAS CONFIRMED AT 1130. ALL MEDICATIONS GIVEN. WILL CONTINUE TO MONITOR.
--- NOTE | 2021-01-31 15:30 | NUR ---
RN NOTES RESTARTED GTUBE FEEDING @ 20 ML/HR. GASTRIC RESIDUALS WERE AT 20 ML. WILL REASSESS RESIDUALS AND TOLERATING OF 20ML/HR. WILL INCREASE THE RATE TOLERATED
[2021-01-31 15:52] VITALS: BP 154/81
--- NOTE | 2021-01-31 18:30 | NUR ---
ORTHOTIC ASSISTANT CLOSING NOTES PATIENT AWAKE IN BED, NON-VERBAL, OPENS EYES. NO SIGNS OF DISTRESS OR SHORTNESS OF BREATH NOTED. PATIENT IS ON A VENTILATOR RATE 12 PEEP +5 VT 500. HEAD OF BED ELEVATED AT ALL TIMES. RAMOS CATHETER INTACT AND DRAINING WELL. TRACHEOSTOMY INTACT, DRESSING CLEAN, DRY AND INTACT. ALL MEDICATIONS GIVEN ORDERED. NEEDS ANTICIPATED AND ATTENDED TO. GTUBE IS RUNNING AT 25ML/HR, PATIENT IS TOLERATING WELL. PATIENT ON TELE, SINUS RHYTHM, HR 88. NO SEIZURES THROUGHOUT SHIFT. PATIENT HAS MAURO MIDLINE PATENT AND INTACT. PATIENT'S SKIN HAS SACRAL STAGE 4 PU AND L HEEL DTI WOUND CARE PERFORMED DURING SHIFT. SAFETY MEASURES IN PLACE, BED LOCKED IN LOWEST POSITION, CALL LIGHT WITHIN REACH, BED ALARM ON. WILL ENDORSE TO NEXT SHIFT NURSE FOR CONTINUITY OF CARE
[2021-01-31 20:00] VITALS: BP_SYST 112; BP_SYST 149; BP_DIAS 67; BP_DIAS 75
--- NOTE | 2021-01-31 20:00 | NUR ---
APARTMENT LEASING CONSULTANT OPENING NOTES PATIENT AWAKE IN BED, NON-VERBAL, OPENS EYES. NO SIGNS OF DISTRESS OR SHORTNESS OF BREATH NOTED. HEAD OF BED ELEVATED AT ALL TIMES. GT FEEDING RUNNING AT 25 ML/HR AND TOLERATING WELL, GASTRIC RESIDUAL OF 25 ML NOTED. RAMOS CATHETER INTACT AND DRAINING WELL. TRACHEOSTOMY INTACT, DRESSING CLEAN, DRY AND INTACT. PATIENT IS ON A VENTILATOR RATE OF 12, PEEP 5, VT 500 AND FIO2 OF 30%. RIGHT UPPER ARM MIDLINE INTACT AND PATENT. SAFETY MEASURES IN PLACE, BED LOCKED IN LOWEST POSITION, CALL LIGHT WITHIN REACH, BED ALARM ON. WILL CONTINUE TO MONITOR
--- NOTE | 2021-01-31 21:24 | NUR ---
CLOTH BALE HEADER NOTES NOTED GT TUBE SITE LEAKING, CURRENTLY RUNNING AT 25 ML/HR. CHANGED DRESSING AND KEPT CURRENT RATE. WILL CONTINUE TO MONITOR AND INCREASE FEEDING TOLERATED
[2021-02-01] VITALS: BP_SYST 150; BP_SYST 177; BP_DIAS 79
[2021-02-01 04:00] VITALS: BP_SYST 108; BP_SYST 147; BP_DIAS 65; BP_DIAS 74
[2021-02-01] MEDS: HYDROCORTISONE SOD SUCCINATE 100 MG/2 ML VIAL IV SCH (04:04)
[2021-02-01 06:30] LABS: BASOPHILS % (AUTO) 0.1 % (0.0-2.0); HEMATOCRIT 28 % (39-51); HEMOGLOBIN 9.2 g/dL (13.5-17.5); LYMPHOCYTES % (AUTO) 12.3 % (20.0-44.0); MEAN CORPUSCULAR HGB CONC 33 g/dl (31.0-36.0); MEAN CORPUSCULAR VOLUME 94 fL (80-96); MONOCYTES # (AUTO) 0.2 /CMM (0.1-1.30); MONOCYTES % (AUTO) 3.1 % (2.0-12.0); NEUTROPHILS # (AUTO) 6.5 /CMM (1.8-8.9); NEUTROPHILS % (AUTO) 84.5 % (43.0-81.0); PLATELET COUNT (AUTO) 242 /CMM (150-450); RED BLOOD CELL COUNT(AUTO) 2.98 MIL/uL (4.5-6.0); WHITE BLOOD COUNT (AUTO) 7.7 K/uL (4.3-11.0)
--- NOTE | 2021-02-01 06:39 | NUR ---
WATER SUPERINTENDENT CLOSING NOTES PATIENT SLEEPING IN BED, NON-VERBAL, OPENS EYES. NO SIGNS OF DISTRESS OR SHORTNESS OF BREATH NOTED. HEAD OF BED ELEVATED AT ALL TIMES. RAMOS CATHETER INTACT AND DRAINING WITH OUTPUT OF 600. TRACHEOSTOMY INTACT, DRESSING CLEAN, DRY AND INTACT. ALL MEDICATIONS GIVEN ORDERED. NEEDS ANTICIPATED AND ATTENDED TO. G TUBE FEEDING AT 25 ML/HR AND TOLERATING WELL, WILL ENDORSE TO DAY SHIFT NURSE TO INCREASE RATE TOLERATED WITH TARGET GOAL OF 45 ML/HR. PATIENT ON TELE, SINUS RHYTHM, HR 94. NO SEIZURES THROUGHOUT SHIFT. SAFETY MEASURES IN PLACE, BED LOCKED IN LOWEST POSITION, CALL LIGHT WITHIN REACH, BED ALARM ON. WILL ENDORSE TO DAY SHIFT NURSE FOR CONTINUITY OF CARE.
[2021-02-01 07:07] LABS: CALCIUM, SERUM 8.1 mg/dL (8.5-10.1); CARBON DIOXIDE 23 mmol/L (21-32); CHLORIDE 119 mmol/L (98-107); CREATININE 0.4 mg/dL (0.6-1.3); GLUCOSE 134 mg/dL (74-106); MAGNESIUM 1.7 mg/dL (1.8-2.4); PHOSPHORUS 1.9 mg/dL (2.5-4.9); POTASSIUM 3.4 mmol/L (3.5-5.1); SODIUM SERUM 149 mmol/L (136-145); UREA NITROGEN, BLOOD 13 mg/dL (7-18)
[2021-02-01 07:17] LABS: LYMPHOCYTES % (MANUAL) 11 % (16-48); MONOCYTES % (MANUAL) 5 % (0-11.0); NEUTROPHILS % (MANUAL) 84 (42-76)
[2021-02-01] MEDS: PROSOURCE / PROSTAT (PYXIS) 30 ML UDC GT SCH ×3 (08:03→16:27)
[2021-02-01] MEDS: HYDROGEL DRESSING 90 GM TUBE TP SCH (08:04)
[2021-02-01] MEDS: LEVETIRACETAM SOL (5 ML) 100 MG/ML UDC GT SCH (08:04)
[2021-02-01] MEDS: PANTOPRAZOLE 40 MG/PACK PACK GT SCH (08:04)
[2021-02-01] MEDS: THERAHONEY GEL 1.5 OZ TUBE TP SCH (08:05)
[2021-02-01 08:31] VITALS: BP 147/79
[2021-02-01] MEDS ORDERED: POTASSIUM CHLORIDE 20 MEQ TAB.PRT.SR PO SCH (09:00)
[2021-02-01] MEDS: POTASSIUM CHLORIDE 20 MEQ POWDER PACKET GT SCH ×3 (09:15→11:20)
[2021-02-01] MEDS: NEUTRA PHOS 1 POWD.PACKET PO SCH ×2 (09:15→16:27)
[2021-02-01] MEDS: Magnesium 1GM/D5W 100ML PREMIX 100 ML IV SCH ×2 (09:16→10:27)
[2021-02-01] MEDS ORDERED: HYDROCORTISONE SOD SUCCINATE 100 MG/2 ML VIAL IV SCH (09:30)
--- NOTE | 2021-02-01 11:11 | NUR ---
RN NOTES SPOKE WITH DEIDRA @ [facility] REGARDING FLU AND PNA VACCINE FOR PATIENT. DATES WERE UPDATED IN THE CHART.
[2021-02-01] MEDS ORDERED: LEVE100S GT (11:31)
--- NOTE | 2021-02-01 12:34 | NUR ---
RN NOTES GT SITE CHECKED AND ASSESSED; SCANT AMOUNT OF GREEN DISCHARGE NOTED. TREATMENT DONE INDICATED AND DRESSING CHANGE DONE. G-TUBE IS INTACT AND PATENT AT THIS TIME. DR. YANES IN THE UNIT AND MADE AWARE; SEEN PATIENT W/ ORDER FOR DISCHARGE TO ORIGINATING FACILITY. DR. DICKERSON AWARE WELL, DEFERRED ANY GI PROCEDURE AT THIS TIME. PATIENT CURRENTLY TOLERATING FEEDING RATE; WILL ADVANCE TOLERATED AND CONTINUE TO MONITOR ACCORDINGLY.
--- NOTE | 2021-02-01 14:37 | NUR ---
RN NOTES GAVE REPORT TO JACIEL HESTER RN MAGNET MAKER IN REGARDS TO PATIENT BEING TRANSFER LATER THIS AFTERNOON.
[2021-02-01 16:00] VITALS: BP 148/87
--- NOTE | 2021-02-01 18:51 | NUR ---
REAL ESTATE ATTORNEY NOTE RECEIVED ORDER FOR DISCHARGE. PATIENT IS AWAKE IN BED, NON-VERBAL, OPENS EYES. NO SIGNS OF DISTRESS OR SHORTNESS OF BREATH NOTED. HEAD OF BED ELEVATED AT ALL TIMES. GT FEEDING WAS RUNNING AT 25 ML/HR AND TOLERATING WELL. RAMOS CATHETER INTACT AND DRAINING WELL. TRACHEOSTOMY INTACT, DRESSING CLEAN, DRY AND INTACT. PATIENT IS ON A VENTILATOR RATE OF 12, PEEP 5, VT 500 AND FIO2 OF 30%. RIGHT UPPER ARM MIDLINE AND ID BAND WAS REMOVED. PATIENT IS BEING TRANSPORTED VIA AMBULANCE WITH 2 SENIOR CREDIT ANALYST AND RT. PATIENT LEFT IN STABLE CONDITION AND WILL BE TAKEN BACK TO [facility] FOR CONTINUITY OF CARE
== END 2021-02-01 18:51 | DRG 53 ==
LOC: ER 20:21 → ICU 22:06 → TELE 01-29 18:20
PROVIDERS: ADMIT Student in an Organized Health Care Education/Training Program; ATTEND Nurse Practitioner Acute Care
PROC: 5A1955Z Respiratory Ventilation, Greater than 96 Consecutive Hours (ICD-10-PCS; principal; 2021-01-24)
PROC: 05H533Z Insertion of Infusion Device into Right Subclavian Vein, Percutaneous Approach (ICD-10-PCS; 2021-01-25)
PROC: B546ZZA Ultrasonography of Right Subclavian Vein, Guidance (ICD-10-PCS; 2021-01-25)
PROC: 0JBR0ZZ Excision of Left Foot Subcutaneous Tissue and Fascia, Open Approach (ICD-10-PCS; 2021-01-26)
PROC: 30233N1 Transfusion of Nonautologous Red Blood Cells into Peripheral Vein, Percutaneous Approach (ICD-10-PCS; 2021-01-28)
PROC: 0JBR0ZZ Excision of Left Foot Subcutaneous Tissue and Fascia, Open Approach (ICD-10-PCS; 2021-02-01)
DX: G40.901 Epilepsy, unspecified, not intractable, with status epilepticus (principal); J96.21 Acute and chronic respiratory failure with hypoxia; N17.0 Acute kidney failure with tubular necrosis; E43 Unspecified severe protein-calorie malnutrition; L89.154 Pressure ulcer of sacral region, stage 4; G93.41 Metabolic encephalopathy; Z99.11 Dependence on respirator [ventilator] status; D68.59 Other primary thrombophilia; E11.22 Type 2 diabetes mellitus with diabetic chronic kidney disease; E11.42 Type 2 diabetes mellitus with diabetic polyneuropathy; Z93.0 Tracheostomy status; J44.9 Chronic obstructive pulmonary disease, unspecified; I48.20 Chronic atrial fibrillation, unspecified; E11.621 Type 2 diabetes mellitus with foot ulcer; E83.42 Hypomagnesemia; I12.9 Hypertensive chronic kidney disease with stage 1 through stage 4 chronic kidney disease, or unspecified chronic kidney disease; D64.9 Anemia, unspecified; E78.5 Hyperlipidemia, unspecified; E86.0 Dehydration; E87.0 Hyperosmolality and hypernatremia; E87.6 Hypokalemia; F03.90 Unspecified dementia, unspecified severity, without behavioral disturbance, psychotic disturbance, mood disturbance, and anxiety; F32.9 Major depressive disorder, single episode, unspecified; Z20.822 Contact with and (suspected) exposure to COVID-19; R13.10 Dysphagia, unspecified; Z79.01 Long term (current) use of anticoagulants; Z79.4 Long term (current) use of insulin; Z86.718 Personal history of other venous thrombosis and embolism; Z86.73 Personal history of transient ischemic attack (TIA), and cerebral infarction without residual deficits; E83.39 Other disorders of phosphorus metabolism; Z68.27 Body mass index [BMI] 27.0-27.9, adult; J98.11 Atelectasis; L97.429 Non-pressure chronic ulcer of left heel and midfoot with unspecified severity; E27.40 Unspecified adrenocortical insufficiency; S60.222A Contusion of left hand, initial encounter; X58.XXXA Exposure to other specified factors, initial encounter; Y93.9 Activity, unspecified; Y92.129 Unspecified place in nursing home as the place of occurrence of the external cause; N40.0 Benign prostatic hyperplasia without lower urinary tract symptoms; N18.30 Chronic kidney disease, stage 3 unspecified; Z93.1 Gastrostomy status
CPT/HCPCS: 31720; 36410; 36415; 70450-TC; 71045-TC; 74018; 80048-TC; 80053-TC; 80061-TC; 80076-TC; 82533; 83735-TC; 84100-TC; 84443-TC; 84484-TC; 85025-TC; 85730-TC; 86850-TC; 87081-TC; 94003-TC; 94760-TC; 94762-TC; 94799-TC; 95819-TC; A4217; A4623; A6248; A6253; A6403; C9803; G0378; G0480; J1720; J1953; J2060; J2250; J2560; J3475; J3480; J3490; J7030; J7050; P9016; P9047; Q9963

== ENCOUNTER 2021-09-19 19:47 | Inpatient (IN) | payer MEDICAID ==
[~2021-09-19] VITALS: Ht 157.5 cm; Wt 66.4 kg
[~2021-09-19 19:47] MED LIST changes: +ACET-2070 GT; -ACET-2605 GT; -ACET325T53 GT; -DOCU-141 GT; +DOCU50LI GT; -ENOX40DI SQ; +FERR300L GT; -FERR325T23 GT; -GEL100GE TD; +HYDR-4209 TD; +INSU100V3 SQ; -INSU100V36 SQ; -IPRA4AER IH; +LEVA15HF4 IH; +LORA2VIA11 IM; +MAG30ORA GT; -OMEP40CA13 GT; +ONDA4TAB5 GT; +PANT40SU2 GT
--- NOTE | 2021-09-19 19:53 | NUR ---
BIBRA8. SENT FROM [facility] FOR "PROJECTILE COFFE GROUND EMESIS" VENT AND TRACH. VENT SETTINGS: PEEP 5 TV 500 FIO2 50% PEAK FLOW 60 TOLERATING SETTINGS AT 100%. MANAGER HOSPICE RAC #20G; PATENT AND INTACT. GTUBE PATENT AND INTACT CONNECTED PT TO MONITOR AND POX. SAFETY MEASURES IN PLACE
[2021-09-19] MEDS ORDERED: IV NS 0.9% 500 ML BAG IV ONE (20:00)
--- NOTE | 2021-09-19 20:20 | NUR ---
GLUER MACHINE OPERATOR AT PT'S BEDSIDE
--- NOTE | 2021-09-19 20:27 | NUR ---
ROTARY RIG ENGINE OPERATOR AT PT'S BEDSIDE
[2021-09-19 20:47] LABS: BASOPHILS % (AUTO) 0.2 % (0.0-2.0); EOSINOPHILS % (AUTO) 0.4 % (0.0-6.0); HEMATOCRIT 35 % (39-51); HEMOGLOBIN 10.8 g/dL (13.5-17.5); LYMPHOCYTES # (AUTO) 1.6 K/uL (0.8-4.8); LYMPHOCYTES % (AUTO) 15.4 % (20.0-44.0); MEAN CORPUSCULAR HGB CONC 31 g/dl (31.0-36.0); MEAN CORPUSCULAR VOLUME 80 fL (80-96); MONOCYTES # (AUTO) 0.6 K/uL (0.1-1.30); MONOCYTES % (AUTO) 5.6 % (2.0-12.0); NEUTROPHILS % (AUTO) 78.4 % (43.0-81.0); PLATELET COUNT (AUTO) 356 K/uL (150-450); RED BLOOD CELL COUNT(AUTO) 4.35 MIL/uL (4.5-6.0); WHITE BLOOD COUNT (AUTO) 10.2 K/uL (4.3-11.0)
--- NOTE | 2021-09-19 21:24 | NUR ---
COVID SWABS COLLECTED AND SENT TO LAB
[2021-09-19 21:25] LABS: ALANINE AMINOTRANSFERASE 21 U/L (12-78); ALBUMIN 2.3 g/dL (3.4-5.0); ALKALINE PHOSPHATASE 141 U/L (46-116); ASPARTATE AMINOTRANSFERASE 26 U/L (15-37); BILIRUBIN,DIRECT 0.1 mg/dL (0.0-0.2); BILIRUBIN,TOTAL 0.3 mg/dL (0.2-1.0); CALCIUM, SERUM 9.7 mg/dL (8.5-10.1); CARBON DIOXIDE 31 mmol/L (21-32); CHLORIDE 103 mmol/L (98-107); CREATININE 0.9 mg/dL (0.6-1.3); GLUCOSE 125 mg/dL (74-106); POTASSIUM 3.6 mmol/L (3.5-5.1); SODIUM SERUM 140 mmol/L (136-145); TOTAL PROTEIN, SERUM 8.8 g/dL (6.4-8.2); UREA NITROGEN, BLOOD 31 mg/dL (7-18)
--- NOTE | 2021-09-19 22:00 | NUR ---
MRSA SWAB COLLECTED AND SENT TO LAB. PATIENT'S BELONGINGS LIST DONE.
[2021-09-19] MEDS ORDERED: ONDANSETRON HCL/PF 4 MG/2 ML VIAL ONE (22:46)
--- NOTE | 2021-09-19 22:50 | NUR ---
COFFEE GROUND EMESIS X1. ADMINISTERED ZOFRAN 4MG IVP ORDERED. WILL CONT TO MONITOR FOR N/V
[2021-09-19] MEDS ORDERED: ONDANSETRON HCL/PF 4 MG/2 ML VIAL IV ONE (23:00)
[2021-09-19] MEDS ORDERED: ONDANSETRON HCL/PF - ER 4 MG/2 ML VIAL IV ONE (23:00)
--- NOTE | 2021-09-19 23:49 | NUR ---
PT A/OX1 WNL FOR PT. TOLERATING VENT SETTINGS WELL AT 100%. RAC #20G S/L PATENT AND INTACT. VSS ENDORED YESSI TO LINSEY PETERS.
--- NOTE | 2021-09-20 00:15 | NUR ---
ROOM ASSGNMENT: [id number]
--- NOTE | 2021-09-20 00:27 | NUR ---
GAVE REPORT TO LORRAINE FABIAN FOR YESSI
--- NOTE | 2021-09-20 00:30 | NUR ---
PT TRANSPORTED WITH RT AND ACLS PROTOCOL
--- NOTE | 2021-09-20 00:41 | NUR ---
ACCOUNT SUPPORT SPECIALIST NOTES: 80 YEARS OLD MALE ADMITTED FROM ER UNDER ATT ALANNA COPE. DIAGNOSIS OF PROJECTILE COFFEE GROUND EMESIS. ON TRACH W/ MECHANICAL VENTILATION SETTING AC-16, TV-500, FIO2-50%, PEEP-5. ALERT, ORIENTED X1, OPEN BOTH EYES AND NON-VERBAL. BREATHING EVEN AND UNLABORED. SNOW REMOVING SUPERVISOR SHOWS SINUS RHYTHM. STILL NOTED COFFEE GROUND EMESIS LARGE AMOUNT. BODY ASSESSMENT DONE. NOTED GENERALIZED BODY RASHES ALL OVER THE BODY. SKIN DISCOLORATIONS W/ SCAB NON RT AND LT HAND. OPEN SKIN ON LT HAND. NOTED SACRAL WOUND STAGE 3: 4.5 X6.0 CM. IV ACCESS ON RAC#20G. ON GTUBE FEEDING: GLUCERNA 1.2. AWAITING DR. MASTERSON. SKIN WARM AND DRY TO TOUCH. ALL SAFETY MEASURE IN PLACE. BED SIDE RAILS ARE UP. BED IN LOW POSITION. PLACE CALL LIGHT WITH IN REACH. WILL CONTINUE TO MONITOR
[2021-09-20] MEDS ORDERED: MAGNESIUM HYDROXIDE 30 ML UDC GT PRN (02:30)
[2021-09-20] MEDS ORDERED: GLUCERNA 1.2 1,000 ML BOTTLE NG PRN (02:30)
[2021-09-20] MEDS ORDERED: LORAZEPAM INJ 2 MG/ML VIAL IM PRN (02:30)
[2021-09-20] MEDS ORDERED: Z GUARD REMEDY 2 OZ OINT TP PRN (02:30)
[2021-09-20] MEDS ORDERED: ONDANSETRON HCL/PF 4 MG/2 ML VIAL IVP PRN (02:30)
[2021-09-20] MEDS ORDERED: HYDROCODONE/APAP 5/325MG TABLET GT PRN (02:30)
[2021-09-20] MEDS ORDERED: NA PHOS,M-B/NA PHOS,DI-BA 1 EA ENEMA RC PRN (02:30)
--- NOTE | 2021-09-20 02:45 | NUR ---
0245 DR. YANES MADE AWARE OF PATIENT'S PERSISTENT VOMITING COFFEE GROUND EMESIS SINCE ADMITTED IN THE UNIT WITH ORDERS TO PUT PATIENT NPO, D/C TUBE FEEDING, GIVE PROTONIX 80MG IVP ONCE THEN START ON PROTONIX DRIP AND TO PUT GT TO LOW CONT. SUCTION. ORDERS NOTED AND CARRIED OUT.
[2021-09-20] MEDS ORDERED: PANTOPRAZOLE 40 MG VIAL IV ONE (03:00)
[2021-09-20] MEDS ORDERED: PANTOPRAZOLE 80 MG in IV NS 0.9% 500 ML IV PRN (03:00)
[2021-09-20] MEDS ORDERED: PANTOPRAZOLE 40 MG VIAL ONE (03:23)
--- NOTE | 2021-09-20 03:30 | NUR ---
0330 CONNECTED PATIENT'S GTUBE TO LOW SUCTION ORDERED, NOTED WITH 250 ML OF DARK BROWN DRAINAGE IMMEDIATELY. STARTED PROTONIX DRIP ORDERED. HOB KEPT ELEVATED FOR ASPIRATION PRECAUTION. WILL CONTINUE TO MONITOR PATIENT CLOSELY.
[2021-09-20] MEDS: IV NS 0.9% 1,000 ML IV PRN (03:37)
[2021-09-20 03:40] LABS: HEMOGLOBIN 11.1 g/dL (13.5-17.5)
[2021-09-20 03:42] LABS: IRON, SERUM 33 ug/dl (50-175); TOTAL IRON BINDING CAPACITY 185 ug/dl (250-450)
[2021-09-20 04:00] VITALS: BP 96/57
[2021-09-20 04:18] VITALS: BP 96/57
--- NOTE | 2021-09-20 06:50 | NUR ---
RN CLOSING NOTES: PATIENT IN BED SLEEPING, BUT EASILY AROUSABLE, ALERT, ORIENTED X1, OPEN BOTH EYES AND NON-VERBAL. BREATHING EVEN AND UNLABORED. BAND SEWER STILL SHOWS SINUS RHYTHM. STILL NOTED COFFEE GROUND EMESIS LARGE AMOUNT. 300ML GTUBE DRAINAGE. GTUBE FEEDING ON HOLD. CONTINUE ON IV PROTONIX DRIPS. DR. YANES ORDER MIDLINE INSERTION ORDER. NOTED AND CARRIED OUT. PROVIDED GOOD SKIN CARE. SKIN WARM AND DRY TO TOUCH. ALL SAFETY MEASURE IN PLACE. BED SIDE RAILS ARE UP. BED IN LOW POSITION. PLACE CALL LIGHT WITH IN REACH. WILL ENDORSE TO MORNING SHIFT.
--- NOTE | 2021-09-20 07:55 | NUR ---
RN OPENING NOTE PATIENT RECEIVED IN BED, RESTING. PATIENT ON MECHANICAL VENTILATOR AT THIS TIME WITH NO SIGNS OF LABORED BREATHING AT THIS TIME. RAMOS CATHETER IN PLACE, PATENT AND DRAINING URINE. G TUBE IN PLACE ON SUCTION, COFFEE GROUND EMESIS SUCTIONED OUT. RIGHT AC 20G IV IN PLACE, PATENT WITH NO SIGNS OF INFILTRATION. BED LOCKED AND IN LOWEST POSITION, CALL LIGHT WITHIN REACH, 3 SIDE RAILS UP. WILL CONTINUE TO MONITOR.
[2021-09-20 08:00] VITALS: BP 102/59
[2021-09-20] MEDS: LEVALBUTEROL HCL NEB 1.25 MG/0.5 ML VIAL.NEB NEB SCH ×2 (08:15→15:45)
[2021-09-20 08:59] LABS: HEMOGLOBIN 9.8 g/dL (13.5-17.5)
[2021-09-20] MEDS ORDERED: PANTOPRAZOLE 40 MG/PACK PACK GT SCH (09:00)
[2021-09-20] MEDS: AMLODIPINE BESYLATE 10 MG TABLET GT SCH (09:00)
[2021-09-20] MEDS: FUROSEMIDE 20 MG TABLET GT SCH (09:00)
[2021-09-20] MEDS: GABAPENTIN 100 MG CAPSULE GT SCH ×2 (09:00→21:41)
[2021-09-20] MEDS: ARGININE/GLUTAMINE/CALCIUM BMB 1 EACH POWD.PACK GT SCH ×2 (09:00→16:22)
[2021-09-20] MEDS: METOPROLOL TARTRATE 25 MG TABLET GT SCH ×2 (09:00→21:41)
[2021-09-20] MEDS ORDERED: EPOETIN ALFA (4000 UNIT) 4,000 UNIT/ML VIAL SQ SCH (09:00)
[2021-09-20] MEDS ORDERED: RIVAROXABAN 10 MG TABLET GT SCH (09:00)
[2021-09-20] MEDS: PROSOURCE / PROSTAT (PYXIS) 30 ML UDC GT SCH (09:00)
[2021-09-20] MEDS: LEVETIRACETAM SOL (5 ML) 100 MG/ML UDC GT SCH ×2 (09:00→21:41)
[2021-09-20] MEDS: CHLORHEXIDINE GLUCONATE 15 ML UDC MM SCH ×2 (09:34→16:27)
[2021-09-20] MEDS ORDERED: PANTOPRAZOLE 40 MG VIAL IV SCH (10:30)
[2021-09-20 12:00] VITALS: BP 91/36
--- NOTE | 2021-09-20 13:40 | NUR ---
RN NOTE PATIENT WITH COFFEE GROUND EMESIS. MOUTH SUCTION AND GTUBE IN INTERMITTENT SUCTIONING. DR. OLSON NOTIFIED. WILL CONTINUE TO MONITOR.
[2021-09-20] MEDS: ZOSYN IVPB 3.375 G in IV D5W 50ml IV SCH ×2 (14:40→20:27)
[2021-09-20] MEDS: EPOETIN ALFA-EPBX 4,000 UNIT/ML VIAL SQ SCH (15:14)
[2021-09-20 15:22] LABS: BASOPHILS % (AUTO) 0.3 % (0.0-2.0); EOSINOPHILS % (AUTO) 0.1 % (0.0-6.0); HEMATOCRIT 31 % (39-51); HEMOGLOBIN 9.5 g/dL (13.5-17.5); LYMPHOCYTES # (AUTO) 1.5 K/uL (0.8-4.8); LYMPHOCYTES % (AUTO) 15.6 % (20.0-44.0); MEAN CORPUSCULAR HGB CONC 31 g/dl (31.0-36.0); MEAN CORPUSCULAR VOLUME 81 fL (80-96); MONOCYTES # (AUTO) 0.8 K/uL (0.1-1.30); MONOCYTES % (AUTO) 8.3 % (2.0-12.0); NEUTROPHILS # (AUTO) 7.4 K/uL (1.8-8.9); NEUTROPHILS % (AUTO) 75.7 % (43.0-81.0); PLATELET COUNT (AUTO) 347 K/uL (150-450); RED BLOOD CELL COUNT(AUTO) 3.78 MIL/uL (4.5-6.0); WHITE BLOOD COUNT (AUTO) 9.8 K/uL (4.3-11.0)
[2021-09-20 16:00] VITALS: BP 111/62
[2021-09-20] MEDS: PANTOPRAZOLE 40 MG VIAL IV SCH (16:28)
[2021-09-20] MEDS: DOCUSATE SODIUM LIQ 100 MG/10 ML UDC GT SCH (17:01)
[2021-09-20] MEDS: FERROUS SULFATE UDC 300 MG/5 ML UDC GT SCH (17:01)
[2021-09-20] MEDS: ASCORBIC ACID 500 MG TABLET GT SCH (17:01)
--- NOTE | 2021-09-20 18:53 | NUR ---
RN CLOSING NOTE PATIENT REMAINS IN BED, RESTING. PATIENT ON MECHANICAL VENTILATOR AT THIS TIME WITH NO SIGNS OF LABORED BREATHING AT THIS TIME. RAMOS CATHETER IN PLACE, PATENT AND DRAINING URINE. G TUBE IN PLACE ON SUCTION, COFFEE GROUND EMESIS SUCTIONED OUT 150 CC THROUGHOUT SHIFT. RIGHT AC 20G IV IN PLACE AND RIGHT UPPER ARM MIDLINE IN PLACE. ALL NEEDS ATTENDED DURING SHIFT. BED LOCKED AND IN LOWEST POSITION, CALL LIGHT WITHIN REACH, 3 SIDE RAILS UP. WILL ENDORSE TO ONLINE FACILITATOR NURSE.
--- NOTE | 2021-09-20 19:20 | NUR ---
RN NOTE RECEIVED CARE OF PATIENT IN BED, RESTING. PATIENT ON MECHANICAL VENTILATOR AT THIS TIME WITH NO SIGNS OF LABORED BREATHING. RAMOS CATHETER IN PLACE, PATENT AND DRAINING URINE. G TUBE IN PLACE ON SUCTION, COFFEE GROUND EMESIS. RIGHT AC 20G IV IN PLACE AND RIGHT UPPER ARM MIDLINE IN PLACE. NO SIGNIFICANT FINDINGS THROUGHOUT INITIAL NURSING ASSESSMENTS. BED LOCKED AND IN LOWEST POSITION, CALL LIGHT WITHIN REACH, 3 SIDE RAILS UP. WILL CONTINUE TO MONITOR FOR ANY CHANGES.
[2021-09-20 20:00] VITALS: BP 109/56
[2021-09-20 20:32] LABS: HEMOGLOBIN 9.7 g/dL (13.5-17.5)
[2021-09-21] VITALS: BP 104/61
[2021-09-21] MEDS: ZOSYN IVPB 3.375 G in IV D5W 50ml IV SCH ×6 (00:10→23:36)
[2021-09-21] MEDS: LEVALBUTEROL HCL NEB 1.25 MG/0.5 ML VIAL.NEB NEB SCH ×4 (00:20→23:30)
[2021-09-21 04:00] VITALS: BP 105/50
[2021-09-21] MEDS: IV NS 0.9% 1,000 ML IV PRN (04:50)
[2021-09-21 07:11] LABS: BASOPHILS # (AUTO) 0.1 K/uL (0.0-0.2); BASOPHILS % (AUTO) 0.4 % (0.0-2.0); HEMATOCRIT 31 % (39-51); HEMOGLOBIN 9.5 g/dL (13.5-17.5); LYMPHOCYTES # (AUTO) 1.4 K/uL (0.8-4.8); LYMPHOCYTES % (AUTO) 8.7 % (20.0-44.0); MEAN CORPUSCULAR HGB CONC 31 g/dl (31.0-36.0); MEAN CORPUSCULAR VOLUME 81 fL (80-96); MONOCYTES # (AUTO) 1.1 K/uL (0.1-1.30); MONOCYTES % (AUTO) 6.9 % (2.0-12.0); NEUTROPHILS # (AUTO) 13.6 K/uL (1.8-8.9); PLATELET COUNT (AUTO) 391 K/uL (150-450); RED BLOOD CELL COUNT(AUTO) 3.78 MIL/uL (4.5-6.0); WHITE BLOOD COUNT (AUTO) 16.2 K/uL (4.3-11.0)
[2021-09-21 07:40] LABS: ALBUMIN 2.2 g/dL (3.4-5.0); BILIRUBIN,TOTAL 0.4 mg/dL (0.2-1.0); CALCIUM, SERUM 8.2 mg/dL (8.5-10.1); CREATININE 1.3 mg/dL (0.6-1.3); MAGNESIUM 2.6 mg/dL (1.8-2.4); PHOSPHORUS 3.7 mg/dL (2.5-4.9); POTASSIUM 3.2 mmol/L (3.5-5.1); TOTAL PROTEIN, SERUM 7.4 g/dL (6.4-8.2)
[2021-09-21 08:00] VITALS: BP 109/59
[2021-09-21] MEDS: LEVETIRACETAM SOL (5 ML) 100 MG/ML UDC GT SCH ×2 (09:00→22:28)
[2021-09-21] MEDS: METOPROLOL TARTRATE 25 MG TABLET GT SCH ×2 (09:00→22:29)
[2021-09-21] MEDS: PROSOURCE / PROSTAT (PYXIS) 30 ML UDC GT SCH (09:00)
[2021-09-21] MEDS: AMLODIPINE BESYLATE 10 MG TABLET GT SCH (09:00)
[2021-09-21] MEDS: ARGININE/GLUTAMINE/CALCIUM BMB 1 EACH POWD.PACK GT SCH ×2 (09:00→17:00)
[2021-09-21] MEDS: FUROSEMIDE 20 MG TABLET GT SCH (09:00)
[2021-09-21] MEDS: GABAPENTIN 100 MG CAPSULE GT SCH ×2 (09:27→22:29)
[2021-09-21] MEDS: CHLORHEXIDINE GLUCONATE 15 ML UDC MM SCH ×2 (09:30→19:12)
[2021-09-21] MEDS: PANTOPRAZOLE 40 MG VIAL IV SCH ×2 (09:31→19:11)
--- NOTE | 2021-09-21 10:11 | NUR ---
WOUND CARE CONSULT: REVIEWED CHART, NURSING DOCUMENTATION AND PHOTOS WHICH INDICATE BODY RASH AND MULTIPLE WOUNDS, PRESENT ON ADMISSION. DEFER TO PMD FOR BODY RASH/SKIN CONDITION. RECOMMENDATIONS MADE FOR SKIN PROTECTION. DISCUSSED WITH NURSING STAFF. DR ESPOSITO AND DR HERRERA NOTIFIED OF SURGICAL AND DPM CONSULT REQUESTS. MD IN AGREEMENT WITH PLAN OF CARE.
--- NOTE | 2021-09-21 11:06 | NUR ---
RN OPENING NOTE PATIENT RECEIVED IN BED, RESTING. PATIENT ON MECHANICAL VENTILATOR AT THIS TIME WITH NO SIGNS OF LABORED BREATHING AT THIS TIME. RAMOS CATHETER IN PLACE, PATENT AND DRAINING URINE. G TUBE IN PLACE ON SUCTION, COFFEE GROUND EMESIS SUCTIONED OUT. RIGHT AC 20G IV IN PLACE. BED LOCKED AND IN LOWEST POSITION, CALL LIGHT WITHIN REACH, 3 SIDE RAILS UP. WILL CONTINUE TO MONITOR.
[2021-09-21 12:00] VITALS: BP 110/50
--- NOTE | 2021-09-21 12:02 | NUR ---
RN NOTES HELD ALL GTUBE MEDS DUE TO GI BLEED AND NPO STATUS. CANNOT GIVE IV MEDICATIONS UNTIL MID LINE NURSE ARRIVES. WILL CONTINUE TO MONITOR AND GIVE IV MEDS ONCE MID LINE IN PLACE.
--- NOTE | 2021-09-21 14:43 | NUR ---
RN NOTES SPOKE WITH MD, EGD CANCELLED.
[2021-09-21 16:00] VITALS: BP 102/59
[2021-09-21] MEDS: POTASSIUM CL. PREMIX PERIPHER. 50 ML IV SCH ×3 (16:28→19:54)
--- NOTE | 2021-09-21 16:52 | NUR ---
RN NOTES MD ORDER TO START TUBE FEEDING ONCE PT CEASES BLOODY EMESIS.
[2021-09-21] MEDS ORDERED: POTASSIUM CL. PREMIX PERIPHER. 50 ML IV SCH (17:00)
[2021-09-21] MEDS: ACETAMINOPHEN 650 MG/20.3 ML UDC GT PRN (17:20)
--- NOTE | 2021-09-21 17:27 | NUR ---
RN NOTES SPILLED TYLENOL DOSE. ASKED CHARGE NURSE LISA TO TAKE OUT ONE MORE.
--- NOTE | 2021-09-21 17:50 | NUR ---
RN NOTES DISCHARGE HELD PER DOCTOR'S ORDER. WILL DO BLOOD CULTURE, RESTART ZOSYN AND VANCO PER PHARMACY.
[2021-09-21] MEDS: HYDROGEL DRESSING 90 GM TUBE TP SCH (18:26)
[2021-09-21] MEDS ORDERED: VANCOMYCIN 1.5 GM in IV D5W 500ml IV ONE (19:00)
[2021-09-21] MEDS: DOCUSATE SODIUM LIQ 100 MG/10 ML UDC GT SCH (19:10)
[2021-09-21] MEDS: FERROUS SULFATE UDC 300 MG/5 ML UDC GT SCH (19:38)
[2021-09-21] MEDS: ASCORBIC ACID 500 MG TABLET GT SCH (19:38)
--- NOTE | 2021-09-21 19:40 | NUR ---
RN OPENING NOTES: RECEIVED PATIENT IN BED SLEEPING, BUT EASILY AROUSABLE, ALERT, ORIENTED X1, OPEN BOTH EYES. NON- VERBAL. ON TRACH WITH [facility] VENTILATION SETTING: AC-16, TV-500, FIO2 40%, PEEP-5. TOLERATED WELL. ON GTUBE FEEDING. NOTED IV ACCESS RT UPPER MIDLINE#20G, LT UPPER MIDLINE#18G, LT HAND SALINE LOCK ALL INTACT AND PATENT. NO S/S OF INFILTRATIONS. PATIENT AFEBRILE. TYLENOL GIVEN ON PREVIOUS SHIFT. SKIN REALLY WARM AND DRY TO TOUCH. ALL SAFETY MEASURE IN PLACE. ON ISOLATION PRECAUTION FOR SCABIES. FOR BED SIDE RAILS ARE UP. BED IN LOW POSITION. PLACE CALL LIGHT WITH IN REACH. WILL CONTINUE TO MONITOR
--- NOTE | 2021-09-21 19:48 | NUR ---
RN NOTES THIRD BAG OF POTASSIUM HUNG. COMPUTER DID NOT SAVE AFTER ADMINISTRATION.
[2021-09-21 20:00] VITALS: BP 131/58
--- NOTE | 2021-09-21 20:08 | NUR ---
RN NOTES ANALILIA PACKET NOT STOCKED IN [facility] CELL.
--- NOTE | 2021-09-21 20:26 | NUR ---
RN NOTES ZOSYN WAS OFF SCHEDULE DUE TO IV LINE ISSUES. INFORMED PHARMACY. NEXT DOSE TO BE GIVEN AT MIDNIGHT.
--- NOTE | 2021-09-21 20:40 | NUR ---
RN CLOSING NOTE PATIENT REMAINS IN BED, RESTING. PATIENT ON MECHANICAL VENTILATOR AT THIS TIME WITH NO SIGNS OF LABORED BREATHING AT THIS TIME. RAMOS CATHETER IN PLACE, PATENT AND DRAINING URINE. G TUBE IN PLACE. RIGHT AC 20G IV AND RIGHT UPPER ARM MIDLINE NO LONGER ACCESSIBLE. PT NOW HAS LEFT HAND IV AND LEFT UPPER ARM MIDLINE. ALL NEEDS ATTENDED DURING SHIFT. BED LOCKED AND IN LOWEST POSITION, CALL LIGHT WITHIN REACH, 3 SIDE RAILS UP. WILL ENDORSE TO TRACTOR ENGINE MECHANIC NURSE. Addendum: 09/21/21 at 2042 by YOHAN ACKERMAN RN NOTED PATIENT AND CLOSING NOTE AT 1929
--- NOTE | 2021-09-21 21:36 | NUR ---
2135 Potassium IV order clarified with JOHN Mcclure, per her give 4 bags IV then re check potassium and cancel the second set of 4 bags, order noted.
[2021-09-21] MEDS ORDERED: POTASSIUM CL. PREMIX PERIPHER. 50 ML ONE (23:46)
--- NOTE | 2021-09-21 23:49 | NUR ---
RN NOTES: 4 OUT 4 POTASSIUM BAG GIVEN PER DR'S ORDER. WILL CONTINUE TO MONITOR
--- NOTE | 2021-09-21 23:59 | NUR ---
RT NOTE TX HELD DUE TO PENDING PCR RESULTS. NO RESPIRATORY DISTRESS NOTED.
[2021-09-22] VITALS: BP 96/65
[2021-09-22 04:00] VITALS: BP 100/65
[2021-09-22] MEDS: ZOSYN IVPB 3.375 G in IV D5W 50ml IV SCH ×3 (05:42→17:36)
--- NOTE | 2021-09-22 06:34 | NUR ---
RN CLOSING NOTES: PATIENT IN BED AWAKE, ALERT, ORIENTED X1, OPEN BOTH EYES. NON- VERBAL. ON TRACH WITH [facility] VENTILATION WELL TOLERATED. GTUBE FEEDING ON HOLD. PT REMAIN NPO EXCEPT MEDS DUE TO EGD PROCEDURE. ALL DUE MEDS GIVEN PER ORDER. NO RESIDUAL NOTED. IV ACCESS RT UPPER MIDLINE#20G, LT UPPER MIDLINE#18G, LT HAND SALINE LOCK ALL INTACT AND PATENT. NO S/S OF INFILTRATIONS. PATIENT AFEBRILE. SKIN WARM AND DRY TO TOUCH. PROVIDED GOOD SKIN CARE. ALL SAFETY MEASURE IN PLACE. ON ISOLATION PRECAUTION FOR SCABIES. 3X BED SIDE RAILS ARE UP. BED IN LOW POSITION AND LOCKED. PLACE CALL LIGHT WITH IN REACH. WILL ENDORSE TO MORNING SHIFT NURSE.
--- NOTE | 2021-09-22 07:30 | NUR ---
SUBSTANCE ABUSE NURSE NOTES PT IN BED, RESTING, NON VERBAL, NO FACIAL GRIMACING, NO SIGN OF DISTRESS, ON VENT/TRACH, NO SOB, NO EPISODE NO VOMITING NOTED, KEPT NPO FOR EGD TODAY, REPOSITIONED FOR COMFORT.
[2021-09-22 07:32] LABS: CALCIUM, SERUM 8.1 mg/dL (8.5-10.1); CREATININE 1.3 mg/dL (0.6-1.3); POTASSIUM 3.4 mmol/L (3.5-5.1)
[2021-09-22] MEDS: LEVALBUTEROL HCL NEB 1.25 MG/0.5 ML VIAL.NEB NEB SCH ×3 (07:35→23:45)
[2021-09-22 08:00] VITALS: BP 111/62
--- NOTE | 2021-09-22 08:54 | NUR ---
per [facility] pt. covid negative.
[2021-09-22] MEDS: AMLODIPINE BESYLATE 10 MG TABLET GT SCH (09:00)
[2021-09-22] MEDS: LEVETIRACETAM SOL (5 ML) 100 MG/ML UDC GT SCH ×2 (09:00→20:46)
[2021-09-22] MEDS: FUROSEMIDE 20 MG TABLET GT SCH (09:00)
[2021-09-22] MEDS: ARGININE/GLUTAMINE/CALCIUM BMB 1 EACH POWD.PACK GT SCH ×2 (09:00→18:16)
[2021-09-22] MEDS: METOPROLOL TARTRATE 25 MG TABLET GT SCH ×2 (09:00→20:57)
[2021-09-22] MEDS ORDERED: ANESTHESIA TRAY IN PYXIS 1 EA TRAY MC ONE (09:34)
[2021-09-22] MEDS: CHLORHEXIDINE GLUCONATE 15 ML UDC MM SCH ×2 (09:47→17:35)
[2021-09-22] MEDS: GABAPENTIN 100 MG CAPSULE GT SCH ×2 (09:47→20:47)
[2021-09-22] MEDS: PANTOPRAZOLE 40 MG VIAL IV SCH ×2 (09:47→17:35)
[2021-09-22] MEDS: PROSOURCE / PROSTAT (PYXIS) 30 ML UDC GT SCH (09:47)
[2021-09-22] MEDS: HYDROGEL DRESSING 90 GM TUBE TP SCH (09:48)
[2021-09-22] MEDS: POTASSIUM CL. PREMIX PERIPHER. 50 ML IV SCH ×2 (10:36→14:20)
[2021-09-22 12:00] VITALS: BP 106/57
[2021-09-22] MEDS: HYDROCORTISONE 1% CREAM 28.35 GM TUBE TP SCH ×2 (12:06→17:38)
[2021-09-22] MEDS: MUPIROCIN OINT 2% 22 GM TUBE NS SCH ×2 (13:46→21:00)
--- NOTE | 2021-09-22 14:13 | NUR ---
TRIAGE NURSE NOTES PT S/P EGD, POST OP REPORT RECEIVED FROM O.RErika NURSE NETO, NOTED AND CARRIED OUT, PT RESTING, VS STABLE.
[2021-09-22] MEDS: IV NS 0.9% 1,000 ML IV PRN (14:22)
[2021-09-22 16:00] VITALS: BP 119/64
[2021-09-22] MEDS: EPOETIN ALFA-EPBX 4,000 UNIT/ML VIAL SQ SCH (16:00)
[2021-09-22] MEDS: DOCUSATE SODIUM LIQ 100 MG/10 ML UDC GT SCH (17:34)
[2021-09-22] MEDS: FERROUS SULFATE UDC 300 MG/5 ML UDC GT SCH (17:34)
[2021-09-22] MEDS: ASCORBIC ACID 500 MG TABLET GT SCH (17:35)
[2021-09-22] MEDS: GLUCERNA 1.2 1,000 ML BOTTLE NG PRN (17:36)
--- NOTE | 2021-09-22 19:10 | NUR ---
RN NOTE RECEIVED PATIENT IN BED RESTING OBTUNDED ON MECHANICAL VENT ON G-TUBE FEEDING GLUCERNA 1.2 30CC/HR CHECKED PLACEMENT IN PLACE NO RESIDUAL NOTED,IV SITE IS ON LEFT UPPER ARM MIDLINE AND LEFT FOREARM INTACT PATENT ON IV HYDRATION NS 75CC/HR,RAMOS CATHETER IN PLACE URINE DRAINING YELLOW AND CLEAR BY GRAVITY,HEAD OF THE BED ELEVATED,SAFETY MEASURE IMPLEMENT BED IN LOW POSITON AND LOCKED CONTINUE TO MONITOR.
--- NOTE | 2021-09-22 19:18 | NUR ---
PROOFREADER NOTES PT IN BED, RESTING, NO SIGN OF PAIN OR DISTRESS, REPOSITIONED FOR COMFORT, RESTARTED GT FEEDING ORDERED, KEPT CLEAN, DRY AND COMFORTABLE, SEEN BY INFECTIOUS DISEASE MD, ORDERS GIVEN.
[2021-09-22] MEDS ORDERED: IVERMECTIN 3 MG TABLET PO ONE (19:30)
[2021-09-22 20:00] VITALS: BP 108/56
[2021-09-22] MEDS ORDERED: PERMETHRIN 5% CRM 60 GM TUBE TP ONE (20:00)
[2021-09-22] MEDS: VANCOMYCIN 1.25 GM in IV D5W 250 ML IV SCH (20:01)
[2021-09-22] MEDS: MEROPENEM 1 G in IV NS 0.9% 100 ML IV SCH (20:46)
[2021-09-23] VITALS: BP 108/56
[2021-09-23 01:42] LABS: BILIRUBIN,URINE NEGATIVE (NEGATIVE); COLOR,URINE YELLOW (YELLOW); LEUKOCYTE ESTERASE ,URINE MODERATE (NEGATIVE); NITRITE, URINE POSITIVE (NEGATIVE); PROTEIN,URINE TRACE mg/dl (NEGATIVE); UGLUCOSE NEGATIVE (NEGATIVE); UROBILINOGEN,URINE 0.2 EU/dL (0.2)
[2021-09-23 02:06] LABS: BACTERIA,URINE Many /HPF (None Seen); WBC,URINE 81-100 /HPF (0-3)
[2021-09-23 02:07] LABS: CALCIUM OXALATE CRYSTALS,UR Few /HPF (None Seen); SQUAMOUS EPITHELIAL CELL,UR Few /HPF (None Seen)
[2021-09-23 04:00] VITALS: BP 99/63
[2021-09-23] MEDS: IV NS 0.9% 1,000 ML IV PRN (06:05)
--- NOTE | 2021-09-23 06:38 | NUR ---
RN NOTE PATIENT REMAINS ON OBTUNDED NON VERBAL ON MECHANICAL VENT ON G-TUBE FEEDING NO SOB NOT ACUTE DISTRESS NOTED ALL DUE MEDS GIVEN MD ORDERED KEPT CLEAN AND DRY ALL THE TIME,KEPT COMFORTABLE REPOSITIONED EVERY 2HOURS,IV HYDRATION NS RUNNING 75CC/HR, WOUND TREATMENT DONE APPLIED STROMECTOL ON SKIN ALL NEEDS MET ENDORSE NEXT COMING SHIFT FOR CONTINUATION OF CARE.
[2021-09-23 07:52] LABS: BASOPHILS % (AUTO) 0.4 % (0.0-2.0); EOSINOPHILS % (AUTO) 0.8 % (0.0-6.0); HEMATOCRIT 26 % (39-51); LYMPHOCYTES % (AUTO) 18.7 % (20.0-44.0); MEAN CORPUSCULAR HGB CONC 31 g/dl (31.0-36.0); MEAN CORPUSCULAR VOLUME 84 fL (80-96); MONOCYTES # (AUTO) 0.3 K/uL (0.1-1.30); NEUTROPHILS % (AUTO) 74.1 % (43.0-81.0); PLATELET COUNT (AUTO) 257 K/uL (150-450); RED BLOOD CELL COUNT(AUTO) 3.07 MIL/uL (4.5-6.0); WHITE BLOOD COUNT (AUTO) 5.4 K/uL (4.3-11.0)
--- NOTE | 2021-09-23 07:58 | NUR ---
RN OPENING NOTES RECEIVED PATIENT IN BED SLEEPING, OBTUNDED, NON- VERBAL. ON TRACH WITH [facility] VENTILATION SETTING: AC-16, TV-500, FIO2 40%, PEEP-5. TOLERATED WELL. NO FACIAL GRIMACING, SOB OR ANY DISTRESS NOTED. ON GTUBE FEEDING RUNNING AT 30CC/HR. NOTED IV ACCESS RT UPPER MIDLINE#20G, LT UPPER MIDLINE#18G, LT HAND SALINE LOCK. NO S/S OF INFILTRATIONS. ALL SAFETY MEASURE IN PLACE. ON ISOLATION PRECAUTION FOR SCABIES. FOR BED SIDE RAILS ARE UP. BED LOCKED AND IN LOW POSITION. PLACE CALL LIGHT WITH IN REACH. WILL CONTINUE TO MONITOR.
[2021-09-23 08:00] VITALS: BP 133/59
[2021-09-23 08:07] LABS: ALBUMIN 1.7 g/dL (3.4-5.0); BILIRUBIN,TOTAL 0.3 mg/dL (0.2-1.0); CALCIUM, SERUM 8.4 mg/dL (8.5-10.1); CREATININE 0.9 mg/dL (0.6-1.3); MAGNESIUM 2.5 mg/dL (1.8-2.4); PHOSPHORUS 1.6 mg/dL (2.5-4.9); TOTAL PROTEIN, SERUM 6.9 g/dL (6.4-8.2)
[2021-09-23] MEDS: LEVALBUTEROL HCL NEB 1.25 MG/0.5 ML VIAL.NEB NEB SCH ×2 (08:16→14:36)
[2021-09-23 08:34] LABS: POTASSIUM 2.7 mmol/L (3.5-5.1)
[2021-09-23] MEDS: METOPROLOL TARTRATE 25 MG TABLET GT SCH ×2 (09:55→21:00)
[2021-09-23] MEDS: GABAPENTIN 100 MG CAPSULE GT SCH ×2 (09:55→20:23)
[2021-09-23] MEDS: FUROSEMIDE 20 MG TABLET GT SCH (09:57)
[2021-09-23] MEDS: AMLODIPINE BESYLATE 10 MG TABLET GT SCH (09:58)
[2021-09-23] MEDS: PANTOPRAZOLE 40 MG VIAL IV SCH ×2 (09:59→17:12)
[2021-09-23] MEDS: CHLORHEXIDINE GLUCONATE 15 ML UDC MM SCH ×2 (09:59→17:11)
[2021-09-23] MEDS: LEVETIRACETAM SOL (5 ML) 100 MG/ML UDC GT SCH ×2 (09:59→20:23)
[2021-09-23] MEDS: MEROPENEM 1 G in IV NS 0.9% 100 ML IV SCH ×2 (10:01→20:23)
[2021-09-23] MEDS: ARGININE/GLUTAMINE/CALCIUM BMB 1 EACH POWD.PACK GT SCH ×2 (10:01→17:13)
[2021-09-23] MEDS: HYDROGEL DRESSING 90 GM TUBE TP SCH (10:02)
[2021-09-23] MEDS: PROSOURCE / PROSTAT (PYXIS) 30 ML UDC GT SCH (10:02)
[2021-09-23] MEDS: MUPIROCIN OINT 2% 22 GM TUBE NS SCH ×2 (10:02→20:23)
[2021-09-23] MEDS: HYDROCORTISONE 1% CREAM 28.35 GM TUBE TP SCH ×2 (10:03→17:16)
[2021-09-23] MEDS ORDERED: POTASSIUM CHLORIDE 20 MEQ TAB.PRT.SR PO ONE (10:30)
[2021-09-23] MEDS ORDERED: POTASSIUM CHLORIDE 20 MEQ POWDER PACKET GT ONE (11:30)
[2021-09-23 12:00] VITALS: BP 107/49
[2021-09-23] MEDS: POTASSIUM CL. PREMIX PERIPHER. 50 ML IV SCH ×2 (12:05→12:46)
[2021-09-23 16:00] VITALS: BP 101/43
[2021-09-23] MEDS ORDERED: NEUTRA PHOS 1 POWD.PACKET GT ONE (16:00)
[2021-09-23] MEDS: ASCORBIC ACID 500 MG TABLET GT SCH (17:11)
[2021-09-23] MEDS: FERROUS SULFATE UDC 300 MG/5 ML UDC GT SCH (17:11)
[2021-09-23] MEDS: DOCUSATE SODIUM LIQ 100 MG/10 ML UDC GT SCH (17:12)
--- NOTE | 2021-09-23 18:51 | NUR ---
RN CLOSING NOTES: PATIENT IN BED RESTING, OPENS EYES UPON AROUSAL. NON- VERBAL. NO SIGNIFICANT CHANGES THROUGHOUT SHIFT. [facility] WELL [facility]OL[facility]. GTUBE FEEDING RUNNING @ 30CC/HR, TOLERATING WELL.. ALL DUE MEDS GIVEN PER ORDER. NO RESIDUAL NOTED. IV ACCESS RT UPPER MIDLINE#20G, LT UPPER MIDLINE#18G, LT HAND SALINE LOCK. NO S/S OF INFILTRATIONS. KEPT PATIENT CLEAN AND DRY.PROVIDED GOOD SKIN CARE. WOUND CARE RENDERED ORDERED, TOLERATED WELL. ALL SAFETY MEASURE IN PLACE. ON ISOLATION PRECAUTION FOR SCABIES. 3X BED SIDE RAILS ARE UP. BED IN LOW POSITION AND LOCKED. PLACE CALL LIGHT WITH IN REACH. WILL ENDORSE TO INSTRUMENT TECHNOLOGIST FOR CONTINUITY OF CARE.
--- NOTE | 2021-09-23 19:20 | NUR ---
RN NOTE RECEIVED PATIENT IN BED RESTING OBTUNDED,EYES CLOSED ON MECHANICAL VENT TELE MONITORING IV SITE IS ON LEFT UPPER ARM MID LINE AND LEFT FOREARM INTACT PATENT,ON G-TUBE FEEDING GLUCERNA 1.2 50CC/HR,CHECKED PLACEMENT IN PLACE NO RESIDUAL NOTED,RAMOS IN PLACE URINE DRAINING YELLOW AND CLEAR BY GRAVITY,SAFETY MEASURE IMPLEMENT HEAD OF THE BED ELEVATED,WILL REPOSITION EVERY 2HOURS, BED IN LOW POSITION AND LOCKED,CONTINUE TO MONITOR.
[2021-09-23 20:00] VITALS: BP 95/64
[2021-09-23] MEDS: VANCOMYCIN 1.25 GM in IV D5W 250 ML IV SCH (20:04)
[2021-09-24] VITALS: BP 116/50
[2021-09-24 04:00] VITALS: BP 118/43
--- NOTE | 2021-09-24 04:31 | NUR ---
RT called to assess pt for desaturation. pt sat 85-87% on 40% fio2. increased fio2 with no change. suction done. no change. abg to be done.
[2021-09-24 04:53] LABS: ABG BASE EXCESS 2.8 mmol/L; ABG OXYGEN SATURATION 81.9 % (92.0-98.5); ABG PCO2 37.7 mmHg (35.0-45.0); ABG PH 7.467 (7.350-7.450); ABG PO2 48.7 mmHg (75.0-100.0); AaDO2 193.1 mmHg; COHb 0.3 % (0.5-1.5); MetHb 0.2 % (0.0-1.5); O2Hb 81.5 % (94.0-97.0); SITE, ABG Right Radial; VENT MODE, BG AC 16 500 40% +5
--- NOTE | 2021-09-24 05:05 | NUR ---
RT abg done. fio2 increased to 50%. sat 100%. no sob, no distress. chang rodriguez, notified.
--- NOTE | 2021-09-24 05:14 | NUR ---
RN NOTE AT 0420 PATIENT DESATURATION TO 83% CALLED RT AND CALLED ON CALLED MD ROSALIE LEHMAN AND RECEIVED ORDER FOR ABG ARTRIAL BLOOD GAS STAT NOTED AND CARRIED OUT,RESULTS SHOWS O2 DECREASED FIO2 INCREASING TO 50% CONTINUE TO MONITOR.
[2021-09-24] MEDS: GLUCERNA 1.2 1,000 ML BOTTLE NG PRN (05:47)
--- NOTE | 2021-09-24 05:58 | NUR ---
0558 ABG RESULT RELAYED TO JOHN PAULSON WITH NO ORDER MADE. PATIENT ON 50 % FIO2 SATTING 100%. NO SIGNS OF DISTRESS. HOB ELEVATED FOR MAX OXYGENATION. WE WILL CONT. TO MONITOR CLOSELY.
--- NOTE | 2021-09-24 06:58 | NUR ---
RN NOTE PATIENT REMAINS ON OBTUNDED EYES OPENED ON MECHANICAL VENT ON G-TUBE FEEDING GLUCERNA 1.2 40CC/HR AND FLUSH 200 EVERY 6HOURS KEPT CLEAN AND DRY ALL THE TIME,KEPT COMFORTABLE REPOSITIONED EVERY 2HOURS ALL DUE MEDS GIVEN MD ORDERED KEPT CLEAN AND DRY ALL THE TIME ALL NEEDS MET,ENDORSE NEXT COMING SHIFT FOR CONTINUATION OF CARE
--- NOTE | 2021-09-24 07:35 | NUR ---
RN OPENING NOTES RECEIVED PATIENT IN BED SLEEPING, OBTUNDED, NON- VERBAL. ON TRACH WITH [facility] VENTILATION SETTING: AC-16, TV-500, FIO2 50%, PEEP-5. TOLERATED WELL. NO FACIAL GRIMACING, SOB OR ANY DISTRESS NOTED. ON GTUBE FEEDING RUNNING AT 40CC/HR. NOTED IV ACCESS RT UPPER MIDLINE#20G, LT UPPER MIDLINE#18G, LT HAND SALINE LOCK. NO S/S OF INFILTRATIONS. ALL SAFETY MEASURE IN PLACE. ON ISOLATION PRECAUTION FOR SCABIES. FOR BED SIDE RAILS ARE UP. BED LOCKED AND IN LOW POSITION. PLACE CALL LIGHT WITH IN REACH. WILL CONTINUE TO MONITOR.
[2021-09-24] MEDS: LEVALBUTEROL HCL NEB 1.25 MG/0.5 ML VIAL.NEB NEB SCH ×2 (07:43→15:54)
[2021-09-24 08:00] VITALS: BP 119/60
[2021-09-24 08:34] LABS: ALBUMIN 1.7 g/dL (3.4-5.0); BILIRUBIN,TOTAL 0.3 mg/dL (0.2-1.0); CALCIUM, SERUM 8.3 mg/dL (8.5-10.1); CREATININE 0.7 mg/dL (0.6-1.3); MAGNESIUM 2.3 mg/dL (1.8-2.4); PHOSPHORUS 2.5 mg/dL (2.5-4.9); POTASSIUM 3.9 mmol/L (3.5-5.1); TOTAL PROTEIN, SERUM 6.7 g/dL (6.4-8.2)
[2021-09-24] MEDS: PANTOPRAZOLE 40 MG VIAL IV SCH ×2 (09:33→17:10)
[2021-09-24] MEDS: GABAPENTIN 100 MG CAPSULE GT SCH ×2 (09:34→21:12)
[2021-09-24] MEDS: FUROSEMIDE 20 MG TABLET GT SCH (09:34)
[2021-09-24] MEDS: METOPROLOL TARTRATE 25 MG TABLET GT SCH ×2 (09:35→21:00)
[2021-09-24] MEDS: CHLORHEXIDINE GLUCONATE 15 ML UDC MM SCH ×2 (09:35→17:10)
[2021-09-24] MEDS: AMLODIPINE BESYLATE 10 MG TABLET GT SCH (09:35)
[2021-09-24] MEDS: LEVETIRACETAM SOL (5 ML) 100 MG/ML UDC GT SCH ×2 (09:36→21:14)
[2021-09-24] MEDS: MEROPENEM 1 G in IV NS 0.9% 100 ML IV SCH ×2 (09:46→21:57)
[2021-09-24] MEDS: ARGININE/GLUTAMINE/CALCIUM BMB 1 EACH POWD.PACK GT SCH ×2 (10:07→17:09)
[2021-09-24] MEDS: HYDROGEL DRESSING 90 GM TUBE TP SCH (10:08)
[2021-09-24] MEDS: PROSOURCE / PROSTAT (PYXIS) 30 ML UDC GT SCH (10:08)
[2021-09-24] MEDS: MUPIROCIN OINT 2% 22 GM TUBE NS SCH ×2 (10:08→21:14)
[2021-09-24] MEDS: HYDROCORTISONE 1% CREAM 28.35 GM TUBE TP SCH ×2 (10:09→17:11)
[2021-09-24 11:46] LABS: BASOPHILS % (AUTO) 0.5 % (0.0-2.0); EOSINOPHILS % (AUTO) 3.5 % (0.0-6.0); HEMATOCRIT 27 % (39-51); HEMOGLOBIN 8.4 g/dL (13.5-17.5); LYMPHOCYTES # (AUTO) 0.8 K/uL (0.8-4.8); LYMPHOCYTES % (AUTO) 20.5 % (20.0-44.0); MEAN CORPUSCULAR HGB CONC 31 g/dl (31.0-36.0); MEAN CORPUSCULAR VOLUME 85 fL (80-96); MONOCYTES # (AUTO) 0.1 K/uL (0.1-1.30); MONOCYTES % (AUTO) 3.4 % (2.0-12.0); NEUTROPHILS # (AUTO) 2.7 K/uL (1.8-8.9); NEUTROPHILS % (AUTO) 72.1 % (43.0-81.0); PLATELET COUNT (AUTO) 308 K/uL (150-450); RED BLOOD CELL COUNT(AUTO) 3.22 MIL/uL (4.5-6.0); WHITE BLOOD COUNT (AUTO) 3.8 K/uL (4.3-11.0)
[2021-09-24 12:00] VITALS: BP 119/60
--- NOTE | 2021-09-24 12:12 | NUR ---
RN NOTES CONSENT OBTAINED FOR SERIAL DEBRIDEMENT OF SACRAL AREA.
[2021-09-24] MEDS: EPOETIN ALFA-EPBX 4,000 UNIT/ML VIAL SQ SCH (15:15)
[2021-09-24 16:00] VITALS: BP 101/50
[2021-09-24] MEDS: ASCORBIC ACID 500 MG TABLET GT SCH (17:09)
[2021-09-24] MEDS: DOCUSATE SODIUM LIQ 100 MG/10 ML UDC GT SCH (17:10)
[2021-09-24] MEDS: FERROUS SULFATE UDC 300 MG/5 ML UDC GT SCH (17:10)
--- NOTE | 2021-09-24 19:14 | NUR ---
RN CLOSING NOTES PATIENT IN BED RESTING, OPENS EYES UPON AROUSAL. NON- VERBAL. NO SIGNIFICANT CHANGES THROUGHOUT SHIFT. [facility] V[facility] WELL TOLERATED. GTUBE FEEDING RUNNING @ 40CC/HR, TOLERATING WELL.. ALL DUE MEDS GIVEN PER ORDER. NO RESIDUAL NOTED. IV ACCESS RT UPPER MIDLINE#20G, LT UPPER MIDLINE#18G, LT HAND SALINE LOCK. NO S/S OF INFILTRATIONS. KEPT PATIENT CLEAN AND DRY.PROVIDED GOOD SKIN CARE. WOUND CARE RENDERED ORDERED, TOLERATED WELL. ALL SAFETY MEASURE IN PLACE. ON ISOLATION PRECAUTION FOR SCABIES. 3X BED SIDE RAILS ARE UP. BED IN LOW POSITION AND LOCKED. PLACE CALL LIGHT WITH IN REACH. WILL ENDORSE TO NIGHT
--- NOTE | 2021-09-24 19:20 | NUR ---
RN OPENING NOTES RECEIVED PATIENT IN BED SLEEPING, OBTUNDED, NON- VERBAL. ON TRACH WITH [facility] VENTILATION SETTING: AC-16, TV-500, FIO2 50%, PEEP-5. TOLERATED WELL. REMAIN AFEBRILE, NO FACIAL GRIMACING, SOB OR ANY DISTRESS NOTED. ON GTUBE FEEDING PATENT, INTACT AND RUNNING WELL, FLUSHED WITH NO RESIDUAL NOTED UPON ASPIRATION AND RUNNING AT 40CC/HR. NOTED IV ACCESS RT UPPER MIDLINE#20G, LT UPPER MIDLINE#18G, LT HAND SALINE LOCK. NO S/S OF INFILTRATIONS. ALL SAFETY MEASURE IN PLACE. ON ISOLATION PRECAUTION FOR SCABIES. FOR BED SIDE RAILS ARE UP. BED LOCKED AND IN LOW POSITION. PLACE CALL LIGHT WITH IN REACH. WILL CONTINUE TO MONITOR
[2021-09-24 20:00] VITALS: BP 95/50
[2021-09-24] MEDS: VANCOMYCIN 1.25 GM in IV D5W 250 ML IV SCH (20:21)
[2021-09-25] VITALS: BP 112/61
--- NOTE | 2021-09-25 00:45 | NUR ---
RN NOTES GIVE REPORT TO LORRAINE NGUYEN
--- NOTE | 2021-09-25 01:50 | NUR ---
RN NOTES PATIENT TRANSFERRED TO , UNDER ACLS PROTOCOL, WITH RESPIRATORY THERAPY AT BEDSIDE,
[2021-09-25 01:55] VITALS: BP 103/52
--- NOTE | 2021-09-25 01:57 | NUR ---
SWITCH TENDER NOTES: PATIENT CAME FROM TJ FLOOR WITH 2 RT,AWAKE, OBTUNDED, NON VERBAL, NO S/S OF DISTRESS NOTED. NOT IN PAIN, NO MOANING. HOB ELEVATED AT ALL TIMES. GTUBE INTACT WITH DRESSING CLEAN, DRY AND INTACT TUBE FEEDING RESUMED AT 40ML/HOUR. RESIDUAL CHECKED, NONE. WITH TRACHEOSTOMY TUBE INTACT CONNECTED TO THE VENTILATOR MACHINE. BED ALRM ON. BED IN LOWEST AND LOCKED P[OSITION. ON CONTACT ISOLATION FOR SCABIES. WITH RAMOS CATHETER INTACT, DRAINING CLEAR YELLOW URINE. OFFLOADED.
[2021-09-25 04:00] VITALS: BP 99/49
--- NOTE | 2021-09-25 07:00 | NUR ---
Pictures of the sacral wounds upon transfer are not taken due to dressing was just changed by the TJ RN before patient is being transferred according to the reports. Endorsed to the day shift RN.
--- NOTE | 2021-09-25 07:52 | NUR ---
MS RN OPENING NOTES RECEIVED PATIENT IN BED SLEEPING, OBTUNDED, NON- VERBAL. ON TRACH WITH [facility] VENTILATION SETTING: AC-16, TV-500, FIO2 40%, PEEP-5. NO S/SX OF DISTRESS NOTED. NO SOB. NO FACIAL GRIMACING.ON GTUBE FEEDING RUNNING AT 50CC/HR. NOTED IV ACCESS RT UPPER MIDLINE#20G, LT UPPER MIDLINE#18G, LT HAND SALINE LOCK. NO S/S OF INFILTRATIONS. ALL SAFETY MEASURE IN PLACE WITH SIDE RAILS UP X2. BED LOCKED AND IN LOW POSITION. ON CONTACT PRECAUTIONS FOR SCABIES. CALL LIGHT IS WITHIN REACH. WILL MONITOR PATIENT FOR CHANGES IN CONDITION.
[2021-09-25] MEDS: LEVALBUTEROL HCL NEB 1.25 MG/0.5 ML VIAL.NEB NEB SCH ×3 (08:09→23:30)
[2021-09-25] MEDS: CHLORHEXIDINE GLUCONATE 15 ML UDC MM SCH ×2 (08:47→16:40)
[2021-09-25] MEDS: LEVETIRACETAM SOL (5 ML) 100 MG/ML UDC GT SCH ×2 (08:58→21:13)
[2021-09-25] MEDS: METOPROLOL TARTRATE 25 MG TABLET GT SCH ×2 (09:00→21:00)
[2021-09-25] MEDS: ARGININE/GLUTAMINE/CALCIUM BMB 1 EACH POWD.PACK GT SCH ×2 (09:00→17:00)
[2021-09-25] MEDS: AMLODIPINE BESYLATE 10 MG TABLET GT SCH (09:00)
[2021-09-25] MEDS: GABAPENTIN 100 MG CAPSULE GT SCH ×2 (09:01→21:13)
[2021-09-25] MEDS: PANTOPRAZOLE 40 MG VIAL IV SCH ×2 (09:03→16:40)
[2021-09-25] MEDS: PROSOURCE / PROSTAT (PYXIS) 30 ML UDC GT SCH (09:05)
[2021-09-25] MEDS: MEROPENEM 1 G in IV NS 0.9% 100 ML IV SCH ×2 (09:11→21:12)
[2021-09-25] MEDS: FUROSEMIDE 20 MG TABLET GT SCH (09:15)
[2021-09-25 09:17] VITALS: BP 102/47
[2021-09-25] MEDS: MUPIROCIN OINT 2% 22 GM TUBE NS SCH ×2 (09:22→21:15)
[2021-09-25] MEDS: HYDROGEL DRESSING 90 GM TUBE TP SCH (09:22)
[2021-09-25] MEDS: HYDROCORTISONE 1% CREAM 28.35 GM TUBE TP SCH ×2 (09:23→16:48)
[2021-09-25 10:38] LABS: BASOPHILS % (AUTO) 0.5 % (0.0-2.0); EOSINOPHILS % (AUTO) 3.7 % (0.0-6.0); HEMATOCRIT 26 % (39-51); HEMOGLOBIN 7.9 g/dL (13.5-17.5); LYMPHOCYTES # (AUTO) 1.4 K/uL (0.8-4.8); LYMPHOCYTES % (AUTO) 25.5 % (20.0-44.0); MEAN CORPUSCULAR HGB CONC 31 g/dl (31.0-36.0); MEAN CORPUSCULAR VOLUME 84 fL (80-96); MONOCYTES # (AUTO) 0.2 K/uL (0.1-1.30); MONOCYTES % (AUTO) 4.5 % (2.0-12.0); NEUTROPHILS # (AUTO) 3.5 K/uL (1.8-8.9); NEUTROPHILS % (AUTO) 65.8 % (43.0-81.0); PLATELET COUNT (AUTO) 281 K/uL (150-450); RED BLOOD CELL COUNT(AUTO) 3.07 MIL/uL (4.5-6.0); WHITE BLOOD COUNT (AUTO) 5.3 K/uL (4.3-11.0)
[2021-09-25 12:13] LABS: ALBUMIN 1.7 g/dL (3.4-5.0); BILIRUBIN,TOTAL 0.3 mg/dL (0.2-1.0); CALCIUM, SERUM 8.5 mg/dL (8.5-10.1); CREATININE 0.9 mg/dL (0.6-1.3); PHOSPHORUS 2.1 mg/dL (2.5-4.9); POTASSIUM 3.7 mmol/L (3.5-5.1); TOTAL PROTEIN, SERUM 6.6 g/dL (6.4-8.2)
[2021-09-25 12:20] VITALS: BP 98/62
--- NOTE | 2021-09-25 15:00 | NUR ---
MS RN NOTE WOUND CARE RENDERED ORDERED, PT TOLERATED WELL.
[2021-09-25] MEDS ORDERED: NEUTRA PHOS 1 POWD.PACKET NG ONE (16:00)
[2021-09-25 16:04] VITALS: BP 112/66
[2021-09-25] MEDS: ASCORBIC ACID 500 MG TABLET GT SCH (17:10)
[2021-09-25] MEDS: DOCUSATE SODIUM LIQ 100 MG/10 ML UDC GT SCH (17:10)
[2021-09-25] MEDS: FERROUS SULFATE UDC 300 MG/5 ML UDC GT SCH (17:10)
[2021-09-25] MEDS: GLUCERNA 1.2 1,000 ML BOTTLE NG PRN (17:44)
--- NOTE | 2021-09-25 18:46 | NUR ---
MS RN CLOSING NOTES PATIENT IN BED SLEEPING, OBTUNDED, NON- VERBAL. ON TRACH WITH [facility] VENTILATION SETTING: AC-16, TV-500, FIO2 40%, PEEP-5. NO S/SX OF DISTRESS NOTED. NO SOB. NO FACIAL GRIMACING.ON GTUBE FEEDING RUNNING AT 50CC/HR. IV ACCESS RT UPPER MIDLINE#20G, LT UPPER MIDLINE#18G, LT HAND SALINE LOCK PATENT AND INTACT. ALL SAFETY MEASURE MAINTAINED. ON CONTACT PRECAUTIONS FOR SCABIES. CALL LIGHT IS WITHIN REACH. ALL NEEDS MET THROUGHOUT SHIFT. WILL ENDORSE CONTINUITY OF CARE TO ONCOMING SHIFT.
[2021-09-25] MEDS: VANCOMYCIN 1.25 GM in IV D5W 250 ML IV SCH (19:03)
--- NOTE | 2021-09-26 03:24 | NUR ---
NON-ADMIN STOCKED MEDS PROTONIX, POTASSIUM CHLORIDE AND K DUR. WERE STOCK MEDS SO JUST PLACED THEM NON-ADMIN SO THE RED WOULD NOT APPEAR.
--- NOTE | 2021-09-26 06:46 | NUR ---
BUNCH MAKER HAND CLOSING NOTES PT IN BED, ASLEEP, OPENS EYES TO VERBAL STIMULI. AOx1, OBTUNDED. ON VENT AND TOLERATING WELL. NO SOB NOTED. NO S/SX OF RESPIRATORY DISTRESS NOTED. TELE MONITOR DETECTS SINUS RHYTHM WITH RATE OF 85. IV ACCESS IN JUAN MIDLINE, MAURO MIDLINE AND R HAND #22. IV IS INTACT, PATENT, AND FLUSHING WELL. G-TUBE RUNNING GLUCERNA @ 50 ML/HR. ALL NEEEDS MET. PT KEPT CLEAN AND DRY. SAFETY PRECAUTIONS IN PLACE: BED IN LOWEST, LOCKED POSITION, SIDERAILS UPx2, AND BRAKES ON. TABLE AND CALL LIGHT WITHIN REACH. WILL ENDORSE TO ONCOMING SHIFT FOR YESSI.
[2021-09-26 07:21] LABS: BASOPHILS % (AUTO) 0.6 % (0.0-2.0); EOSINOPHILS % (AUTO) 6.5 % (0.0-6.0); HEMATOCRIT 26 % (39-51); LYMPHOCYTES # (AUTO) 1.4 K/uL (0.8-4.8); LYMPHOCYTES % (AUTO) 26.7 % (20.0-44.0); MEAN CORPUSCULAR HGB CONC 31 g/dl (31.0-36.0); MEAN CORPUSCULAR VOLUME 87 fL (80-96); MONOCYTES # (AUTO) 0.3 K/uL (0.1-1.30); MONOCYTES % (AUTO) 5.1 % (2.0-12.0); NEUTROPHILS # (AUTO) 3.3 K/uL (1.8-8.9); NEUTROPHILS % (AUTO) 61.1 % (43.0-81.0); PLATELET COUNT (AUTO) 282 K/uL (150-450); RED BLOOD CELL COUNT(AUTO) 2.97 MIL/uL (4.5-6.0); WHITE BLOOD COUNT (AUTO) 5.3 K/uL (4.3-11.0)
--- NOTE | 2021-09-26 07:30 | NUR ---
BOLT THREADER OPENING NOTES RECEIVED PATIENT IN BED SLEEPING, OBTUNDED, NON- VERBAL. ON TRACH WITH [facility] VENTILATION SETTING: AC-16, TV-500, FIO2 40%, PEEP-5. NO S/SX OF DISTRESS NOTED. NO SOB. NO FACIAL GRIMACING.ON GTUBE FEEDING RUNNING AT 50CC/HR. NOTED IV ACCESS RT UPPER MIDLINE#20G, LT UPPER MIDLINE#18G, LT HAND SALINE LOCK. NO S/S OF INFILTRATIONS. ALL SAFETY MEASURE IN PLACE WITH SIDE RAILS UP X2. BED LOCKED AND IN LOW POSITION. ON CONTACT PRECAUTIONS FOR SCABIES. CALL LIGHT IS WITHIN REACH. WILL MONITOR PATIENT FOR CHANGES IN CONDITION.
[2021-09-26 07:50] LABS: ALBUMIN 1.8 g/dL (3.4-5.0); BILIRUBIN,TOTAL 0.2 mg/dL (0.2-1.0); CALCIUM, SERUM 8.7 mg/dL (8.5-10.1); CREATININE 0.7 mg/dL (0.6-1.3); PHOSPHORUS 2.7 mg/dL (2.5-4.9); POTASSIUM 3.7 mmol/L (3.5-5.1); TOTAL PROTEIN, SERUM 6.9 g/dL (6.4-8.2)
[2021-09-26] MEDS: LEVALBUTEROL HCL NEB 1.25 MG/0.5 ML VIAL.NEB NEB SCH ×3 (07:58→23:03)
[2021-09-26 08:00] VITALS: BP 109/62
[2021-09-26] MEDS: PANTOPRAZOLE 40 MG VIAL IV SCH ×2 (08:34→16:59)
[2021-09-26] MEDS: GABAPENTIN 100 MG CAPSULE GT SCH ×2 (08:35→22:08)
[2021-09-26] MEDS: LEVETIRACETAM SOL (5 ML) 100 MG/ML UDC GT SCH ×2 (08:35→22:08)
[2021-09-26] MEDS: CHLORHEXIDINE GLUCONATE 15 ML UDC MM SCH ×2 (08:35→16:58)
[2021-09-26] MEDS: FUROSEMIDE 20 MG TABLET GT SCH (08:35)
[2021-09-26] MEDS: HYDROCORTISONE 1% CREAM 28.35 GM TUBE TP SCH ×2 (08:41→17:03)
[2021-09-26] MEDS: HYDROGEL DRESSING 90 GM TUBE TP SCH (08:41)
[2021-09-26] MEDS: MUPIROCIN OINT 2% 22 GM TUBE NS SCH ×2 (08:41→22:10)
[2021-09-26] MEDS: METOPROLOL TARTRATE 25 MG TABLET GT SCH ×2 (08:45→21:00)
[2021-09-26] MEDS: AMLODIPINE BESYLATE 10 MG TABLET GT SCH (08:46)
[2021-09-26] MEDS: PROSOURCE / PROSTAT (PYXIS) 30 ML UDC GT SCH (08:49)
[2021-09-26] MEDS: MEROPENEM 1 G in IV NS 0.9% 100 ML IV SCH ×2 (08:56→22:09)
[2021-09-26] MEDS: ARGININE/GLUTAMINE/CALCIUM BMB 1 EACH POWD.PACK GT SCH ×2 (09:16→16:58)
[2021-09-26 12:00] VITALS: BP 98/55
[2021-09-26 16:00] VITALS: BP 110/58
[2021-09-26] MEDS: FERROUS SULFATE UDC 300 MG/5 ML UDC GT SCH (17:32)
[2021-09-26] MEDS: ASCORBIC ACID 500 MG TABLET GT SCH (17:32)
[2021-09-26] MEDS: DOCUSATE SODIUM LIQ 100 MG/10 ML UDC GT SCH (17:32)
--- NOTE | 2021-09-26 18:57 | NUR ---
FURNITURE ARRANGER CLOSING NOTES PATIENT IN BED SLEEPING, OBTUNDED, NON- VERBAL. ON TRACH WITH [facility] VENTILATION SETTING: AC-16, TV-500, FIO2 40%, PEEP-5. NO S/SX OF DISTRESS NOTED. NO SOB. NO FACIAL GRIMACING.ON GTUBE FEEDING RUNNING AT 50CC/HR. IV ACCESS RT UPPER MIDLINE#20G, LT UPPER MIDLINE#18G, LT HAND SALINE LOCK PATENT AND INTACT. ALL SAFETY MEASURE MAINTAINED. ON CONTACT PRECAUTIONS FOR SCABIES. CALL LIGHT IS WITHIN REACH. ALL NEEDS MET THROUGHOUT SHIFT. WILL ENDORSE CONTINUITY OF CARE TO ONCOMING SHIFT.
[2021-09-26] MEDS: VANCOMYCIN 1.25 GM in IV D5W 250 ML IV SCH (19:16)
--- NOTE | 2021-09-26 19:31 | NUR ---
FOOD MIXER ASSEMBLER OPENING NOTES RECEIVED PT IN BED, ASLEEP, OPENS EYES TO VERBAL STIMULI. AOx1, OBTUNDED. ON VENT AND TOLERATING WELL. NO SOB NOTED. NO S/SX OF RESPIRATORY DISTRESS NOTED. TELE MONITOR DETECTS SINUS RHYTHM WITH RATE OF 85. IV ACCESS IN JUAN MIDLINE, MAURO MIDLINE AND R HAND. IV IS INTACT, PATENT, AND FLUSHING WELL. G-TUBE RUNNING GLUCERNA @50 ML/HR. SAFETY PRECAUTIONS IN PLACE: BED IN LOWEST, LOCKED POSITION, SIDERAILS UPx2, AND BRAKES ON. TABLE AND CALL LIGHT WITHIN REACH. WILL CONTINUE TO MONITOR.
[2021-09-26 20:00] VITALS: BP 107/54
--- NOTE | 2021-09-26 23:25 | NUR ---
REMOVED SECOND DOSE OF KEPPRA AND GABAPENTIN BECAUSE MEDICATION SPILLED ON FLOOR.
[2021-09-27] VITALS: BP 124/62
[2021-09-27 04:00] VITALS: BP 109/64
--- NOTE | 2021-09-27 07:20 | NUR ---
CLAY PIGEON LOADER OPENING NOTES PT IN BED, OPENS EYES TO VERBAL STIMULI. AOx1, OBTUNDED. ON VENT AND TOLERATING WELL. NO SOB NOTED. NO S/SX OF RESPIRATORY DISTRESS NOTED. TELE MONITOR DETECTS SINUS RHYTHM WITH RATE OF 85. IV ACCESS IN JUAN MIDLINE, MAURO MIDLINE AND R HAND. IV IS INTACT, PATENT, AND FLUSHING WELL. G-TUBE RUNNING GLUCERNA @50 ML/HR. ALL NEEDS MET. PT KEPT CLEAN AND DRY. SAFETY PRECAUTIONS IN PLACE: BED IN LOWEST, LOCKED POSITION, SIDERAILS UPx2, AND BRAKES ON. TABLE AND CALL LIGHT WITHIN REACH. WILL ENDORSE TO ONCOMING SHIFT FOR YESSI.
--- NOTE | 2021-09-27 07:38 | NUR ---
RN OPENING NOTES Patient seen comfortably lying in bed, breathing even and unlabored, no SOB, no apparent distress noted, denies any pain or discomfort at this time, no grimacing. Call light left within reach, safety precautions in place, brakes locked, side rails up X 2, will monitor closely for any changes.
[2021-09-27 08:00] VITALS: BP 134/66
[2021-09-27] MEDS: LEVALBUTEROL HCL NEB 1.25 MG/0.5 ML VIAL.NEB NEB SCH ×3 (08:06→23:22)
[2021-09-27] MEDS: CHLORHEXIDINE GLUCONATE 15 ML UDC MM SCH ×2 (09:01→17:31)
[2021-09-27] MEDS: MEROPENEM 1 G in IV NS 0.9% 100 ML IV SCH ×2 (09:01→22:42)
[2021-09-27] MEDS: LEVETIRACETAM SOL (5 ML) 100 MG/ML UDC GT SCH ×2 (09:02→22:43)
[2021-09-27] MEDS: GABAPENTIN 100 MG CAPSULE GT SCH ×2 (09:02→22:42)
[2021-09-27] MEDS: PANTOPRAZOLE 40 MG VIAL IV SCH ×2 (09:02→17:30)
[2021-09-27] MEDS: AMLODIPINE BESYLATE 10 MG TABLET GT SCH (09:03)
[2021-09-27] MEDS: FUROSEMIDE 20 MG TABLET GT SCH (09:04)
[2021-09-27] MEDS: METOPROLOL TARTRATE 25 MG TABLET GT SCH ×2 (09:04→22:43)
[2021-09-27] MEDS: ARGININE/GLUTAMINE/CALCIUM BMB 1 EACH POWD.PACK GT SCH ×2 (09:11→17:30)
[2021-09-27] MEDS: PROSOURCE / PROSTAT (PYXIS) 30 ML UDC GT SCH (09:11)
[2021-09-27 09:32] LABS: BASOPHILS % (AUTO) 0.6 % (0.0-2.0); HEMATOCRIT 26 % (39-51); HEMOGLOBIN 8.2 g/dL (13.5-17.5); LYMPHOCYTES # (AUTO) 1.7 K/uL (0.8-4.8); LYMPHOCYTES % (AUTO) 24.7 % (20.0-44.0); MEAN CORPUSCULAR HGB CONC 32 g/dl (31.0-36.0); MEAN CORPUSCULAR VOLUME 85 fL (80-96); MONOCYTES # (AUTO) 0.4 K/uL (0.1-1.30); MONOCYTES % (AUTO) 5.4 % (2.0-12.0); NEUTROPHILS # (AUTO) 4.2 K/uL (1.8-8.9); NEUTROPHILS % (AUTO) 62.3 % (43.0-81.0); PLATELET COUNT (AUTO) 296 K/uL (150-450); RED BLOOD CELL COUNT(AUTO) 3.07 MIL/uL (4.5-6.0); WHITE BLOOD COUNT (AUTO) 6.7 K/uL (4.3-11.0)
[2021-09-27] MEDS: HYDROCORTISONE 1% CREAM 28.35 GM TUBE TP SCH ×2 (09:39→17:42)
[2021-09-27] MEDS: MUPIROCIN OINT 2% 22 GM TUBE NS SCH ×2 (09:39→22:45)
[2021-09-27] MEDS: HYDROGEL DRESSING 90 GM TUBE TP SCH (09:40)
[2021-09-27 10:50] LABS: ALBUMIN 1.9 g/dL (3.4-5.0); BILIRUBIN,TOTAL 0.3 mg/dL (0.2-1.0); CREATININE 0.6 mg/dL (0.6-1.3); MAGNESIUM 1.9 mg/dL (1.8-2.4); PHOSPHORUS 2.3 mg/dL (2.5-4.9); POTASSIUM 3.6 mmol/L (3.5-5.1); TOTAL PROTEIN, SERUM 7.1 g/dL (6.4-8.2)
[2021-09-27 12:00] VITALS: BP 112/55
[2021-09-27] MEDS: GLUCERNA 1.2 1,000 ML BOTTLE NG SCH (13:12)
[2021-09-27] MEDS: EPOETIN ALFA-EPBX 4,000 UNIT/ML VIAL SQ SCH (14:48)
[2021-09-27 16:00] VITALS: BP 118/56
[2021-09-27] MEDS: DOCUSATE SODIUM LIQ 100 MG/10 ML UDC GT SCH (17:30)
[2021-09-27] MEDS: FERROUS SULFATE UDC 300 MG/5 ML UDC GT SCH (17:30)
[2021-09-27] MEDS: ASCORBIC ACID 500 MG TABLET GT SCH (17:31)
[2021-09-27] MEDS ORDERED: NEUTRA PHOS 1 POWD.PACKET PO SCH (18:00)
--- NOTE | 2021-09-27 18:22 | NUR ---
RN CLOSING NOTES Patient lying in bed, respirations even and unlabored, no SOB, no dizziness, no palpitations, no apparent distress noted, no grimacing. Gtube remained intact, patent and in place during shift, placement checked via auscultation and aspiration of gastric residuals. All medications given via gtube per MD order, tolerating well. Cerda catheter draining clear yellowish urine free from any sediments, no hematuria, and no unusual odor noted in urine, no grimacing when bladder is palpated, bladder non distended during shift. All needs attended, kept clean and dry, patient repositioned frequently, seizure precautions in place, no seizure episode noted, call light left within reach, safety precautions in place, aspiration precaution rendered at all times, brakes locked, side rails up X 2, will endorse to next shift for continuity of care.
--- NOTE | 2021-09-27 19:15 | NUR ---
TRACKMOBILE OPERATOR OPENING NOTES: RECEIVED PATIENT IN BED, RESTING COMFORTABLY, AWAKE. NON VERBAL. NO S/S OF DISTRESS NOTED. NOT IN PAIN. HOB ELEVATED AT ALL TIMES. CONTACT ISOLATION FOR SCABIES MAINTAINED AT ALL TIMES. ON TELE MONITOR WITH SINUS [address]PRESSION[address] WITH GT FEEDING RUNNING AT 65ML/HR.
[2021-09-27 20:00] VITALS: BP 104/51
[2021-09-27] MEDS: VANCOMYCIN 1 GM in IV D5W 250ml IV SCH (23:32)
[2021-09-28] VITALS (7 sets, daily range): BP systolic 100–118; BP diastolic 49–56
[2021-09-28 07:20] LABS: BASOPHILS % (AUTO) 0.5 % (0.0-2.0); EOSINOPHILS % (AUTO) 7.4 % (0.0-6.0); HEMATOCRIT 28 % (39-51); HEMOGLOBIN 8.8 g/dL (13.5-17.5); LYMPHOCYTES # (AUTO) 1.6 K/uL (0.8-4.8); LYMPHOCYTES % (AUTO) 25.5 % (20.0-44.0); MEAN CORPUSCULAR HGB CONC 31 g/dl (31.0-36.0); MEAN CORPUSCULAR VOLUME 83 fL (80-96); MONOCYTES # (AUTO) 0.5 K/uL (0.1-1.30); MONOCYTES % (AUTO) 7.8 % (2.0-12.0); NEUTROPHILS # (AUTO) 3.6 K/uL (1.8-8.9); NEUTROPHILS % (AUTO) 58.8 % (43.0-81.0); PLATELET COUNT (AUTO) 296 K/uL (150-450); RED BLOOD CELL COUNT(AUTO) 3.44 MIL/uL (4.5-6.0); WHITE BLOOD COUNT (AUTO) 6.1 K/uL (4.3-11.0)
--- NOTE | 2021-09-28 07:20 | NUR ---
RN NOTES Patient in bed resting, opens eyes, non-verbal, obtunded. Breathing even and unlabored, on trach/vent w/ settings tolerated by patient. IV line intact and patent. Gtube in place, feeding of glucerna infusing well, no residual noted. HOB elevated, aspiration precs observed. Cerda catheter draining clear yellow urine. Seizure precautions in place, safety precautions in place: brakes locked, side rails up X 2, call light w/in reach. Will continue to monitor.
[2021-09-28] MEDS: LEVALBUTEROL HCL NEB 1.25 MG/0.5 ML VIAL.NEB NEB SCH ×2 (07:27→15:27)
[2021-09-28 07:51] LABS: ALBUMIN 1.9 g/dL (3.4-5.0); BILIRUBIN,TOTAL 0.3 mg/dL (0.2-1.0); CALCIUM, SERUM 9.1 mg/dL (8.5-10.1); CREATININE 0.7 mg/dL (0.6-1.3); MAGNESIUM 1.9 mg/dL (1.8-2.4); PHOSPHORUS 2.4 mg/dL (2.5-4.9); POTASSIUM 3.8 mmol/L (3.5-5.1); TOTAL PROTEIN, SERUM 7.2 g/dL (6.4-8.2)
[2021-09-28] MEDS: METOPROLOL TARTRATE 25 MG TABLET GT SCH ×2 (09:00→21:17)
[2021-09-28] MEDS: AMLODIPINE BESYLATE 10 MG TABLET GT SCH (09:00)
[2021-09-28] MEDS: LEVETIRACETAM SOL (5 ML) 100 MG/ML UDC GT SCH ×2 (09:39→21:16)
[2021-09-28] MEDS: CHLORHEXIDINE GLUCONATE 15 ML UDC MM SCH ×2 (09:39→16:52)
[2021-09-28] MEDS: MEROPENEM 1 G in IV NS 0.9% 100 ML IV SCH ×2 (09:39→21:22)
[2021-09-28] MEDS: FUROSEMIDE 20 MG TABLET GT SCH (09:40)
[2021-09-28] MEDS: PANTOPRAZOLE 40 MG VIAL IV SCH ×2 (09:40→16:52)
[2021-09-28] MEDS: GABAPENTIN 100 MG CAPSULE GT SCH ×2 (09:40→21:17)
[2021-09-28] MEDS: HYDROCORTISONE 1% CREAM 28.35 GM TUBE TP SCH ×2 (09:49→16:51)
[2021-09-28] MEDS: HYDROGEL DRESSING 90 GM TUBE TP SCH (09:50)
[2021-09-28] MEDS: ARGININE/GLUTAMINE/CALCIUM BMB 1 EACH POWD.PACK GT SCH ×2 (09:50→16:51)
[2021-09-28] MEDS: PROSOURCE / PROSTAT (PYXIS) 30 ML UDC GT SCH (09:50)
[2021-09-28] MEDS: MUPIROCIN OINT 2% 22 GM TUBE NS SCH ×2 (09:50→21:19)
--- NOTE | 2021-09-28 13:00 | NUR ---
RN NOTES GT FLUSHED ORDERED; TRACH SUCTIONING DONE PRN W/ GOOD EFFECT.
[2021-09-28] MEDS: GLUCERNA 1.2 1,000 ML BOTTLE NG SCH (13:07)
[2021-09-28] MEDS ORDERED: NEUTRA PHOS 1 POWD.PACKET PO ONE (16:30)
[2021-09-28] MEDS: ASCORBIC ACID 500 MG TABLET GT SCH (17:01)
[2021-09-28] MEDS: FERROUS SULFATE UDC 300 MG/5 ML UDC GT SCH (17:01)
[2021-09-28] MEDS: DOCUSATE SODIUM LIQ 100 MG/10 ML UDC GT SCH (17:01)
--- NOTE | 2021-09-28 19:00 | NUR ---
RN NOTES Patient in bed opens eyes, non-verbal, remains obtunded. On trach/vent w/ current settings tolerated by patient, no respiratory distress. IV line intact and patent, s/l at this time. Gtube in place, feeding of glucerna infusing well, bag changed, no residual noted. HOB elevated. Cerda cath in place, draining clear yellow urine. Aspiration and seizure precautions observed. Safety precautions maintained: brakes locked, side rails up X 2, call light w/in reach. Will endorse to police shift commander rn for ebony.
--- NOTE | 2021-09-28 19:15 | NUR ---
ECOLOGICAL TECHNICAL OFFICER OPENING NOTES: RECEIVED PATIENT IN BED, ASLEEP, NO S/S OF DISTRESS NOTED. NOT IN PAIN. BED ALARM ON. BED IN LOWEST AND LOCKED POSITION. HOB ELEVATED AT ALL TIMES. WITH TRACH TO VENT MACHINE. ON TELE MONITOR SINUS 82. WITH RAMOS CATHETER INTACT. CONTACT ISOLATION PRECAUTION MAINTAINED AT ALL TIMES. WITH GT FEEDING RUNNING AT 65ML HOUR.
--- NOTE | 2021-09-28 20:31 | NUR ---
INFORMED BUILDING WRECKER RE: VANCO TROUGH RESULT OF 21 YESTERDAY, HE SAID TO CALL PHARMACY, CALLED AND TALKED TO THE PERSONNEL IN PHARMACY SHE SAID THAT THEY ALREADY CHANGED THE DOSE TO 1 GM FROM 1.25MG.
[2021-09-28] MEDS: VANCOMYCIN 1 GM in IV D5W 250ml IV SCH (22:23)
[2021-09-29] MEDS: LEVALBUTEROL HCL NEB 1.25 MG/0.5 ML VIAL.NEB NEB SCH ×4 (00:15→23:38)
[2021-09-29 01:27] VITALS: BP 147/55
[2021-09-29 05:28] VITALS: BP 137/59
--- NOTE | 2021-09-29 05:56 | NUR ---
PHYSICAL SCIENTIST CLOSING NOTES: PATIENT IN BED, AWAKE, NON VERBAL. NO S/S OF DISTRESS NOTED. NOT IN PAIN. BED ALARM ON. BED IN LOWEST AND LOCKED POSITION. HOB ELEVATED AT ALL TIMES. WITH TF RUNNING AT 65ML/HR, NO RESIDUAL NOTED, GT FLUSHED WITH 200ML WATER S4UGNUM. GT DRESSING CHANGED. WOUND TREATMENTS DONE ORDERED. HEELS OFFLOADED. TURNED AND REPOSITIONED [id number]. WITH TRACH DRESSING CLEAN,DRY AND INTACT. CONTACT ISOLATIONS PRECAUTIONS FOR SCABIES AND MRSA MAINTAINED AT ALL TIMES.WITH RAMOS CATHETER INTACT. ON TELE MONITOR WITH SINUS 95.
--- NOTE | 2021-09-29 07:30 | NUR ---
AIR BOX TESTER OPENING NOTES: RECEIVED PATIENT ON BED, ASLEEP AND A/O X1. NO S/S OF DISTRESS NOTED. NOT IN PAIN. WITH TRACH TO VENT MACHINE. ON TELE MONITOR CURRENTLY READING SINUS RHYTMH AT 92BPM. WITH RAMOS CATHETER INTACT. ON CONTACT ISOLATION PRECAUTION MAINTAINED AT ALL TIMES. WITH GT FEEDING RUNNING AT 65ML HOUR. SAFETY MEASURES IN PLACE. BED ALARM ON. BED IN LOWEST AND LOCKED POSITION. HOB ELEVATED AT ALL TIMES. WILL CONTINUE TO MONITOR.
[2021-09-29 07:47] LABS: BASOPHILS % (AUTO) 0.4 % (0.0-2.0); HEMATOCRIT 28 % (39-51); HEMOGLOBIN 8.8 g/dL (13.5-17.5); LYMPHOCYTES # (AUTO) 1.6 K/uL (0.8-4.8); LYMPHOCYTES % (AUTO) 18.5 % (20.0-44.0); MEAN CORPUSCULAR HGB CONC 32 g/dl (31.0-36.0); MEAN CORPUSCULAR VOLUME 83 fL (80-96); MONOCYTES # (AUTO) 0.9 K/uL (0.1-1.30); MONOCYTES % (AUTO) 10.5 % (2.0-12.0); NEUTROPHILS # (AUTO) 5.8 K/uL (1.8-8.9); NEUTROPHILS % (AUTO) 69.6 % (43.0-81.0); PLATELET COUNT (AUTO) 335 K/uL (150-450); RED BLOOD CELL COUNT(AUTO) 3.34 MIL/uL (4.5-6.0); WHITE BLOOD COUNT (AUTO) 8.4 K/uL (4.3-11.0)
[2021-09-29 07:53] LABS: CALCIUM, SERUM 8.7 mg/dL (8.5-10.1); CREATININE 0.7 mg/dL (0.6-1.3); POTASSIUM 3.8 mmol/L (3.5-5.1)
[2021-09-29 08:00] VITALS: BP 105/54
[2021-09-29] MEDS: METOPROLOL TARTRATE 25 MG TABLET GT SCH ×2 (09:00→20:38)
[2021-09-29] MEDS: FUROSEMIDE 20 MG TABLET GT SCH (09:00)
[2021-09-29] MEDS: AMLODIPINE BESYLATE 10 MG TABLET GT SCH (09:00)
[2021-09-29] MEDS: ARGININE/GLUTAMINE/CALCIUM BMB 1 EACH POWD.PACK GT SCH ×2 (09:03→17:00)
[2021-09-29] MEDS: MEROPENEM 1 G in IV NS 0.9% 100 ML IV SCH ×2 (09:03→20:46)
[2021-09-29] MEDS: CHLORHEXIDINE GLUCONATE 15 ML UDC MM SCH ×2 (09:05→17:00)
[2021-09-29] MEDS: PROSOURCE / PROSTAT (PYXIS) 30 ML UDC GT SCH (09:05)
[2021-09-29] MEDS: LEVETIRACETAM SOL (5 ML) 100 MG/ML UDC GT SCH ×2 (09:06→20:51)
[2021-09-29] MEDS: GABAPENTIN 100 MG CAPSULE GT SCH ×2 (09:06→20:46)
[2021-09-29] MEDS: PANTOPRAZOLE 40 MG VIAL IV SCH ×2 (09:06→17:00)
[2021-09-29] MEDS: HYDROGEL DRESSING 90 GM TUBE TP SCH (09:07)
[2021-09-29] MEDS: HYDROCORTISONE 1% CREAM 28.35 GM TUBE TP SCH ×2 (09:08→17:01)
[2021-09-29] MEDS: GLUCERNA 1.2 1,000 ML BOTTLE NG SCH (11:58)
[2021-09-29] MEDS: EPOETIN ALFA-EPBX 4,000 UNIT/ML VIAL SQ SCH (15:34)
[2021-09-29 16:00] VITALS: BP 103/55
[2021-09-29] MEDS: FERROUS SULFATE UDC 300 MG/5 ML UDC GT SCH (17:04)
[2021-09-29] MEDS: ASCORBIC ACID 500 MG TABLET GT SCH (17:04)
[2021-09-29] MEDS: DOCUSATE SODIUM LIQ 100 MG/10 ML UDC GT SCH (17:04)
--- NOTE | 2021-09-29 18:48 | NUR ---
AD OPERATIONS SPECIALIST CLOSING NOTES: PATIENT ON BED, ASLEEP AND A/O X1. NO S/S OF DISTRESS NOTED. NOT IN PAIN. WITH TRACH TO VENT MACHINE. ON TELE MONITOR CURRENTLY READING SINUS RHYTMH AT 90BPM. WITH RAMOS CATHETER INTACT. ON CONTACT ISOLATION PRECAUTION MAINTAINED AT ALL TIMES. WITH GT FEEDING RUNNING AT 65ML HOUR. SAFETY MEASURES IN PLACE. BED ALARM ON. BED IN LOWEST AND LOCKED POSITION. HOB ELEVATED AT ALL TIMES. WILL ENDORSE TO NEXT SHIFT FOR YESSI.
--- NOTE | 2021-09-29 19:30 | NUR ---
ROUTE DRIVER SALESPERSON OPENING NOTES RECEIVED PATIENT ON BED, ASLEEP AND A/O X1. NO SOB OR S/S OF RESPIRATORY DISTRESS NOTED. WITH TRACH TO VENT MACHINE. ON EXTERNAL TELE MONITOR CURRENTLY READING SINUS RHYTHM AT 90 BPM. WITH RAMOS CATHETER INTACT. ON CONTACT ISOLATION PRECAUTIONS. WITH GT FEEDING RUNNING AT 65ML/HOUR. SAFETY PRECAUTIONS IN PLACE. BED IN LOWEST LOCKED POSITION, HOB ELEVATED, SIDE RAILS UP X3, BED ALARM ON, AND CALL LIGHT AND TABLE WITHIN REACH. WILL CONTINUE WITH PLAN OF CARE.
[2021-09-29 20:00] VITALS: BP 103/60
--- NOTE | 2021-09-29 20:51 | NUR ---
RN NOTE HELD METOPROLOL FOR BP OF 103/60 AND HR OF 99. WILL CONTINUE TO MONITOR.
--- NOTE | 2021-09-29 20:52 | NUR ---
RN NOTE ONLY PULLED 500 MG LEVETIRACETAM FROM [facility]. PULLED AN ADDITIONAL 1000 MG. GAVE LEVETIRACETAM 1500 MG ORDERED.
--- NOTE | 2021-09-29 21:15 | NUR ---
RT NOTE PT NOTICED WITH LOW TIDAL VOLUME ON VENTILATOR. NO LEAKS NOTED ON CIRCUIT OR BRYAN. SUCTION PATIENT, TRACH SECURED AND PATENT. NOTIFIED CHARGE NURSE, AWAITING RESPONSE FROM MD FOR FURTHER ORDERS. NO RESPIRATORY DISTRESS NOTED AT THIS TIME. WILL CONTINUE TO MONITOR CLOSELY.
--- NOTE | 2021-09-29 21:53 | NUR ---
RN NOTE INFORMED BY RT THAT TRACH WAS LEAKING. OBTAINED MD ORDER FROM DR GUAJARDO. ASSISTED RT WITH CHANGING TRACH TO SHILEY 7XLT DISTAL AND CUFFED. VITAL SIGNS STABLE. NO SOB OR S/S OF RESPIRATORY DISTRESS. TOLERATING WELL. NO S/S OF BLEEDING. WILL CONTINUE TO MONITOR.
--- NOTE | 2021-09-29 21:58 | NUR ---
RT NOTE REPLACED TRACH FROM PORTEX 9 TO SHILEY 7 XLT CUFFED DISTAL PER GAMING TABLE OPERATOR YAJAIRA. RN KENNY IS AWARE. PT TOLERATING WELL AND RECEIVING ADEQUATE TIDAL VOLUMES POST TRACH CHANGE. CUFF INFLATED. NO RESPIRATORY DISTRESS NOTED. TRACH SECURED AND PATENT. NO BLEEDING NOTED. WILL CONTINUE TO MONITOR CLOSELY.
[2021-09-29] MEDS: VANCOMYCIN 1 GM in IV D5W 250ml IV SCH (22:03)
[2021-09-30] MEDS: ACETAMINOPHEN 650 MG/20.3 ML UDC GT PRN (04:28)
--- NOTE | 2021-09-30 04:28 | NUR ---
RN NOTE PT NOTED WITH FEVER OF 100.4. COOLING MEASURES IMPLEMENTED. ADMINISTERED TYLENOL 650 MG ORDERED FOR FEVER. WILL CONTINUE TO MONITOR.
[2021-09-30 07:03] LABS: BASOPHILS % (AUTO) 0.4 % (0.0-2.0); EOSINOPHILS % (AUTO) 0.3 % (0.0-6.0); HEMATOCRIT 26 % (39-51); HEMOGLOBIN 8.4 g/dL (13.5-17.5); LYMPHOCYTES # (AUTO) 1.2 K/uL (0.8-4.8); LYMPHOCYTES % (AUTO) 15.5 % (20.0-44.0); MEAN CORPUSCULAR HGB CONC 32 g/dl (31.0-36.0); MEAN CORPUSCULAR VOLUME 83 fL (80-96); MONOCYTES # (AUTO) 0.8 K/uL (0.1-1.30); MONOCYTES % (AUTO) 10.1 % (2.0-12.0); NEUTROPHILS # (AUTO) 5.8 K/uL (1.8-8.9); NEUTROPHILS % (AUTO) 73.7 % (43.0-81.0); PLATELET COUNT (AUTO) 273 K/uL (150-450); RED BLOOD CELL COUNT(AUTO) 3.17 MIL/uL (4.5-6.0); WHITE BLOOD COUNT (AUTO) 7.8 K/uL (4.3-11.0)
--- NOTE | 2021-09-30 07:03 | NUR ---
HEAT TREAT FURNACE OPERATOR CLOSING NOTES PATIENT IN BED, EYES CLOSED, EASY TO AROUSE. A/O X1. NO SOB OR S/S OF RESPIRATORY DISTRESS NOTED. WITH TRACH TO VENT MACHINE. ON EXTERNALTELE MONITOR CURRENTLY READING SINUS RHYTHM AT 98BPM. WITH RAMOS CATHETER INTACT. ON CONTACT ISOLATION PRECAUTION MAINTAINED AT ALL TIMES. WITH GT FEEDING RUNNING AT 65ML HOUR. SAFETY PRECAUTIONS IN PLACE AT ALL TIMES. BED ALARM ON. BED IN LOWEST AND LOCKED POSITION. HOB ELEVATED AT ALL TIMES. WILL ENDORSE TO ONCOMING NURSE FOR YESSI.
--- NOTE | 2021-09-30 07:30 | NUR ---
HEALTH SERVICES COORDINATOR OPENING NOTES: RECEIVED PATIENT ON BED, ASLEEP AND A/O X1. NO S/S OF DISTRESS NOTED. NOT IN PAIN. WITH TRACH TO VENT MACHINE. ON TELE MONITOR CURRENTLY READING SINUS RHYTHM AT 95BPM. WITH RAMOS CATHETER INTACT. ON CONTACT ISOLATION PRECAUTION MAINTAINED AT ALL TIMES. WITH GT FEEDING RUNNING AT 65ML HOUR RUNNING WELL. SAFETY MEASURES IN PLACE. BED ALARM ON. BED IN LOWEST AND LOCKED POSITION. HOB ELEVATED AT ALL TIMES. WILL CONTINUE TO MONITOR.
[2021-09-30 07:45] LABS: CALCIUM, SERUM 9.2 mg/dL (8.5-10.1); CARBON DIOXIDE 29 mmol/L (21-32); CHLORIDE 102 mmol/L (98-107); CREATININE 0.9 mg/dL (0.6-1.3); GLUCOSE 177 mg/dL (74-106); POTASSIUM 3.7 mmol/L (3.5-5.1); SODIUM SERUM 139 mmol/L (136-145); UREA NITROGEN, BLOOD 42 mg/dL (7-18)
[2021-09-30] MEDS: LEVALBUTEROL HCL NEB 1.25 MG/0.5 ML VIAL.NEB NEB SCH ×3 (07:46→23:43)
[2021-09-30 08:00] VITALS: BP 101/52
[2021-09-30] MEDS: GABAPENTIN 100 MG CAPSULE GT SCH ×2 (08:22→20:57)
[2021-09-30] MEDS: PROSOURCE / PROSTAT (PYXIS) 30 ML UDC GT SCH (08:22)
[2021-09-30] MEDS: PANTOPRAZOLE 40 MG VIAL IV SCH ×2 (08:22→16:58)
[2021-09-30] MEDS: ARGININE/GLUTAMINE/CALCIUM BMB 1 EACH POWD.PACK GT SCH ×2 (08:22→16:57)
[2021-09-30] MEDS: LEVETIRACETAM SOL (5 ML) 100 MG/ML UDC GT SCH ×2 (08:23→20:57)
[2021-09-30] MEDS: CHLORHEXIDINE GLUCONATE 15 ML UDC MM SCH ×2 (08:23→16:58)
[2021-09-30] MEDS: GLUCERNA 1.2 1,000 ML BOTTLE NG SCH (08:24)
[2021-09-30] MEDS: MEROPENEM 1 G in IV NS 0.9% 100 ML IV SCH ×2 (08:25→20:57)
[2021-09-30] MEDS: AMLODIPINE BESYLATE 10 MG TABLET GT SCH (09:00)
[2021-09-30] MEDS: METOPROLOL TARTRATE 25 MG TABLET GT SCH ×2 (09:00→20:57)
[2021-09-30] MEDS: FUROSEMIDE 20 MG TABLET GT SCH (09:00)
[2021-09-30] MEDS: HYDROGEL DRESSING 90 GM TUBE TP SCH (09:20)
[2021-09-30] MEDS: HYDROCORTISONE 1% CREAM 28.35 GM TUBE TP SCH ×2 (09:21→16:59)
--- NOTE | 2021-09-30 09:56 | NUR ---
WOUND CARE CONSULT: PT SEEN FOR LEFT BUTTOCK DEEP TISSUE INJURY IN EVOLUTION WITH SURROUNDING SCARRING. SURGICAL TEAM ON CASE FOR SACRAL WOUND. RECOMMENDATIONS MADE FOR SKIN PROTECTION AND WOUND CARE. DISCUSSED WITH NURSING STAFF. PT IS ON FIRST STEP LOW AIRLOSS MATTRESS. PT NOTED TO HAVE MULTIPLE CO-MORBIDITIES. DUE TO MULTIPLE CO-MORBIDITIES, FURTHER SKIN BREAKDOWN MAY BE UNAVOIDABLE. MD IN AGREEMENT WITH PLAN OF CARE. Addendum: 09/30/21 at 0958 by ROLANDO OVIEDO WNDNU Amended: Links added.
[2021-09-30] MEDS ORDERED: PERMETHRIN 5% CRM 60 GM TUBE TP ONE (12:30)
[2021-09-30] MEDS ORDERED: IVERMECTIN 3 MG TABLET PO ONE (12:30)
[2021-09-30 16:00] VITALS: BP 105/53
[2021-09-30] MEDS: DOCUSATE SODIUM LIQ 100 MG/10 ML UDC GT SCH (17:00)
[2021-09-30] MEDS: FERROUS SULFATE UDC 300 MG/5 ML UDC GT SCH (17:00)
[2021-09-30] MEDS: ASCORBIC ACID 500 MG TABLET GT SCH (17:00)
--- NOTE | 2021-09-30 18:48 | NUR ---
SALON/SPA MANAGER CLOSING NOTES: PATIENT ON BED, ASLEEP AND A/O X1. NO S/S OF DISTRESS NOTED. NOT IN PAIN. WITH TRACH TO VENT MACHINE. ON TELE MONITOR CURRENTLY READING SINUS RHYTHM AT SINUS TACHYCARDIA AT 101BPM. WITH RAMOS CATHETER INTACT. ON CONTACT ISOLATION PRECAUTION MAINTAINED AT ALL TIMES. WITH GT FEEDING RUNNING AT 65ML HOUR RUNNING WELL. DUE MEDS GIVEN. SAFETY MEASURES IN PLACE. BED ALARM ON. BED IN LOWEST AND LOCKED POSITION. HOB ELEVATED AT ALL TIMES. WILL ENDORSE TO NEXT SHIFT FOR YESSI.
--- NOTE | 2021-09-30 19:33 | NUR ---
PRESIDENT/GM PRODUCTION & LIVE EXPERIENCES OPENING NOTES RECEIVED PATIENT IN BED, EYES CLOSED AND EASILY AROUSABLE. A/O X1. O2 SAT AT 100%. NO SOB OR S/S OF RESPIRATORY DISTRESS NOTED. WITH TRACH TO VENT MACHINE. ON EXTERNAL TELE MONITOR CURRENTLY READING SINUS RHYTHM AT 94 BPM. WITH RAMOS CATHETER INTACT. ON CONTACT ISOLATION PRECAUTIONS. WITH GT FEEDING RUNNING AT 65ML/HOUR. SAFETY PRECAUTIONS IN PLACE. BED IN LOWEST LOCKED POSITION, HOB ELEVATED, SIDE RAILS UP X3, BED ALARM ON, AND CALL LIGHT AND TABLE WITHIN REACH. WILL CONTINUE WITH PLAN OF CARE.
[2021-09-30 20:00] VITALS: BP 95/48
--- NOTE | 2021-09-30 21:00 | NUR ---
RN NOTE HELD METOPROLOL FOR BP 95/58 AND HR 103 ORDERED. WILL CONTINUE TO MONITOR.
[2021-09-30] MEDS: VANCOMYCIN 1 GM in IV D5W 250ml IV SCH (22:10)
[2021-10-01] VITALS (11 sets, daily range): BP systolic 88–113; BP diastolic 44–60
--- NOTE | 2021-10-01 06:41 | NUR ---
FUR TRIMMING MACHINE OPERATOR CLOSING NOTES PATIENT IN BED, EYES CLOSED, EASY TO AROUSE. A/O X1. NO SOB OR S/S OF RESPIRATORY DISTRESS NOTED. WITH TRACH TO VENT MACHINE. ON EXTERNAL SOFTWARE QUALITY TEST ENGINEER CURRENTLY READING SINUS RHYTHM AT 98BPM. IV ACCESS JUAN AND MAURO MIDLINE, BOTH INTACT AND PATENT. WITH RAMOS CATHETER INTACT. ON CONTACT ISOLATION PRECAUTION MAINTAINED AT ALL TIMES. WITH GT FEEDING RUNNING AT 65ML HOUR. SAFETY PRECAUTIONS IN PLACE AT ALL TIMES. BED ALARM ON. BED IN LOWEST AND LOCKED POSITION. HOB ELEVATED AT ALL TIMES. WILL ENDORSE TO ONCOMING NURSE FOR YESSI.
[2021-10-01 07:15] LABS: CREATININE 0.8 mg/dL (0.6-1.3); POTASSIUM 3.6 mmol/L (3.5-5.1)
--- NOTE | 2021-10-01 07:31 | NUR ---
VALVE PIPE IRRIGATOR OPENING NOTES RECEIVED PATIENT IN BED, EYES CLOSED AND EASILY AROUSABLE. A/O X1, NON VERBAL. WITH TRACH SHILEY 7 TO VENT WITH THE FOLLOWING SETTINGS: AC 16, TV 500, FIO2 30%, PEEP 5, TOLERATED WELL. NO SOB OR S/S OF RESPIRATORY DISTRESS NOTED. ON EXTERNAL TELE MONITOR CURRENTLY READING SINUS RHYTHM AT 94 BPM. WITH RAMOS CATHETER INTACT, DRAINING AGATHA COLORED URINE. WITH GT FEEDING OF GLUCERNA RUNNING AT 65ML/HOUR. ASPIRATION PRECAUTION OBSERVED AT ALL TIMES. SAFETY PRECAUTIONS IN PLACE. BED IN LOWEST LOCKED POSITION, HOB ELEVATED, SIDE RAILS UP, CALL LIGHT AND TABLE WITHIN REACH. WILL CONTINUE TO MONITOR.
[2021-10-01] MEDS: LEVALBUTEROL HCL NEB 1.25 MG/0.5 ML VIAL.NEB NEB SCH ×3 (07:54→23:31)
[2021-10-01 08:00] LABS: BASOPHILS % (AUTO) 0.3 % (0.0-2.0); EOSINOPHILS % (AUTO) 0.3 % (0.0-6.0); HEMATOCRIT 23 % (39-51); HEMOGLOBIN 7.4 g/dL (13.5-17.5); LYMPHOCYTES # (AUTO) 1.5 K/uL (0.8-4.8); LYMPHOCYTES % (AUTO) 18.1 % (20.0-44.0); MEAN CORPUSCULAR HGB CONC 32 g/dl (31.0-36.0); MEAN CORPUSCULAR VOLUME 80 fL (80-96); MONOCYTES # (AUTO) 0.8 K/uL (0.1-1.30); MONOCYTES % (AUTO) 9.7 % (2.0-12.0); NEUTROPHILS # (AUTO) 5.8 K/uL (1.8-8.9); NEUTROPHILS % (AUTO) 71.6 % (43.0-81.0); PLATELET COUNT (AUTO) 242 K/uL (150-450); RED BLOOD CELL COUNT(AUTO) 2.91 MIL/uL (4.5-6.0)
[2021-10-01] MEDS: METOPROLOL TARTRATE 25 MG TABLET GT SCH ×2 (09:00→22:20)
[2021-10-01] MEDS: FUROSEMIDE 20 MG TABLET GT SCH (09:00)
[2021-10-01] MEDS: AMLODIPINE BESYLATE 10 MG TABLET GT SCH (09:00)
[2021-10-01] MEDS: LEVETIRACETAM SOL (5 ML) 100 MG/ML UDC GT SCH ×2 (09:18→22:15)
[2021-10-01] MEDS: GABAPENTIN 100 MG CAPSULE GT SCH ×2 (09:18→22:16)
[2021-10-01] MEDS: CHLORHEXIDINE GLUCONATE 15 ML UDC MM SCH ×2 (09:18→17:29)
[2021-10-01] MEDS: PANTOPRAZOLE 40 MG VIAL IV SCH ×2 (09:19→17:29)
[2021-10-01] MEDS: PROSOURCE / PROSTAT (PYXIS) 30 ML UDC GT SCH (09:20)
[2021-10-01] MEDS: MEROPENEM 1 G in IV NS 0.9% 100 ML IV SCH (09:23)
[2021-10-01] MEDS: HYDROGEL DRESSING 90 GM TUBE TP SCH (09:25)
[2021-10-01] MEDS: HYDROCORTISONE 1% CREAM 28.35 GM TUBE TP SCH ×2 (09:25→17:30)
[2021-10-01] MEDS: ARGININE/GLUTAMINE/CALCIUM BMB 1 EACH POWD.PACK GT SCH ×2 (10:01→17:31)
[2021-10-01] MEDS: GLUCERNA 1.2 1,000 ML BOTTLE NG SCH (12:39)
--- NOTE | 2021-10-01 15:20 | NUR ---
RT EMERGENCY TRACH TUBE CHANGE PER MD ORDER DUE TO STAFF ATTORNEY BALLOON MALFUNCTION. TRACH TUBE SHILEY 7 XLT DISTAL CUFFED INSERTED. NO COMPLICATIONS NOTED. HR PAYROLL COORDINATOR DONE. NO BLEEDING NOTED. BILATERAL BREATH SOUNDS ON AUSCULTATION. SPARE TRACH AND AMBU BAG AT BEDSIDE. TRACH SECURED AND AIRWAY PATENT. SUCTIONED PRE/POST PROCEDURE. NO SOB NOTED AT THIS TIME. LORRAINE KAPLAN NOTIFIED AND AWARE. WILL CONTINUE TO MONITOR THE PATIENT. Addendum: 10/01/21 at 1553 by SMOOTH DANIELLE RT Amended: Links added.
[2021-10-01] MEDS: EPOETIN ALFA-EPBX 4,000 UNIT/ML VIAL SQ SCH (15:47)
--- NOTE | 2021-10-01 17:02 | NUR ---
RN NOTES BLOOD TRANSFUSION OF 1PRBS STARTED. WILL MONITOR FOR ADVERSE REACTIONS.
[2021-10-01] MEDS: FERROUS SULFATE UDC 300 MG/5 ML UDC GT SCH (17:29)
[2021-10-01] MEDS: ASCORBIC ACID 500 MG TABLET GT SCH (17:29)
[2021-10-01] MEDS: DOCUSATE SODIUM LIQ 100 MG/10 ML UDC GT SCH (17:31)
--- NOTE | 2021-10-01 18:47 | NUR ---
QUALITY SYSTEMS TECHNICIAN CLOSING NOTES PATIENT RESTING IN BED, EYES CLOSED AND EASILY AROUSE. A/O X1, NON VERBAL. WITH TRACH SHILEY 7 TO VENT WITH THE FOLLOWING SETTINGS: AC 16, TV 500, FIO2 30%, PEEP 5, TOLERATED WELL. NO SOB OR S/S OF RESPIRATORY DISTRESS NOTED. ON EXTERNAL TELE MONITOR CURRENTLY READING SINUS RHYTHM AT 92 BPM. WITH RAMOS CATHETER INTACT, DRAINING AGATHA COLORED URINE. ALL DUE MEDS GIVEN, FLUSHED GTUBE ORDERED. WITH GT FEEDING OF GLUCERNA RUNNING AT 65ML/HOUR. BLOOD TRANSFUSION OF 1 PRBC ONGOING, NO REACTIONS NOTED. ASPIRATION PRECAUTION OBSERVED AT ALL TIMES. SAFETY PRECAUTIONS IN PLACE. BED IN LOWEST LOCKED POSITION, HOB ELEVATED, SIDE RAILS UP, CALL LIGHT AND TABLE WITHIN REACH. WILL ENDORSE TO NEXT SHIFT.
--- NOTE | 2021-10-01 19:00 | NUR ---
BACON SLICER OPENING NOTES: RECEIVED REPORT AT PATIENT'S BEDSIDE. NO CHANGE FROM PREVIOUS CLOSING ASSESSMENT. PATIENT IN NAD AND VSS AT THIS TIME. 1 UNIT PRBCs IN PROCESS OF TRANSFUSING. BED IN LOW, LOCKED POSITION. HOB ELEVATED SEMI PALMA'S POSITION. SIDE RAILS UP X4.
--- NOTE | 2021-10-01 20:47 | NUR ---
WARE SERVER NOTES: 1 UNIT PRBCs TRANSFUSION COMPLETED AND FLUSHED WITH 60ML NS @ 150ML/HR. VS TAKEN AND PATIENT STABLE. NAD AND NO S/SX REACTION/PULMONARY OR PERIPHERAL EDEMA.
--- NOTE | 2021-10-01 21:40 | NUR ---
MS RN NOTES: ENTERED PATIENT'S ROOM AFTER BEING ALERTED TO VENT MONITOR ALARMING. COPIOUS SECRETIONS OBSERVED FROTHING FROM PATIENT'S MOUTH. SpO2 AND HR DROPPING OBSERVED ON BEDSIDE MONITOR. PATIENT IN OBVIOUS DISTRESS EVIDENCED BY NO RESPONSE TO STERNAL RUB AND FIXED GAZE -- WHICH IS UNUSUAL FROM MY PREVIOUS ASSESSMENT. WITHIN SECONDS RN CAME TO ROOM TELE READINGS DEMONSTRATING A DRAMATIC DROP IN PATIENT'S HR TO THE POINT OF WHAT APPEARED NEAR ASYSTOLE. RAPID RESPONSE CALLED AND BETTYE TO SUCTION APPLIED ORALLY; AND CLOSED SYSTEM TRACH SUCTION APPLIED X3 PASSES. AFTER APPROXIMATELY 5 MINUTES PATIENT BEGAN TO STABILIZE. VS 122/78, 102, 16, 98.7, SpO2 100%
[2021-10-02] VITALS: BP 108/54
[2021-10-02 02:24] LABS: BASOPHILS % (AUTO) 0.5 % (0.0-2.0); EOSINOPHILS % (AUTO) 0.2 % (0.0-6.0); HEMATOCRIT 26 % (39-51); HEMOGLOBIN 8.6 g/dL (13.5-17.5); LYMPHOCYTES # (AUTO) 1.6 K/uL (0.8-4.8); MEAN CORPUSCULAR HGB CONC 33 g/dl (31.0-36.0); MEAN CORPUSCULAR VOLUME 81 fL (80-96); MONOCYTES # (AUTO) 0.6 K/uL (0.1-1.30); MONOCYTES % (AUTO) 7.2 % (2.0-12.0); NEUTROPHILS # (AUTO) 6.4 K/uL (1.8-8.9); NEUTROPHILS % (AUTO) 74.1 % (43.0-81.0); PLATELET COUNT (AUTO) 237 K/uL (150-450); RED BLOOD CELL COUNT(AUTO) 3.23 MIL/uL (4.5-6.0); WHITE BLOOD COUNT (AUTO) 8.7 K/uL (4.3-11.0)
[2021-10-02 04:00] VITALS: BP 114/55
[2021-10-02 07:33] LABS: BASOPHILS % (AUTO) 0.4 % (0.0-2.0); CREATININE 0.7 mg/dL (0.6-1.3); EOSINOPHILS % (AUTO) 0.3 % (0.0-6.0); HEMATOCRIT 27 % (39-51); HEMOGLOBIN 8.5 g/dL (13.5-17.5); LYMPHOCYTES # (AUTO) 1.3 K/uL (0.8-4.8); LYMPHOCYTES % (AUTO) 21.4 % (20.0-44.0); MEAN CORPUSCULAR HGB CONC 32 g/dl (31.0-36.0); MEAN CORPUSCULAR VOLUME 83 fL (80-96); MONOCYTES # (AUTO) 0.5 K/uL (0.1-1.30); MONOCYTES % (AUTO) 8.6 % (2.0-12.0); NEUTROPHILS # (AUTO) 4.3 K/uL (1.8-8.9); NEUTROPHILS % (AUTO) 69.3 % (43.0-81.0); PLATELET COUNT (AUTO) 237 K/uL (150-450); POTASSIUM 3.5 mmol/L (3.5-5.1); RED BLOOD CELL COUNT(AUTO) 3.18 MIL/uL (4.5-6.0); WHITE BLOOD COUNT (AUTO) 6.2 K/uL (4.3-11.0)
[2021-10-02 08:00] VITALS: BP 108/62
--- NOTE | 2021-10-02 08:00 | NUR ---
RN OPENING NOTE PT IN BED RESTING. NO SIGNS OF DISTRESS. NO COMPLAINT OF PAIN OR NAUSEA. IV LINE CHECKED AND FLUSHES WELL. SAFETY MEASURES IN PLACE. SIDE RAILS RAISED. BED LOWERED. CALL LIGHT WITHIN REACH. WILL CONTINUE TO MONITOR.
[2021-10-02] MEDS: LEVALBUTEROL HCL NEB 1.25 MG/0.5 ML VIAL.NEB NEB SCH ×3 (08:15→23:48)
[2021-10-02] MEDS: HYDROCORTISONE 1% CREAM 28.35 GM TUBE TP SCH ×2 (09:00→17:00)
[2021-10-02] MEDS: HYDROGEL DRESSING 90 GM TUBE TP SCH (09:00)
[2021-10-02] MEDS: LEVETIRACETAM SOL (5 ML) 100 MG/ML UDC GT SCH ×2 (09:14→21:38)
[2021-10-02] MEDS: PROSOURCE / PROSTAT (PYXIS) 30 ML UDC GT SCH (09:14)
[2021-10-02] MEDS: FUROSEMIDE 20 MG TABLET GT SCH (09:14)
[2021-10-02] MEDS: ARGININE/GLUTAMINE/CALCIUM BMB 1 EACH POWD.PACK GT SCH ×2 (09:14→16:03)
[2021-10-02] MEDS: GABAPENTIN 100 MG CAPSULE GT SCH ×2 (09:14→21:38)
[2021-10-02] MEDS: AMLODIPINE BESYLATE 10 MG TABLET GT SCH (09:15)
[2021-10-02] MEDS: CHLORHEXIDINE GLUCONATE 15 ML UDC MM SCH ×2 (09:15→16:02)
[2021-10-02] MEDS: PANTOPRAZOLE 40 MG VIAL IV SCH ×2 (09:15→16:02)
[2021-10-02] MEDS: METOPROLOL TARTRATE 25 MG TABLET GT SCH ×2 (09:37→21:00)
[2021-10-02 12:00] VITALS: BP 104/47
[2021-10-02 16:00] VITALS: BP 107/51
[2021-10-02] MEDS: ASCORBIC ACID 500 MG TABLET GT SCH (17:33)
[2021-10-02] MEDS: FERROUS SULFATE UDC 300 MG/5 ML UDC GT SCH (17:33)
[2021-10-02] MEDS: DOCUSATE SODIUM LIQ 100 MG/10 ML UDC GT SCH (17:33)
--- NOTE | 2021-10-02 18:34 | NUR ---
RN CLOSING NOTE PT IN BED RESTING. ALL NEEDS MET. PT IN COMFORTABLE POSITION. NO SIGNS OF DISTRESS. NO COMPLAINT OF PAIN OR NAUSEA. IV LINE INTACT. FLUSHES WELL. CALL LIGHT WITHIN REACH. BED LOWERED. SIDE RAILS RAISED. WILL GIVE REPORT TO NIGHT NURSE FOR YESSI.
--- NOTE | 2021-10-02 19:15 | NUR ---
TELE OPENING NOTE PATIENT RECEIVED AWAKE IN BED. A/OX1 NONVERBAL. NO S/S OF DISTRESS, BREATHING ON VENT WITH NO OBSTRUCTION, GARDEN MACHINERY MECHANIC REPORTS SR81. SAFETY MEASURES IN PLACE: BED AT LOWEST POSITION, RAILS UP X2, CALL LUNA WITHIN REACH. WILL CONTINUE TO MONITOR.
[2021-10-02 20:00] VITALS: BP 107/46
--- NOTE | 2021-10-02 21:40 | NUR ---
telephone technician note i am holding pt's bp metoprolol as his bp is 107/48 w hr of 82. i notified my charge, darlene. will continue to monitor pt.
[2021-10-03] VITALS: BP 140/50
[2021-10-03 06:46] LABS: BASOPHILS % (AUTO) 0.6 % (0.0-2.0); EOSINOPHILS % (AUTO) 1.6 % (0.0-6.0); HEMATOCRIT 26 % (39-51); HEMOGLOBIN 8.5 g/dL (13.5-17.5); LYMPHOCYTES # (AUTO) 1.3 K/uL (0.8-4.8); LYMPHOCYTES % (AUTO) 25.5 % (20.0-44.0); MEAN CORPUSCULAR HGB CONC 33 g/dl (31.0-36.0); MEAN CORPUSCULAR VOLUME 86 fL (80-96); MONOCYTES # (AUTO) 0.4 K/uL (0.1-1.30); MONOCYTES % (AUTO) 7.8 % (2.0-12.0); NEUTROPHILS # (AUTO) 3.2 K/uL (1.8-8.9); NEUTROPHILS % (AUTO) 64.5 % (43.0-81.0); PLATELET COUNT (AUTO) 226 K/uL (150-450); RED BLOOD CELL COUNT(AUTO) 2.98 MIL/uL (4.5-6.0)
[2021-10-03] MEDS: LEVALBUTEROL HCL NEB 1.25 MG/0.5 ML VIAL.NEB NEB SCH ×2 (07:28→14:09)
[2021-10-03 07:56] LABS: CALCIUM, SERUM 9.1 mg/dL (8.5-10.1); CREATININE 0.7 mg/dL (0.6-1.3); POTASSIUM 3.5 mmol/L (3.5-5.1)
[2021-10-03 08:00] VITALS: BP 121/68
--- NOTE | 2021-10-03 08:00 | NUR ---
RN NOTES PATIENT SEEN BY DR. RICE W/ ORDER NOTED.
[2021-10-03] MEDS: PROSOURCE / PROSTAT (PYXIS) 30 ML UDC GT SCH (09:14)
[2021-10-03] MEDS: ARGININE/GLUTAMINE/CALCIUM BMB 1 EACH POWD.PACK GT SCH ×2 (09:14→16:01)
[2021-10-03] MEDS: HYDROCORTISONE 1% CREAM 28.35 GM TUBE TP SCH ×2 (09:16→16:02)
[2021-10-03] MEDS: HYDROGEL DRESSING 90 GM TUBE TP SCH (09:17)
[2021-10-03] MEDS: FUROSEMIDE 20 MG TABLET GT SCH (09:19)
[2021-10-03] MEDS: GABAPENTIN 100 MG CAPSULE GT SCH (09:19)
[2021-10-03] MEDS: PANTOPRAZOLE 40 MG VIAL IV SCH ×2 (09:19→16:02)
[2021-10-03] MEDS: ACETAMINOPHEN 650 MG/20.3 ML UDC GT PRN (09:19)
[2021-10-03] MEDS: LEVETIRACETAM SOL (5 ML) 100 MG/ML UDC GT SCH (09:21)
[2021-10-03] MEDS: CHLORHEXIDINE GLUCONATE 15 ML UDC MM SCH ×2 (09:21→16:02)
[2021-10-03] MEDS: AMLODIPINE BESYLATE 10 MG TABLET GT SCH (09:21)
[2021-10-03] MEDS: METOPROLOL TARTRATE 25 MG TABLET GT SCH (09:21)
--- NOTE | 2021-10-03 10:07 | NUR ---
RN NOTES CHERI SAUCEDO, ACADEMIC VICE PRESIDENT; PER CM, [facility] ORDER FOR RAPID COVID TEST NOTED.
--- NOTE | 2021-10-03 10:25 | NUR ---
RN NOTES COVID TEST SWAB SPECIMEN OBTAINED. EMT AND RT AT THE UNIT TO PICKUP PATIENT BUT SCHEDULED PICKUP TIME IS AT 1800. SPOKE W/ BERNABE SAUCEDO, AND WAS INFORMED TO CANCEL THIS TRANSPORTATION BECAUSE ARRANGEMENT HAS ALREADY BEEN MADE FOR 1800. TRANSPORTATION AWARE. CHARGE NURSE MADE AWARE.
[2021-10-03 12:07] VITALS: BP 104/46
--- NOTE | 2021-10-03 13:08 | NUR ---
RN NOTES RAPID COVID TEST NEGATIVE PER LAB RESULTS.
[2021-10-03] MEDS: GLUCERNA 1.2 1,000 ML BOTTLE NG SCH (14:17)
[2021-10-03] MEDS: ASCORBIC ACID 500 MG TABLET GT SCH (18:06)
[2021-10-03] MEDS: FERROUS SULFATE UDC 300 MG/5 ML UDC GT SCH (18:06)
[2021-10-03] MEDS: DOCUSATE SODIUM LIQ 100 MG/10 ML UDC GT SCH (18:06)
--- NOTE | 2021-10-03 18:09 | NUR ---
RN NOTES PATIENT SEEN BY DR. RICE TODAY W/ ORDER FOR DISCHARGE TO [facility] FOR CONTINUITY OF CARE. DISCHARGE INSTRUCTION AND EDUCATION GIVEN TO RN GRINDER MILL OPERATOR VIANEY DURING PATIENT REPORT. PATIENT UNABLE TO SIGN FORM; DISCHARGE FORM AND BELONGINGS LIST FORM SIGNED BY ME AND WITNESSED BY ANOTHER RN ROSAURA. PATIENT HAS NO BELONGINGS. UNABLE TO TAKE PHOTO OF SKIN ISSUES TRANSPORTATION IS ALREADY AT BEDSIDE TAKING THE PATIENT. MAURO MIDLINE REMOVED, NO BLEEDING NOTED. ENDORSED VENT SETTINGS TO OUTSIDE RT AT BEDSIDE AND REPORT GIVEN TO EMT'S. PATIENT PICKED UP VIA GURNEY. CHARGE NURSE AND MD AWARE OF DISCHARGE.
== END 2021-10-03 18:17 | DRG 951 ==
LOC: ER 19:48 → TELE1 09-20 00:18 → TELE 09-25 01:50
PROVIDERS: ADMIT Nurse Practitioner Acute Care; ATTEND Family Medicine
PROC: 5A1955Z Respiratory Ventilation, Greater than 96 Consecutive Hours (ICD-10-PCS; principal; 2021-09-20)
PROC: 05HB33Z Insertion of Infusion Device into Right Basilic Vein, Percutaneous Approach (ICD-10-PCS; 2021-09-20)
PROC: 05HA33Z Insertion of Infusion Device into Left Brachial Vein, Percutaneous Approach (ICD-10-PCS; 2021-09-21)
PROC: 0DJ08ZZ Inspection of Upper Intestinal Tract, Via Natural or Artificial Opening Endoscopic (ICD-10-PCS; 2021-09-22)
PROC: 0KBN0ZZ Excision of Right Hip Muscle, Open Approach (ICD-10-PCS; 2021-09-27)
PROC: 0KBP0ZZ Excision of Left Hip Muscle, Open Approach (ICD-10-PCS; 2021-09-27)
PROC: 30233N1 Transfusion of Nonautologous Red Blood Cells into Peripheral Vein, Percutaneous Approach (ICD-10-PCS; 2021-10-01)
DX: K25.4 Chronic or unspecified gastric ulcer with hemorrhage (principal); J69.0 Pneumonitis due to inhalation of food and vomit; A41.9 Sepsis, unspecified organism; G93.49 Other encephalopathy; J90 Pleural effusion, not elsewhere classified; J96.11 Chronic respiratory failure with hypoxia; E44.0 Moderate protein-calorie malnutrition; L89.154 Pressure ulcer of sacral region, stage 4; D68.59 Other primary thrombophilia; Z93.0 Tracheostomy status; R53.2 Functional quadriplegia; Z99.11 Dependence on respirator [ventilator] status; F03.90 Unspecified dementia, unspecified severity, without behavioral disturbance, psychotic disturbance, mood disturbance, and anxiety; Z20.822 Contact with and (suspected) exposure to COVID-19; Z93.1 Gastrostomy status; N39.0 Urinary tract infection, site not specified; D62 Acute posthemorrhagic anemia; N40.0 Benign prostatic hyperplasia without lower urinary tract symptoms; Z79.01 Long term (current) use of anticoagulants; G40.909 Epilepsy, unspecified, not intractable, without status epilepticus; Z68.24 Body mass index [BMI] 24.0-24.9, adult; E11.40 Type 2 diabetes mellitus with diabetic neuropathy, unspecified; R13.10 Dysphagia, unspecified; K21.00 Gastro-esophageal reflux disease with esophagitis, without bleeding; K44.9 Diaphragmatic hernia without obstruction or gangrene; E11.621 Type 2 diabetes mellitus with foot ulcer; L97.429 Non-pressure chronic ulcer of left heel and midfoot with unspecified severity; Z79.4 Long term (current) use of insulin; Z79.51 Long term (current) use of inhaled steroids; Z79.899 Other long term (current) drug therapy; J44.9 Chronic obstructive pulmonary disease, unspecified; M24.561 Contracture, right knee; M24.562 Contracture, left knee; J98.11 Atelectasis; K29.70 Gastritis, unspecified, without bleeding; F09 Unspecified mental disorder due to known physiological condition; E11.622 Type 2 diabetes mellitus with other skin ulcer; B96.5 Pseudomonas (aeruginosa) (mallei) (pseudomallei) as the cause of diseases classified elsewhere; I10 Essential (primary) hypertension; M62.562 Muscle wasting and atrophy, not elsewhere classified, left lower leg; M62.561 Muscle wasting and atrophy, not elsewhere classified, right lower leg; M19.90 Unspecified osteoarthritis, unspecified site; E87.0 Hyperosmolality and hypernatremia; I48.91 Unspecified atrial fibrillation; B86 Scabies
CPT/HCPCS: 31720; 36415; 36600; 71045-TC; 80048-TC; 80053-TC; 80076-TC; 80202-TC; 81001; 82962-TC; 83540-TC; 83735-TC; 84100-TC; 84484-TC; 85025-TC; 85027-TC; 85730-TC; 86850-TC; 87040-TC; 87081-TC; 87086-TC; 87186-TC; 93307-TC; 94002-TC; 94003-TC; 94760-TC; 94762-TC; 94799-TC; 99082-TC; A4217; A4623; A6248; A6253; A6403; A7526; C9113; C9803; G0378; J0885; J1953; J2185; J2405; J2543; J3370; J3480; J3490; J7030; J7040; J7050; J7060; P9016; U0003

== ENCOUNTER 2022-10-30 23:24 | Emergency (ER) | payer MEDICAID ==
[~2022-10-30] VITALS: Ht 170.2 cm; Wt 62.6 kg
--- NOTE | 2022-10-30 23:35 | NUR ---
BIBPA FROM SNF FOR ABDOMINAL DISTENTION X2DAYS. RECEIVED PATIENT WITH TRACHE (BEN 8.0) ATTACHED TO VENT ON AC MODE. FIO2 AT 40%, TV 500, RATE 16 AND PEEP OF 5. PATIENT HAS GTUBE TO DRAIN, WITH IFC F16 ATTACHED TO UROBAG. PER PARAMEDICS, THE GTUBE SHOULD STAY OPEN TO PREVENT THE DISTENTION OF THE ABDOMEN WHENEVER THE VENTILATOR PUMPING AIR INTO THE PATIENT'S LUNG. PATIENT IS AAOX0, ATTACHED TO MONITOR. VITALS CHECKED.
--- NOTE | 2022-10-30 23:46 | NUR ---
CHIEF AIRLINE RADIO OPERATOR AT PT'S BEDSIDE
--- NOTE | 2022-10-31 00:03 | NUR ---
URINE SPECIMEN SENT TO LAB
--- NOTE | 2022-10-31 00:03 | NUR ---
IV CANNULA G20 INSERTED ON RIGHT FA. BLOOD DRAWN AND SENT TO LAB
--- NOTE | 2022-10-31 00:18 | NUR ---
GOING TO CT
[2022-10-31 00:24] LABS: BASOPHILS % (AUTO) 0.3 % (0.0-2.0); HEMATOCRIT 35 % (39-51); HEMOGLOBIN 10.4 g/dL (13.5-17.5); LYMPHOCYTES # (AUTO) 2.1 K/uL (0.8-4.8); LYMPHOCYTES % (AUTO) 19.5 % (20.0-44.0); MEAN CORPUSCULAR HGB CONC 30 g/dl (31.0-36.0); MEAN CORPUSCULAR VOLUME 82 fL (80-96); MONOCYTES # (AUTO) 0.5 K/uL (0.1-1.30); MONOCYTES % (AUTO) 4.7 % (2.0-12.0); NEUTROPHILS # (AUTO) 8.2 K/uL (1.8-8.9); NEUTROPHILS % (AUTO) 75.5 % (43.0-81.0); PLATELET COUNT (AUTO) 250 K/uL (150-450); RED BLOOD CELL COUNT(AUTO) 4.24 MIL/uL (4.5-6.0); WHITE BLOOD COUNT (AUTO) 10.8 K/uL (4.3-11.0)
--- NOTE | 2022-10-31 00:31 | NUR ---
CAME BACK FROM CT DEPT
[2022-10-31 00:36] LABS: CALCIUM, SERUM 9.6 mg/dL (8.5-10.1); CREATININE 0.9 mg/dL (0.6-1.3); POTASSIUM 4.1 mmol/L (3.5-5.1)
--- NOTE | 2022-10-31 01:10 | NUR ---
RT NOTE PT BROUGHT IN FROM [facility] FOR G TUBE MALFUNCTION. PT PLACED ON VENT PER SETTINGS GIVEN BY TRANSPORT RT AC 16,500,40%+5. PT SX'D FOR SMALL THIN SECRETIONS. PT TRANSPORTED TO CT AND BACK WITH NO ISSUES. PT IS STABLE. VENT PLUGGED INTO RED OUTLET W [facility] AT [facility]. ALARMS SET AND AUDIBLE. NO RESP DISTRESS AT THIS TIME. Addendum: 10/31/22 at 0408 by JESSI BURROUGHS RT Amended: Links added.
--- NOTE | 2022-10-31 02:07 | NUR ---
[facility] CALLED ETA 20 MINUTES
--- NOTE | 2022-10-31 03:07 | NUR ---
BLS WITH RT FOR TRANSPORTATION BACK TO THE FACILITY WITH ETA: 10:00 Addendum: 10/31/22 at 0308 by [facility]
--- NOTE | 2022-10-31 04:00 | NUR ---
REPOSITION PATIENT COMFORTABLY.
--- NOTE | 2022-10-31 05:02 | NUR ---
SUCTION SECRETIONS DONE, RT AT BEDSIDE. MACHINE KEEPS ON BEEPING. TRIED DECOMPRESSING THE ABDOMEN BY OPENNING THE GTUBE PER ADVICE BY ACCOUNT GENERAL MANAGER WHO PICKED UP PT FROM SNF. AFTER 20MINS, PATIENT'S RESPI LEVEL NORMALIZED.
--- NOTE | 2022-10-31 07:34 | NUR ---
[facility] CALLED ETA 10 AM
--- NOTE | 2022-10-31 10:39 | NUR ---
[facility] ambulance at bedside with tracer lathe set up operator and RT-picking up the patient-being transferred back to the retirement
[2022-10-31 10:40] VITALS: BP 122/68
== END 2022-10-31 10:40 ==
LOC: ER 23:25
DX: K42.9 Umbilical hernia without obstruction or gangrene (principal); Z71.1 Person with feared health complaint in whom no diagnosis is made; F03.90 Unspecified dementia, unspecified severity, without behavioral disturbance, psychotic disturbance, mood disturbance, and anxiety; G40.909 Epilepsy, unspecified, not intractable, without status epilepticus; I10 Essential (primary) hypertension; E11.9 Type 2 diabetes mellitus without complications; D64.9 Anemia, unspecified; Z79.4 Long term (current) use of insulin; Z79.899 Other long term (current) drug therapy
CPT/HCPCS: 31720; 36415; 80048-TC; 85025-TC; 94002-TC; 94799-TC; 99082-TC